=== PATIENT | male | born 1980 | race Caucasian/White ===

== ENCOUNTER 2023-09-08 08:38 | Day surgery (SDC) | payer BC, SELFPAY ==
[2023-09-08] VITALS (27 sets, daily range): BP systolic 120–177; BP diastolic 71–100; PULSE 48–93; TEMP 36.6–37.1; O2SAT 94–100; BMI 19.3
--- NOTE | 2023-09-08 | FL_ITS ---
The [address] [address] Patient Name: JAKOB FUENTES MRN: [id number] date: 1980 Sex: M Assigned Patient Location: [facility] Current Patient Location: Accession/Order Number: [id number] Exam Date: 09/08/2023 14:00 Report Date: 09/14/2023 08:59 At the request of: GUNNER SANDY Procedure: FL fluoroscopy <1hr NON-READ EXAM: FL fluoroscopy <1hr NON-READ HISTORY: TECHNIQUE: FINDINGS: Please see Operative Report. Electronically authenticated by: RADIOLOGIST NO Date: 09/14/2023 08:59
[2023-09-08] MEDS: LACTATED RINGER'S SOLUTION 1,000 ML 50 ML IV ×2 (09:46→14:22)
[2023-09-08 10:02] LABS: Partial Thromboplastin Time 29.2 sec (22.3-36.2)
[2023-09-08] MEDS: KETOROLAC TROMETHAMINE 30 MG/ML VIAL IVP (10:02)
[2023-09-08 10:26] LABS: INR 1.03; Prothrombin Time 10.9 sec (9.0-11.6)
[2023-09-08] MEDS: CEFAZOLIN SODIUM/DEXTROSE,ISO 1 GM/50 ML IV.SOLN IV (13:32)
--- NOTE | 2023-09-08 14:43 | PM.URSON ---
Urology Surgery Operative Note Operative Note Procedure Date: 09/08/23 Time Out Performed: yes Pre-op Diagnosis: Left UPJ 9 mm calculus Post-op Diagnosis: same as pre-op Procedures performed: 1. Cystoscopy. 2. Left ureteroscopy. 3. Thulium laser lithotripsy of a large left ureteral calculus. 4. Stone basket extraction. 5. Placement of 6 Indonesian variable length left ureteral stent 6. Urethral dilation with Sulphur sounds to 24 Indonesian. Anesthesia: General-LMA Primary Surgeon: Otf Bhagat Complications: None Estimated blood loss (mL): 5 Findings: Irregular oblong large UPJ calculus Specimens: Left UPJ calculus Drains: 6 Indonesian variable length left ureteral stent Indications for Procedures: This gentleman has a 9 to 10 mm left UPJ calculus that has been causing pain and blood in the urine for over a week. He is desirous for stone manipulation and stent placement. He has signed an informed consent after all risks were explained. Detailed description of Procedure: The patient was brought to the operating room and placed on the operating room table in the supine position. SCDs were placed on the lower extremities and turned on and functioning during the entire case. Timeout was done by all parties in the room. We all agreed upon the patient's identification and the planned procedures for this patient. Genn. anesthesia was then administered. The patient was then repositioned into the modified dorsal lithotomy position. All pressure points were satisfactorily padded. Genitalia were sterilely prepped and draped in usual fashion.I started by attempting to pass a 22 Indonesian Olympus cystoscope but was unable due to urethral stenosis. I then used [place] sounds and dilated him from 20 Indonesian up to 24 Indonesian.I then was able to pass the cystoscope per urethra and into the bladder. Panendoscopy in the bladder showed no evidence of any tumors or stones. While using fluoroscopy I could clearly see the stone at the UPJ level. I then passed a Glidewire through the scope and cannulated the left ureter. The wire went up to the stone and it buckled numerous times. Eventually I was able to get the wire beyond the stone into the kidney. The scope was then removed. I then passed a 10/12 Indonesian ureteral access sheath over the wire and up the ureter. I was able to get it up to the proximal ureter. The stylette and wire were then removed. I then passed a flexible ureteroscope through the access sheath and then into the ureter. I ascended up the ureter and was able to get to the stone at the UPJ. The stone was very irregular and oblong. It was large. It was stuck. I then passed a 200 Angstrom laser fiber through the scope and made contact with ink to. I then began using the thulium laser and doing lithotripsy at 6 W continuously in the fragmenting mode. ICracked the stone into a few pieces. The largest piece then fell into the renal pelvis. I then did pyeloscopy and used the laser effectively to dust the stone. Once the stone was fully dusted I then brought the scope back into the ureter and used a 0 tip nitinol basket and engaged the other 2 pieces and these were extracted down and out and sent for stone analysis. Fluoroscopically we could not see any stone remaining. Endoscopically I could not see any. I then passed a Glidewire through the sheath into the kidney and removed the access sheath. I then backloaded the cystoscope over the wire and passed it into the bladder and then slid a 6 Indonesian variable length ureteral stent over the wire up into the kidney. The wire was removed and there were good curls in the kidney and in the bladder. The bladder was drained of its contents and the scope was then removed. [facility] and wheeled to PACU in stable condition. He will get discharged to home later today with a prescription for Vesicare 10 mg daily #14 and cephalexin 500 mg twice daily #14
[2023-09-08] MEDS: HYDROMORPHONE HCL 0.5 MG/0.5 ML SYRINGE IV ×2 (15:04→15:15)
[2023-09-08] MEDS: SOLIFENACIN SUCCINATE 10 MG TABLET PO (15:05)
--- NOTE | 2023-09-08 15:10 | PC.NURSE ---
Voided in urinal post red urine
--- NOTE | 2023-09-08 15:19 | PC.NURSE ---
Medicated as ordered for pain
[2023-09-08] MEDS: ONDANSETRON PF 4 MG/2 ML VIAL IV (15:55)
[2023-09-08] MEDS: EPHEDRINE SULFATE 50 MG/ML VIAL IV (16:20)
[2023-09-08] MEDS: KETOROLAC TROMETHAMINE 30 MG/ML VIAL 15 MG IVP (16:47)
--- NOTE | 2023-09-08 16:53 | PC.NURSE ---
Medicated with Toradol as ordered for pain; has not had emesis for last 5 mins.
[2023-09-08] MEDS: PROMETHAZINE HCL 12.5 MG in 0.9 % SODIUM CHLORIDE 50 ML 202 MG IV (18:15)
== END 2023-09-08 18:52 | disposition home or self-care (01) ==
PROVIDERS: Visit Provider Urology
PROC: (CPT 918; principal; 2023-09-08 13:00)
DX: N20.1 Calculus of ureter (principal); N35.919 Unspecified urethral stricture, male, unspecified site; F17.210 Nicotine dependence, cigarettes, uncomplicated; R31.0 Gross hematuria; R10.9 Unspecified abdominal pain; Z87.442 Personal history of urinary calculi
CPT/HCPCS: 52356; 36415; 76000; 82365; 85610; 85730; 99999; J1170; J2704

== ENCOUNTER 2023-11-24 14:25 | Outpatient (OUT) | payer BC, SELFPAY ==
--- OUTSIDE RECORDS SUMMARY | 2023-11-24 14:47 | XMS_ITS | CCD ---
Author Organization [facility] Care Team Providers Care Route Vending Machine Servicer Name Role Phone ARCHANA SANCHEZ Primary Care Unavailable JETHRO RUELAS Attending Unavailable Archana Sanchez Primary Care Provider [facility] Perlita davison Niya Bearden Unavailable Unavailable Tyron Trujillo Attending Unavailable Avelina Gonzalez Attending Unavailable Avelina Gonzalez Attending Unavailable Zechariah Perales Attending Unavailable Zechariah Perales Attending Unavailable Otf BHAGAT Attending Unavailable Tyron Trujillo Attending Unavailable Otf BHAGAT Attending Unavailable BHAGATOtf Attending Unavailable Otf BHAGAT Referring Unavailable Otf BHAGAT Attending Unavailable Otf BHAGAT Admitting Unavailable Shabbir Barlow Attending Unavailable Shabbir Barlow Attending Unavailable HaTyron santillan H Attending Unavailable Nic SIMPSON Attending Unavailable Nic SIMPSON Admitting Unavailable Otf BHAGAT Attending Unavailable Medications Current Medications Medication Drug Class(es) Dates Sig (Normalized) Sig (Original) acetaminophen 325 mg / oxyCODONE hydrochloride 5 mg oral tablet (12 sources) Opioid Agonist Start: 10-27-2023 End: 10-30-2023 Percocet 5 mg-325 mg oral tablet 1 tab(s), Oral, q6hr for 3 day(s), 10 tab(s), Refill(s) 0, [facility] #[id number], 182, cm, 10/27/23 5:06:00 EDT, Height/Length Dosing, 65.3, kg, 10/27/23 5:06:00 EDT, Weight Dosing Start Date: 10/27/23 Stop Date: 10/30/23 Status: Ordered Start: 09-07-2023 End: 09-13-2023 Percocet 5 mg-325 mg oral ta blet 1 tab(s), Oral, q6hr as needed for pain, 10 tab(s), Refill(s) 0 Start Date: 09/07/23 Status: Ordered Start: 02-28-2011 take 1-2 tablets by mouth every six hours Percocet 325 mg-5 mg Tab 1-2 tabs, Oral, q6hr pain Start Date: 02/28/11 Status: Ordered ciprofloxacin 500 mg oral tablet (13 sources) Quinolone Antimicrobial Start: 09-10-2023 take 1 tablet by mouth twice daily Cipro 500 mg Tab 500 mg = 1 tab(s), Oral, BID, # 28 tab(s), Refills(s) 0, Pharmacy: [facility] #[id number], 182, cm, 09/09/23 23:02:00 EDT, Height/Length Dosing, 65.8, kg, 09/09/23 23:02:00 EDT, Weight Dosing Start Date: 09/10/23 Status: Ordered Start: 02-28-2011 End: 03-10-2011 take 1 tablet by mouth every twelve hours Cipro 500 mg Tab 500 mg = 1 tab(s), Oral, q12hr, # 20 tab(s), Refills(s) 0 Start Date: 02/28/11 Stop Date: 03/10/11 Status: Ordered Start: 02-28-2011 take 1 tablet by marielle th every twelve hours ciprofloxacin 250 mg Tab 250 mg = 1 tab(s), Oral, q12hr Start Date: 02/28/11 Status: Ordered ketorolac tromethamine 10 mg oral tablet (3 sources) Nonsteroidal Anti-inflammatory Drug, Cyclooxygenase Inhibitor Start: 09-10-2023 take 1 tablet by mouth every six hours as needed for pain ketorolac 10 mg Tab 10 mg = 1 tab(s), Oral, q6hr, PRN for pain, # 20 tab(s), Refills(s) 0, Pharmacy: [facility] #[id number], 182, cm, 09/09/23 23:02:00 EDT, Height/Length Dosing, 65.8, kg, 09/09/23 23:02:00 EDT, Weight Dosing Start Date: 09/10/23 Status: Ordered ondansetron 4 mg disintegrating oral tablet (1 source) Serotonin-3 Receptor Antagonist Start: 10-27-2023 End: 10-30-2023 take 1 tablet by mouth every six hours ondansetron 4 mg Dis Tab 4 mg = 1 tab(s), Oral, q6hr, X 3 day(s), # 10 tab(s), Refills(s) 0, Pharmacy: [facility] #[id number], 182, cm, 10/27/23 5:06:00 EDT, Height/Length Dosing, 65.3, kg, 10/27/23 5:06:00 EDT, Weight Dosing Start Date: 10/27/23 Stop Date: 10/30/23 Status: Ordered phenazopyridine hydrochloride 200 mg oral tablet (5 sources) Start: 02-28-2011 take 1 tablet by mouth three times daily phenazopyridine 200 mg Tab 200 mg = 1 tab(s), Oral, TID Start Date: 02/28/11 Status: Ordered tamsulosin hydrochloride 0.4 mg oral capsule (7 sources) alpha-Adrenergic Carolyne Start: 10-27-2023 take 1 capsule by mouth once daily Flomax 0.4 mg Cap 0.4 mg = 1 cap(s), Oral, Daily, Take one capsule by mouth daily for four days, # 4 cap(s), Refills(s) 0, Pharmacy: [facility] #[id number], 182, cm, 10/27/23 5:06:00 EDT, Height/Length Dosing, 65.3, kg, 10/27/23 5:06:00 EDT, Weight Dosing Start Date: 10/27/23 Status: Ordered Start: 09-07-2023 End: 09-07-2023 take 1 capsule by mouth once daily Flomax 0.4 mg Cap 0.4 mg = 1 cap(s), Oral, Daily, # 10 cap(s), Refills(s) 0 Start Date: 09/07/23 Status: Ordered Zofran ODT 4 mg Tab-Dis (3 sources) Start: 09-10-2023 take 1 tablet by mouth every eight hours Zofran ODT 4 mg Tab-Dis 4 mg = 1 tab(s), Oral, q8hr, # 12 tab(s), Refills(s) 0, Pharmacy: [facility] #[id number], 182, cm, 09/09/23 23:02:00 EDT, Height/Length Dosing, 65.8, kg, 09/09/23 23:02:00 EDT, Weight Dosing Start Date: 09/10/23 Status: Ordered Completed/Discontinued Medications Medication Drug Class(es) Dates Sig (Normalized) Sig (Original) cephalexin 500 mg oral capsule (5 sources) Cephalosporin Antibacterial Start: 10-27-2023 End: 11-03-2023 take 1 capsule by mouth four times daily Keflex 500 mg Cap 500 mg = 1 cap(s), Oral, QID, Take one capsule by mouth four times a day, X 7 day(s), # 28 cap(s), Refills(s) 0, Pharmacy: [facility] #[id number], 182, cm, 10/27/23 5:06:00 EDT, Height/Length Dosing, 65.3, kg, 10/27/23 5:06:00 EDT, Weight Dosing Start Date: 10/27/23 Stop Date: 11/03/23 Status: Ordered Start: 09-07-2023 End: 09-14-2023 take 1 capsule by mouth every six hours Keflex 500 mg Cap 500 mg = 1 cap(s), Oral, q6hr, X 7 day(s), # 28 cap(s), Refills(s) 0 Start Date: 09/07/23 Stop Date: 09/14/23 Status: Ordered naproxen 500 mg oral tablet (8 sources) Nonsteroidal Anti-inflammatory Drug Start: 10-27-2023 take 1 tablet by mouth twice daily naproxen 500 mg Tab 500 mg = 1 tab(s), Oral, BID, Take one tab by mouth two times a day, # 14 tab(s), Refills(s) 0, Pharmacy: [facility] #[id number], 182, cm, 10/27/23 5:06:00 EDT, Height/Length Dosing, 65.3, kg, 10/27/23 5:06:00 EDT, Weight Dosing Start Date: 10/27/23 Status: Ordered Start: 02-28-2011 End: 01-22-2019 take 1 tablet by mouth twice daily as needed for pain Naprosyn 500 mg Tab 500 mg = 1 tab(s), Oral, BID, PRN for pain, # 20 tab(s), Refills(s) 0 Start Date: 02/28/11 Status: Ordered Problems Active Problems Problem Classification Problem Date Documented Date Episodic/Chronic Abdominal pain (2 sources) Abdominal pain; Translations: [Unspecified abdominal pain] Onset: 09-08-2023 Episodic Calculus of urinary tract (19 sources) Ureteric stone; Translations: [Calculus of ureter] Onset: 09-07-2023 Episodic Genitourinary symptoms and ill-defined conditions (1 source) Blood in urine; Translations: [Gross hematuria] Onset: 09-08-2023 Episodic Other connective tissue disease (1 source) Pain of right thigh; Translations: [Pain of right thigh] Other diseases of kidney and ureters (1 source) Hydronephrosis; Translations: [Unspecified hydronephrosis] Onset: 11-16-2023 Episodic Other screening for suspected conditions (not mental disorders or infectious disease) (7 sources) No current problems or disability 10-03-2013 Episodic Substance-related disorders (7 sources) Smoker 09-07-2023 Chronic Comment on above: Added secondary to d ocumentation in Social History. Urinary tract infections (3 sources) Urinary tract infectious disease; Translations: [Urinary tract infection, site not specified] Onset: 09-07-2023 Episodic Past or Other Problems Problem Classification Problem Date Documented Da te Episodic/Chronic Other injuries and conditions due to external causes (1 source) Muscle strain; Translations: [Muscle strain] Episodic Results Test Name Value Interpretation Reference Range Facility Interdisciplinary Note - Hasmukh e Manageron 11-17-2023 Interdisciplinary Note - Investment Associate Interdisciplinary Note - Investment Associate CRM spoke with patient and in room. Patient is alert and oriented and participates in discharge planning. Patient white board updated, and CRM contact information provided. Discussed Dr Simpson will be here this afternoon and would anticipate to discharge today. Patient verified PCP, insurance and denies any DME. Patient is form home with and she will transport at wi. Patient denies any needs. Normal [facility] Comment on above: Result Comment: Elec tronically Signed By: Estevan ANDREA, Mishel\\.br\\Date and Time Signed: 11/17/23 13:04 EDT Main OR Intraoperative Recor don 11-17-2023 Main OR Intraoperative Record Main OR Intraoperative Record IntraOp Document Type FT Summary Primary Physician: Nic SIMPSON MD Finalized Date/Time: 11/17/23 13:17:28 Pt. Name: JAKOB FUENTES Zoya CampoB./Sex: 1980 Male Med Rec #: [id number] Physician: Nic SIMPSON MD Financial #: [id number] Pt. Type: A Room/Bed: [place] [address] Admit/Disch: 11/16/23 11:07:38 - Institution: Case Times FT Entry 1 Patient Times In Room 11/16/23 15:05:00 Out Room 11/16/23 15:27:00 Procedure Times Start 11/16/23 15:15:00 Stop 11/16/23 15:20:00 Anesthesia Times Start 11/16/23 15:05:00 Stop 11/16/23 15:27:00 Last Modified By: Nora Jacinto 11/16/23 15:29:57 General Comments: 11/17/2023 Chart opened for charge review per Torres Harvey RN. [place] Case Attendance FT Entry 1 Entry 2 Entry 3 Case Attendee Neo PANCHAL, SPA ATTENDANT, Queen TATIANA GREENE, Nora Dominguez Role Performed SPA ATTENDANT Surgeon - Primary Calender Supervisor - Primary Time In 11/16/23 15:05:00 11/16/23 15:05:00 11/16/23 15:05:00 Time Out 11/16/23 15:27:00 11/16/23 15:27:00 11/16/23 15:27:00 Procedure CYSTOSCOPY RETROGRADE CYSTOSCOPY RETROGRADE CYSTOSCOPY RETROGRADE STENT INSERTION(Left) STENT INSERTION(Left) STENT INSERTION(Left) Comments IS SUPERVISING Last Modified By: Nora Jacinto Kelsie E Burgderfer, Kelsie E 11/16/23 15:29:58 11/16/23 15:29:58 11/16/23 15:29:58 Entry 4 Entry 5 Case Attendee August DuboseRMyriam Pimentel Role Performed Scrub - Primary Anglesmith Helper Time In 11/16/23 15:05:00 11/16/23 15:05:00 Time Out 11/16/23 15:27:00 11/16/23 15:27:00 Procedure CYSTOSCOPY RETROGRADE CYSTOSCOPY RETROGRADE STENT INSERTION(Left) STENT INSERTION(Left) Comments Last Modified By: Nora Jacinto Kelsie E 11/16/23 15:29:58 11/16/23 15:29:58 Perioperative Protocols FT Pre-Care Text: Implements protective measures prior to operative or invasive procedure, confirms identity before the operative or invasive procedure, verifies operative procedure, surgical site, and laterality Entry 1 Procedure(s) CYSTOSCOPY RETROGRADE Patient Identity Birthday, ID Band STENT INSERTION(Left) Verified (select at Check, Patient least 2): Participation Consents / H and P Anesthesia Consent, Operative Site N/A Verified H&P, Surgery/Procedure Marking Verified Consent Surgical Site Yes Laterality Verified Yes Verified Procedure Verified Yes Correct Patient Yes Position Verified Availability Equipment, Implant, Prep Dry n/a Verified (If Medication, X-ray Applicable) PreOp Antibiotic Yes Time Out Neo PANCHAL, BURTON, Queen Samir Santos, Nic SIMPSON MD, Burgderfer, Kelsie E, August Dubose, Mikhail Perrin (R), Myriam Quintanilla Time Out Complete 11/16/23 15:14:00 Outcomes Met? Yes Last Modified By: Nora Jacinto 11/16/23 15:30:37 Post-Care Text: The patient is free from signs and symptoms of injury caused by extraneous objects Allergy Information FT Pre-Care Text: Verifies allergies Entry 1 Allergies Reviewed? Yes Allergies Reviewed Self/Patient With Outcomes Met? Yes Last Modified By: Nora Jacinto 11/16/23 14:50:06 Post-Care Text: The patient received appropriate medication(s) safely administered during the perioperative period Surgical Procedures FT Entry 1 Procedure Description Procedure CYSTOSCOPY RETROGRADE Modifiers Left STENT INSERTION Surgeon Description CYSTO, RETROGRADE AND LEFT STENT PLACEMENT Primary Procedure Yes Primary Surgeon Nic SIMPSON MD Start 11/16/23 15:15:00 Stop 11/16/23 15:20:00 Anesthesia Type General Surgical Service Urology Wound Class 2 - Clean-Contaminated Last Modified By: Nora Jacinto 11/16/23 15:20:46 General Case Data FT Pre-Care Text: Classifies surgical wound, implements aseptic technique, initiates traffic control Entry 1 Case Information OR OR 1 FT Case Level Level 3 Wound Class 2 - Clean-Contaminated Specialty Urology ASA Class 2E Preop Diagnosis FLANK PAIN Postop Same As Preop Yes Postop Diagnosis FLANK PAIN Outcomes Met? Yes Last Modified By: Candice ANDREA, BSN, Yashira 11/17/23 13:15:15 Post-Care Text: The patient is free from signs and symptoms of infection Skin Assessment (Pre Procedure) FT Pre-Care Text: Implements protective measures to prevent skin/ tissue injury due to thermal or mechanical sources Evaluates for signs and symptoms of physical injury to skin and tissue Entry 1 Skin Integrity Intact, Ailey, Warm, & Skin Abnormality No Dry Outcomes Met? Yes Last Modified By: Nora Jacinto 11/16/23 14:50:49 Post-Care Text: The patient is free from signs and symptoms of injury caused by extraneous objects Patient Positioning FT Pre-Care Text: Identifies physical alterations that require additional precautions for procedure-specific positioning, verifies presence of prosthetics or corrective devices, positions the (more content not included)... Normal [facility] BMPon 11-16-2023 Anion gap [Moles/Vol] 11 mmol/L Normal 6-16 [facility] Comment on above: Performed By: #### 2 [id number] #### [facility] [address] [place] [address] Calcium [Mass/Vol] 9.5 mg/dL Normal 8.9-11.1 [facility] Comment on above: Performed By: #### 2 [id number] #### [facility] [address] [place] [address] Chloride [Moles/Vol] 106 mmol/L Normal 101-111 [facility] Comment on above: Performed By: #### 2 [id number] #### [facility] [address] [place] [address] CO2 [Moles/Vol] 26 mmol/L Normal 21-31 [facility] Comment on above: Performed By: #### 2 [id number] #### [facility] [address] [place] [address] Creatinine [Mass/Vol] 1.1 mg/dL Normal 0.5-1.3 [facility] Comment on above: Performed By: #### 2 [id number] #### [facility] [address] [place] [address] Glucose [Mass/Vol] 77 mg/dL Normal 55-199 [facility] Comment on above: Performed By: #### 2 [id number] #### [facility] [address] [place] [address] Potassium [Moles/Vol] 3.9 mmol/L Normal 3.5-5.3 [facility] Comment on above: Performed By: #### 2 [id number] #### [facility] [address] [place] [address] Sodium [Moles/Vol] 139 mmol/L Normal 135-145 [facility] Comment on above: Performed By: #### 2 [id number] #### [facility] [address] [place] [address] Urea nitrogen [Mass/Vol] 14 mg/dL Normal 5-21 [facility] Comment on above: Performed By: #### 2 [id number] #### [facility] [address] [place] [address] Urea nitrogen/Creatinine [Mass ratio] 13 No Units Normal 10-20 [facility] Comment on above: Performed By: #### 2 [id number] #### [facility] [address] [place] [address] CBC w/ Auto Diffon 4 Basophils/100 WBC (Bld) 1.1 % Normal 0.0-2.0 [facility] Comment on above: Performed By: #### 2 [id number] #### [facility] [address] [place] [address] Basophils/Leukocytes Auto (Bld) [Pure # fraction] 0.1 E9/L Normal 0.0-0.2 [facility] Comment on above: Performed By: #### 2 [id number] #### [facility] [address] [place] [address] Eosinophils (Bld) [#/Vol] 0.1 E9/L Normal 0.0-0.5 [facility] Comment on above: Performed By: #### 2 [id number] #### [facility] [address] [place] [address] Eosinophils/100 WBC (Bld) 0.9 % Normal 0.0-8.0 [facility] Comment on above: Performed By: #### 2 [id number] #### [facility] [address] [place] [address] Erythrocyte distribution width (RBC) [Ratio] 14.4 % High 10.9-14.2 [facility] Comment on above: Performed By: #### 2 [id number] #### [facility] [address] [place] [address] Hematocrit (Bld) [Volume fraction] 42.5 % Normal 37.7-49.0 [facility] Comment on above: Performed By: #### 2 [id number] #### [facility] [address] [place] [address] Hemoglobin (Bld) [Mass/Vol] 14.1 g/dL Normal 13.5-17.5 [facility] Comment on above: Performed By: #### 2 [id number] #### [facility] [address] [place] [address] Lymphocytes (Bld) [#/Vol] 2.5 E9/L Normal 1.0-4.0 [facility] Comment on above: Performed By: #### 2 [id number] #### [facility] [address] [place] [address] Lymphocytes/100 WBC (Bld) 23.7 % Normal 14.0-50.0 [facility] Comment on above: Performed By: #### 2 [id number] #### [facility] [address] [place] [address] MCH (RBC) [Entitic mass] 28.2 pg Normal 27.0-34.0 [facility] Comment on above: Performed By: #### 2 [id number] #### [facility] [address] [place] [address] MCHC (RBC) [Mass/Vol] 33.2 g/dL Normal 31.4-36.0 [facility] Comment on above: Performed By: #### 2 [id number] #### [facility] [address] [place] [address] MCV (RBC) [Entitic vol] 85.1 fL Normal 80.0-100.0 F [facility] Comment on above: Performed By: #### 2 [id number] #### [facility] [address] [place] [address] Monocytes (Bld) [#/Vol] 0.8 E9/L Normal 0.2-1.0 [facility] Comment on above: Performed By: #### 2 [id number] #### [facility] [address] [place] [address] Neutrophils (Bld) [#/Vol] 7.0 E9/L Normal 2.0-7.5 [facility] Comment on above: Performed By: #### 2 [id number] #### [facility] [address] [place] [address] Neutrophils/100 WBC (Bld) 66.9 % Normal 36.0-75.0 [facility] Comment on above: Performed By: #### 2 [id number] #### [facility] [address] [place] [address] Platelet mean volume (Bld) [Entitic vol] 7.7 fL Normal 6.4-10.8 [facility] Comment on above: Performed By: #### 2 [id number] #### [facility] [address] [place] [address] Platelets (Bld) [#/Vol] 253.0 E9/L Normal 150.0-500.0 [facility] Comment on above: Performed By: #### 2 [id number] #### [facility] [address] [place] [address] RBC (Bld) [#/Vol] 5.0 E12/L Normal 4.3-5.9 [facility] Comment on above: Performed By: #### 2 [id number] #### [facility] [address] [place] [address] WBC corrected for nucl RBC Auto (Bld) [#/Vol] 10.5 E9/L Normal 4.0-11.0 [facility] Comment on above: Performed By: #### 2 [id number] #### [facility] [address] [place] [address] CHEMISTRYOrdered By: SYSTEM SYSTEM on 11-16-2023 Anion gap [Moles/Vol] 11 mmol/L Normal 6 - 16 mEq/L R [facility] Chem Calcium [Mass/Vol] 9.5 mg/dL Normal 8.9 - 11. 1 mg/dL [facility] Chloride [Moles/Vol] 106 mmol/L Normal 101 - 1 11 mmol/L [facility] CO2 [Moles/Vol] 26 mmol/L Normal 21 - 31 mmol/L [facility] Creatinine [Mass/Vol] 1.1 mg/dL Normal 0.5 - 1.3 mg/dL [facility] eGFR 86 mL/min/1.73 m2 Normal >=59mL/min /1 .73 m2 [facility] Glucose [Mass/Vol] 77 mg/dL Normal 55 - 199 mg/dL [facility] Potassium [Moles/Vol] 3.9 mmol/L Normal 3.5 - 5.3 mmol/L [facility] Sodium [Moles/Vol] 139 mmol/L Normal 135 - 145 mmol/L [facility] Urea nitrogen [Mass/Vol] 14 mg/dL Normal 5 - 21 mg/d L [facility] Urea nitrogen/Creatinine [Mass ratio] 13 mg/mg Normal 10 - [address] Abdomen/Pelvis w/o Contra ston 11-16-2023 CT Abdomen/Pelvis w/o Contrast Exam Date/Time: 11/16/2023 13:52 EDT Reason for Exam: Pain Report IMPRESSION: NO SIGNIFICANT CHANGE FROM 10/27/2023 IDENTIFIED. CLINICAL HISTORY: Pain. COMPARISON: Renal ultrasound and KUB from earlier 11/16/[address] abdomen and pelvis 10/27/2023. TECHNIQUE: Spiral unenhanced images were obtained of the abdomen and pelvis without contrast. All CT scans at this facility use dose modulation, iterative reconstruction, and/or weight based dosing when appropriate to reduce radiation dose to as low as reasonably achievable. Unless otherwise stated, incidental findings identified in this report do not require routine follow-up imaging. FINDINGS: Moderate left hydronephrosis with an approximately 2 mm UPJ stone appears unchanged from 10/27/2023. Two adjacent approximately 5 to 6 mm calculi are noted within the left lower pole. There are no other urinary tract calculi or significant changes identified elsewhere in the abdomen and pelvis. Ordering Provider: Tyron Trujillo FINAL REPORT Dictated: 11/16/2023 2:11 pm Robby Jerry MD Signed (Electronic Signature): 11/16/2023 2:11 pm Signed by: Robby Jerry MD Transcribed by: FLAKO Technologist: ELIZABETH Technical Comments Rectal Contrast Given? No Oral contrast amount in ml's: 0 Normal [facility] ED Note-Physicianon 11-16-19 ED Note-Physician ED Note-Physician Basic Information Time Seen: Tyron Trujillo M.D. 11/16/2023 11:20 Chief Complaint knoen kidney stone. hasnt passed. still flank pain History of Present Illness The patient is a 43-year-old male past medical history of kidney stones, who presented to the emergency room with his for left flank pain. The patient stated the pain has been present for 2 weeks. He describes the pain as constant pain . He rates it 7 out of 10. Denies any alleviating or aggravating factors for the pain. The patient points slightly to the left lower flank region. The patient states he came to the emergency room couple weeks ago and he was told that he has 2 mm stone. The patient states the pain has not gotten any better. He states he has been taking Percocet with no help. The patient denies any fever, denies any chills. He denies any nausea, denies any vomiting. The patient denies any burning with urination. He denies any blood in urine. The patient denies any other associated symptoms. Review of Systems Additional ROS info: Except as noted in the above Review of Systems and in the History of Present Illness all other systems have been reviewed and are negative or noncontributory. Physical Exam Vitals & Measurements T: 36.9 ?C(Oral) HR: 85(Monitored) RR: 15 BP: 134/78 SpO2: 98% HT: 182 cm WT: 65.3 kg BMI: 19.71 General: alert, mild distress Skin: warm, dry, Head: no trauma, normocephalic Neck: Trachea midline, Eye: normal conjunctiva, sclera clear ENMT: Oral mucosa moist Cardiovascular: regular rate and rhythm Respiratory: Lungs CTA, respirations non labored, breath sounds equal, Gastrointestinal: soft, non distended, mild tenderness left hypochondria, no guarding, Back: Moderate CVA tenderness on the left Extremities: no deformity, no trauma Neurological: Alert and oriented, speech normal, no focal neuro deficits Psychiatric: cooperative, affect appropriate for age, Medical Decision Making MEDICAL DECISION MAKING Number and Complexity of Problems Differential Diagnosis: [] [facility] Data External documents reviewed: [] My EKG interpretation: [] My CT interpretation: [] My X-ray interpretation: [] My Ultrasound interpretation: [] Decision rules/scores evaluated: [] Discussed with: Dr. Simpson Treatment and Disposition ED Course: The patient presented with left flank pain. His pain has been present for over 2 weeks. Blood work reviewed. Urine shows microscopic hematuria. The patient was given IV fluid and Toradol and his pain improved. The ultrasound shows moderate hydronephrosis. This is CT of the abdomen and pelvis shows 2 mm stone at left UPJ with moderate obstruction. It appears that the stone has not moved. Possible the patient has stricture of the ureter. The case is discussed with Dr. Simpson who will take patient to the operating room for stent placement. Shared decision making: [] Code status: [] Assessment/Plan 1. Left ureteral stone (N20.1: Calculus of ureter) 2. Hydronephrosis of left kidney (N13.30: Unspecified hydronephrosis) Orders: ketorolac, 30 mg = 1 mL, Injection, IV Push, Once, Stop date 11/16/23 11:30:00 EDT, STAT, Start date 11/16/23 11:30:00 EDT, 11/16/23 11:30:00 EDT Sodium Chloride 0.9% intravenous solution, 1,000 mL, Soln-IV, IV, Once, Stop date 11/16/23 11:30:00 EDT, STAT, Start date 11/16/23 11:30:00 EDT, Infuse over 61, minute(s) Basic Metabolic Panel CBC w/ Auto Diff CT Abdomen/Pelvis w/o Contrast eGFR Extra Blue Tube Extra SST Tube UA with Cult Rflx US Renal XR Abdomen 1 View Medications Administered Given ketorolac 30 mg/mL Inj 1 mL, 30 mg, IV Push NS 1000 ml Bolus, 1000 mL, IV Disposition Plan Patient Discharge Condition Stable, improved Discharge Disposition Taken to the operating room Discharge Prescription List Prescriptions No active prescription medications Follow-up No qualifying data available Problem List/Past Medical History Ongoing Denies History of kidney stones Smoker Ureteral stone Historical No qualifying data Procedure/Surgical History appendectomy (1989). Medications Inpatient No active inpatient medications Home Flomax 0.4 mg Cap, 0.4 mg= 1 cap(s), Oral, Daily naproxen 500 mg Tab, 500 mg= 1 tab(s), Oral, BID Allergies No Known Allergies Social History Alcohol - Denies Alcohol Use, 02/28/2011 Substance Abuse - Denies Substance Abuse, 02/28/2011 Tobacco - High Risk, 11/16/2023 10 or more cigarettes (1/2 pack or more)/day in last 30 days Tobacco Use:. Cigarettes, Yes, 09/08/2023 Current, Cigarettes, 02/28/2011 Lab Results WBC: 10.5 E9/L (11/16/23 11:26:00) RBC: 5 E12/L (11/16/23 11:26:00) HGB: 14.1 gm/dL (11/16/23 11:26:00) Hct: 42.5 % (11/16/23 11:26:00) MCV: 85.1 fL (11/16/23 11:26:00) MCH: 28.2 pg (11/16/23 11:26:00) MCHC: 33.2 gm/dL (11/16/23 11:26:00) RDW: 14.4 % High (11/16/23 11:26:00) Platelet: 253 E9/L (11/16/23 1 (more content not included)... Normal [facility] Comment on above: Result Comment: Elec tronically Signed By: Tyron Trujillo M.D..moody\\Date and Time Signed: 11/16/23 17:52 EDT HEMATOLOGYOrdered By: SYSTEM SYSTEM on 11-16-2023 Basophils/100 WBC (Bld) 1.1 % Normal 0.0 - 2.0 % Remisol Heme Basophils/Leukocytes Auto (Bld) [Pure # fraction] 0.1 E9/L Normal 0.0 - 0.2 E9/L Remisol Heme Eosinophils (Bld) [#/Vol] 0.1 E9/L Normal 0. 0 - 0.5 E9/L Remisol Heme Eosinophils/100 WBC (Bld) 0.9 % Normal 0.0 - 8.0 % Remisol Heme Erythrocyte distribution width (RBC) [Ratio] 14.4 % High 10.9 - 14.2 % Remisol Heme Hematocrit (Bld) [Volume fraction] 42.5 % Normal 37.7 - 49.0 % Remisol Heme Hemoglobin (Bld) [Mass/Vol] 14.1 g/dL Normal 13.5 - 17.5 gm/dL Remisol Heme Lymphocytes (Bld) [#/Vol] 2.5 E9/L Normal 1. 0 - 4.0 E9/L Remisol Heme Lymphocytes/100 WBC (Bld) 23.7 % Normal 14 .0 - 50.0 % Remisol Heme MCH (RBC) [Entitic mass] 28.2 pg Normal 27. 0 - 34.0 pg Remisol Heme MCHC (RBC) [Mass/Vol] 33.2 g/dL Normal 31.4 - 36.0 gm/dL Remisol Heme MCV (RBC) [Entitic vol] 85.1 fL Normal 80.0 - 100.0 fL Remisol Heme Monocytes (Bld) [#/Vol] 0.8 E9/L Normal 0.2 - 1.0 E9/L Remisol Heme Monocytes/100 WBC (Bld) 7.4 % Normal 4.0 - 14.0 % Remisol Heme Neutrophils (Bld) [#/Vol] 7.0 E9/L Normal 2. 0 - 7.5 E9/L Remisol Heme Neutrophils/100 WBC (Bld) 66.9 % Normal 36 .0 - 75.0 % Remisol Heme Platelet mean volume (Bld) [Entitic vol] 7.7 fL Normal 6.4 - 10.8 fL Remisol Heme Platelets (Bld) [#/Vol] 253.0 E9/L Normal 150. 0 - 500.0 E9/L Remisol Heme RBC (Bld) [#/Vol] 5.0 E12/L Normal 4.3 - 5.9 E12/L Remisol Heme WBC corrected for nucl RBC Auto (Bld) [#/Vol] 10.5 E9/L Normal 4.0 - 11.0 E9/L Remisol Heme Main OR PACU I Recordon Main OR PACU I Record Main OR PACU I Record PACU Phase I Document Type FT Summary Primary Physician: Nic SIMPSON MD Finalized Date/Time: 11/16/23 16:55:44 Pt. Name: JAKOB FUENTES/Sex: 1980 Male Med Rec #: [id number] Physician: Financial #: [id number] Pt. Type: O Room/Bed: [place] [address] Admit/Disch: 11/16/23 11:07:38 - Institution: Case Times PACU I FT Pre-Care Text: Identifies barriers to communication and implements measures to provide psychological support Develops individualized plan of care, and ensures continuity of care Maintains patient's dignity and privacy, and maintains patient confidentiality Identifies and reports philosophical, cultural, and spiritual beliefs and values Identifies individual values and wishes concerning care Implements aseptic technique, and administers prescribed antibiotic therapy and immunizing agents as ordered Evaluates postoperative tissue perfusion Implements thermoregulation measures, and monitors body temperature Evaluates postoperative respiratory status Evaluates postoperative cardiac status Evaluates postoperative neurological status Assesses pain control, collaborated in initiating patient-controlled analgesia and implements alternative methods of pain control Verifies allergies, administers prescribed medications and solutions, evaluates response to medications Entry 1 In PACU I 11/16/23 15:28:00 Discharge from PACU 11/16/23 15:58:00 I Outcomes Met? Yes Last Modified By: Leola Nielsen RN 11/16/23 15:47:53 Post-Care Text: The patient demonstrates knowledge of the expected response to the operative or invasive procedure The patient's care is consistent with the individualized perioperative plan of care The patient's right to privacy is maintained The patient's value system, lifestyle, ethnicity, and culture are considered, respected, and incorporated into the perioperative plan of care The patient participates in decisions affecting his or her perioperative plan of care The patient is free from signs and symptoms of infection The patient has wound/tissue perfusion consistent with or improved from baseline levels established preoperatively The patient is at or returning to normothermia at the conclusion of the immediate postoperative period The patient's respiratory function is consistent with or improved from baseline levels established preoperatively The patient's cardiovascular status is consistent with or improved from baseline levels established preoperatively The patient's cardiovascular status is consistent with or improved from baseline levels established preoperatively The patient demonstrates and/or reports adequate pain control throughout the perioperative period The patient received appropriate medication(s), safely administered during the perioperative period Acuity Level PACU I FT Entry 1 Start Time 11/16/23 15:28:00 Stop Time 11/16/23 15:58:00 Acuity Level Acuity Level I Last Modified By: Leola Nielsen RN 11/16/23 15:48:04 Finalized By: Leola Nielsen RN Document Signatures Signed By: Leola Nielsen RN 11/16/23 15:48 Leola Nielsen RN 11/16/23 16:55 Normal [facility] Main OR PACU II Recordon Main OR PACU II Record Main OR PACU II Record PACU Phase II Document Type FT Summary Primary Physician: Nic SIMPSON MD Finalized Date/Time: 11/16/23 17:02:53 Pt. Name: JAKOB FUENTES/Sex: 1980 Male Med Rec #: [id number] Physician: Financial #: [id number] Pt. Type: O Room/Bed: [facility] Admit/Disch: 11/16/23 11:07:38 - Institution: Case Times PACU II FT Pre-Care Text: Identifies barriers to communication and implements measures to provide psychological support and determines knowledge level Develops individualized plan of care, and ensures continuity of care Maintains patient's dignity and privacy, and maintains patient confidentiality Identifies and reports philosophical, cultural, and spiritual beliefs and values Identifies individual values and wishes concerning care administers prescribed antibiotic therapy and immunizing agents as ordered, Evaluates postoperative tissue perfusion Implements thermoregulation measures, and monitors body temperature Evaluates postoperative respiratory status Evaluates postoperative cardiac status Evaluates postoperative neurological status Assesses pain control, collaborated in initiating patient-controlled analgesia and implements alternative methods of pain control Verifies allergies, administers prescribed medications and solutions, evaluates response to medications Entry 1 In PACU II 11/16/23 16:00:00 Discharge from PACU 11/16/23 16:45:00 II Outcomes Met? Yes Last Modified By: Cristiana Whitmore RN 11/16/23 17:02:52 Post-Care Text: The patient demonstrates knowledge of the expected response to the operative or invasive procedure The patient's care is consistent with the individualized perioperative plan of care The patient's right to privacy is maintained The patient's value system, lifestyle, ethnicity, and culture are considered, respected, and incorporated into the perioperative plan of care The patient participates in decisions affecting his or her perioperative plan of care. The patient is free from signs and symptoms of infection The patient has wound/tissue perfusion consistent with or improved from baseline levels established preoperatively The patient is at or returning to normothermia at the conclusion of the immediate postoperative period The patient's respiratory function is consistent with or improved from baseline levels established preoperatively The patient's cardiovascular status is consistent with or improved from baseline levels established preoperatively The patient's neurological status is consistent with or improved from baseline levels established preoperatively The patient demonstrates and/or reports adequate pain control throughout the perioperative period The patient received appropriate medication(s), safely administered during the perioperative period Finalized By: Cristiana Whitmore RN Document Signatures Signed By: Cristiana Whitmore RN 11/16/23 17:02 Normal [facility] Main OR Preoperative Recordo n 11-16-2023 Main OR Preoperative Record Main OR Preoperative Record PreOp Document Type FT Summary Primary Physician: Nic SIMPSON MD Finalized Date/Time: 11/16/23 15:16:30 Pt. Name: JAKOB FUENTES/Sex: 1980 Male Med Rec #: [id number] Physician: Financial #: [id number] Pt. Type: E Room/Bed: Admit/Disch: 11/16/23 11:07:38 - Institution: Case Times PreOp FT Pre-Care Text: Verifies consent for planned procedure, identifies individual values and wishes concerning care, includes family members in perioperative teaching Entry 1 Patient Times. In Pre Surgery 11/16/23 14:40:00 Out Pre Surgery 11/16/23 15:03:00 Outcomes Met? Yes Last Modified By: Nora Jacinto 11/16/23 15:16:29 Post-Care Text: The patient participates in decisions affecting his or her perioperative plan of care Finalized By: Nora Jacinto Document Signatures Signed By: Nora Jacinto 11/16/23 15:16 Normal [facility] Operative Reporton Operative Report Operative Report Patient: JAKOB FUENTES Age: 43 years Sex: Male : 1980 Associated Diagnoses: None Author: Nic SIMPSON MD Postoperative Information Date/ Time: 11/16/2023 15:21:00 Postoperative Diagnosis: Left hydronephrosis with left ureteral calculus Left renal calculi Left-sided flank pain, intractable. Performed by: Nic Simpson MD. Findings: Procedure: Cystoscopy Left retrograde pyelogram Left double-J stent placement under fluoroscopic guidance Anesthesia: General, LMA, 2% Xylocaine jelly per urethra Indications: 43-year-old male with left-sided flank pain, 2 visits to the ER and a 2 mm calcification at the left ureteral pelvic junction. 2 small stones in the left lower pole. He is status post laser lithotripsy of a 9 mm stone at the left UPJ by Dr. Bhagat. Stent was removed in September of this year. He now has had 2 visits to the ER as noted the latest being today and the first being October 26. Repeat CT scan today demonstrated continued calcification at the left ureteropelvic junction. Recommendation made for admission and operative intervention with cystoscopy, left double-J stent and the possibility of eventual retrograde ureteroscopic approach. The patient and his are aware this and wished me to proceed. Preoperative antibiotics given in the form of Ancef [address] Procedure: The patient was brought back to the operating room and a timeout was performed. All are in agreement with the operative plan. After the successful induction of anesthesia he is placed in a modified dorsolithotomy position and prepped in usual fashion with Betadine solution. He is draped appropriately. 2% Xylocaine jelly is placed per urethra and a well-lubricated 22 Mauritian is urethroscope with 30 degree lens then passed into the bladder. Panendoscopy reveals no tumors, no stones. Orifices normal x 2. I should note that the prostate demonstrated only moderate lateral lobe hypertrophy. It does bleed a bit easily upon passage of the scope. Left retrograde pyelogram was then performed under fluoroscopic guidance. Ureter was normal without filling defects. It became quite narrow at the ureteral pelvic junction with no distinct calcification or filling defect noted. There are also known stones in the left lower pole which were not well-delineated. At this point I felt that a stent was indicated. Therefore a 0.035 guidewire was passed up into the kidney. Over that a 4.7 Mauritian Bard inlay double-J stent is passed into the kidney and fluoroscopic guidance. Wire removed and there is good curl within the kidney and urinary bladder. Bladder emptied scope removed and the procedure was terminated. He tolerates it well. He will be transferred to the floor for an observation admission. Discussed this postop with his and she is in agreement with the plan.. Estimated Blood Loss: 1 ml. Normal [facility] Comment on above: Result Comment: Elec tronically Signed By: TATIANA GREENE, Nic Wolf\\.moody\\Date and Time Signed: 11/16/23 15:24 EDT UA with Cult Rflxon 11-16-19 24 Bilirubin Ql (U) Negative Normal Negative [facility] Comment on above: Performed By: #### 4 [id number] ####[facility] [address] [place] [address] Clarity (U) Clear Normal Clear [facility] Comment on above: Performed By: #### 4 [id number] ####[facility] [address] [place] [address] Color (U) Light-Yellow Normal Yellow [facility] Comment on above: Result Comment: Micr oscopic readings are only performed on those samples that meet specific criteria set forth by [facility]. Performed By: #### 4 [id number] ####[facility] [address] [place] [address] Epithelial cells.squamous Auto (Urine sed) [#/Area] 0-2 Invalid Interpretation Code [facility] Comment on above: Performed By: #### 4 [id number] ####[facility] [address] [place] [address] Glucose Ql (U) Negative Normal Negative [facility] Comment on above: Performed By: #### 4 [id number] ####[facility] [address] [place] [address] Hemoglobin Auto test strip (U) [Mass/Vol] Trace Abnormal Negative [facility] Comment on above: Performed By: #### 4 [id number] ####[facility] [address] [place] [address] Ketones Auto test strip Ql (U) Negative Normal Negative [facility] Comment on above: Performed By: #### 4 [id number] ####[facility] [address] [place] [address] Leukocyte esterase Auto test strip Ql (U) 25 Roberto/uL Normal Negative [facility] Comment on above: Performed By: #### 4 [id number] ####[facility] [address] [place] [address] Mucus Auto Ql (U) Negative Normal Negative [facility] Comment on above: Performed By: #### 4 [id number] ####[facility] [address] [place] [address] Nitrite Auto test strip Ql (U) Negative Normal Negative [facility] Comment on above: Performed By: #### 4 [id number] ####[facility] [address] [place] [address] pH (U) 6.5 [pH] Invalid Interpretation Code 5.0-9.0 [facility] Comment on above: Performed By: #### 4 [id number] ####[facility] [address] [place] [address] Protein Ql (U) Negative Normal Negative [facility] Comment on above: Performed By: #### 4 [id number] ####[facility] [address] [place] [address] RBC Ql (U) 4-20 Abnormal 0-3 [facility] Comment on above: Performed By: #### 4 [id number] ####[place] [address] [place] [address] Specific gravity (U) [Rel density] 1.014 Invalid Interpretation Code 1.005-1.030 [facility] Comment on above: Performed By: #### 4 [id number] ####[place] [id number] Urobilinogen (U) [Mass/Vol] Negative Normal Negative [facility] Comment on above: Performed By: #### 4 [id number] ####[place] [id number] WBC Auto (Urine sed) [#/Area] 0-5 Normal 0-5 [facility] Comment on above: Performed By: #### 4 [id number] ####[facility] [address] [place], [place] [id number] Type of Urine collection method Clean Catch Normal [facility] Comment on above: Performed By: #### 4 [id number] ####[facility] [address] [place] [address] URINALYSISOrdered By: SYSTEM SYSTEM on 11-16-2023 Bilirubin Ql (U) Negative Normal Negativemg/ d L [facility] [place] Auto SS Clarity (U) Clear (11/16/23 11:43 AM) Normal Clear [facility] [place] Auto SS Color (U) Light-Yellow 1 (11/16/23 11:43 AM) Normal Yellow [facility] Auto SS Comment on above: Interpretive Data: M icroscopic readings are only performed on those samples that meet specific criteria set forth by [facility]. Epithelial cells.squamous Auto (Urine sed) [#/Area] 0-2 graded/HPF Invalid Interpretation Code [facility] [place] Auto SS Glucose Ql (U) Negative Normal Negativemg/d L [facility] UA Auto SS Hemoglobin Auto test strip (U) [Mass/Vol] Trace mg/dL Invalid Interpretation Code Negativemg/d L [facility] UA Auto SS Ketones Auto test strip Ql (U) Negative Normal Negativemg/d L [facility] UA Auto SS Leukocyte esterase Auto test strip Ql (U) 25 Roberto/uL Roberto/uL Normal NegativeLeu/ uL [facility] UA Auto SS Mucus Auto Ql (U) Negative Normal Negativegr ad ed/LPF [facility] UA Auto SS Nitrite Auto test strip Ql (U) Negative Normal Negativemg/d L [facility] UA Auto SS pH (U) 6.5 *NA* (11/16/23 11:43 AM) Invalid Interpretation Code 5.0 - 9.0 [facility] UA Auto SS Protein Ql (U) Negative Normal Negativemg/d L [facility] UA Auto SS RBC Ql (U) 4-20 graded/HPF Invalid Interpretation Code 0-3graded/HP F [facility] UA Auto SS Specific gravity (U) [Rel density] 1.014 *NA* (11/16/23 11:43 AM) Invalid Interpretation Code 1.005 - 1.030 [facility] UA Auto SS Urobilinogen (U) [Mass/Vol] Negative Normal Negativemg/d L [facility] UA Auto SS WBC Auto (Urine sed) [#/Area] 0-5 graded/HPF Normal 0-5graded/HP F [facility] UA Auto SS URINALYSISOrdered By: Tyron Trujillo on 11-16-2023 UA Spec Desc Clean Catch (11/16/23 11:43 AM) Normal [facility] UA Auto SS US Renalon 11-16-2023 US Renal Exam Date/Time: 11/16/2023 12:05 EDT Reason for Exam: Pain Report IMPRESSION: MODERATE LEFT HYDRONEPHROSIS, SIMILAR TO 10/27/2023. APPROXIMATELY 5 TO 6 MM LEFT LOWER POLE RENAL CALCULUS. EXAM: US Renal DATE: 11/16/2023 11:38 AM CLINICAL HISTORY: Pain. COMPARISON: CT abdomen and pelvis 10/27/2023. TECHNIQUE: Transabdominal ultrasound of the kidneys was performed. FINDINGS: The study is mild to moderately limited by the patient's body habitus and upper abdominal bowel gas. Both kidneys are normal in size, position and morphology, with renal cortex echogenicity within normal limits. Moderate left hydronephrosis appears similar to 10/27/2023. An approximately 5 to 6 mm left lower pole renal calculus is again noted. There is no right hydronephrosis, other visualized nephrolithiasis, abnormal perinephric collections, cystic or solid renal masses identified. Right Kidney Length: 11.0 cm Cortex: 1.4 cm Left Kidney Length: 11.7 cm Cortex: 2.0 cm Ordering Provider: Tyron Trujillo FINAL REPORT Dictated: 11/16/2023 12:08 pm Robby Jerry MD Signed (Electronic Signature): 11/16/2023 12:08 pm Signed by: Robby Jerry MD Transcribed by: FLAKO Technologist: TERESA Whitaker [facility] XR Abdomen 1 Viewon 11-16-19 XR Abdomen 1 View Exam Date/Time: 11/16/2023 12:30 EDT Reason for Exam: Abdominal pain Report IMPRESSION: NONOBSTRUCTIVE BOWEL GAS PATTERN. LEFT RENAL CALCULI. EXAMINATION: XR Abdomen 1 View HISTORY: Abdominal pain TECHNIQUE: Frontal view of the abdomen and pelvis COMPARISON: 09/09/2023 FINDINGS: A few tiny calcifications measuring up to 4 mm project over the inferior pole of the left kidney. No calculus identified over the right renal shadow or expected course of either ureter. Nonobstructive bowel gas pattern. No evidence of free air. No acute osseous abnormality. Ordering Provider: Tyron Trujillo FINAL REPORT Dictated: 11/16/2023 12:48 pm Dave Bingham DO Signed (Electronic Signature): 11/16/2023 12:48 pm Signed by: Dave Bingham DO Transcribed by: FLAKO Technologist: JOSÉ Technical Comments Radiation Dose: Ka,r in mGy = na DAP = na Normal [facility] XR Urography Retrograde Left on 11-16-2023 XR Urography Retrograde Left Exam Date/Time: 11/16/2023 15:27 EDT Reason for Exam: Abdominal pain Report IMPRESSION: INTEROPERATIVE FLUOROSCOPY PROVIDED FOR DR. SIMPSON'S RETROGRADE PROCEDURES. EXAM: XR Urography Retrograde Left DATE: 11/16/2023 2:52 PM CLINICAL HISTORY: Abdominal pain. COMPARISON: CT abdomen and pelvis from earlier 11/16/2023. TECHNIQUE: Intraoperative fluoroscopy was provided for Dr. Simpson's retrograde procedures. A total of 2.00 Air Kerma (Ka, r) of fluoroscopy was used with 3 fluoroscopic stills saved. No diagnostic images were obtained. The visualized aspect of a left ureteral stent is noted in expected position on the final image saved. Please see Dr. Simpson's surgical notes for completeness. Ordering Provider: Nic SIMPSON FINAL REPORT Dictated: 11/16/2023 3:45 pm Robby Jerry MD Signed (Electronic Signature): 11/16/2023 3:45 pm Signed by: Robby Jerry MD Transcribed by: FLAKO Technologist: ORLIN Technical Comments Radiation Dose: Ka,r in mGy = 2.00 DAP = 148.54 Fluoro Time: 43 seconds Normal [facility] eGFRon 11-16-2023 eGFR 86 mL/min/1.73 m2 Normal >=59 [facility] Comment on above: Order Comment: Order added by Discern Expert. Performed By: #### 1 [id number] #### [facility] [address] [place] [id number] C Urineon 10-29-2023 Bacteria identified Cx Nom (U) Microbiology PROCEDURE: Urine Culture [R1] SOURCE: U CleanCatch BODY SITE: COLLECTED DATE/TIME: 10/27/2023 05:18 EDT RECEIVED DATE/TIME: 10/27/2023 10:23 EDT START DATE/TIME: 10/27/2023 10:24 EDT FREE TEXT SOURCE: Shabbir Barlow DO, DO, Noah S. FINAL REPORTS Final Report [] Verified Date/Time: 10/29/2023 07:10 EDT 1,000 cfu/ml Mixed skin contaminants Performing Locations R1: This test was performed at: [facility], [address] [place] [address], [phone] , , Normal [facility] Comment on above: Performed By: #### 2 [id number] #### [facility] [address] [place] [address] BMPon 10-27-2023 Anion gap [Moles/Vol] 10 mmol/L Normal 6-16 Fis her [facility] Comment on above: Performed By: #### 2 [id number] #### [facility] [address] [place] [address] Calcium [Mass/Vol] 8.7 mg/dL Low 8.9-11.1 [facility] Comment on above: Performed By: #### 2 [id number] #### [facility] [address] [place] [address] Chloride [Moles/Vol] 107 mmol/L Normal 101-111 [facility] Comment on above: Performed By: #### 2 [id number] #### [facility] [address] [place] [address] CO2 [Moles/Vol] 25 mmol/L Normal 21-31 [facility] Comment on above: Performed By: #### 2 [id number] #### [facility] [address] [place] [address] Creatinine [Mass/Vol] 1.2 mg/dL Normal 0.5-1.3 [facility] Comment on above: Performed By: #### 2 [id number] #### [facility] [address] [place] [address] Glucose [Mass/Vol] 116 mg/dL Normal 55-199 [facility] Comment on above: Performed By: #### 2 [id number] #### [facility] [address] [place] [address] Potassium [Moles/Vol] 4.0 mmol/L Normal 3.5-5.3 [facility] Comment on above: Performed By: #### 2 [id number] #### [facility] [address] [place] [address] Sodium [Moles/Vol] 138 mmol/L Normal 135-145 [facility] Comment on above: Performed By: #### 2 [id number] #### [facility] [address] [place] [address] Urea nitrogen [Mass/Vol] 12 mg/dL Normal 5-21 [facility] Comment on above: Performed By: #### 2 [id number] #### [facility] [address] [place] [address] Urea nitrogen/Creatinine [Mass ratio] 10 No Units Normal 10-20 [facility] Comment on above: Performed By: #### 2 [id number] #### [facility] [address] [place] [address] CBC w/ Auto Diffon 4 Basophils/100 WBC (Bld) 0.6 % Normal 0.0-2.0 [facility] Comment on above: Performed By: #### 2 [id number] #### [facility] [address] [place] [address] Basophils/Leukocytes Auto (Bld) [Pure # fraction] 0.1 E9/L Normal 0.0-0.2 [facility] Comment on above: Performed By: #### 2 [id number] #### [facility] [address] [place] [address] Eosinophils (Bld) [#/Vol] 0.1 E9/L Normal 0.0-0.5 [facility] Comment on above: Performed By: #### 2 [id number] #### [facility] [address] [place] [address] Eosinophils/100 WBC (Bld) 1.3 % Normal 0.0-8.0 [facility] Comment on above: Performed By: #### 2 [id number] #### [facility] [address] [place] [address] Erythrocyte distribution width (RBC) [Ratio] 14.2 % Normal 10.9-14.2 [facility] Comment on above: Performed By: #### 2 [id number] #### [facility] [address] [place] [address] Hematocrit (Bld) [Volume fraction] 44.4 % Normal 37.7-49.0 [facility] Comment on above: Performed By: #### 2 [id number] #### [facility] [address] [place] [address] Hemoglobin (Bld) [Mass/Vol] 14.9 g/dL Normal 13.5-17.5 [facility] Comment on above: Performed By: #### 2 [id number] #### [facility] [address] [place] [address] Lymphocytes (Bld) [#/Vol] 1.7 E9/L Normal 1.0-4.0 [facility] Comment on above: Performed By: #### 2 [id number] #### [facility] [address] [place] [address] Lymphocytes/100 WBC (Bld) 15.1 % Normal 14.0-50.0 [facility] Comment on above: Performed By: #### 2 [id number] #### [facility] [address] [place] [address] MCH (RBC) [Entitic mass] 28.7 pg Normal 27.0-34.0 [facility] Comment on above: Performed By: #### 2 [id number] #### [facility] [address] [place] [address] MCHC (RBC) [Mass/Vol] 33.6 g/dL Normal 31.4-36.0 [facility] Comment on above: Performed By: #### 2 [id number] #### [facility] [address] [place] [address] MCV (RBC) [Entitic vol] 85.4 fL Normal 80.0-100.0 [facility] Comment on above: Performed By: #### 2 [id number] #### [facility] [address] [place] [address] Monocytes (Bld) [#/Vol] 0.9 E9/L Normal 0.2-1.0 [facility] Comment on above: Performed By: #### 2 [id number] #### [facility] [address] [place] [address] Neutrophils (Bld) [#/Vol] 8.4 E9/L High 2.0-7.5 [facility] Comment on above: Performed By: #### 2 [id number] #### [facility] [address] [place] [address] Neutrophils/100 WBC (Bld) 75.1 % High 36.0-75.0 [facility] Comment on above: Performed By: #### 2 [id number] #### [facility] [address] [place] [address] Platelet mean volume (Bld) [Entitic vol] 8.3 fL Normal 6.4-10.8 [facility] Comment on above: Performed By: #### 2 [id number] #### [facility] [address] [place] [address] Platelets (Bld) [#/Vol] 234.0 E9/L Normal 150.0-500.0 [facility] Comment on above: Performed By: #### 2 [id number] #### [facility] [address] [place] [address] RBC (Bld) [#/Vol] 5.2 E12/L Normal 4.3-5.9 [facility] Comment on above: Performed By: #### 2 [id number] #### [facility] [address] [place] [address] WBC corrected for nucl RBC Auto (Bld) [#/Vol] 11.2 E9/L High 4.0-11.0 [facility] Comment on above: Performed By: #### 2 [id number] #### [facility] [address] [place] [address] CHEMISTRYOrdered By: SYSTEM SYSTEM on 10-27-2023 Albumin [Mass/Vol] 4.1 g/dL Normal 3.3 - 5.0 gm/dL [facility] Chem Albumin/Globulin [Mass ratio] 1.6 {ratio} Normal 1.1 - 2.2 [facility] Chem ALP [Catalytic activity/Vol] 59 [iU]/d Normal 21 - 98 Int._Unit/L [facility] Chem ALT No additional P-5'-P [Catalytic activity/Vol] 10 [iU]/d Normal 6 - 46 Int._Unit/L [facility] Chem Anion gap [Moles/Vol] 10 mmol/L Normal 6 - 16 mEq/L R emisol Chem AST [Catalytic activity/Vol] 18 [iU]/d Normal 5 - 43 Int._Unit/L [facility] Chem Bilirubin [Mass/Vol] 0.5 mg/dL Normal 0.0 - 1 .1 mg/dL [facility] Chem Bilirubin.direct [Mass/Vol] 0.1 mg/dL Normal 0.0 - 0.4 mg/dL [facility] Chem Bilirubin.indirect [Mass or moles/Vol] 0.4 mg/dL Normal 0.1 - 0.9 mg/dL [facility] Calcium [Mass/Vol] 8.7 mg/dL Low 8.9 - 11. 1 mg/dL [facility] Chloride [Moles/Vol] 107 mmol/L Normal 101 - 1 11 mmol/L [facility] CO2 [Moles/Vol] 25 mmol/L Normal 21 - 31 mmol/L [facility] Creatinine [Mass/Vol] 1.2 mg/dL Normal 0.5 - 1.3 mg/dL [facility] Chem eGFR 78 mL/min/1.73 m2 Normal >=59mL/min /1 .73 m2 [facility] Globulin (S) [Mass/Vol] 2.6 g/dL Normal 1.4 - 4.0 gm/dL [facility] Glucose [Mass/Vol] 116 mg/dL Normal 55 - 199 mg/dL [facility] Lipase [Catalytic activity/Vol] 37 U/L Normal 13 - 58 unit/L [facility] Potassium [Moles/Vol] 4.0 mmol/L Normal 3.5 - 5.3 mmol/L [facility] Chem Protein [Mass/Vol] 6.7 g/dL Normal 6.0 - 7.8 gm/dL [facility] Sodium [Moles/Vol] 138 mmol/L Normal 135 - 145 mmol/L [facility] Urea nitrogen [Mass/Vol] 12 mg/dL Normal 5 - 21 mg/d L [facility] Chem Urea nitrogen/Creatinine [Mass ratio] 10 mg/mg Normal 10 - [address] Abdomen/Pelvis w/o Contra ston 10-27-2023 CT Abdomen/Pelvis w/o Contrast Exam Date/Time: 10/27/2023 05:52 EDT Reason for Exam: left flank pain, suspect stone;Other (please specify) Report IMPRESSION: MODERATELY OBSTRUCTING APPROXIMATELY 2 MM LEFT UPJ CALCULUS. APPROXIMATELY 7 MM LEFT LOWER POLE LEFT RENAL CALCULI AND FAINT CURVILINEAR CALCIFICATION WITHIN THE POSTERIOR LEFT RENAL PELVIS, NOTED. CLINICAL HISTORY: left flank pain, suspect stone. COMPARISON: 09/12/2023. TECHNIQUE: Spiral unenhanced images were obtained from above the kidneys through the urinary bladder without contrast. All CT scans at this facility use dose modulation, iterative reconstruction, and/or weight based dosing when appropriate to reduce radiation dose to as low as reasonably achievable. Unless otherwise stated, incidental findings identified in this report do not require routine follow-up imaging. FINDINGS: Since the prior study of 09/12/2023, a left ureteral stent has been removed. There is an approximately 2 mm calculus at the left UVJ, with moderate hydronephrosis. An approximately 7 mm left lower pole renal calculus is noted. Faint curvilinear calcification within the posterior aspect of the left renal pelvis may have been secondary to the proximal stent pigtail and/or lithotripsy. There are no other significant urinary tract calculi or other changes from 09/12/2023 identified. The visualized lung bases are clear. Ordering Provider: Shabbir Barlow FINAL REPORT Dictated: 10/27/2023 7:37 am Robby Jerry MD Signed (Electronic Signature): 10/27/2023 7:37 am Signed by: Robby Jerry MD Transcribed by: FLAKO Technologist: THUAN Technical Comments Contrast: None Rectal Contrast Given? No Oral contrast amount in ml's: 0 Normal [facility] ED Clinical Summaryon 2023 ED Clinical Summary ED Clinical Summary [place] [id number] ED Clinical Summary Person Information Name: JAKOB FUENTES [facility] Age: 43 Years : 1980 Sex: Male Language: British PCP: [facility] Marital Status: Visit Id: Visit Reason: Flank pain; Nausea; Back pain; BACK PAIN Speciality: Acuity: 3 Enc Type: Emergency Med Service: Emergency Arrival: 10/27/2023 05:00:51 Discharge: 10/27/2023 07:57:10 LOS: 000 02:57 Checkin: 10/27/2023 05:00:51 Checkout: 10/27/2023 07:57:10 Dispo Type: Home (Routine DC) EVENTS: Event Name Event Status Request Date/Time Start Date/Time Complete Date/Time Arrive Complete 10/27/2023 05:00:51 10/27/2023 05:00:51 10/27/2023 05:00:51 Document Home Meds Request 10/27/2023 05:00:51 Triage Complete 10/27/2023 05:00:51 10/27/2023 05:06:46 10/27/2023 05:06:46 Dr Exam Complete 10/27/2023 05:07:12 10/27/2023 05:07:12 10/27/2023 05:07:12 Registration Complete 10/27/2023 05:07:12 10/27/2023 05:07:20 10/27/2023 05:09:27 Bed Assign Complete 10/27/2023 05:07:20 10/27/2023 05:07:20 10/27/2023 05:07:20 RN Exam Complete 10/27/2023 05:07:20 10/27/2023 05:34:02 10/27/2023 05:34:02 Reg Complete Request 10/27/2023 05:09:27 Reg Bed Request Complete 10/27/2023 05:09:27 10/27/2023 05:09:27 10/27/2023 05:09:27 Pending Labs Complete 10/27/2023 05:15:59 10/27/2023 05:33:18 10/27/2023 06:02:39 Lab Complete 10/27/2023 05:15:59 10/27/2023 06:02:39 Meds Admin Complete 10/27/2023 05:20:09 10/27/2023 05:32:09 CT Complete 10/27/2023 05:20:09 10/27/2023 05:27:43 10/27/2023 05:52:41 Pending Labs Complete 10/27/2023 05:33:19 10/27/2023 05:33:19 10/27/2023 06:00:44 Lab Complete 10/27/2023 05:33:19 10/27/2023 05:33:19 10/27/2023 06:00:44 Pending Labs Collected 10/27/2023 05:52:29 10/27/2023 05:52:29 Lab Collected 10/27/2023 05:52:29 10/27/2023 05:52:29 Meds Admin Complete 10/27/2023 06:07:02 10/27/2023 06:15:51 Dr Exam Complete 10/27/2023 07:02:07 10/27/2023 07:02:07 10/27/2023 07:02:07 Registration Request 10/27/2023 07:02:07 Patient Care Request 10/27/2023 07:50:42 Discharge Complete 10/27/2023 07:50:44 10/27/2023 07:57:20 10/27/2023 07:57:20 Transfer Complete 10/27/2023 07:57:20 10/27/2023 07:57:20 10/27/2023 07:57:20 ADDRESS: [address] [place] [id number] PHYS DOC NOTES: Addendum by Jt Jameson DO on October 27, 2023 07:51:18 EDT MEDICAL INFORMATION: Prescriptions Given: New Medications [id number], [address] [place], [place] [id number], [phone] acetaminophen-oxycod one (Percocet 5 mg-325 mg oral tablet) 1 Tablets By Mouth every 6 hours for 3 Days. Refills: 0. cephalexin (Keflex 500 mg Cap) 1 Capsules By Mouth 4 times a day for 7 Days. Take one capsule by mouth four times a day. Refills: 0. naproxen (naproxen 500 mg Tab) 1 Tablets By Mouth 2 times a day. Take one tab by mouth two times a day. Refills: 0. ondansetron (ondansetron 4 mg Dis Tab) 1 Tablets By Mouth every 6 hours for 3 Days. Refills: 0. tamsulosin (Flomax 0.4 mg Cap) 1 Capsules By Mouth every day. Take one capsule by mouth daily for four days. Refills: 0. PATIENT EDUCATION INFORMATION: Instructions: Follow up: With: Address: When: Nic ESCOBAR, [address], [address] [address] [employer] ([employer] In 3 days 10/30/2023 Comments: Call Dr for diagnosis based follow up DIAGNOSIS: Acute UTI; Flank pain; Ureterolithiasis Normal [facility] ED Note-Physicianon 10-27-19 ED Note-Physician ED Note-Physician Basic Information Time Seen: Opal Barlow DOah Nabor 10/27/2023 05:07 Chief Complaint left lower back pain since yesterday. recent kidney surgery for stone at the end of august. nausea and vomiting History of Present Illness HPI: Patient is a 43-year-old male with past medical history of kidney stones and tobacco use who presents the ED for left flank pain. Patient states this for started yesterday and has been worsening since then. He states he has a history of kidney stones and had to have a 9 mm stone broken up and a stent placed in August. He had been doing well since then until yesterday. He states it is a similar sensation to his left flank however he has not noticed any difficulty in urinating or any hematuria at this time. He has had nausea and vomiting since yesterday. No fevers or chills. ROS: Pertinent review of systems conducted and is negative except as noted above. Physical exam: General: nontoxic appearing and in no distress HEENT: Mucous membranes moist Neuro: awake and alert Neck: supple, trachea midline Card: Heart regular rate and rhythm no murmur Resp: Lungs clear to auscultation no wheeze or rhonchi Abd: Soft and nondistended. No tenderness to palpation with no rebound or guarding. Left CVA tenderness. Ext: No gross deformity or edema Physical Exam Vitals & Measurements T: 36.8 ?C(Oral) HR: 80(Peripheral) RR: 16 BP: 162/84 SpO2: 98% HT: 182 cm WT: 65.3 kg BMI: 19.71 Medical Decision Making MEDICAL DECISION MAKING Number and Complexity of Problems Differential Diagnosis: [] MDM Data External documents reviewed: N/A My EKG interpretation: Noted in chart if applicable My CT interpretation: N/A My X-ray interpretation: Noted in chart if applicable My Ultrasound interpretation: N/A Decision rules/scores evaluated: N/A Discussed with: N/A Treatment and Disposition ED Course: Is nontoxic-appearing no distress. He does have focal CVA tenderness on the left history of kidney stones will obtain a CT of the abdomen pelvis without contrast in addition to blood work and urinalysis. Patient was given IV fluids as well as Toradol and Zofran for comfort. Blood work shows mild nonspecific leukocytosis of 11.2. Urine does show some signs concerning for UTI so we will start him on IV Rocephin. Patient was handed to the oncoming physician pending CT result. Shared decision making: As above Code status: N/A Assessment/Plan Acute UTI (N39.0: Urinary tract infection, site not specified) Flank pain (R10.9: Unspecified abdominal pain) Orders: ceftriaxone + Sodium Chloride 0.9% intravenous solution 50 mL, 1,000 mg = 1 EA, IV Piggyback, Once, Stop date 10/27/23 6:06:00 EDT, STAT, Start date 10/27/23 6:06:00 EDT, 100 mL/hr, Infuse over 30 minute(s), 10/27/23 6:06:00 EDT ketorolac, 15 mg = 1 mL, Injection, IV Push, Once, Stop date 10/27/23 5:19:00 EDT, STAT, Start date 10/27/23 5:19:00 EDT, 10/27/23 5:19:00 EDT ondansetron, 4 mg = 2 mL, Injection, IV Push, Once, Stop date 10/27/23 5:19:00 EDT, STAT, Start date 10/27/23 5:19:00 EDT, 10/27/23 5:19:00 EDT Sodium Chloride 0.9% intravenous solution, 1,000 mL, Soln-IV, IV, Once, Stop date 10/27/23 5:19:00 EDT, STAT, Start date 10/27/23 5:19:00 EDT, Infuse over 61, minute(s) Basic Metabolic Panel CBC w/ Auto Diff CT Abdomen/Pelvis w/o Contrast eGFR Hepatic Function Panel Lipase Level UA with Cult Rflx Urine Culture Medications Administered Given ceftriaxone additive 1000 mg + Sodium Chloride 0.9% intravenous solution 50 mL, IV Piggyback ketorolac 15 mg/mL Inj, 15 mg, IV Push NS 1000 ml Bolus, 1000 mL, IV Zofran 4 mg/2 mL Injection, 4 mg, IV Push Disposition Plan Discharge Prescription List Prescriptions No active prescription medications Follow-up No qualifying data available Problem List/Past Medical History Ongoing Denies History of kidney stones Smoker Ureteral stone Historical No qualifying data Procedure/Surgical History appendectomy (1989). Medications Inpatient ketorolac 15 mg/mL Inj, 15 mg= 1 mL, IV Push, Once NS 1000 ml Bolus, 1000 mL, IV, Once Zofran 4 mg/2 mL Injection, 4 mg= 2 mL, IV Push, Once Home No active home medications Allergies No Known Allergies Social History Alcohol - Denies Alcohol Use, 02/28/2011 Substance Abuse - Denies Substance Abuse, 02/28/2011 Tobacco 10 or more cigarettes (1/2 pack or more)/day in last 30 days Tobacco Use:. Cigarettes, Yes, 09/08/2023 Current, Cigarettes, 02/28/2011 Lab Results WBC: 11.2 E9/L High (10/27/23 05:32:00) RBC: 5.2 E12/L (10/27/23 05:32:00) HGB: 14.9 gm/dL (10/27/23 05:32:00) Hct: 44.4 % (10/27/23 05:32:00) MCV: 85.4 fL (10/27/23 05:32:00) MCH: 28.7 pg (10/27/23 05:32:00) MCHC: 33.6 gm/dL (10/27/23 05:32:00) RDW: 14.2 % (10/27/23 05:32:00) Platelet: 234 E9/L (10/27/23 05:32:00) MPV: 8.3 fL (10/27/23 05:32:00) Neutro Auto: 75.1 % High (10/27/23 05:32:00) Lymph Auto: 15.1 % (10/27/23 05:32:00) (more content not included)... Normal [facility] Comment on above: Result Comment: Elec tronically Signed By: Jt Jameson DO\\.[email or web address]\\Date and Time Signed: 10/27/23 07:52 EDT ED Patient Education Noteon 10-27-2023 ED Patient Education Note ED Patient Edu cation Note Normal [facility] ED Patient Summaryon 024 ED Patient Summary ED Patient Summary [address] [address] Patient Discharge Instructions Person Information Name: JAKOB FUENTES Age: 43 Years Arrival Date: 10/27/2023 05:00:51 Discharge Diagnosis: Acute UTI; Flank pain; Ureterolithiasis Primary Care Physician: [facility] Provider Information Primary Provider: Shabbir Barlow DO [employer] Egg [employer]her:None The exam and treatment you received in the Emergency Department were for an urgent problem and are not intended as complete care. It is important that you follow up with a doctor, nurse practitioner, or physician?s health care assistant for ongoing care. If your symptoms become worse or you do not improve as expected and you are unable to reach your usual health care provider, you should return to the Emergency Department. We are available 24 hours a day. JAKOB FUENTES has been given the following list of patient education materials, prescriptions and follow-up instructions: Follow-up Instructions: With: Address: When: Nic SIMPSON [address] [place] [address], [address], [address] [address] Business (1) In 3 days 10/30/2023 Comments: Call Dr for diagnosis based follow up In the event that this physician does not participate in your insurance network, please consult with your insurance company to find a nearby participating provider. Patient Education Materials: A MESSAGE TO ALL PATIENTS REGARDING OPIOIDS PRESCRIPTION OPIOIDS: WHAT YOU NEED TO KNOW Prescription opioids can be used to help relieve bwigycpr-ph-iszrlk pain and are often prescribed following a surgery or injury, or for certain health conditions. These medications can be an important part of the treatment but also come with serious risks. It is important to work with your healthcare provider to make sure you are getting the safest, most effective care. WHAT ARE THE RISKS AND SIDE EFFECTS OF OPIOID USE? Prescription opioids carry serious risks of addiction and overdose, especially with prolonged use. An opioid overdose, often marked by slowed breathing, can cause sudden . The use of prescription opioids can have a number of side effects as well, even when taken as directed: ? Tolerance?meaning you might need to take more of the medication for the same pain relief ? Physical dependence?meaning you have symptoms of withdrawal when a medication is stopped ? Increased sensitivity to pain ? Constipation ? Nausea, vomiting, and dry mouth ? Sleepiness and dizziness ? Confusion ? Depression ? Low levels of testosterone that can result in lower sex drive, energy, and strength ? Itching and sweating RISKS ARE GREATER WITH: ? History of drug misuse, substance use disorder, or overdose ? Mental health conditions (such as depression or anxiety) ? Sleep apnea ? Older age (65 years and older) ? Avoid alcohol while taking prescription opioids. Also, unless specifically advised by your health care provider, medications to avoid include: ? Benzodiazepines (such as Xanax or Valium) ? Muscle relaxants (such as Soma or Flexeril) ? Hypnotics (such as Ambien or Lunesta) ? Other prescription opioids KNOW YOUR OPTIONS Talk to your health care provider about ways to manage your pain that don?t involve prescription opioids. Some of these options may actually work better and have fewer risks and side effects. Options may include: ? Pain relievers such as acetaminophen, ibuprofen, and naproxen ? Some medication that are also used for depression or seizures ? Physical therapy and exercise ? Cognitive behavioral therapy, a psychological, goal-directed approach, in which patients learn how to modify physical, behavioral, and emotional triggers of pain and stress. IF YOU ARE PRESCRIBED OPIOIDS FOR PAIN: ? Never take opioids in greater amounts or more often than prescribed. ? Follow up with your primary health care provider. o Work together to create a plan on how to manage your pain. o Talk about ways to help manage your pain that don?t involve prescription opioids. o Talk about any and all concerns and side effects. ? Help prevent misuse and abuse o Never sell or share prescription opioids. o Never use another person?s prescription opioids. ? Store prescription opioids in a secure place and out of reach of others (this may include visitors, children, friends, and family). ? Safely dispose of unused prescription opioids: Find your community drug take-back program or your pharmacy mail-back program, or flush them down the toilet, following guidance from the Food and Drug Administration (www.fda.gov/Drugs/R esourcesForYou). ? Visit www.cdc.gov/drugover dose to learn about the risks of opioids abuse and overdose. ? If you believe you may be struggling with addiction, tell your health pharmacy care coordinator and ask for (more content not included)... Normal [facility] HEMATOLOGYOrdered By: SYSTEM SYSTEM on 10-27-2023 Basophils/100 WBC (Bld) 0.6 % Normal 0.0 - 2.0 % Remisol Heme Basophils/Leukocytes Auto (Bld) [Pure # fraction] 0.1 E9/L Normal 0.0 - 0.2 E9/L Remisol Heme Eosinophils (Bld) [#/Vol] 0.1 E9/L Normal 0. 0 - 0.5 E9/L Remisol Heme Eosinophils/100 WBC (Bld) 1.3 % Normal 0.0 - 8.0 % Remisol Heme Erythrocyte distribution width (RBC) [Ratio] 14.2 % Normal 10.9 - 14.2 % Remisol Heme Hematocrit (Bld) [Volume fraction] 44.4 % Normal 37.7 - 49.0 % Remisol Heme Hemoglobin (Bld) [Mass/Vol] 14.9 g/dL Normal 13.5 - 17.5 gm/dL Remisol Heme Lymphocytes (Bld) [#/Vol] 1.7 E9/L Normal 1. 0 - 4.0 E9/L Remisol Heme Lymphocytes/100 WBC (Bld) 15.1 % Normal 14 .0 - 50.0 % Remisol Heme MCH (RBC) [Entitic mass] 28.7 pg Normal 27. 0 - 34.0 pg Remisol Heme MCHC (RBC) [Mass/Vol] 33.6 g/dL Normal 31.4 - 36.0 gm/dL Remisol Heme MCV (RBC) [Entitic vol] 85.4 fL Normal 80.0 - 100.0 fL Remisol Heme Monocytes (Bld) [#/Vol] 0.9 E9/L Normal 0.2 - 1.0 E9/L Remisol Heme Monocytes/100 WBC (Bld) 7.9 % Normal 4.0 - 14.0 % Remisol Heme Neutrophils (Bld) [#/Vol] 8.4 E9/L High 2. 0 - 7.5 E9/L Remisol Heme Neutrophils/100 WBC (Bld) 75.1 % High 36 .0 - 75.0 % Remisol Heme Platelet mean volume (Bld) [Entitic vol] 8.3 fL Normal 6.4 - 10.8 fL Remisol Heme Platelets (Bld) [#/Vol] 234.0 E9/L Normal 150. 0 - 500.0 E9/L Remisol Heme RBC (Bld) [#/Vol] 5.2 E12/L Normal 4.3 - 5.9 E12/L Remisol Heme WBC corrected for nucl RBC Auto (Bld) [#/Vol] 11.2 E9/L High 4.0 - 11.0 E9/L Remisol Heme Hep Func Panelon 10-27-2023 Albumin [Mass/Vol] 4.1 g/dL Normal 3.3-5.0 [facility] Comment on above: Performed By: #### 2 [id number] #### [facility] [address] [place] [address] Albumin/Globulin (S) [Mass conc ratio] 1.6 Normal 1.1-2.2 [facility] Comment on above: Performed By: #### 2 [id number] #### [facility] [address] [place] [address] ALP [Catalytic activity/Vol] 59 Int._Unit/L Normal 21-98 [facility] Comment on above: Performed By: #### 2 [id number] #### [facility] [address] [place] [address] ALT No additional P-5'-P [Catalytic activity/Vol] 10 Int._Unit/L Normal 6-46 [facility] Comment on above: Performed By: #### 2 [id number] #### [facility] [address] [place] [address] AST [Catalytic activity/Vol] 18 Int._Unit/L Normal 5-43 [facility] Comment on above: Performed By: #### 2 [id number] #### [facility] [address] [place] [address] Bilirubin [Mass/Vol] 0.5 mg/dL Normal 0.0-1.1 [facility] Comment on above: Performed By: #### 2 [id number] #### [facility] [address] [place] [address] Bilirubin.direct [Mass/Vol] 0.1 mg/dL Normal 0.0-0.4 [facility] Comment on above: Performed By: #### 2 [id number] #### [facility] [address] [place] [address] Bilirubin.indirect [Mass or moles/Vol] 0.4 mg/dL Normal 0.1-0.9 [facility] Comment on above: Performed By: #### 2 [id number] #### [facility] [address] [place] [address] Globulin (S) [Mass/Vol] 2.6 g/dL Normal 1.4-4.0 F [facility] Comment on above: Performed By: #### 2 [id number] #### [facility] [address] [place] [address] Protein [Mass/Vol] 6.7 g/dL Normal 6.0-7.8 [facility] Comment on above: Performed By: #### 2 [id number] #### [facility] [address] [place] [address] Lipase Levelon 10-27-2023 Lipase [Catalytic activity/Vol] 37 U/L Normal 13-58 [facility] Comment on above: Performed By: #### 2 [id number] #### [facility] [address] [place] [address] UA with Cult Rflxon 10-27-19 24 Bilirubin Ql (U) Negative Normal Negative [facility] Comment on above: Performed By: #### 4 [id number] #### [facility] [address] [place] [address] Clarity (U) Turbid Abnormal Clear [facility] Comment on above: Performed By: #### 4 [id number] #### [facility] [address] [place] [address] Color (U) Yellow Normal Yellow [facility] Comment on above: Result Comment: Micr oscopic readings are only performed on those samples that meet specific criteria set forth by [facility]. Performed By: #### 4 [id number] #### [facility] [address] [place] [address] Glucose Ql (U) Negative Normal Negative [facility] Comment on above: Performed By: #### 4 [id number] #### [facility] [address] [place] [address] Hemoglobin Auto test strip (U) [Mass/Vol] 2+ mg/dL Abnormal Negative [facility] Comment on above: Performed By: #### 4 [id number] #### [facility] [address] [place] [address] Ketones Auto test strip Ql (U) Negative Normal Negative [facility] Comment on above: Performed By: #### 4 [id number] #### [facility] [address] [place] [address] Leukocyte esterase Auto test strip Ql (U) 500 Roberto/uL Abnormal Negative [facility] Comment on above: Performed By: #### 4 [id number] #### [facility] [address] [place] [address] Mucus Auto Ql (U) 2+ [id number] Abnormal Negative F [facility] Comment on above: Performed By: #### 4 [id number] #### [facility] [address] [place] [address] Nitrite Auto test strip Ql (U) Negative Normal Negative [facility] Comment on above: Performed By: #### 4 [id number] #### [facility] [address] [place] [address] pH (U) 5.5 [pH] Invalid Interpretation Code 5.0-9.0 [facility] Comment on above: Performed By: #### 4 [id number] #### [facility] [address] [place] [address] Protein Ql (U) Trace Abnormal Negative [facility] Comment on above: Performed By: #### 4 [id number] #### [facility] [address] [place] [address] RBC Ql (U) 31-75 Abnormal 0-3 [facility] Comment on above: Performed By: #### 4 [id number] #### [facility] [address] [place] [address] Specific gravity (U) [Rel density] 1.018 Invalid Interpretation Code 1.005-1.030 [facility] Comment on above: Performed By: #### 4 [id number] #### [facility] [address] [place] [id number] Urobilinogen (U) [Mass/Vol] Negative Normal Negative [facility] Comment on above: Performed By: #### 4 [id number] #### [facility] [address] [place] [address] WBC Auto (Urine sed) [#/Area] >75 Abnormal 0-5 [facility] Comment on above: Performed By: #### 4 [id number] #### [facility] [address] [place] [address] Type of Urine collection method Clean Catch Normal [facility] Comment on above: Performed By: #### 4 [id number] #### [facility] [address] [place] [address] URINALYSISOrdered By: SYSTEM SYSTEM on 10-27-2023 Bilirubin Ql (U) Negative Normal Negativemg/ d L [facility] [place]A Auto SS Clarity (U) Turbid *ABN* (10/27/23 5:18 AM) Invalid Interpretation Code Clear [facility]A Auto SS Color (U) Yellow 1 (10/27/23 5:18 AM) Normal Yellow [facility] Auto SS Comment on above: Interpretive Data: M icroscopic readings are only performed on those samples that meet specific criteria set forth by [facility]. Glucose Ql (U) Negative Normal Negativemg/d L [facility] [place]A Auto SS Hemoglobin Auto test strip (U) [Mass/Vol] 2+ mg/dL Invalid Interpretation Code Negativemg/d L [facility] UA Auto SS Ketones Auto test strip Ql (U) Negative Normal Negativemg/d L [facility] UA Auto SS Leukocyte esterase Auto test strip Ql (U) 500 Roberto/uL Roberto/uL Invalid Interpretation Code NegativeLeu/ uL [facility] UA Auto SS Mucus Auto Ql (U) 2+ graded/LPF Invalid Interpretation Code Negativegrad ed/LPF [facility] UA Auto SS Nitrite Auto test strip Ql (U) Negative Normal Negativemg/d L [facility] UA Auto SS pH (U) 5.5 *NA* (10/27/23 5:18 AM) Invalid Interpretation Code 5.0 - 9.0 [facility] UA Auto SS Protein Ql (U) Trace mg/dL Invalid Interpretation Code Negativemg/d L [facility] UA Auto SS RBC Ql (U) 31-75 graded/HPF Invalid Interpretation Code 0-3graded/HP F [facility] UA Auto SS Specific gravity (U) [Rel density] 1.018 *NA* (10/27/23 5:18 AM) Invalid Interpretation Code 1.005 - 1.030 [facility] UA Auto SS Urobilinogen (U) [Mass/Vol] Negative Normal Negativemg/d L [facility] UA Auto SS WBC Auto (Urine sed) [#/Area] >75 graded/HPF Invalid Interpretation Code 0-5graded/HP F [facility] UA Auto SS URINALYSISOrdered By: Dave Huitron on 10-27-2023 UA Spec Desc Clean Catch (10/27/23 5:18 AM) Normal [facility] Auto SS eGFRon 10-27-2023 eGFR 78 mL/min/1.73 m2 Normal >=59 [facility] Comment on above: Order Comment: Order added by Discern Expert. Performed By: #### 1 [id number] #### [facility] [address] [place] [address] Consent for Procedure/Surger yon 09-19-2023 Consent for Procedure/Surgery [id number] #1.00TIFF Normal [facility] Consent for Treatmenton Consent for Treatment [id number] #1.00TIFF Normal [facility] IntraOperative Documentson 0 09-19-2023 IntraOperative Documents [id number] #1.00TIFF Julianne [facility] Main OR Intraoperative Recor don 09-19-2023 Main OR Intraoperative Record IntraOp Document Type FTURO Summary Primary Physician: Otf BHAGAT MD Finalized Date/Time: 09/19/23 08:16:51 Pt. Name: JAKOB FUENTES Zoya CampoB./Sex: 1980 Male Med Rec #: [id number] Physician: Otf BHAGAT MD Financial #: [id number] Pt. Type: O Room/Bed: / Admit/Disch: 09/19/23 07:24:52 - Institution: Case Times FTURO Entry 1 Patient Times In Room 09/19/23 08:00:00 Out Room 09/19/23 08:14:00 Procedure Times Start 09/19/23 08:07:00 Stop 09/19/23 08:10:00 Anesthesia Times Last Modified By: Loren ANDREA, Pricilla Wolf 09/19/23 08:10:58 Case Attendance FTURO Entry 1 Entry 2 Entry 3 Case Attendee DU GREENE, Otf Pimentel RN, Pricilla Diallo CST, Isabel Wolf Role Performed Surgeon - Primary Calender Supervisor - Primary Scrub - Primary Time In 09/19/23 08:00:00 09/19/23 08:00:00 09/19/23 08:00:00 Time Out 09/19/23 08:14:00 09/19/23 08:14:00 09/19/23 08:14:00 Procedure CYSTOSCOPY LOCAL WITH CYSTOSCOPY LOCAL WITH CYSTOSCOPY LOCAL WITH STENT REMOVAL(Left) STENT REMOVAL(Left) STENT REMOVAL(Left) Comments Last Modified By: Loren ANDREA, Pricilla Pimentel RN, Pricilla Pimentel RN, Pricilla Wolf 09/19/23 Maya Wolf 09/19/23 Maya Wolf 09/19/23 08:10:58 08:10:58 08:10:58 Surgical Procedures FTURO Entry 1 Procedure Description Procedure CYSTOSCOPY LOCAL WITH Modifiers Left STENT REMOVAL Surgeon Description CYSTOSCOPY, LEFT STENT REMOVAL Primary Procedure Yes Primary Surgeon Otf BHAGAT MD Start 09/19/23 08:07:00 Stop 09/19/23 08:10:00 Anesthesia Type Local Surgical Service Urology Wound Class 2 - Clean-Contaminated Last Modified By: Pricilla Pimentel RN 09/19/23 08:10:52 General Case Data FTURO Pre-Care Text: Classifies surgical wound, implements aseptic technique, initiates traffic control Entry 1 Case Information OR URO 1 FT Case Level None Wound Class 2 - Clean-Contaminated Specialty Urology Preop Diagnosis STATUS POST LEFT STENT Postop Same As Preop Yes PLACEMENT Postop Diagnosis STATUS POST LEFT STENT Outcomes Met? Yes PLACEMENT Last Modified By: Pricilla Pimentel RN 09/19/23 07:35:21 Post-Care Text: The patient is free from signs and symptoms of infection EU IntraOp - FTURO Pre-Care Text: Implements protective measures prior to operative or invasive procedure, confirms identity before the operative or invasive procedure, verifies operative procedure, surgical site, and laterality Entry 1 EU Perioperative Protocols Procedure(s) CYSTOSCOPY LOCAL WITH Patient Identity Birthday, ID Band STENT REMOVAL(Left) Verified (select at Check, Patient least 2): Participation Consents / H and P HandP, Surgery/Procedure Operative Site N/A Verified Consent Marking Verified Surgical Site Yes Laterality Verified Yes Verified Procedure Verified Yes Correct Patient Yes Position Verified Availability Equipment, Medication Time Out DU GREENE, Otf Quintanilla, Verified (If Participants Loren ANDREA, Pricilla Applicable) Yoel Pereira CST, Isabel Espinosa Time Out Complete 09/19/23 08:07:00 Allergies Reviewed? Yes Allergies Reviewed Self/Patient With Body Position Supine Prep Area PENIS Prep Agents Betadine Solution Skin. Condition Unable to Visualize Description CLOTHED Additional None Specimens Collected Vitals - EU Blood Pressure 151/89 Pulse 91 bpm Respirations 16 br/min SPO2 IandO - EU Outcomes Met? Yes Last Modified By: Pricilla Pimentel RN 09/19/23 08:07:35 Post-Care Text: The patient is free from signs and symptoms of injury caused by extraneous objects Sign Out FTURO Entry 1 Before Patient Leaves OR Nurse verbally Yes Nurse verbally Yes confirms with the confirms with the team the name of team that the procedure(s) instrument, sponge, recorded and needle counts are correct (or N/A) Nurse verbally n/a Nurse verbally Yes confirms with the confirms with the team how the team whether there specimen is labeled are any equipment (including patient problems to be name), if applicable addressed Sign Out Complete 09/19/23 08:10:00 Last Modified By: Pricilla Pimentel RN 09/19/23 08:10:51 Case Comments Finalized By: Pricilla Pimentel RN Document Signatures Signed By: Pricilla Pimentel RN 09/19/23 08:16 Normal [facility] Main OR Preoperative Recordo n 09-19-2023 Main OR Preoperative Record Holding Area Document Type FTURO Summary Primary Physician: Otf BHAGAT MD Finalized Date/Time: 09/19/23 07:44:00 Pt. Name: ALFREDOJAKOB/Sex: 1980 Male Med Rec #: [id number] Physician: Otf BHAGAT MD Financial #: [id number] Pt. Type: O Room/Bed: / Admit/Disch: 09/19/23 07:24:52 - Institution: Case Times Holding FTURO Pre-Care Text: Verifies consent for planned procedure, identifies individual values and wishes concerning care, includes family members in perioperative teaching Secures patient's records' belongings, and valuables, maintains patient's dignity and privacy, and maintains patient confidentiality Entry 1 In Holding 09/19/23 07:41:00 Outcomes Met? Yes Last Modified By: JHON Marquis RN, Ruthann 09/19/23 07:41:06 Post-Care Text: The patient participates in decisions affecting his or her perioperative plan of care The patient's right to privacy is maintained Surgery Checklist FTURO Entry 1 Patient Birthday, ID Band Procedure History and Physical, Identification: Check, Patient Verification: Surgical Consent Participation NPO after Midnight: n/a Personal Items clothes Comment: Limitations: none Complaints of Pain: No Skin Integrity Unable to Visualize Vitals - EU Blood Pressure 151/89 Pulse 91 bpm Respirations 16 br/min SPO2 Additional None RN Reviewed Yes Specimens Collected Last Modified By: JHON Marquis RN, Ruthann 09/19/23 07:43:58 Finalized By: JHON Marquis RN, Ruthann Document Signatures Signed By: JHON Marquis RN, Ruthann 09/19/23 07:44 Normal [facility] Operative Reporton Operative Report Patient: JAKOB FUENTES Age: 43 years Sex: Male : 1980 Associated Diagnoses: None Author: Otf BHAGAT MD Procedure Operative Information Details: Date/ Time: 09/19/2023 08:15:00. Pre-Op Dx: Foreign Body in Bladder - T19.1XXA. Post-Op Dx: Same. Anesthesia Type: Local. Procedure: Local Cystoscopy with Stent Removal. Complications: None. Risks/Benefits/Infor med Consent: Surgical risks, benefits, details of the procedure have been explained to the patient, Full informed consent has been obtained. Intraoperative Information Prepped: The patient was placed in supine position, The patient was prepped with the Betadine solution. Anesthesia: 2% Xylocaine Jelly per urethra. Procedure: Cystoscopy and Left Stent Removal, The flexible Cystoscope was passed in retrograde fashion into the bladder without difficulty, The bladder was viewed in entirety and found to be without tumors or stones, Mild inflammation was seen surrounding the orifice with the stent seen protruding from it, The stent was then grasped and removed in its entirety. Specimens Removed: None. Devices Implanted: None. Postoperative Information Discharge: The patient tolerated the procedure well and was subsequently discharged home. The patient will now do a full stone metabolic workup. Follow-up will be in 3 months to review the data and start a stone prevention plan.. [facility] Comment on above: Result Comment: Elec tronically Signed By: Otf BHAGAT MD\\.br\\Date and Time Signed: 09/19/23 08:16 EDT Outpatient Surgery Discharge Instructionon 09-19-2023 Outpatient Surgery Discharge Instruction [id number] #1.00TIFF [facility] Provider Letteron 09-19-2023 Provider Letter September 19, 2023 JAKOB FUENTES [address] [id number] : 1980 To Whom It May Concern, Please excuse above patient from work. Date of Illness: From: 09/19/2023 To: 09/19/2023 May Return to Work On: 09/20/2023 Restrictions: none Comments: Patient had a surgical procedure on 09/19/[address] Bhagat. Sincerely, [facility] [address] [place] [address] phone , option #3 [facility] Provider Letter September 19, 2023 JAKOB FUENTES [address] [place] [address] [address] [place] [id number] : 1980 To Whom It May Concern, Please excuse above patient from work. Date of Illness: From: 09/19/2023 To: 09/19/2023 May Return to Work On: 09/20/2023 Restrictions: none Comments: Patient had a surgical procedure on 09/19/[address] Bhagat. Sincerely, [facility] [address] [place] [address] phone , option #3 [facility] Lab Reportson 09-18-2023 Lab Reports [id number] #1.00TIFF [facility] C Urineon 09-14-2023 Bacteria identified Cx Nom (U) Microbiology PROCEDURE: Urine Culture [R1] SOURCE: U Random BODY SITE: COLLECTED DATE/TIME: 09/12/2023 01:11 EDT RECEIVED DATE/TIME: 09/12/2023 02:17 EDT START DATE/TIME: 09/12/2023 02:18 EDT FREE TEXT SOURCE: Zechariah Perales DO, DO, Kevin M. FINAL REPORTS Final Report [] Verified Date/Time: 09/14/2023 10:48 EDT 200 cfu/ml Mixed skin contaminants Performing Locations R1: This test was performed at: [facility], [address] [place] [address], [id number] , , [facility] Comment on above: Performed By: #### 2 [id number] ####[facility] [address] [place], [place] [id number] RAD - MISCon 09-14-2023 RAD - MISC [id number]# 1.00TIFF Normal [facility] BMPon 09-12-2023 Anion gap [Moles/Vol] 10 mmol/L Normal 6-16 [facility] Comment on above: Performed By: #### 2 [id number] #### [facility] [address] [place] [address] Calcium [Mass/Vol] 8.5 mg/dL Low 8.9-11.1 [facility] Comment on above: Performed By: #### 2 [id number] #### [facility] [address] [place] [address] Chloride [Moles/Vol] 108 mmol/L Normal 101-111 [facility] Comment on above: Performed By: #### 2 [id number] #### [facility] [address] [place] [address] CO2 [Moles/Vol] 23 mmol/L Normal 21-31 [facility] Comment on above: Performed By: #### 2 [id number] #### [facility] [address] [place] [address] Creatinine [Mass/Vol] 0.9 mg/dL Normal 0.5-1.3 [facility] Comment on above: Performed By: #### 2 [id number] #### [facility] [address] [place] [address] Glucose [Mass/Vol] 138 mg/dL Normal 55-199 [facility] Comment on above: Performed By: #### 2 [id number] #### [facility] [address] [place] [address] Potassium [Moles/Vol] 3.4 mmol/L Low 3.5-5.3 [facility] Comment on above: Performed By: #### 2 [id number] #### [facility] [address] [place] [address] Sodium [Moles/Vol] 138 mmol/L Normal 135-145 [facility] Comment on above: Performed By: #### 2 [id number] #### [facility] [address] [place] [address] Urea nitrogen [Mass/Vol] 15 mg/dL Normal 5-21 [facility] Comment on above: Performed By: #### 2 [id number] #### [facility] [address] [place] [address] Urea nitrogen/Creatinine [Mass ratio] 17 No Units Normal 10-20 [facility] Comment on above: Performed By: #### 2 [id number] #### [facility] [address] [place] [address] CBC w/ Auto Diffon 4 Basophils/100 WBC (Bld) 3.4 % High 0.0-2.0 F [facility] Comment on above: Performed By: #### 2 [id number] #### [facility] [address] [place] [address] Basophils/Leukocytes Auto (Bld) [Pure # fraction] 0.4 E9/L High 0.0-0.2 [facility] Comment on above: Performed By: #### 2 [id number] #### [facility] [address] [place] [address] Eosinophils (Bld) [#/Vol] 0.2 E9/L Normal 0.0-0.5 [facility] Comment on above: Performed By: #### 2 [id number] #### [facility] [address] [place] [address] Eosinophils/100 WBC (Bld) 1.2 % Normal 0.0-8.0 [facility] Comment on above: Performed By: #### 2 [id number] #### [facility] [address] [place] [address] Erythrocyte distribution width (RBC) [Ratio] 13.7 % Normal 10.9-14.2 [facility] Comment on above: Performed By: #### 2 [id number] #### [facility] [address] [place] [address] Hematocrit (Bld) [Volume fraction] 39.5 % Normal 37.7-49.0 [facility] Comment on above: Performed By: #### 2 [id number] #### [facility] [address] [place] [address] Hemoglobin (Bld) [Mass/Vol] 13.3 g/dL Low 13.5-17.5 [facility] Comment on above: Performed By: #### 2 [id number] #### [facility] [address] [place] [address] Lymphocytes (Bld) [#/Vol] 1.0 E9/L Normal 1.0-4.0 [facility] Comment on above: Performed By: #### 2 [id number] #### [facility] [address] [place] [address] Lymphocytes/100 WBC (Bld) 7.7 % Low 14.0-50.0 [facility] Comment on above: Performed By: #### 2 [id number] #### [facility] [address] [place] [address] MCH (RBC) [Entitic mass] 28.8 pg Normal 27.0-34.0 [facility] Comment on above: Performed By: #### 2 [id number] #### [facility] [address] [place] [address] MCHC (RBC) [Mass/Vol] 33.8 g/dL Normal 31.4-36.0 [facility] Comment on above: Performed By: #### 2 [id number] #### [facility] [address] [place] [address] MCV (RBC) [Entitic vol] 85.4 fL Normal 80.0-100.0 F [facility] Comment on above: Performed By: #### 2 [id number] #### [facility] [address] [place] [address] Monocytes (Bld) [#/Vol] 1.1 E9/L High 0.2-1.0 [facility] Comment on above: Performed By: #### 2 [id number] #### [facility] [address] [place] [address] Neutrophils (Bld) [#/Vol] 10.5 E9/L High 2.0-7.5 [facility] Comment on above: Performed By: #### 2 [id number] #### [facility] [address] [place] [address] Neutrophils/100 WBC (Bld) 79.2 % High 36.0-75.0 [facility] Comment on above: Performed By: #### 2 [id number] #### [facility] [address] [place] [address] Platelet 225.0 E9/L Normal 150.0-500.0 [facility] Comment on above: Performed By: #### 2 [id number] #### [facility] [address] [place] [address] Platelet mean volume (Bld) [Entitic vol] 7.5 fL Normal 6.4-10.8 [facility] Comment on above: Performed By: #### 2 [id number] #### [facility] [address] [place] [address] RBC (Bld) [#/Vol] 4.6 E12/L Normal 4.3-5.9 [facility] Comment on above: Performed By: #### 2 [id number] #### [facility] [address] [place] [address] WBC corrected for nucl RBC Auto (Bld) [#/Vol] 13.3 E9/L High 4.0-11.0 [facility] Comment on above: Performed By: #### 2 [id number] #### [facility] [address] [place] [address] CHEMISTRYOrdered By: SYSTEM SYSTEM on 09-12-2023 Anion gap [Moles/Vol] 10 mmol/L Normal 6 - 16 mEq/L R emisol Chem Calcium [Mass/Vol] 8.5 mg/dL Low 8.9 - 11. 1 mg/dL [facility] Chloride [Moles/Vol] 108 mmol/L Normal 101 - 1 11 mmol/L [facility] CO2 [Moles/Vol] 23 mmol/L Normal 21 - 31 mmol/L [facility] Creatinine [Mass/Vol] 0.9 mg/dL Normal 0.5 - 1.3 mg/dL [facility] eGFR 110 mL/min/1.73 m2 Normal >=59mL/mi n/1 .73 m2 [facility] Glucose [Mass/Vol] 138 mg/dL Normal 55 - 199 mg/dL [facility] Potassium [Moles/Vol] 3.4 mmol/L Low 3.5 - 5.3 mmol/L [facility] Sodium [Moles/Vol] 138 mmol/L Normal 135 - 145 mmol/L [facility] Urea nitrogen [Mass/Vol] 15 mg/dL Normal 5 - 21 mg/d L [facility] Urea nitrogen/Creatinine [Mass ratio] 17 mg/mg Normal 10 - [address] Abdomen/Pelvis w/ Contras ton 09-12-2023 CT Abdomen/Pelvis w/ Contrast Exam Date/Time: 09/12/2023 01:37 EDT Reason for Exam: Left flank pain;Other (please specify) Report IMPRESSION: INTERVAL LEFT URETERAL STENT IN EXPECTED POSITION. LITHOTRIPSY SINCE 09/07/2023, WITH A FEW SMALL LEFT RENAL CALCULI. MILD LEFT HYDRONEPHROSIS. INFECTION SHOULD BE EXCLUDED CLINICALLY. NO OTHER SIGNIFICANT CHANGES FROM 09/07/2023 IDENTIFIED. EXAM: CT Abdomen/Pelvis w/ Contrast DATE: 09/12/2023 1:24 AM CLINICAL HISTORY: Left flank pain. COMPARISON: [facility] 09/09/[address] abdomen and pelvis 09/07/2023. TECHNIQUE: Spiral imaging was obtained of the abdomen and pelvis after the uneventful infusion of approximately 100 mL of Isovue 300 contrast. All CT scans at this facility use dose modulation, iterative reconstruction, and/or weight based dosing when appropriate to reduce radiation dose to as low as reasonably achievable. Unless otherwise stated, incidental findings identified in this report do not require routine follow-up imaging. FINDINGS: A left ureteral stent remains in similar position to 09/09/2023. Mild left hydronephrosis and perinephric edema is present, with delayed enhancement and excretion from the left kidney (compared to the right). A few small left renal calculi measuring up to approximately 4 mm in the left lower pole, consistent with interval lithotripsy. There is no organized hematoma, urinoma, or other significant changes identified. The right kidney and urinary bladder are unremarkable. The visualized lung bases are clear. Ordering Provider: Zechariah Perales FINAL REPORT Dictated: 09/12/2023 5:25 am Robby Jerry MD Signed (Electronic Signature): 09/12/2023 5:25 am Signed by: Robby Jerry MD Transcribed by: FLAKO Technologist: THUAN Technical Comments GFR (mL/min/1/73m2) 97 Contrast: Isovue 300 Contrast amount in ml's: 100 Rectal Contrast Given? No Normal [facility] Consent for Procedure/Surger yon 09-12-2023 Consent for Procedure/Surgery [id number] #1.00TIFF Normal [facility] Consent for Treatmenton 08-16 Consent for Treatment [id number] #1.00TIFF Normal [facility] Discharge Instructionson Discharge Instructions [id number] 4#1.00TIFF Normal [facility] ED Clinical Summaryon 2023 ED Clinical Summary [place] [id number] ED Clinical Summary Person Information Name: JAKOB FUENTES [facility] Age: 43 Years : 1980 Sex: Male Language: British PCP: [facility] Marital Status: Visit Id: Visit Reason: Nausea; Abdominal pain; Flank pain; back and side pain Speciality: Acuity: 3 Enc Type: Emergency Med Service: Emergency Arrival: 09/12/2023 00:09:49 Discharge: 09/12/2023 03:15:29 LOS: 000 03:06 Checkin: 09/12/2023 00:09:49 Checkout: 09/12/2023 03:15:29 Dispo Type: Home (Routine DC) EVENTS: Event Name Event Status Request Date/Time Start Date/Time Complete Date/Time Arrive Complete 09/12/2023 00:09:49 09/12/2023 00:09:49 09/12/2023 00:09:49 Document Home Meds Request 09/12/2023 00:09:49 Triage Complete 09/12/2023 00:09:49 09/12/2023 00:24:28 09/12/2023 00:24:28 Registration Complete 09/12/2023 00:12:38 09/12/2023 00:12:38 09/12/2023 00:12:38 Reg Complete Request 09/12/2023 00:12:38 Reg Bed Request Complete 09/12/2023 00:12:38 09/12/2023 00:12:38 09/12/2023 00:12:38 Bed Assign Complete 09/12/2023 00:26:31 09/12/2023 00:26:31 09/12/2023 00:26:31 Dr Exam Complete 09/12/2023 00:26:31 09/12/2023 00:27:24 09/12/2023 00:27:24 RN Exam Complete 09/12/2023 00:26:31 09/12/2023 01:16:08 09/12/2023 01:16:08 Registration Request 09/12/2023 00:27:24 Meds Admin Complete 09/12/2023 00:40:31 09/12/2023 01:08:16 Pending Labs Complete 09/12/2023 00:40:31 09/12/2023 01:22:40 Lab Complete 09/12/2023 00:40:31 09/12/2023 01:13:17 Patient Care Complete 09/12/2023 00:40:31 09/12/2023 01:02:25 CT Complete 09/12/2023 00:40:31 09/12/2023 01:24:00 09/12/2023 01:37:42 Pending Labs Complete 09/12/2023 00:55:21 09/12/2023 00:55:21 09/12/2023 01:13:17 Lab Complete 09/12/2023 00:55:21 09/12/2023 00:55:21 09/12/2023 01:13:17 Pending Labs Inlab 09/12/2023 01:22:40 09/12/2023 01:22:40 Lab Inlab 09/12/2023 01:22:40 09/12/2023 01:22:40 Discharge Complete 09/12/2023 02:50:03 09/12/2023 03:15:33 09/12/2023 03:15:33 Transfer Complete 09/12/2023 03:15:33 09/12/2023 03:15:33 09/12/2023 03:15:33 ADDRESS: [address] [place] [id number] PHYS DOC NOTES: MEDICAL INFORMATION: Prescriptions Given: Medications to Continue with No Changes Other Medications acetaminophen-oxycod one (Percocet 325 mg-5 mg Tab) 1-2 tabs By Mouth every 6 hours as needed pain. acetaminophen-oxycod one (Percocet 5 mg-325 mg oral tablet) 1 Tablets By Mouth every 6 hours as needed as needed for pain. Refills: 0. acetaminophen-oxycod one (Percocet 5 mg-325 mg oral tablet) 1 Tablets By Mouth every 6 hours for 3 Days. Refills: 0. cephalexin (Keflex 500 mg Cap) 1 Capsules By Mouth every 6 hours for 7 Days. Refills: 0. ciprofloxacin (Cipro 500 mg Tab) 1 Tablets By Mouth 2 times a day. Refills: 0. ciprofloxacin (Cipro 500 mg Tab) 1 Tablets By Mouth every 12 hours for 10 Days. Refills: 0. ciprofloxacin (ciprofloxacin 250 mg Tab) 1 Tablets By Mouth every 12 hours. ketorolac (ketorolac 10 mg Tab) 1 Tablets By Mouth every 6 hours as needed for pain. Refills: 0. naproxen (Naprosyn 500 mg Tab) 1 Tablets By Mouth 2 times a day as needed for pain. Refills: 0. ondansetron (Zofran ODT 4 mg Tab-Dis) 1 Tablets By Mouth every 8 hours. Refills: 0. phenazopyridine (phenazopyridine 200 mg Tab) 1 Tablets By Mouth 3 times a day. tamsulosin (Flomax 0.4 mg Cap) 1 Capsules By Mouth every day. Refills: 0. PATIENT EDUCATION INFORMATION: Instructions: Kidney Stones Follow up: With: Address: When: Otf BHAGAT [address] [place], [place] [id number] [employer] Data ([employer] In 3 days 09/15/2023 Comments: Call the office of your primary care doctor to arrange for follow-up within the above-stated timeframe. Follow-up with your primary care doctor about this ED visit. You should review your labs, imaging, and diagnoses from this ED visit with your primary care physician. There are occasionally non-emergent findings that require additional follow-up after your ED visit. If you were prescribed medications you should discuss possible side-effects and drug interactions with your pharmacist. Call 911 or go to the nearest Emergency Department if you develop any new or worsening symptoms. Seek immediate medical attention if you develop: worsening abdominal pain, new or worsening nausea, new or worsening vomiting, new or worsening diarrhea, chest pain, shortness of breath, pain with urination, problems urinating, fever, chills, weakness, or any new or worsening symptoms. You can take 2 Percocets if your pain is worsening. DIAGNOSIS: Colic, ureteral Normal [facility] ED Note-Physicianon 09-12-19 ED Note-Physician Basic Information Time Seen: Zechariah Perales DO 09/12/2023 00:27 Chief Complaint kidney stent placed per dr bhagat a couple days ago states having pain this evening to left flank area. nausea History of Present Illness 43-year-old male to the emergency department chief complaint of left flank pain. Patient reports that several days ago he had laser procedure and stent placed for a large kidney stone. He reports that he has had continued intermittent left-sided flank pain. He denies any fever, sweats, chills. He denies any nausea or vomiting. He took a single Percocet today after the pain started. Review of Systems A 10 point review of systems is negative except as noted above. Medical and Surgical History: Reviewed and noted Social history: Lives at home Tobacco: Denies Physical Exam Vitals & Measurements T: 36.8 ?C(Oral) HR: 70(Monitored) RR: 15 BP: 128/97 SpO2: 99% HT: 182 cm WT: 65.8 kg BMI: 19.86 VITALS: I have reviewed the triage vital signs. GENERAL: Well developed, well appearing adult in no acute distress. NEURO: Alert and oriented. Moves all extremities. Face is symmetric and expressive. EYES: PERRL. No scleral icterus or conjunctival injection. No discharge. HENT: Normocephalic, atraumatic. Hearing is grossly intact. Nares grossly patent and without discharge. Mucous membranes moist. NECK: No JVD. Patient moves neck without restriction. GI/: Abdomen is soft and non-tender. Normoactive bowel sounds. No flank tenderness. EXTREMITIES: Symmetric muscle bulk. No joint swelling. No clubbing, cyanosis, or deformity. SKIN: Warm and dry. Normal turgor. No rash or lesions appreciated. PSYCH: Mood, affect, and interaction is appropriate to the setting. Medical Decision Making 43-year-old male to the emergency department with chief complaint of left flank pain. Vital stable, the patient is afebrile. Given repeat presentation we will proceed with imaging at this time. Urinalysis and labs ordered. Patient agrees with this plan. Dilaudid, Zofran, Toradol for symptoms. CBC and chemistry without major abnormality. His urine appears inflammatory, no infectious markers. No bacteria. His previous urine cultures were negative including 1 that was performed [address] scan with inflammatory stranding. Stent in place. Patient reexamined. His symptoms have resolved. He feels much improved. He continues to have ureteral colic. Discussed taking his medications as scheduled at home. Discussed that he may double up on his Percocet if need be. Return precautions were discussed. He will follow-up with his urologist tomorrow. All questions were answered. The patient was discharged home. Assessment/Plan Colic, ureteral (N23: Unspecified renal colic) Orders: HYDROmorphone, 1 mg = 1 mL, Injection, IV Push, Once, Stop date 09/12/23 0:39:00 EDT, STAT, Start date 09/12/23 0:39:00 EDT, 09/12/23 0:39:00 EDT ketorolac, 30 mg = 1 mL, Injection, IV Push, Once, Stop date 09/12/23 0:39:00 EDT, STAT, Start date 09/12/23 0:39:00 EDT, 09/12/23 0:39:00 EDT ondansetron, 4 mg = 2 mL, Injection, IV Push, Once, Stop date 09/12/23 0:39:00 EDT, STAT, Start date 09/12/23 0:39:00 EDT, 09/12/23 0:39:00 EDT Sodium Chloride 0.9% intravenous solution, 1,000 mL, Soln-IV, IV, Once, Stop date 09/12/23 0:39:00 EDT, STAT, Start date 09/12/23 0:39:00 EDT, Infuse over 61, minute(s) Basic Metabolic Panel CBC w/ Auto Diff CT Abdomen/Pelvis w/ Contrast ED Cardiac Monitoring eGFR Saline Lock Insert UA with Cult Rflx Urine Culture Medications Administered Given HYDROmorphone 1 mg/mL injectable solution, 1 mg, IV Push ketorolac 30 mg/mL Inj 1 mL, 30 mg, IV Push NS 1000 ml Bolus, 1000 mL, IV ondansetron 4 mg/2 mL Inj, 4 mg, IV Push Disposition Plan Patient Discharge Condition Stable Discharge Disposition Home Discharge Prescription List Prescriptions No active prescription medications Follow-up With When Contact Information Otf BHAGAT In 3 days 09/15/[address] [place], [place] [id number] Business (1) Additional Instructions: Call the office of your primary care doctor to arrange for follow-up within the above-stated timeframe. Follow-up with your primary care doctor about this ED visit. You should review your labs, imaging, and diagnoses from this ED visit with your primary care physician. There are occasionally non-emergent findings that require additional follow-up after your ED visit. If you were prescribed medications you should discuss possible side-effects and drug interactions with your pharmacist. Call 911 or go to the nearest Emergency Department if you develop any new or worsening symptoms. Seek immediate medical attention if you develop: worsening abdominal pain, new or worsening nausea, new or worsening vomiting, new or worsening diarrhea, chest pain, shortness of breath, pain with urination, problems urinating, fever, chills, weakness, or any new or worsening symptoms. You can take 2 P (more content not included)... Normal [facility] Comment on above: Result Comment: Elec tronically Signed By: Zechariah Perales DO\\.br\\Date and Time Signed: 09/12/23 02:58 EDT ED Patient Education Noteon 09-12-2023 ED Patient Education Note Urology Kidney Stones Kidney stones are solid, rock-like deposits that form inside of the kidneys. The kidneys are a pair of organs that make urine. A kidney stone may form in a kidney and move into other parts of the urinary tract, including the tubes that connect the kidneys to the bladder (ureters), the bladder, and the tube that carries urine out of the body (urethra). As the stone moves through these areas, it can cause intense pain and block the flow of urine. Kidney stones are created when high levels of certain minerals are found in the urine. The stones are usually passed out of the body through urination, but in some cases, medical treatment may be needed to remove them. What are the causes? Kidney stones may be caused by: ? A condition in which certain glands produce too much parathyroid hormone (primary hyperparathyroidism) , which causes too much calcium buildup in the blood. ? A buildup of uric acid crystals in the bladder (hyperuricosuria). Uric acid is a chemical that the body produces when you eat certain foods. It usually leaves the body in the urine. ? Narrowing (stricture) of one or both of the ureters. ? A kidney blockage that is present at (congenital obstruction). ? Past surgery on the kidney or the ureters. What increases the risk? The following factors may make you more likely to develop this condition: ? Having had a kidney stone in the past. ? Having a family history of kidney stones. ? Not drinking enough water. ? Eating a diet that is high in protein, salt (sodium), or sugar. ? Being overweight or obese. What are the signs or symptoms? Symptoms of a kidney stone may include: ? Pain in the side of the abdomen, right below the ribs (flank pain). Pain usually spreads (radiates) to the groin. ? Needing to urinate often or urgently. ? Painful urination. ? Blood in the urine (hematuria). ? Nausea. ? Vomiting. ? Fever and chills. How is this diagnosed? This condition may be diagnosed based on: ? Your symptoms and medical history. ? A physical exam. ? Blood tests. ? Urine tests. These may be done before and after the stone passes out of your body through urination. ? Imaging tests, such as a CT scan, abdominal X-ray, or ultrasound. ? A procedure to examine the inside of the bladder (cystoscopy). How is this treated? Treatment for kidney stones depends on the size, location, and makeup of the stones. Kidney stones will often pass out of the body through urination. You may need to: ? Increase your fluid intake to help pass the stone. In some cases, you may be given fluids through an IV and may need to be monitored in the hospital. ? Take medicine for pain. ? Make changes in your diet to help prevent kidney stones from coming back. Sometimes, procedures are needed to remove a kidney stone. This may involve: ? A procedure to break up kidney stones using: ? A focused beam of light (laser therapy). ? Shock waves (extracorporeal shock wave lithotripsy). ? Surgery to remove kidney stones. This may be needed if you have severe pain or have stones that block your urinary tract. Follow these instructions at home: Medicines ? Take dkuo-xzp-nfoqrso and prescription medicines only as told by your health care provider. ? Ask your health care provider if the medicine prescribed to you requires you to avoid driving or using heavy machinery. Eating and drinking ? Drink enough fluid to keep your urine pale yellow. You may be instructed to drink at least 8?10 glasses of water each day. This will help you pass the kidney stone. ? If directed, change your diet. This may include: ? Limiting how much sodium you eat. ? Eating more fruits and vegetables. ? Limiting how much animal protein you eat. Animal proteins include red meat, poultry, fish, and eggs. ? Eating a normal amount of calcium (1,000?1,300 mg per day). ? Follow instructions from your health care provider about eating or drinking restrictions. General instructions ? Collect urine samples as told by your health care provider. You may need to collect a urine sample: ? 24 hours after you pass the stone. ? 8?12 weeks after you pass the kidney stone, and every 6?12 months after that. ? Strain your urine every time you urinate, for as long as directed. Use the strainer that your health care provider recommends. ? Do not throw out the kidney stone after passing it. Keep the stone so it can be tested by your health care provider. Testing the makeup of your kidney stone may help prevent you from getting kidney stones in the future. ? Keep all follow-up visits. You may need follow-up X-rays or ultrasounds to make sure that your stone has passed. How is this prevented? To prevent another kidney stone: ? Drink enough fluid to keep your urine pale yellow. This is the best way to prevent kidney stones. ? Eat a healthy diet. Follow recommendations from (more content not included)... Normal [facility] ED Patient Summaryon 024 ED Patient Summary [address] [address] Patient Discharge Instructions Person Information Name: JAKOB FUENTES Age: 43 Years Arrival Date: 09/12/2023 00:09:49 Discharge Diagnosis: Colic, ureteral Primary Care Physician: [facility] Provider Information Primary Provider: Zechariah Perales DO Advanced Machine Egg Washer:None The exam and treatment you received in the Emergency Department were for an urgent problem and are not intended as complete care. It is important that you follow up with a doctor, nurse practitioner, or physician?s health care assistant for ongoing care. If your symptoms become worse or you do not improve as expected and you are unable to reach your usual health care provider, you should return to the Emergency Department. We are available 24 hours a day. JAKOB FUENTES has been given the following list of patient education materials, prescriptions and follow-up instructions: Follow-up Instructions: With: Address: When: Otf BHAGAT [address] [place] [id number] [facility] (1) In 3 days 09/15/2023 Comments: Call the office of your primary care doctor to arrange for follow-up within the above-stated timeframe. Follow-up with your primary care doctor about this ED visit. You should review your labs, imaging, and diagnoses from this ED visit with your primary care physician. There are occasionally non-emergent findings that require additional follow-up after your ED visit. If you were prescribed medications you should discuss possible side-effects and drug interactions with your pharmacist. Call 911 or go to the nearest Emergency Department if you develop any new or worsening symptoms. Seek immediate medical attention if you develop: worsening abdominal pain, new or worsening nausea, new or worsening vomiting, new or worsening diarrhea, chest pain, shortness of breath, pain with urination, problems urinating, fever, chills, weakness, or any new or worsening symptoms. You can take 2 Percocets if your pain is worsening. In the event that this physician does not participate in your insurance network, please consult with your insurance company to find a nearby participating provider. Patient Education Materials: Kidney Stones A MESSAGE TO ALL PATIENTS REGARDING OPIOIDS PRESCRIPTION OPIOIDS: WHAT YOU NEED TO KNOW Prescription opioids can be used to help relieve jzcanqlh-fl-zehprn pain and are often prescribed following a surgery or injury, or for certain health conditions. These medications can be an important part of the treatment but also come with serious risks. It is important to work with your healthcare provider to make sure you are getting the safest, most effective care. WHAT ARE THE RISKS AND SIDE EFFECTS OF OPIOID USE? Prescription opioids carry serious risks of addiction and overdose, especially with prolonged use. An opioid overdose, often marked by slowed breathing, can cause sudden . The use of prescription opioids can have a number of side effects as well, even when taken as directed: ? Tolerance?meaning you might need to take more of the medication for the same pain relief ? Physical dependence?meaning you have symptoms of withdrawal when a medication is stopped ? Increased sensitivity to pain ? Constipation ? Nausea, vomiting, and dry mouth ? Sleepiness and dizziness ? Confusion ? Depression ? Low levels of testosterone that can result in lower sex drive, energy, and strength ? Itching and sweating RISKS ARE GREATER WITH: ? History of drug misuse, substance use disorder, or overdose ? Mental health conditions (such as depression or anxiety) ? Sleep apnea ? Older age (65 years and older) ? Avoid alcohol while taking prescription opioids. Also, unless specifically advised by your health care provider, medications to avoid include: ? Benzodiazepines (such as Xanax or Valium) ? Muscle relaxants (such as Soma or Flexeril) ? Hypnotics (such as Ambien or Lunesta) ? Other prescription opioids KNOW YOUR OPTIONS Talk to your health care provider about ways to manage your pain that don?t involve prescription opioids. Some of these options may actually work better and have fewer risks and side effects. Options may include: ? Pain relievers such as acetaminophen, ibuprofen, and naproxen ? Some medication that are also used for depression or seizures ? Physical therapy and exercise ? Cognitive behavioral therapy, a psychological, goal-directed approach, in which patients learn how to modify physical, behavioral, and emotional triggers of pain and stress. IF YOU ARE PRESCRIBED OPIOIDS FOR PAIN: ? Never take opioids in greater amounts or more often than prescribed. ? Follow up with your primary health care provider. o Work together to create a plan on how to manage your pain. (more content not included)... Normal [facility] HEMATOLOGYOrdered By: SYSTEM SYSTEM on 09-12-2023 Basophils/100 WBC (Bld) 3.4 % High 0.0 - 2.0 % Remisol Heme Basophils/Leukocytes Auto (Bld) [Pure # fraction] 0.4 E9/L High 0.0 - 0.2 E9/L Remisol Heme Eosinophils (Bld) [#/Vol] 0.2 E9/L Normal 0. 0 - 0.5 E9/L Remisol Heme Eosinophils/100 WBC (Bld) 1.2 % Normal 0.0 - 8.0 % Remisol Heme Erythrocyte distribution width (RBC) [Ratio] 13.7 % Normal 10.9 - 14.2 % Remisol Heme Hematocrit (Bld) [Volume fraction] 39.5 % Normal 37.7 - 49.0 % Remisol Heme Hemoglobin (Bld) [Mass/Vol] 13.3 g/dL Low 13.5 - 17.5 gm/dL Remisol Heme Lymphocytes (Bld) [#/Vol] 1.0 E9/L Normal 1. 0 - 4.0 E9/L Remisol Heme Lymphocytes/100 WBC (Bld) 7.7 % Low 14 .0 - 50.0 % Remisol Heme MCH (RBC) [Entitic mass] 28.8 pg Normal 27. 0 - 34.0 pg Remisol Heme MCHC (RBC) [Mass/Vol] 33.8 g/dL Normal 31.4 - 36.0 gm/dL Remisol Heme MCV (RBC) [Entitic vol] 85.4 fL Normal 80.0 - 100.0 fL Remisol Heme Monocytes (Bld) [#/Vol] 1.1 E9/L High 0.2 - 1.0 E9/L Remisol Heme Monocytes/100 WBC (Bld) 8.5 % Normal 4.0 - 14.0 % Remisol Heme Neutrophils (Bld) [#/Vol] 10.5 E9/L High 2. 0 - 7.5 E9/L Remisol Heme Neutrophils/100 WBC (Bld) 79.2 % High 36 .0 - 75.0 % Remisol Heme Platelet 225.0 E9/L Normal 150.0 - 500.0 E9/L Remisol Heme Platelet mean volume (Bld) [Entitic vol] 7.5 fL Normal 6.4 - 10.8 fL Remisol Heme RBC (Bld) [#/Vol] 4.6 E12/L Normal 4.3 - 5.9 E12/L Remisol Heme WBC corrected for nucl RBC Auto (Bld) [#/Vol] 13.3 E9/L High 4.0 - 11.0 E9/L Remisol Heme Monitor Recordon 09-12-2023 Monitor Record [id number] 4#1.00TIFF Normal [facility] Operative Reporton 4 Operative Report [id number] #1.00TIFF Normal [facility] RAD - Preliminary Cat Scan R eporton 09-12-2023 RAD - Preliminary Cat Scan Report [id number] 7#1.00TIFF Normal [facility] UA with Cult Rflxon 09-12-19 24 Bilirubin Ql (U) Negative Normal Negative [facility] Comment on above: Performed By: #### [id number] #### [facility] [address] [place] [address] Clarity (U) Turbid Abnormal Clear [facility] Comment on above: Performed By: #### [id number] #### [facility] [address] [place] [address] Color (U) Dark-Brown Abnormal Yellow [facility] Comment on above: Result Comment: Micr oscopic readings are only performed on those samples that meet specific criteria set forth by [facility]. Performed By: #### [id number] #### [facility] [address] [place] [address] Glucose Ql (U) Negative Normal Negative [facility] Comment on above: Performed By: #### 4 [id number] #### [facility] [address] [place] [address] Hemoglobin Auto test strip (U) [Mass/Vol] 3+ mg/dL Abnormal Negative [facility] [facility] Comment on above: Performed By: #### 4 [id number] #### [facility] [address] [place] [address] Ketones Auto test strip Ql (U) 2+ mg/dL Abnormal Negative [facility] Comment on above: Performed By: #### 4 [id number] #### [facility] [address] [place] [address] Leukocyte esterase Auto test strip Ql (U) 500 Roberto/uL Abnormal Negative [facility] Comment on above: Performed By: #### 4 [id number] #### [facility] [address] [place] [address] Mucus Auto Ql (U) 2+ CD:[id number] Abnormal Negative F [facility] Comment on above: Performed By: #### 4 [id number] #### [facility] [address] [place] [address] Nitrite Auto test strip Ql (U) Negative Normal Negative [facility] Comment on above: Performed By: #### 4 [id number] #### [facility] [address] [place] [address] pH (U) 6.0 [pH] Invalid Interpretation Code 5.0-9.0 [facility] Comment on above: Performed By: #### 4 [id number] #### [facility] [address] [place] [address] Protein Ql (U) 1+ mg/dL Abnormal Negative [facility] Comment on above: Performed By: #### 4 [id number] #### [facility] [address] [place] [address] RBC Ql (U) >75 Abnormal 0-3 [facility] Comment on above: Performed By: #### 4 [id number] #### [facility] [address] [place] [address] Specific gravity (U) [Rel density] 1.011 Invalid Interpretation Code 1.005-1.030 [facility] Comment on above: Performed By: #### 4 [id number] #### [facility] [address] [place] [address] Urobilinogen (U) [Mass/Vol] Negative Normal Negative [facility] Comment on above: Performed By: #### 4 [id number] #### [facility] [address] [place] [address] WBC Auto (Urine sed) [#/Area] 6-15 Abnormal 0-5 [facility] Comment on above: Performed By: #### 4 [id number] #### [facility] [address] [place] [id number] Type of Urine collection method Clean Catch Normal [facility] Comment on above: Performed By: #### 4 [id number] #### [facility] [address] [id number] URINALYSISOrdered By: SYSTEM SYSTEM on 09-12-2023 Bilirubin Ql (U) Negative Normal Negativemg/ d L [facility] [place] Auto SS Clarity (U) Turbid *ABN* (09/12/23 1:11 AM) Invalid Interpretation Code Clear [facility] UA Auto SS Color (U) Dark-Brown 1 *ABN* (09/12/23 1:11 AM) Invalid Interpretation Code Yellow [facility] UA Auto SS Comment on above: Interpretive Data: M icroscopic readings are only performed on those samples that meet specific criteria set forth by [facility]. Glucose Ql (U) Negative Normal Negativemg/d L [facility] UA Auto SS Hemoglobin Auto test strip (U) [Mass/Vol] 3+ mg/dL Invalid Interpretation Code Negativemg/d L [facility] UA Auto SS Ketones Auto test strip Ql (U) 2+ mg/dL Invalid Interpretation Code Negativemg/d L [facility] UA Auto SS Leukocyte esterase Auto test strip Ql (U) 500 Roberto/uL Roberto/uL Invalid Interpretation Code NegativeLeu/ uL [facility] UA Auto SS Mucus Auto Ql (U) 2+ graded/LPF Invalid Interpretation Code Negativegrad ed/LPF [facility] UA Auto SS Nitrite Auto test strip Ql (U) Negative Normal Negativemg/d L [facility] UA Auto SS pH (U) 6.0 *NA* (09/12/23 1:11 AM) Invalid Interpretation Code 5.0 - 9.0 [facility] UA Auto SS Protein Ql (U) 1+ mg/dL Invalid Interpretation Code Negativemg/d L [facility] UA Auto SS RBC Ql (U) >75 graded/HPF Invalid Interpretation Code 0-3graded/HP F [facility] UA Auto SS Specific gravity (U) [Rel density] 1.011 *NA* (09/12/23 1:11 AM) Invalid Interpretation Code 1.005 - 1.030 [facility] UA Auto SS Urobilinogen (U) [Mass/Vol] Negative Normal Negativemg/d L [facility] UA Auto SS WBC Auto (Urine sed) [#/Area] 6-15 graded/HPF Invalid Interpretation Code 0-5graded/HP F [facility] UA Auto SS URINALYSISOrdered By: Zechariah Perales on 09-12-2023 UA Spec Desc Clean Catch (09/12/23 1:11 AM) Normal [facility] [place] Auto SS Work Phone: eGFRon 09-12-2023 eGFR 110 mL/min/1.73 m2 Normal >=59 [facility] Comment on above: Order Comment: Order added by Discern Expert. Performed By: #### 1 [id number] #### [facility] [address] [place] [address] C Urineon 09-11-2023 Bacteria identified Cx Nom (U) Microbiology PROCEDURE: Urine Culture [R1] SOURCE: U CleanCatch BODY SITE: COLLECTED DATE/TIME: 09/09/2023 23:47 EDT RECEIVED DATE/TIME: 09/09/2023 23:57 EDT START DATE/TIME: 09/09/2023 23:57 EDT FREE TEXT SOURCE: Avelina Gonzalez DO, DO, Kaylinn A FINAL REPORTS Final Report [] Verified Date/Time: 09/11/2023 07:16 EDT No growth at 2 days. Performing Locations R1: This test was performed at: [facility], [address] [place] [address], [id number] , [place], Normal [facility] Comment on above: Performed By: #### 2 [id number] #### [facility] [address] [place] [address] BMPon 09-10-2023 Anion gap [Moles/Vol] 10 mmol/L Normal 6-16 [facility] Comment on above: Performed By: #### 2 [id number] #### [facility] [address] [place] [address] Calcium [Mass/Vol] 8.6 mg/dL Low 8.9-11.1 [facility] Comment on above: Performed By: #### 2 [id number] #### [facility] [address] [place] [address] Chloride [Moles/Vol] 107 mmol/L Normal 101-111 [facility] Comment on above: Performed By: #### 2 [id number] #### [facility] [address] [place] [address] CO2 [Moles/Vol] 26 mmol/L Normal 21-31 [facility] Comment on above: Performed By: #### 2 [id number] #### [facility] [address] [place] [address] Creatinine [Mass/Vol] 1.0 mg/dL Normal 0.5-1.3 [facility] Comment on above: Performed By: #### 2 [id number] #### [facility] [address] [place] [address] Glucose [Mass/Vol] 102 mg/dL Normal 55-199 [facility] Comment on above: Performed By: #### 2 [id number] #### [facility] [address] [place] [address] Potassium [Moles/Vol] 3.6 mmol/L Normal 3.5-5.3 [facility] Comment on above: Performed By: #### 2 [id number] #### [facility] [address] [place] [address] Sodium [Moles/Vol] 139 mmol/L Normal 135-145 [facility] Comment on above: Performed By: #### 2 [id number] #### [facility] [address] [place] [address] Urea nitrogen [Mass/Vol] 11 mg/dL Normal - [facility] Comment on above: Performed By: #### 2 [id number] #### [facility] [address] [place] [address] Urea nitrogen/Creatinine [Mass ratio] 11 No Units Normal 10- [facility] Comment on above: Performed By: #### 2 [id number] #### [facility] [address] [place] [address] Consent for Treatmenton 08-16 Consent for Treatment [id number] #[id number] Normal [facility] Discharge Instructionson Discharge Instructions [id number]#[id number] Normal [facility] ED Clinical Summaryon 2023 ED Clinical Summary [address] [address] ED Clinical Summary Person Information Name: JAKOB FUENTES [facility] Age: 43 Years : 1980 Sex: Male Language: British PCP: [facility] Marital Status: Visit Id: Visit Reason: Post surgical problem; Hematuria; Flank pain; STABBING PAIN LOWER BACK Speciality: Acuity: 3 Enc Type: Emergency Med Service: Emergency Arrival: 09/09/2023 22:51:40 Discharge: 09/10/2023 01:12:03 LOS: 000 02:21 Checkin: 09/09/2023 22:51:40 Checkout: 09/10/2023 01:12:03 Dispo Type: Home (Routine DC) EVENTS: Event Name Event Status Request Date/Time Start Date/Time Complete Date/Time Arrive Complete 09/09/2023 22:51:40 09/09/2023 22:51:40 09/09/2023 22:51:40 Document Home Meds Request 09/09/2023 22:51:40 Triage Complete 09/09/2023 22:51:40 09/09/2023 23:02:19 09/09/2023 23:02:19 Registration Complete 09/09/2023 22:55:46 09/09/2023 22:55:46 09/09/2023 22:55:46 Reg Complete Request 09/09/2023 22:55:46 Reg Bed Request Complete 09/09/2023 22:55:46 09/09/2023 22:55:46 09/09/2023 22:55:46 Dr Exam Complete 09/09/2023 22:55:49 09/09/2023 22:55:49 09/09/2023 22:55:49 Registration Start 09/09/2023 22:55:49 09/09/2023 22:59:33 Bed Assign Complete 09/09/2023 22:59:33 09/09/2023 22:59:33 09/09/2023 22:59:33 RN Exam Complete 09/09/2023 22:59:33 09/09/2023 23:30:44 09/09/2023 23:30:44 Pending Labs Complete 09/09/2023 23:13:44 09/09/2023 23:57:10 Lab Complete 09/09/2023 23:13:44 09/09/2023 23:53:58 X-Ray Complete 09/09/2023 23:13:44 09/09/2023 23:20:07 09/09/2023 23:43:07 Meds Admin Request 09/09/2023 23:13:44 Pending Labs Complete 09/09/2023 23:37:14 09/09/2023 23:37:14 09/09/2023 23:53:58 Lab Complete 09/09/2023 23:37:14 09/09/2023 23:37:14 09/09/2023 23:53:58 Wet Read Request 09/09/2023 23:43:07 Pending Labs Inlab 09/09/2023 23:57:11 09/09/2023 23:57:11 Lab Inlab 09/09/2023 23:57:11 09/09/2023 23:57:11 Meds Admin Complete 09/10/2023 00:18:24 09/10/2023 01:04:17 Discharge Complete 09/10/2023 00:21:15 09/10/2023 01:12:12 09/10/2023 01:12:12 Transfer Complete 09/10/2023 01:12:12 09/10/2023 01:12:12 09/10/2023 01:12:12 ADDRESS: [address] [place] [id number] PHYS DOC NOTES: MEDICAL INFORMATION: Prescriptions Given: New Medications [id number], [address] [place], [place] [id number], [phone] ketorolac (ketorolac 10 mg Tab) 1 Tablets By Mouth every 6 hours as needed for pain. Refills: 0. ondansetron (Zofran ODT 4 mg Tab-Dis) 1 Tablets By Mouth every 8 hours. Refills: 0. Medications to Continue Taking That Have Changed [id number], [address], [place] [id number], [phone] START: acetaminophen-oxycod one (Percocet 5 mg-325 mg oral tablet) 1 Tablets By Mouth every 6 hours for 3 Days. Refills: 0. START: ciprofloxacin (Cipro 500 mg Tab) 1 Tablets By Mouth 2 times a day. Refills: 0. Other Medications START: acetaminophen-oxycod one (Percocet 325 mg-5 mg Tab) 1-2 tabs By Mouth every 6 hours as needed pain. START: acetaminophen-oxycod one (Percocet 5 mg-325 mg oral tablet) 1 Tablets By Mouth every 6 hours as needed as needed for pain. Refills: 0. START: ciprofloxacin (Cipro 500 mg Tab) 1 Tablets By Mouth every 12 hours for 10 Days. Refills: 0. START: ciprofloxacin (ciprofloxacin 250 mg Tab) 1 Tablets By Mouth every 12 hours. Medications to Continue with No Changes Other Medications cephalexin (Keflex 500 mg Cap) 1 Capsules By Mouth every 6 hours for 7 Days. Refills: 0. naproxen (Naprosyn 500 mg Tab) 1 Tablets By Mouth 2 times a day as needed for pain. Refills: 0. phenazopyridine (phenazopyridine 200 mg Tab) 1 Tablets By Mouth 3 times a day. tamsulosin (Flomax 0.4 mg Cap) 1 Capsules By Mouth every day. Refills: 0. PATIENT EDUCATION INFORMATION: Instructions: Urinary Tract Infection, Adult, Ipmv-su-Fynr; Renal Colic, Hrjx-mm-Vxyu Follow up: With: Address: When: [facility] [address] [place], [place] [id number] Business (1) In 3 days 09/13/2023 Comments: Stop taking the Keflex and you can start taking the Cipro as prescribed to completed the course. You can use the pain medication as prescribed as needed for pain. Please follow-up with Dr. Bhagat for further evaluation and management. Please return to the ED for any new or worsening symptoms. With: Address: When: [place] [phone] Business (1) In 3 days DIAGNOSIS: Acute UTI; Ureteral colic Normal [facility] ED Note-Physicianon 09-10-19 ED Note-Physician Basic Information Time Seen: Avelina Gonzalez DO 09/09/2023 22:55 Chief Complaint pt to ED with c/o L extreme flank pain. states dx with kidney stones 2 days ago, procedure with Dr. Bhagat yesterday with stone removal. blood in urine and slight pain today, states approx 2 hours ago sharp stabbing pain to L flank with no relief. History of Present Illness Patient is a 43-year-old male with past medical history of kidney stones presenting to the ED for evaluation of left flank pain. Patient was seen here 2 days ago was diagnosed with a 9 mm kidney stone on the left. Saw Drs. Bhagat yesterday had a lithotripsy with stent placement done. Patient states he was doing well today he developed sudden onset of left flank pain, this stabbing with radiation. Patient denies any fevers, chills, nausea or vomiting. Review of Systems A 10 point review of systems is negative except as noted above. Medical and Surgical History: Reviewed and noted Social history: Lives at home Tobacco: Denies Physical Exam Vitals & Measurements T: 36.6 ?C(Oral) HR: 84(Peripheral) RR: 20 BP: 135/92 SpO2: 100% HT: 182 cm WT: 65.8 kg BMI: 19.86 General: Well developed, non toxic appearing, uncomfortable appearing on examination HEENT: Head atraumatic, Mucosa moist, hearing grossly normal Neck: No JVD, tracheal deviation Cardiac: Regular rate, rhythm, no murmurs, or gallops, 2+ radial pulses Respiratory: Lungs clear to auscultation B/L, normal respiratory effort Abdomen: Soft non tender, no rebound or guarding, no peritoneal signs Extremities: No edema noted in the LE B/L, no tenderness to palpation, left CVA tenderness Neurologic: Alert and oriented, speech clear Skin: No rashes or lesions Psych: Appropriate mood and behavior Medical Decision Making MEDICAL DECISION MAKING Number and Complexity of Problems Differential Diagnosis: [] [facility] Data External documents reviewed: [] My EKG interpretation: [] My CT interpretation: [] My X-ray interpretation: [] My Ultrasound interpretation: [] Decision rules/scores evaluated: [] Discussed with: [] Treatment and Disposition ED Course: Patient is a 43-year-old male presenting to the ED for evaluation of left flank pain. Patient's uncomfortable appearing on initial arrival but otherwise in no acute distress. Had recent lithotripsy with stent placement by Dr. Bhagat yesterday. Laboratory evaluation is obtained, patient is given Toradol, morphine, Zofran, IV fluids. X-ray of the abdomen is ordered. Patient's abdominal x-ray shows a stent in appropriate position, urinalysis consistent with urinary tract infection, renal function is normal. On reevaluation patient is feeling improved. Due to his urine we will stop the Keflex and start Cipro. Patient is also started on Toradol for pain. Is given additional prescription for Percocet. He is follow-up with Dr. Bhagat for further evaluation management. He is return to the ED for any new or worsening symptoms. Shared decision making: [] Code status: [] Assessment/Plan Acute UTI (N39.0: Urinary tract infection, site not specified) Ureteral colic (N23: Unspecified renal colic) Orders: acetaminophen-oxycod one, 1 tab(s), Oral, q6hr for 3 day(s), 12 tab(s), Refill(s) 0, [facility] #[id number], 182, cm, 09/09/23 23:02:00 EDT, Height/Length Dosing, 65.8, kg, 09/09/23 23:02:00 EDT, Weight Dosing ciprofloxacin, 500 mg = 1 tab(s), Oral, BID, # 28 tab(s), Refills(s) 0, Pharmacy: [facility] #[id number], 182, cm, 09/09/23 23:02:00 EDT, Height/Length Dosing, 65.8, kg, 09/09/23 23:02:00 EDT, Weight Dosing ketorolac, 10 mg = 1 tab(s), Oral, q6hr, PRN for pain, # 20 tab(s), Refills(s) 0, Pharmacy: [facility] #[id number], 182, cm, 09/09/23 23:02:00 EDT, Height/Length Dosing, 65.8, kg, 09/09/23 23:02:00 EDT, Weight Dosing ketorolac, 30 mg = 1 mL, Injection, IV Push, Once, Stop date 09/09/23 23:13:00 EDT, STAT, Start date 09/09/23 23:13:00 EDT, 09/09/23 23:13:00 EDT morphine, 4 mg = 1 mL, Injection, IV Push, Once, Stop date 09/09/23 23:13:00 EDT, STAT, Start date 09/09/23 23:13:00 EDT, 09/09/23 23:13:00 EDT naproxen, 500 mg = 2 tab(s), Tab, Oral, Once, Stop date 09/10/23 0:18:00 EDT, STAT, Start date 09/10/23 0:18:00 EDT, 09/10/23 0:18:00 EDT ondansetron, 4 mg = 2 mL, Injection, IV Push, Once, Stop date 09/09/23 23:13:00 EDT, STAT, Start date 09/09/23 23:13:00 EDT, 09/09/23 23:13:00 EDT ondansetron, 4 mg = 1 tab(s), Oral, q8hr, # 12 tab(s), Refills(s) 0, Pharmacy: [facility] #[id number], 182, cm, 09/09/23 23:02:00 EDT, Height/Length Dosing, 65.8, kg, 09/09/23 23:02:00 EDT, Weight Dosing Sodium Chloride 0.9% intravenous solution 1,000 mL, 1,000 mL, IV, 983.61 mL/hr, for 30 day(s), Stop date 10/09/23 23:12:00 EDT, STAT, Start date 09/09/23 23:13:00 EDT, 61 minute(s), Total volume (mL): 1,000, 65.8 kg, 1.82, m2 Basic Metabolic Panel eGFR UA with Cult Rflx Urine Culture XR Abdomen 1 View Medications Administered Given Sodium Chloride 0.9% IV Fide 1000 mL 1,00 (more content not included)... Normal [facility] Comment on above: Result Comment: Elec tronically Signed By: Avelina Gonzalez DO\\.br\\Date and Time Signed: 09/10/23 00:22 EDT ED Patient Education Noteon 09-10-2023 ED Patient Education Note Obstetrics and Gynecology Urinary Tract Infection, Adult A urinary tract infection (UTI) is an infection of any part of the urinary tract. The urinary tract includes: ? The kidneys. ? The ureters. ? The bladder. ? The urethra. These organs make, store, and get rid of pee (urine) in the body. What are the causes? This infection is caused by germs (bacteria) in your genital area. These germs grow and cause swelling (inflammation) of your urinary tract. What increases the risk? The following factors may make you more likely to develop this condition: ? Using a small, thin tube (catheter) to drain pee. ? Not being able to control when you pee or poop (incontinence). ? Being female. If you are female, these things can increase the risk: ? Using these methods to prevent : ? A medicine that kills sperm (spermicide). ? A device that blocks sperm (diaphragm). ? Having low levels of a female hormone (estrogen). ? Being . You are more likely to develop this condition if: ? You have genes that add to your risk. ? You are sexually active. ? You take antibiotic medicines. ? You have trouble peeing because of: ? A prostate that is bigger than normal, if you are male. ? A blockage in the part of your body that drains pee from the bladder. ? A kidney stone. ? A nerve condition that affects your bladder. ? Not getting enough to drink. ? Not peeing often enough. ? You have other conditions, such as: ? Diabetes. ? A weak disease-fighting system (immune system). ? Sickle cell disease. ? Gout. ? Injury of the spine. What are the signs or symptoms? Symptoms of this condition include: ? Needing to pee right away. ? Peeing small amounts often. ? Pain or burning when peeing. ? Blood in the pee. ? Pee that smells bad or not like normal. ? Trouble peeing. ? Pee that is cloudy. ? Fluid coming from the vagina, if you are female. ? Pain in the belly or lower back. Other symptoms include: ? Vomiting. ? Not feeling hungry. ? Feeling mixed up (confused). This may be the first symptom in older adults. ? Being tired and grouchy (irritable). ? A fever. ? Watery poop (diarrhea). How is this treated? ? Taking antibiotic medicine. ? Taking other medicines. ? Drinking enough water. In some cases, you may need to see a specialist. Follow these instructions at home: Medicines ? Take wioy-znw-wahyilu and prescription medicines only as told by your doctor. ? If you were prescribed an antibiotic medicine, take it as told by your doctor. Do not stop taking it even if you start to feel better. General instructions ? Make sure you: ? Pee until your bladder is empty. ? Do not hold pee for a long time. ? Empty your bladder after sex. ? Wipe from front to back after peeing or pooping if you are a female. Use each tissue one time when you wipe. ? Drink enough fluid to keep your pee pale yellow. ? Keep all follow-up visits. Contact a doctor if: ? You do not get better after 1?2 days. ? Your symptoms go away and then come back. Get help right away if: ? You have very bad back pain. ? You have very bad pain in your lower belly. ? You have a fever. ? You have chills. ? You feeling like you will vomit or you vomit. Summary ? A urinary tract infection (UTI) is an infection of any part of the urinary tract. ? This condition is caused by germs in your genital area. ? There are many risk factors for a UTI. ? Treatment includes antibiotic medicines. ? Drink enough fluid to keep your pee pale yellow. This information is not intended to replace advice given to you by your health care provider. Make sure you discuss any questions you have with your health care provider. Document Revised: 11/13/2020 Document Reviewed: 11/13/2020 [employer] Patient Education ? 2022 [employer]. Urology Renal Colic Renal colic is pain that is caused by a kidney stone. The pain can be sharp and very bad. It may be felt in the back, belly, side (flank), or groin. It can cause nausea. Renal colic can come and go. Follow these instructions at home: Medicines ? Take jkfg-dbq-zjmucmd and prescription medicines only as told by your doctor. ? Do not drive or use heavy machinery while taking prescription pain medicine. Eating and drinking ? Drink enough fluid to keep your pee (urine) pale yellow. You may be told to drink at least 8?10 glasses of water each day. Follow instructions from your doctor. ? If told, change your diet. This may include eating: ? Less salt (sodium). Eat less than 2 grams (2,000 mg) of salt per day. ? Less meat, poultry, fish, and eggs. ? More fruits and vegetables. ? Try not to eat spinach, rhubarb, sweet potatoes, or nuts. ? Follow instructions from your doctor about what foods and drinks to avoid. General (more content not included)... Normal [facility] ED Patient Summaryon 024 ED Patient Summary [address] [address] Patient Discharge Instructions Person Information Name: JAKOB FUENTES Age: 43 Years Arrival Date: 09/09/2023 22:51:40 Discharge Diagnosis: Acute UTI; Ureteral colic Primary Care Physician: [facility] Provider Information Primary Provider: Avelina Gonzalez DO [employer]her:None The exam and treatment you received in the Emergency Department were for an urgent problem and are not intended as complete care. It is important that you follow up with a doctor, nurse practitioner, or physician?s health care assistant for ongoing care. If your symptoms become worse or you do not improve as expected and you are unable to reach your usual health care provider, you should return to the Emergency Department. We are available 24 hours a day. JAKOB FUENTES has been given the following list of patient education materials, prescriptions and follow-up instructions: Follow-up Instructions: With: Address: When: [facility] [address] [place] [id number] [employer] (1) In 3 days 09/13/2023 Comments: Stop taking the Keflex and you can start taking the Cipro as prescribed to completed the course. You can use the pain medication as prescribed as needed for pain. Please follow-up with Dr. Bhagat for further evaluation and management. Please return to the ED for any new or worsening symptoms. With: Address: When: [place] [phone] [employer] (1) In 3 days In the event that this physician does not participate in your insurance network, please consult with your insurance company to find a nearby participating provider. Patient Education Materials: Urinary Tract Infection, Adult, Qgxp-nu-Cjzm; Renal Colic, Srpv-rc-Bhhh A MESSAGE TO ALL PATIENTS REGARDING OPIOIDS PRESCRIPTION OPIOIDS: WHAT YOU NEED TO KNOW Prescription opioids can be used to help relieve ovaxfzna-sp-uvaofj pain and are often prescribed following a surgery or injury, or for certain health conditions. These medications can be an important part of the treatment but also come with serious risks. It is important to work with your healthcare provider to make sure you are getting the safest, most effective care. WHAT ARE THE RISKS AND SIDE EFFECTS OF OPIOID USE? Prescription opioids carry serious risks of addiction and overdose, especially with prolonged use. An opioid overdose, often marked by slowed breathing, can cause sudden . The use of prescription opioids can have a number of side effects as well, even when taken as directed: ? Tolerance?meaning you might need to take more of the medication for the same pain relief ? Physical dependence?meaning you have symptoms of withdrawal when a medication is stopped ? Increased sensitivity to pain ? Constipation ? Nausea, vomiting, and dry mouth ? Sleepiness and dizziness ? Confusion ? Depression ? Low levels of testosterone that can result in lower sex drive, energy, and strength ? Itching and sweating RISKS ARE GREATER WITH: ? History of drug misuse, substance use disorder, or overdose ? Mental health conditions (such as depression or anxiety) ? Sleep apnea ? Older age (65 years and older) ? Avoid alcohol while taking prescription opioids. Also, unless specifically advised by your health care provider, medications to avoid include: ? Benzodiazepines (such as Xanax or Valium) ? Muscle relaxants (such as Soma or Flexeril) ? Hypnotics (such as Ambien or Lunesta) ? Other prescription opioids KNOW YOUR OPTIONS Talk to your health care provider about ways to manage your pain that don?t involve prescription opioids. Some of these options may actually work better and have fewer risks and side effects. Options may include: ? Pain relievers such as acetaminophen, ibuprofen, and naproxen ? Some medication that are also used for depression or seizures ? Physical therapy and exercise ? Cognitive behavioral therapy, a psychological, goal-directed approach, in which patients learn how to modify physical, behavioral, and emotional triggers of pain and stress. IF YOU ARE PRESCRIBED OPIOIDS FOR PAIN: ? Never take opioids in greater amounts or more often than prescribed. ? Follow up with your primary health care provider. o Work together to create a plan on how to manage your pain. o Talk about ways to help manage your pain that don?t involve prescription opioids. o Talk about any and all concerns and side effects. ? Help prevent misuse and abuse o Never sell or share prescription opioids. o Never use another person?s prescription opioids. ? Store prescription opioids in a secure place and out of reach of others (this may include visitors, children, friends, and family). ? Safely dispose of unused presc (more content not included)... Normal [facility] UA with Cult Rflxon 09-10-19 24 Bilirubin Ql (U) Negative Normal Negative [facility] Comment on above: Performed By: #### 4 [id number] #### [facility] [address] [place] [address] Clarity (U) Ex.Turbid Abnormal Clear [facility] Comment on above: Performed By: #### 4 [id number] #### [facility] [address] [place] [address] Color (U) Dark-Brown Abnormal Yellow [facility] Comment on above: Result Comment: Micr oscopic readings are only performed on those samples that meet specific criteria set forth by [facility]. Performed By: #### 4 [id number] #### [facility] [address] [place] [address] Glucose Ql (U) Negative Normal Negative [facility] Comment on above: Performed By: #### 4 [id number] #### [facility] [address] [place] [address] Hemoglobin Auto test strip (U) [Mass/Vol] 3+ mg/dL Abnormal Negative [facility] Comment on above: Performed By: #### 4 [id number] #### [facility] [address] [place] [address] Ketones Auto test strip Ql (U) Trace Abnormal Negative [facility] Comment on above: Performed By: #### 4 [id number] #### [facility] [address] [place] [address] Leukocyte clumps Auto (Urine sed) [#/Area] >30 Abnormal [facility] Comment on above: Performed By: #### 4 [id number] #### [facility] [address] [place] [address] Leukocyte esterase Auto test strip Ql (U) 250 Roberto/uL Abnormal Negative [facility] Comment on above: Performed By: #### 4 [id number] #### [facility] [address] [place] [address] Mucus Auto Ql (U) 2+ [id number] Abnormal Negative F [facility] Comment on above: Performed By: #### 4 [id number] #### [facility] [address] [place] [address] Nitrite Auto test strip Ql (U) Negative Normal Negative [facility] Comment on above: Performed By: #### 4 [id number] #### [facility] [address] [place] [address] pH (U) 7.5 [pH] Invalid Interpretation Code 5.0-9.0 [facility] Comment on above: Performed By: #### 4 [id number] #### [facility] [address] [place] [address] Protein Ql (U) 2+ mg/dL Abnormal Negative [facility] Comment on above: Performed By: #### 4 [id number] #### [facility] [address] [place] [address] RBC Ql (U) >75 Abnormal 0-3 [facility] Comment on above: Performed By: #### 4 [id number] #### [facility] [address] [place] [address] Specific gravity (U) [Rel density] 1.011 Invalid Interpretation Code 1.005-1.030 [facility] Comment on above: Performed By: #### 4 [id number] #### [facility] [address] [place] [address] Urobilinogen (U) [Mass/Vol] Negative Normal Negative [facility] Comment on above: Performed By: #### 4 [id number] #### [facility] [address] [place] [address] WBC Auto (Urine sed) [#/Area] >75 Abnormal 0-5 [facility] Comment on above: Performed By: #### 4 [id number] #### [facility] [address] [place] [address] Type of Urine collection method Clean Catch Normal [facility] Comment on above: Performed By: #### 4 [id number] #### [facility] [address] [place] [address] XR Abdomen 1 Viewon 09-10-19 XR Abdomen 1 View Exam Date/Time: 09/09/2023 23:43 EDT Reason for Exam: Kidney stone Report IMPRESSION: Left ureteral stent and left-sided calculus as discussed. EXAMINATION/TECHNIQU E: XR Abdomen 1 View HISTORY: Left flank pain. COMPARISON: CT 09/07/2023. RESULT: Interval placement of left ureteral stent with one end looped in the region of the renal pelvis and the other end looped in the urinary bladder. Apparent 4 mm calculus projecting over the region of the left lower pole, grossly decreased in size compared to the CT 09/07/2023, and could represent residual fragment of the prior calculus on the recent CT, correlate with the recent procedure. Otherwise no distinct urinary tract calculi radiographically. Nonspecific nondilated bowel gas pattern. Lung bases unremarkable. No acute osseous findings. No other significant abnormality. Ordering Provider: Avelina Gonzalez FINAL REPORT Dictated: 09/10/2023 10:46 am Kartik Mckeon MD Signed (Electronic Signature): 09/10/2023 10:46 am Signed by: Kartik Mckeon MD Transcribed by: FLAKO Technologist: ORLIN Technical Comments Radiation Dose: Ka,r in mGy = na DAP = na Normal [facility] eGFRon 09-10-2023 eGFR 97 mL/min/1.73 m2 Normal >=59 [facility] Comment on above: Order Comment: Order added by Discern Expert. Performed By: #### 1 [id number] #### [facility] [address] [place] [address] C Urineon 09-09-2023 Bacteria identified Cx Nom (U) Microbiology PROCEDURE: Urine Culture [R1] SOURCE: U CleanCatch BODY SITE: COLLECTED DATE/TIME: 09/07/2023 04:50 EDT RECEIVED DATE/TIME: 09/07/2023 05:04 EDT START DATE/TIME: 09/07/2023 05:04 EDT FREE TEXT SOURCE: Ronnie Singleton, Tyron Trujillo M.D., Tyron Babin FINAL REPORTS Final Report [] Verified Date/Time: 09/09/2023 09:45 EDT 2,000 cfu/ml Mixed skin contaminants Performing Locations R1: This test was performed at: [facility], [address] [place] [address], [id number]- , [place], [facility] Comment on above: Performed By: #### 2 [id number] #### [facility] [address] [place] [address] CHEMISTRYOrdered By: SYSTEM SYSTEM on 09-09-2023 Anion gap [Moles/Vol] 10 mmol/L Normal 6 - 16 mEq/L R emisol Chem Calcium [Mass/Vol] 8.6 mg/dL Low 8.9 - 11. 1 mg/dL [facility] Chloride [Moles/Vol] 107 mmol/L Normal 101 - 1 11 mmol/L [facility] CO2 [Moles/Vol] 26 mmol/L Normal 21 - 31 mmol/L [facility] Creatinine [Mass/Vol] 1.0 mg/dL Normal 0.5 - 1.3 mg/dL [facility] eGFR 97 mL/min/1.73 m2 Normal >=59mL/min /1 .73 m2 [facility] Glucose [Mass/Vol] 102 mg/dL Normal 55 - 199 mg/dL [facility] Potassium [Moles/Vol] 3.6 mmol/L Normal 3.5 - 5.3 mmol/L [facility] Sodium [Moles/Vol] 139 mmol/L Normal 135 - 145 mmol/L [facility] Urea nitrogen [Mass/Vol] 11 mg/dL Normal 5 - 21 mg/d L [facility] Urea nitrogen/Creatinine [Mass ratio] 11 mg/mg Normal 10 - 20 [facility] Laboratory - Microbiology an d Antimicrobial susceptibilityOrdered By: Jessica Hollis on 09-09-2023 Bacteria identified Cx Nom (U) No growth to date [facility] URINALYSISOrdered By: SYSTEM SYSTEM on 09-09-2023 Bilirubin Ql (U) Negative Normal Negativemg/ d L [facility] [place] Auto SS Clarity (U) Ex.Turbid *ABN* (09/09/23 11:47 PM) Invalid Interpretation Code Clear [facility] UA Auto SS Color (U) Dark-Brown 1 *ABN* (09/09/23 11:47 PM) Invalid Interpretation Code Yellow [facility] UA Auto SS Comment on above: Interpretive Data: M icroscopic readings are only performed on those samples that meet specific criteria set forth by [facility]. Glucose Ql (U) Negative Normal Negativemg/d L [facility] UA Auto SS Hemoglobin Auto test strip (U) [Mass/Vol] 3+ mg/dL Invalid Interpretation Code Negativemg/d L [facility] UA Auto SS Ketones Auto test strip Ql (U) Trace mg/dL Invalid Interpretation Code Negativemg/d L [facility] UA Auto SS Leukocyte clumps Auto (Urine sed) [#/Area] >30 graded/HPF Invalid Interpretation Code [facility] UA Auto SS Leukocyte esterase Auto test strip Ql (U) 250 Roberto/uL Roberto/uL Invalid Interpretation Code NegativeLeu/ uL [facility] UA Auto SS Mucus Auto Ql (U) 2+ graded/LPF Invalid Interpretation Code Negativegrad ed/LPF [facility] UA Auto SS Nitrite Auto test strip Ql (U) Negative Normal Negativemg/d L [facility] UA Auto SS pH (U) 7.5 *NA* (09/09/23 11:47 PM) Invalid Interpretation Code 5.0 - 9.0 [facility] UA Auto SS Protein Ql (U) 2+ mg/dL Invalid Interpretation Code Negativemg/d L [facility] UA Auto SS RBC Ql (U) >75 graded/HPF Invalid Interpretation Code 0-3graded/HP F [facility] UA Auto SS Specific gravity (U) [Rel density] 1.011 *NA* (09/09/23 11:47 PM) Invalid Interpretation Code 1.005 - 1.030 [facility] UA Auto SS Urobilinogen (U) [Mass/Vol] Negative Normal Negativemg/d L [facility] UA Auto SS WBC Auto (Urine sed) [#/Area] >75 graded/HPF Invalid Interpretation Code 0-5graded/HP F [facility] UA Auto SS URINALYSISOrdered By: Rhoda Gonzalez on 09-09-2023 UA Spec Desc Clean Catch (09/09/23 11:47 PM) Normal [facility] UA Auto SS Work Phone: Patient Educationon 09-08-19 24 Patient Education Nephrology Laser Therapy for Kidney Stones, Care After This sheet gives you information about how to care for yourself after your procedure. Your health care provider may also give you more specific instructions. If you have problems or questions, contact your health care provider. What can I expect after the procedure? After the procedure, it is common to have: ? Pain. ? A burning sensation while urinating. ? Small amounts of blood in your urine. ? A need to urinate frequently. ? Pieces of kidney stone in your urine. ? Mild discomfort when urinating that may be felt in the back. You may experience this if you have a flexible tube (stent) in your ureter. Follow these instructions at home: Medicines ? Take hefv-oro-rdikvhl and prescription medicines only as told by your health care provider. ? If you were prescribed an antibiotic medicine, take it as told by your health care provider. Do not stop taking the antibiotic even if you start to feel better. ? Ask your health care provider if the medicine prescribed to you: ? Requires you to avoid driving or using heavy machinery. ? Can cause constipation. You may need to take actions to prevent or treat constipation, such as: ? Take lbid-dng-rjgpaju or prescription medicines. ? Eat foods that are high in fiber, such as beans, whole grains, and fresh fruits and vegetables. ? Limit foods that are high in fat and processed sugars, such as fried or sweet foods. Activity ? Return to your normal activities as told by your health care provider. Ask your health care provider what activities are safe for you. ? Do not drive for 24 hours if you were given a sedative during your procedure. General instructions ? If your health care provider approves, you may take a warm bath to ease discomfort and burning. ? Drink enough fluid to keep your urine pale yellow. Your health care provider may recommend drinking two 8 oz (237 mL) glasses of water per hour for a few hours after your procedure. ? You may be asked to strain your urine to collect any stone fragments that you pass. These fragments may be tested. ? Keep all follow-up visits as told by your health care provider. This is important. If you have a stent, you will need to return to your health care provider to have the stent removed. Contact a health care provider if you: ? Have pain or a burning feeling that lasts more than 2 days. ? Feel nauseous. ? Vomit more and more often. ? Have difficulty urinating. ? Have pain that gets worse or does not get better with medicine. Get help right away if: ? You are unable to urinate, even if your bladder feels full. ? You have: ? Bright red blood or blood clots in your urine. ? More blood in your urine. ? Severe pain or discomfort. ? A fever or shaking chills. ? Abdominal pain. ? Difficulty breathing. ? Swelling in your legs. This information is not intended to replace advice given to you by your health care provider. Make sure you discuss any questions you have with your health care provider. Document Revised: 08/10/2022 Document Reviewed: 12/06/2021 [employer] Patient Education ? 2022 [employer]. Laser Therapy for Kidney Stones Laser therapy for kidney stones is a procedure to break up small, hard mineral deposits that form in the kidney (kidney stones). The procedure is done using a device that produces a focused beam of light (laser). The laser breaks up kidney stones into pieces that are small enough to be passed out of the body through urination or removed from the body during the procedure. You may need laser therapy if you have kidney stones that are painful or block your urinary tract. This procedure is done by inserting a tube (ureteroscope) into your kidney through the urethral opening. The urethra is the part of the body that drains urine from the bladder. In women, the urethra opens above the vaginal opening. In men, the urethra opens at the tip of the penis. The ureteroscope is inserted through the urethra, and surgical instruments are moved through the bladder and the muscular tube that connects the kidney to the bladder (ureter) until they reach the kidney. Tell a health care provider about: ? Any allergies you have. ? All medicines you are taking, including vitamins, herbs, eye drops, creams, and xajk-wau-cagkulf medicines. ? Any problems you or family members have had with anesthetic medicines. ? Any blood disorders you have. ? Any surgeries you have had. ? Any medical conditions you have. ? Whether you are or may be . What are the risks? Generally, this is a safe procedure. However, problems may occur, including: ? Infection. ? Bleeding. ? Allergic reactions to medicines. ? Damage to the urethra, bladder, or ureter. ? Urinary tract infection (UTI). ? Narrowing of the urethra (urethral stricture). ? Difficulty passing urine. ? Blockage of the kidney caused by a fragment of kidney st (more content not included)... Normal [facility] Urology Office/Clinic Noteon 09-08-2023 Urology Office/Clinic Note Chief Complaint 9mm calculus proximal left UPJ HPI Staff New pt f[place] [facility] [place] 09/07/23 for left sided flank pain, nausea and vomiting. CT done at that time showed a mildly obstructing 9mm calculus at the left UPJ. He was given 1 gram of Rocephin at the ED. He was sent home with scripts of acetaminophen-oxycod one, Cephalexin 500mg 4x daily for 7 days and Flomax 0.4mg. Dysuria: no Incomplete bladder emptying: no Hematuria: yes for the past few days Frequency: no Urgency: no Nocturia: pt usually does not get up Stream: good steady Leaking: no Post void dripping: no Wearing pads/ Depends: no Urge incontinence: no Stress incontinence: no Incontinence without Sensory Awareness: no Abdominal pain: no Flank pain: left sided Sexual complaints: no History of Present Illness Tests reviewed: reviewed UA, ER notes, CT scan, labs I have reviewed the previous health record information and history for this patient from external providers. I have reviewed and verified the staff HPI to be accurate for this encounter. Review of Systems PHQ Score Initial Depression Screen Score: 0 SCORE ROS - Provider Constitutional: denies weight loss, denies hot flashes. Eyes: denies eye problems. Gastrointestinal: denies nausea, denies vomiting. Cardiovascular: denies chest pain or angina. Integumentary: no dryness Musculoskeletal: denies musculoskeletal symptoms. ENMT: denies otolaryngeal symptoms. Respiratory: no shortness of breath. Heme/Lymph: denies easy bleeding tendency, denies easy bruising tendency. Psychiatric: no confusion, no anxiety. Genitourinary: See HPI. Physical Exam Vitals & Measurements T: 37 ?C(Temporal Artery) HR: 86(Peripheral) RR: 16 BP: 127/84 HT: 71 in HT: 180 cm WT: 65 kg WT: 143 lb BMI: 20.06 General Appearance: alert, no distress, well nourished, well developed male. Genitourinary: normal scrotum, normal testes, normal urethra, normal epididymis, normal vas deferens/spermatic cord. Flank Pain: severe on left. Bladder: nonpalpable. Assessment/Plan Jakob is a 43 yo male new pt here for f/[place] [facility] [place] due to an ureteral stone. No hx of UTIs. 1. Ureteral stone (N20.1: Calculus of ureter) [facility] 09/07/23 due to L flank pain. Given IV fluid, pain meds, Keflex, and Flomax. CT AP wo con 09/07/23 - 9 mm calculus proximally at L UPJ with mild L hydro. No distinct urinary tract calculi. No R hydro. Renal fxn - BUN 14. Cr 0.9. GFR 110. L flank pain began last week but became severe over the past few days. Reviewed imaging results. Advised pt he is highly unlikely to pass stone based on size and position and will definitely require surgical intervention with possible stent placement. Pt has been npo since last night. Discussed intervention including extracorporeal shockwave lithotripsy vs ureteroscopy with laser lithotripsy/stone basket extraction possible stent. Risks/benefits of each were discussed. If a stent is placed, pt understands this is not permanent and needs to be removed or exchanged within 3 months to prevent encrustation, infection, permanent renal damage and need for more invasive procedures. -Will schedule a Cystoscopy with Left Retrogrades, Left Ureteroscopy, Left Laser Litho, Left Stone Basket, Left possible stent placement today. The procedure risks, benefits, alternatives and complications have been discussed with the patient. These include but are not limited to bleeding, pain, infection, ureteral perforation, extravasation, stricture formation, sepsis, obstruction, inability to reach the stone, inability to fragment the stone, and inability to retrieve all stone fragments. The need for ancillary procedures such as stent placement and removal, retrograde urography, and percutaneous nephrostomy were also discussed. The patient also understood that a ureteral stent may be placed and removal of the stent is critical. Failure to follow up for stent removal can result in recurrent UTIs, encrustation of the stent, loss of kidney function and need for nephrectomy. All of their questions and concerns have been addressed. Full informed consent has been obtained. Will order General anesthesia. Pt works for [employer] ??? and would like to have some time to recover from procedure. Advised pt he can return to work Kathy. -Increase fluid intake -Stones to be sent for analysis 2. Gross hematuria (R31.0: Gross hematuria) Saw blood in his urine last week, ongoing the last few days. UA today shows large blood. Likely due to ureteral stone. See #1. 3. Flank pain (R10.9: Unspecified abdominal pain) See #1. 4. History of kidney stones (Z87.442: Personal history of urinary calculi) Hx of passing multiple stones on his own. Has passed a 5mm stone. Admits he only drinks Mountain Dew. Has only had an increased water intake recently due to ureteral stone. Recommended pt to increase fluid intake to ten to twelve 16oz bottles a day; preferably water, clear pop, and sugar free lemonade. Discussed metabo (more content not included)... Normal [facility] Comment on above: Result Comment: Elec tronically Signed By: Otf BHAGAT MD\\.br\\Date and Time Signed: 09/08/23 08:25 EDT\\.br\\Electronically Co-Signed By: Juliane Sims\\.br\\Date and Time Co-Signed: 09/08/23 08:23 EDT BMPon 09-07-2023 Anion gap [Moles/Vol] 13 mmol/L Normal 6-16 [facility] Comment on above: Performed By: #### 2 [id number] #### [facility] [address] [place] [address] Calcium [Mass/Vol] 9.5 mg/dL Normal 8.9-11.1 [facility] Comment on above: Performed By: #### 2 [id number] #### [facility] [address] [place] [address] Chloride [Moles/Vol] 108 mmol/L Normal 101-111 [facility] Comment on above: Performed By: #### 2 [id number] #### [facility] [address] [place] [address] CO2 [Moles/Vol] 22 mmol/L Normal 21-31 [facility] Comment on above: Performed By: #### 2 [id number] #### [facility] [address] [place] [address] Creatinine [Mass/Vol] 0.9 mg/dL Normal 0.5-1.3 [facility] Comment on above: Performed By: #### 2 [id number] #### [facility] [address] [place] [address] Glucose [Mass/Vol] 123 mg/dL Normal 55-199 [facility] Comment on above: Performed By: #### 2 [id number] #### [facility] [address] [place] [address] Potassium [Moles/Vol] 4.0 mmol/L Normal 3.5-5.3 [facility] Comment on above: Performed By: #### 2 [id number] #### [facility] [address] [place] [address] Sodium [Moles/Vol] 139 mmol/L Normal 135-145 [facility] Comment on above: Performed By: #### 2 [id number] #### [facility] [address] [place] [address] Urea nitrogen [Mass/Vol] 14 mg/dL Normal 5-21 [facility] Comment on above: Performed By: #### 2 [id number] #### [facility] [address] [place] [address] Urea nitrogen/Creatinine [Mass ratio] 16 No Units Normal 10-20 [facility] Comment on above: Performed By: #### 2 [id number] #### [facility] [address] [place] [address] CBC w/ Auto Diffon 4 Basophils/100 WBC (Bld) 0.9 % Normal 0.0-2.0 F [facility] Comment on above: Performed By: #### 2 [id number] #### [facility] [address] [place] [address] Basophils/Leukocytes Auto (Bld) [Pure # fraction] 0.1 E9/L Normal 0.0-0.2 [facility] Comment on above: Performed By: #### 2 [id number] #### [facility] [address] [place] [address] Eosinophils (Bld) [#/Vol] 0.2 E9/L Normal 0.0-0.5 [facility] Comment on above: Performed By: #### 2 [id number] #### [facility] [address] [place] [address] Eosinophils/100 WBC (Bld) 2.1 % Normal 0.0-8.0 [facility] [facility] Comment on above: Performed By: #### 2 [id number] #### [facility] [address] [place] [address] Erythrocyte distribution width (RBC) [Ratio] 14.3 % High 10.9-14.2 [facility] Comment on above: Performed By: #### 2 [id number] #### [facility] [address] [place] [address] Hematocrit (Bld) [Volume fraction] 48.9 % Normal 37.7-49.0 [facility] Comment on above: Performed By: #### 2 [id number] #### [facility] [address] [place] [address] Hemoglobin (Bld) [Mass/Vol] 16.6 g/dL Normal 13.5-17.5 [facility] Comment on above: Performed By: #### 2 [id number] #### [facility] [address] [place] [address] Lymphocytes (Bld) [#/Vol] 2.0 E9/L Normal 1.0-4.0 [facility] Comment on above: Performed By: #### 2 [id number] #### [facility] [address] [place] [address] Lymphocytes/100 WBC (Bld) 16.9 % Normal 14.0-50.0 [facility] Comment on above: Performed By: #### 2 [id number] #### [facility] [address] [place] [address] MCH (RBC) [Entitic mass] 28.9 pg Normal 27.0-34.0 [facility] Comment on above: Performed By: #### 2 [id number] #### [facility] [address] [place] [address] MCHC (RBC) [Mass/Vol] 33.8 g/dL Normal 31.4-36.0 [facility] Comment on above: Performed By: #### 2 [id number] #### [facility] [address] [place] [address] MCV (RBC) [Entitic vol] 85.3 fL Normal 80.0-100.0 [facility] Comment on above: Performed By: #### 2 [id number] #### [facility] [address] [place] [address] Monocytes (Bld) [#/Vol] 0.7 E9/L Normal 0.2-1.0 [facility] Comment on above: Performed By: #### 2 [id number] #### [facility] [address] [place] [address] Neutrophils (Bld) [#/Vol] 8.5 E9/L High 2.0-7.5 [facility] Comment on above: Performed By: #### 2 [id number] #### [facility] [address] [place] [address] Neutrophils/100 WBC (Bld) 73.8 % Normal 36.0-75.0 [facility] Comment on above: Performed By: #### 2 [id number] #### [facility] [address] [place] [address] Platelet mean volume (Bld) [Entitic vol] 7.7 fL Normal 6.4-10.8 [facility] Comment on above: Performed By: #### 2 [id number] #### [facility] [address] [place] [address] Platelets (Bld) [#/Vol] 226.0 E9/L Normal 150.0-500.0 [facility] Comment on above: Performed By: #### 2 [id number] #### [facility] [address] [place] [address] RBC (Bld) [#/Vol] 5.7 E12/L Normal 4.3-5.9 [facility] Comment on above: Performed By: #### 2 [id number] #### [facility] [address] [place] [address] WBC corrected for nucl RBC Auto (Bld) [#/Vol] 11.5 E9/L High 4.0-11.0 [facility] Comment on above: Performed By: #### 2 [id number] #### [facility] [address] [place] [address] CHEMISTRYOrdered By: SYSTEM SYSTEM on 09-07-2023 Anion gap [Moles/Vol] 13 mmol/L Normal 6 - 16 mEq/L R emisol Chem Calcium [Mass/Vol] 9.5 mg/dL Normal 8.9 - 11. 1 mg/dL Remisol Chem Chloride [Moles/Vol] 108 mmol/L Normal 101 - 1 11 mmol/L Remisol Chem CO2 [Moles/Vol] 22 mmol/L Normal 21 - 31 mmol/L Remisol Chem Creatinine [Mass/Vol] 0.9 mg/dL Normal 0.5 - 1.3 mg/dL Remisol Chem eGFR 110 mL/min/1.73 m2 Normal >=59mL/mi n/1 .73 m2 Remisol Chem Glucose [Mass/Vol] 123 mg/dL Normal 55 - 199 mg/dL Remisol Chem Potassium [Moles/Vol] 4.0 mmol/L Normal 3.5 - 5.3 mmol/L Remisol Chem Sodium [Moles/Vol] 139 mmol/L Normal 135 - 145 mmol/L Remisol Chem Urea nitrogen [Mass/Vol] 14 mg/dL Normal 5 - 21 mg/d L Remisol Chem Urea nitrogen/Creatinine [Mass ratio] 16 mg/mg Normal 10 - [address] Abdomen/Pelvis w/o Contra stoariella 09-07-2023 CT Abdomen/Pelvis w/o Contrast Exam Date/Time: 09/07/2023 05:00 EDT Reason for Exam: Abdominal pain, acute, nonlocalized;Other (please specify) Report IMPRESSION: Mildly obstructing 9 mm calculus proximally at the left ureteropelvic junction. EXAMINATION: CT Abdomen/Pelvis w/o Contrast HISTORY: Abdominal pain, acute, nonlocalized. Left-sided flank pain. Vomiting. Nausea. History of kidney stones and appendectomy. TECHNIQUE: Non-IV contrast imaging of the abdomen and pelvis was performed using standard technique, scanning from just above the dome of the diaphragm to the symphysis pubis. Unenhanced imaging is limited for the evaluation of some intra-abdominal and pelvic pathology. Unless otherwise stated, incidental findings in this report do not require further routine follow-up imaging. All CT scans at this facility use dose modulation, iterative reconstruction, and/or weight based dosing when appropriate to reduce radiation dose to as low as reasonably achievable. COMPARISON: No images available. Prior report from 2010 RESULT: Abdomen / Pelvis: Liver: Unremarkable. Biliary: Gallbladder unremarkable. Pancreas: Unremarkable. Spleen: No splenomegaly. Adrenals: No mass. Kidneys and urinary tract: 9 mm calculus proximally at the left ureteropelvic junction. Mild left hydronephrosis. No distinct urinary tract calculi. No right hydronephrosis. Bladder decompressed. GI Tract: No bowel dilation. Appendectomy. No evidence for diverticulitis. Lymph Nodes: No lymphadenopathy. Report Mesentery/peritoneum /retroperitoneum: No ascites or mass. Vasculature: No abdominal aortic or iliac artery aneurysm. Pelvis: No free fluid. No mass. Bladder unremarkable. Bones/Soft Tissues: No acute osseous findings. Lower thorax: Unremarkable. Ordering Provider: Tyron Trujillo FINAL REPORT Dictated: 09/07/2023 9:18 am Kartik Mckeon MD Signed (Electronic Signature): 09/07/2023 9:18 am Signed by: Kartik Mckeon MD Transcribed by: FLAKO Technologist: THUAN Technical Comments Contrast: None Rectal Contrast Given? No Oral contrast amount in ml's: 0 Normal [facility] Consent for Treatmenton 08-16 Consent for Treatment [id number] #1.00TIFF [facility] Discharge Instructionson Discharge Instructions [id number]#1.00TIFF [facility] ED Clinical Summaryon 2023 ED Clinical Summary [address] [address] ED Clinical Summary Person Information Name: JAKOB FUENTES/NewMelissa Age: 43 Years : 1980 Sex: Male Language: British PCP: [facility], [facility] Marital Status: Visit Id: Visit Reason: Hematuria; Flank pain; lower back pain Speciality: Acuity: 3 Enc Type: Emergency Med Service: Emergency Arrival: 09/07/2023 04:18:33 Discharge: 09/07/2023 07:03:35 LOS: 000 02:45 Checkin: 09/07/2023 04:18:33 Checkout: 09/07/2023 07:03:35 Dispo Type: Home (Routine DC) EVENTS: Event Name Event Status Request Date/Time Start Date/Time Complete Date/Time Arrive Complete 09/07/2023 04:18:33 09/07/2023 04:18:33 09/07/2023 04:18:33 Document Home Meds Request 09/07/2023 04:18:33 Triage Complete 09/07/2023 04:18:33 09/07/2023 04:28:09 09/07/2023 04:28:09 Bed Assign Complete 09/07/2023 04:24:49 09/07/2023 04:24:49 09/07/2023 04:24:49 Dr Exam Complete 09/07/2023 04:24:49 09/07/2023 04:25:41 09/07/2023 04:25:41 RN Exam Complete 09/07/2023 04:24:49 09/07/2023 04:44:39 09/07/2023 04:44:39 Registration Complete 09/07/2023 04:25:41 09/07/2023 04:29:56 09/07/2023 04:29:56 Reg Complete Request 09/07/2023 04:29:56 Reg Bed Request Complete 09/07/2023 04:29:56 09/07/2023 04:29:56 09/07/2023 04:29:56 Meds Admin Complete 09/07/2023 04:31:38 09/07/2023 04:41:42 Pending Labs Complete 09/07/2023 04:31:38 09/07/2023 05:03:49 Lab Complete 09/07/2023 04:31:38 09/07/2023 05:03:10 CT Complete 09/07/2023 04:31:38 09/07/2023 04:32:17 09/07/2023 05:00:22 Pending Labs Complete 09/07/2023 04:42:15 09/07/2023 04:42:15 09/07/2023 05:03:10 Lab Complete 09/07/2023 04:42:15 09/07/2023 04:42:15 09/07/2023 05:03:10 Pending Labs Inlab 09/07/2023 05:03:50 09/07/2023 05:03:50 Lab Inlab 09/07/2023 05:03:50 09/07/2023 05:03:50 Pending Labs Complete 09/07/2023 05:47:10 09/07/2023 05:47:10 09/07/2023 05:47:10 Pending Labs Complete 09/07/2023 05:47:24 09/07/2023 05:47:24 09/07/2023 05:47:24 Meds Admin Complete 09/07/2023 06:03:12 09/07/2023 06:11:56 Meds Admin Complete 09/07/2023 06:52:56 09/07/2023 06:58:45 Discharge Complete 09/07/2023 06:56:15 09/07/2023 07:03:42 09/07/2023 07:03:42 Transfer Complete 09/07/2023 07:03:42 09/07/2023 07:03:42 09/07/2023 07:03:42 ADDRESS: [address] [place] [id number] PHYS DOC NOTES: MEDICAL INFORMATION: Prescriptions Given: New Medications Printed Prescriptions cephalexin (Keflex 500 mg Cap) 1 Capsules By Mouth every 6 hours for 7 Days. Refills: 0. tamsulosin (Flomax 0.4 mg Cap) 1 Capsules By Mouth every day. Refills: 0. Medications to Continue Taking That Have Changed Printed Prescriptions START: acetaminophen-oxycod one (Percocet 5 mg-325 mg oral tablet) 1 Tablets By Mouth every 6 hours as needed as needed for pain. Refills: 0. Other Medications START: acetaminophen-oxycod one (Percocet 325 mg-5 mg Tab) 1-2 tabs By Mouth every 6 hours as needed pain. Medications to Continue with No Changes Other Medications ciprofloxacin (Cipro 500 mg Tab) 1 Tablets By Mouth every 12 hours for 10 Days. Refills: 0. ciprofloxacin (ciprofloxacin 250 mg Tab) 1 Tablets By Mouth every 12 hours. naproxen (Naprosyn 500 mg Tab) 1 Tablets By Mouth 2 times a day as needed for pain. Refills: 0. phenazopyridine (phenazopyridine 200 mg Tab) 1 Tablets By Mouth 3 times a day. PATIENT EDUCATION INFORMATION: Instructions: Urinary Tract Infection, Adult; Kidney Stones Follow up: With: Address: When: Otf BHAGAT [address] [place], [place] [id number] [facility] ([employer] In 3 days 09/10/2023 Comments: Make sure to strain the urine as instructed. Call the office of Dr. Bhagat today for an appointment tomorrow at [facility]. Nothing to eat or drink after midnight tonight. Return to the emergency room if your pain gets worse, vomiting or any new symptoms. Call Dr for diagnosis based follow up DIAGNOSIS: 1:Left ureteral stone; 2:Urinary tract infection Normal [facility] ED Note-Physicianon 09-07-19 ED Note-Physician Basic Information Time Seen: Tyron Trujillo M.D. 09/07/2023 04:25 Chief Complaint Pt arrives to ed with c/o left sided flank pain, vomiting and nausea. History of Present Illness The patient is a 43-year-old male past medical history of kidney stones who presented to the emergency room with left flank pain. The patient states the pain started 3 hours prior to the arrival. He points to the left flank. The patient denies any alleviating or aggravating factors for the pain. He denies any radiation for the pain. The patient stated he is urinating blood. The patient stated he has history of kidney stones and this feels the same as the kidney stone pain. He states a week ago he had pain that went away and this morning pain came back. The patient reports nausea and vomiting. Denies any vomiting blood. He denies any fever, denies any chills. The patient denies any burning with urination. The patient denies any other associated symptoms. Review of Systems Additional ROS info: Except as noted in the above Review of Systems and in the History of Present Illness all other systems have been reviewed and are negative or noncontributory. Physical Exam Vitals & Measurements T: 36.8 ?C(Oral) HR: 50(Monitored) RR: 20 BP: 115/79 SpO2: 98% HT: 180.34 cm WT: 65.5 kg BMI: 20.14 General: alert, moderate distress Skin: warm, dry, Head: no trauma, normocephalic Neck: Trachea midline Eye: normal conjunctiva, sclera clear ENMT: Oral mucosa moist, no pharyngeal erythema or exudate Cardiovascular: regular rate and rhythm, Respiratory: Lungs CTA, respirations non labored, breath sounds equal, Gastrointestinal: soft, non distended, moderate tenderness left hypochondria, no guarding Extremities: no deformity, no trauma Neurological: Alert and oriented, motor strength equal & normal bilaterally, sensation equal & normal bilaterally, speech normal, no focal neuro deficits Psychiatric: cooperative, affect appropriate for age, Medical Decision Making MEDICAL DECISION MAKING Number and Complexity of Problems Differential Diagnosis: [] [facility] Data External documents reviewed: [] My EKG interpretation: [] My CT interpretation: [] My X-ray interpretation: [] My Ultrasound interpretation: [] Decision rules/scores evaluated: [] Discussed with: Dr. Bhagat Treatment and Disposition ED Course: The patient presented with left flank pain. His pain is due to ureteral stone. The patient has 9.2 mm stone at the left pelviureteric junction. He does have left hydronephrosis. Blood work reviewed. Patient has some elements of urinary tract infection. The patient was given IV fluid, Toradol and antiemetic and his pain improved. He was given 1 g of Rocephin. The case was discussed with Dr. Bhagat who recommends patient can be discharged home with pain medication, antibiotic Flomax and he will see the patient at [place] office tomorrow morning. The patient is instructed to be n.p.o. after midnight tonight and call the office today for an appointment time for tomorrow. The patient was instructed to strain the urine and he is instructed to return to the emergency room if his pain gets worse, vomiting, fever or any new symptoms. Shared decision making: [] Code status: [] Assessment/Plan 1. Left ureteral stone (N20.1: Calculus of ureter) Ordered: acetaminophen-oxycod one, 1 tab(s), Oral, q6hr as needed for pain, 10 tab(s), Refill(s) 0 2. Urinary tract infection (N39.0: Urinary tract infection, site not specified) Orders: ceftriaxone + Sodium Chloride 0.9% intravenous solution 50 mL, 1,000 mg = 1 EA, IV Piggyback, Once, Stop date 09/07/23 6:03:00 EDT, STAT, Start date 09/07/23 6:03:00 EDT, 100 mL/hr, Infuse over 30 minute(s), 09/07/23 6:03:00 EDT cephalexin, 500 mg = 1 cap(s), Oral, q6hr, X 7 day(s), # 28 cap(s), Refills(s) 0 ketorolac, 30 mg = 1 mL, Injection, IV Push, Once, Stop date 09/07/23 4:31:00 EDT, STAT, Start date 09/07/23 4:31:00 EDT, 09/07/23 4:31:00 EDT ondansetron, 4 mg = 2 mL, Injection, IV Push, Once, Stop date 09/07/23 4:31:00 EDT, STAT, Start date 09/07/23 4:31:00 EDT, 09/07/23 4:31:00 EDT Sodium Chloride 0.9% intravenous solution, 1,000 mL, Soln-IV, IV, Once, Stop date 09/07/23 4:31:00 EDT, STAT, Start date 09/07/23 4:31:00 EDT, Infuse over 61, minute(s) tamsulosin, 0.4 mg = 1 cap(s), Cap, Oral, Once, Stop date 09/07/23 6:52:00 EDT, STAT, Start date 09/07/23 6:52:00 EDT, 09/07/23 6:52:00 EDT tamsulosin, 0.4 mg = 1 cap(s), Oral, Daily, # 10 cap(s), Refills(s) 0 Basic Metabolic Panel CBC w/ Auto Diff CT Abdomen/Pelvis w/o Contrast eGFR Extra Blue Tube Extra SST Tube UA with Cult Rflx Urine Culture Medications Administered Given ketorolac 30 mg/mL Inj 1 mL, 30 mg, IV Push NS 1000 ml Bolus, 1000 mL, IV ondansetron 4 mg/2 mL Inj, 4 mg, IV Push Sodium Chloride 0.9% intravenous solution 50 mL + ceftriaxone additive 1000 mg, IV Piggyback Disposition Plan Patient Discharge (more content not included)... Normal [facility] Comment on above: Result Comment: Elec tronically Signed By: Tyron Trujillo M.D.\\.br\\Date and Time Signed: 09/07/23 06:59 EDT ED Patient Education Noteon 09-07-2023 ED Patient Education Note Obstetrics and Gynecology Urinary Tract Infection, Adult A urinary tract infection (UTI) is an infection of any part of the urinary tract. The urinary tract includes the kidneys, ureters, bladder, and urethra. These organs make, store, and get rid of urine in the body. An upper UTI affects the ureters and kidneys. A lower UTI affects the bladder and urethra. What are the causes? Most urinary tract infections are caused by bacteria in your genital area around your urethra, where urine leaves your body. These bacteria grow and cause inflammation of your urinary tract. What increases the risk? You are more likely to develop this condition if: ? You have a urinary catheter that stays in place. ? You are not able to control when you urinate or have a bowel movement (incontinence). ? You are female and you: ? Use a spermicide or diaphragm for control. ? Have low estrogen levels. ? Are . ? You have certain genes that increase your risk. ? You are sexually active. ? You take antibiotic medicines. ? You have a condition that causes your flow of urine to slow down, such as: ? An enlarged prostate, if you are male. ? Blockage in your urethra. ? A kidney stone. ? A nerve condition that affects your bladder control (neurogenic bladder). ? Not getting enough to drink, or not urinating often. ? You have certain medical conditions, such as: ? Diabetes. ? A weak disease-fighting system (immunesystem). ? Sickle cell disease. ? Gout. ? Spinal cord injury. What are the signs or symptoms? Symptoms of this condition include: ? Needing to urinate right away (urgency). ? Frequent urination. This may include small amounts of urine each time you urinate. ? Pain or burning with urination. ? Blood in the urine. ? Urine that smells bad or unusual. ? Trouble urinating. ? Cloudy urine. ? Vaginal discharge, if you are female. ? Pain in the abdomen or the lower back. You may also have: ? Vomiting or a decreased appetite. ? Confusion. ? Irritability or tiredness. ? A fever or chills. ? Diarrhea. The first symptom in older adults may be confusion. In some cases, they may not have any symptoms until the infection has worsened. How is this diagnosed? This condition is diagnosed based on your medical history and a physical exam. You may also have other tests, including: ? Urine tests. ? Blood tests. ? Tests for STIs (sexually transmitted infections). If you have had more than one UTI, a cystoscopy or imaging studies may be done to determine the cause of the infections. How is this treated? Treatment for this condition includes: ? Antibiotic medicine. ? Snsv-onm-hoegbys medicines to treat discomfort. ? Drinking enough water to stay hydrated. If you have frequent infections or have other conditions such as a kidney stone, you may need to see a health care provider who specializes in the urinary tract (urologist). In rare cases, urinary tract infections can cause sepsis. Sepsis is a life-threatening condition that occurs when the body responds to an infection. Sepsis is treated in the hospital with IV antibiotics, fluids, and other medicines. Follow these instructions at home: Medicines ? Take ulfj-khl-howaywu and prescription medicines only as told by your health care provider. ? If you were prescribed an antibiotic medicine, take it as told by your health care provider. Do not stop using the antibiotic even if you start to feel better. General instructions ? Make sure you: ? Empty your bladder often and completely. Do not hold urine for long periods of time. ? Empty your bladder after sex. ? Wipe from front to back after urinating or having a bowel movement if you are female. Use each tissue only one time when you wipe. ? Drink enough fluid to keep your urine pale yellow. ? Keep all follow-up visits. This is important. Contact a health care provider if: ? Your symptoms do not get better after 1?2 days. ? Your symptoms go away and then return. Get help right away if: ? You have severe pain in your back or your lower abdomen. ? You have a fever or chills. ? You have nausea or vomiting. Summary ? A urinary tract infection (UTI) is an infection of any part of the urinary tract, which includes the kidneys, ureters, bladder, and urethra. ? Most urinary tract infections are caused by bacteria in your genital area. ? Treatment for this condition often includes antibiotic medicines. ? If you were prescribed an antibiotic medicine, take it as told by your health care provider. Do not stop using the antibiotic even if you start to feel better. ? Keep all follow-up visits. This is important. This information is not intended to replace advice given to you by your health care provider. Make sure you discuss any questions you have with your health care provider. Document Revised: 11/13/2020 Document Revie (more content not included)... Normal [facility] ED Patient Summaryon 024 ED Patient Summary [place] [id number] Patient Discharge Instructions Person Information Name: JAKOB FUENTES Age: 43 Years Arrival Date: 09/07/2023 04:18:33 Discharge Diagnosis: 1:Left ureteral stone; 2:Urinary tract infection Primary Care Physician: [facility], [facility] Provider Information Primary Provider: Tyron Trujillo M.D. [employer]:None The exam and treatment you received in the Emergency Department were for an urgent problem and are not intended as complete care. It is important that you follow up with a doctor, nurse practitioner, or physician?s health care assistant for ongoing care. If your symptoms become worse or you do not improve as expected and you are unable to reach your usual health care provider, you should return to the Emergency Department. We are available 24 hours a day. JAKOB FUENTES has been given the following list of patient education materials, prescriptions and follow-up instructions: Follow-up Instructions: With: Address: When: Otf BHAGAT [address] [place], [place] [id number] [employer] (1) In 3 days 09/10/2023 Comments: Make sure to strain the urine as instructed. Call the office of Dr. Bhagat today for an appointment tomorrow at [facility]. Nothing to eat or drink after midnight tonight. Return to the emergency room if your pain gets worse, vomiting or any new symptoms. Call Dr for diagnosis based follow up In the event that this physician does not participate in your insurance network, please consult with your insurance company to find a nearby participating provider. Patient Education Materials: Urinary Tract Infection, Adult; Kidney Stones A MESSAGE TO ALL PATIENTS REGARDING OPIOIDS PRESCRIPTION OPIOIDS: WHAT YOU NEED TO KNOW Prescription opioids can be used to help relieve zssspjtb-dp-fdqnqh pain and are often prescribed following a surgery or injury, or for certain health conditions. These medications can be an important part of the treatment but also come with serious risks. It is important to work with your healthcare provider to make sure you are getting the safest, most effective care. WHAT ARE THE RISKS AND SIDE EFFECTS OF OPIOID USE? Prescription opioids carry serious risks of addiction and overdose, especially with prolonged use. An opioid overdose, often marked by slowed breathing, can cause sudden . The use of prescription opioids can have a number of side effects as well, even when taken as directed: ? Tolerance?meaning you might need to take more of the medication for the same pain relief ? Physical dependence?meaning you have symptoms of withdrawal when a medication is stopped ? Increased sensitivity to pain ? Constipation ? Nausea, vomiting, and dry mouth ? Sleepiness and dizziness ? Confusion ? Depression ? Low levels of testosterone that can result in lower sex drive, energy, and strength ? Itching and sweating RISKS ARE GREATER WITH: ? History of drug misuse, substance use disorder, or overdose ? Mental health conditions (such as depression or anxiety) ? Sleep apnea ? Older age (65 years and older) ? Avoid alcohol while taking prescription opioids. Also, unless specifically advised by your health care provider, medications to avoid include: ? Benzodiazepines (such as Xanax or Valium) ? Muscle relaxants (such as Soma or Flexeril) ? Hypnotics (such as Ambien or Lunesta) ? Other prescription opioids KNOW YOUR OPTIONS Talk to your health care provider about ways to manage your pain that don?t involve prescription opioids. Some of these options may actually work better and have fewer risks and side effects. Options may include: ? Pain relievers such as acetaminophen, ibuprofen, and naproxen ? Some medication that are also used for depression or seizures ? Physical therapy and exercise ? Cognitive behavioral therapy, a psychological, goal-directed approach, in which patients learn how to modify physical, behavioral, and emotional triggers of pain and stress. IF YOU ARE PRESCRIBED OPIOIDS FOR PAIN: ? Never take opioids in greater amounts or more often than prescribed. ? Follow up with your primary health care provider. o Work together to create a plan on how to manage your pain. o Talk about ways to help manage your pain that don?t involve prescription opioids. o Talk about any and all concerns and side effects. ? Help prevent misuse and abuse o Never sell or share prescription opioids. o Never use another person?s prescription opioids. ? Store prescription opioids in a secure place and out of reach of others (this may include visitors, children, friends, and family). ? Safely dispose of unused prescription opioids: Find your community drug take-back program or your pharmacy mail-back program, or flush them down the to (more content not included)... Normal [facility] HEMATOLOGYOrdered By: SYSTEM SYSTEM on 09-07-2023 Basophils/100 WBC (Bld) 0.9 % Normal 0.0 - 2.0 % Remisol Heme Basophils/Leukocytes Auto (Bld) [Pure # fraction] 0.1 E9/L Normal 0.0 - 0.2 E9/L [facility] Eosinophils (Bld) [#/Vol] 0.2 E9/L Normal 0. 0 - 0.5 E9/L [facility] Eosinophils/100 WBC (Bld) 2.1 % Normal 0.0 - 8.0 % [facility]e Erythrocyte distribution width (RBC) [Ratio] 14.3 % High 10.9 - 14.2 % [facility] Hematocrit (Bld) [Volume fraction] 48.9 % Normal 37.7 - 49.0 % [facility] Hemoglobin (Bld) [Mass/Vol] 16.6 g/dL Normal 13.5 - 17.5 gm/dL [facility] Lymphocytes (Bld) [#/Vol] 2.0 E9/L Normal 1. 0 - 4.0 E9/L [facility] Lymphocytes/100 WBC (Bld) 16.9 % Normal 14 .0 - 50.0 % [facility]e MCH (RBC) [Entitic mass] 28.9 pg Normal 27. 0 - 34.0 pg [facility]e MCHC (RBC) [Mass/Vol] 33.8 g/dL Normal 31.4 - 36.0 gm/dL [facility] MCV (RBC) [Entitic vol] 85.3 fL Normal 80.0 - 100.0 fL [facility] Monocytes (Bld) [#/Vol] 0.7 E9/L Normal 0.2 - 1.0 E9/L [facility] Monocytes/100 WBC (Bld) 6.3 % Normal 4.0 - 14.0 % [facility] Neutrophils (Bld) [#/Vol] 8.5 E9/L High 2. 0 - 7.5 E9/L [facility] Neutrophils/100 WBC (Bld) 73.8 % Normal 36 .0 - 75.0 % [facility] Platelet mean volume (Bld) [Entitic vol] 7.7 fL Normal 6.4 - 10.8 fL [facility] Platelets (Bld) [#/Vol] 226.0 E9/L Normal 150. 0 - 500.0 E9/L [facility] RBC (Bld) [#/Vol] 5.7 E12/L Normal 4.3 - 5.9 E12/L [facility] WBC corrected for nucl RBC Auto (Bld) [#/Vol] 11.5 E9/L High 4.0 - 11.0 E9/L [facility] RAD - Preliminary Cat Scan R eporton 09-07-2023 RAD - Preliminary Cat Scan Report [id number] Normal [facility] UA with Cult Rflxon 09-07-19 24 Bilirubin Ql (U) Negative Normal Negative [facility] Comment on above: Performed By: #### 4 [id number] ####[facility] [address] [place] [address] Clarity (U) Ex.Turbid Abnormal Clear [facility] Comment on above: Performed By: #### 4 [id number] ####[id number] [place] [address] Color (U) Light-Gregory Abnormal Yellow [facility] Comment on above: Result Comment: Micr oscopic readings are only performed on those samples that meet specific criteria set forth by [facility]. Performed By: #### 4 [id number] ####[facility] [address] [place] [address] Glucose Ql (U) Negative Normal Negative [facility] Comment on above: Performed By: #### 4 [id number] ####[address] [address] Hemoglobin Auto test strip (U) [Mass/Vol] 3+ mg/dL Abnormal Negative [facility] Comment on above: Performed By: #### 4 [id number] ####[facility] [address] [place] [address] Ketones Auto test strip Ql (U) Trace Abnormal Negative [facility] Comment on above: Performed By: #### 4 [id number] ####[facility] [address] [place] [address] Leukocyte esterase Auto test strip Ql (U) 75 Roberto/uL Abnormal Negative [facility] Comment on above: Performed By: #### 4 [id number] ####[address] [address] Mucus Auto Ql (U) 4+ [id number] Abnormal Negative F [facility] Comment on above: Performed By: #### 4 [id number] ####[address] [address] Nitrite Auto test strip Ql (U) Negative Normal Negative [facility] Comment on above: Performed By: #### 4 [id number] ####[address] [address] pH (U) 6.5 [pH] Invalid Interpretation Code 5.0-9.0 [facility] Comment on above: Performed By: #### 4 [id number] ####[facility] [address] [place] [address] Protein Ql (U) 2+ mg/dL Abnormal Negative [facility] Comment on above: Performed By: #### 4 [id number] ####[address] [address] RBC Ql (U) >75 Abnormal 0-3 [facility] Comment on above: Performed By: #### 4 [id number] ####[address] [address] Specific gravity (U) [Rel density] 1.027 Invalid Interpretation Code 1.005-1.030 [facility] Comment on above: Performed By: #### 4 [id number] ####[place] [address] Urobilinogen (U) [Mass/Vol] Negative Normal Negative [facility] Comment on above: Performed By: #### 4 [id number] ####[place] [address] WBC Auto (Urine sed) [#/Area] 6-15 Abnormal 0-5 [facility] Comment on above: Performed By: #### 4 [id number] ####[place] [address] Type of Urine collection method Clean Catch Normal [facility] Comment on above: Performed By: #### 4 [id number] ####[address] [address] URINALYSISOrdered By: SYSTEM SYSTEM on 09-07-2023 Bilirubin Ql (U) Negative Normal Negativemg/ d L [facility] UA Auto SS Clarity (U) Ex.Turbid *ABN* (09/07/23 4:50 AM) Invalid Interpretation Code Clear [facility] UA Auto SS Color (U) Light-Gregory 1 *ABN* (09/07/23 4:50 AM) Invalid Interpretation Code Yellow [facility] UA Auto SS Comment on above: Interpretive Data: M icroscopic readings are only performed on those samples that meet specific criteria set forth by [facility]. Glucose Ql (U) Negative Normal Negativemg/d L [facility] UA Auto SS Hemoglobin Auto test strip (U) [Mass/Vol] 3+ mg/dL Invalid Interpretation Code Negativemg/d L [facility] UA Auto SS Ketones Auto test strip Ql (U) Trace mg/dL Invalid Interpretation Code Negativemg/d L [facility] UA Auto SS Leukocyte esterase Auto test strip Ql (U) 75 Roberto/uL Roberto/uL Invalid Interpretation Code NegativeLeu/ uL [facility] UA Auto SS Mucus Auto Ql (U) 4+ graded/LPF Invalid Interpretation Code Negativegrad ed/LPF [facility] UA Auto SS Nitrite Auto test strip Ql (U) Negative Normal Negativemg/d L [facility] UA Auto SS pH (U) 6.5 *NA* (09/07/23 4:50 AM) Invalid Interpretation Code 5.0 - 9.0 [facility] UA Auto SS Protein Ql (U) 2+ mg/dL Invalid Interpretation Code Negativemg/d L [facility] UA Auto SS RBC Ql (U) >75 graded/HPF Invalid Interpretation Code 0-3graded/HP F [facility] UA Auto SS Specific gravity (U) [Rel density] 1.027 *NA* (09/07/23 4:50 AM) Invalid Interpretation Code 1.005 - 1.030 [facility] UA Auto SS Urobilinogen (U) [Mass/Vol] Negative Normal Negativemg/d L [facility] UA Auto SS WBC Auto (Urine sed) [#/Area] 6-15 graded/HPF Invalid Interpretation Code 0-5graded/HP F [facility] UA Auto SS URINALYSISOrdered By: Tyron Trujillo on 09-07-2023 UA Spec Desc Clean Catch (09/07/23 4:50 AM) Normal [facility] UA Auto SS eGFRon 09-07-2023 eGFR 110 mL/min/1.73 m2 Normal >=59 [facility] Comment on above: Order Comment: Order added by Discern Expert. Performed By: #### 1 [id number] #### [facility] [address] [place] [address] Basic Metabolic Panelon 10-0 8-2019 Anion gap [Moles/Vol] 8 mmol/L Low 9 - 17 mmol/L [facility] [place] Bun/Cre Ratio 14 [place] Calcium [Mass/Vol] 9.9 mg/dL 8.6 - 10. 4 mg/dL [place] Chloride [Moles/Vol] 104 mmol/L 98 - 10 7 mmol/L [place] CO2 [Moles/Vol] 25 mmol/L 20 - 31 mmol/L [place] Creatinine [Mass/Vol] 0.74 mg/dL 0.7 - 1.2 mg/dL [place] GFR >60 >60 mL/min [place] GFR Non- >60 >60 mL/min [place] GFR/1.73 sq M predicted among non-blacks MDRD (S/P/Bld) [Vol rate/Area] NOT REPORTED [place] GFR/1.73 sq M predicted among non-blacks MDRD (S/P/Bld) [Vol rate/Area] [place] Comment on above: Average GFR for 30-3 9 years old: 107 mL/min/1.73sq m Chronic Kidney Disease: <60 mL/min/1.73sq m Kidney failure: <15 mL/min/1.73sq m eGFR calculated using average adult body mass. Additional eGFR calculator available at: http://www.[employer]/multiple_crcl_2012.htm Glucose [Mass/Vol] 91 mg/dL 70 - 99 mg/dL [place] Interpretation and review of laboratory results Abnormal [place] Potassium [Moles/Vol] 4.0 mmol/L 3.7 - 5.3 mmol/L [place] Sodium [Moles/Vol] 137 mmol/L 135 - 144 mmol/L [place] Urea nitrogen [Mass/Vol] 10 mg/dL 6 - 20 mg/d L [place] Basic Metabolic Profon 01-22 (cont.) Normal [facility] Comment on above: Result Comment: Aver age GFR for 30-39 years old: 107 mL/min/1.73sq m Chronic Kidney Disease: <60 mL/min/1.73sq m Kidney failure: <15 mL/min/1.73sq m eGFR calculated using average adult body mass. Additional eGFR calculator available at: http://www.[employer] | [employer]/multiple_crcl_2012.htm Performed By: #### C DP, BMP, DIME #### [facility] [address] [place], [place] [id number] Fixed Route Operator: Jose Luis Gallegos MD Anion gap [Moles/Vol] 8 mmol/L Low 9-17 [facility] Comment on above: Performed By: #### C DP, BMP, DIME #### [facility] [address] [place] [address] Fixed Route Operator: oJse Luis Gallegos MD BUN/CRE Ratio 14 Normal 9-20 [facility] Comment on above: Performed By: #### C DP, BMP, DIME #### [facility] [address] [place], [place] [id number] Fixed Route Operator: Jose Luis Gallegos MD Calcium [Mass/Vol] 9.9 mg/dL Normal 8.6-10.4 [facility] Comment on above: Performed By: #### C DP, BMP, DIME #### [facility] [address] [place], [place] [id number] Fixed Route Operator: Jose Luis Gallegos MD Chloride [Moles/Vol] 104 mmol/L Normal 98-107 [facility] Comment on above: Performed By: #### C DP, BMP, DIME #### [facility] [address] [place], [place] [id number] Fixed Route Operator: Jose Luis Gallegos MD CO2 [Moles/Vol] 25 mmol/L Normal 20-31 [facility] Comment on above: Performed By: #### C DP, BMP, DIME #### [facility] [address] [place], [place] [id number] Fixed Route Operator: Jose Luis Gallegos MD Creatinine [Mass/Vol] 0.74 mg/dL Normal 0.70-1.20 [facility] Comment on above: Performed By: #### C DP, BMP, DIME #### [facility] [address] [place] [address] Fixed Route Operator: Jose Luis Gallegos MD GFR, Amer >60 Normal >60 [facility] Comment on above: Performed By: #### C DP, BMP, DIME #### [facility] [address] [place], [place] [phone] Fixed Route Operator: Jose Luis Gallegos MD GFR,non Amer >60 Normal >60 [facility] Comment on above: Performed By: #### C DP, BMP, DIME #### [facility] [address] [place] [address] Fixed Route Operator: Jose Luis Gallegos MD Glucose [Mass/Vol] 91 mg/dL Normal 70-99 [facility] Comment on above: Performed By: #### C DP, BMP, DIME #### [facility] [address] [place] [address] Fixed Route Operator: Jose Luis Gallegos MD Potassium [Moles/Vol] 4.0 mmol/L Normal 3.7-5.3 [facility] Comment on above: Performed By: #### C DP, BMP, DIME #### [facility] [address] [place] [address] Fixed Route Operator: Jose Luis Gallegos MD Sodium [Moles/Vol] 137 mmol/L Normal 135-144 [facility] Comment on above: Performed By: #### C DP, BMP, DIME #### [facility] [address] [place] [address] Fixed Route Operator: Jose Luis Gallegos MD Urea nitrogen [Mass/Vol] 10 mg/dL Normal 6-20 [facility] Comment on above: Performed By: #### C DP, BMP, DIME #### [facility] [address] [place] [address] Fixed Route Operator: Jose Luis Gallegos MD Staging: NOT REPORTED Normal [facility] Comment on above: Performed By: #### C MIRYAM ARRIOLA, DIME #### [facility] [address] [place] [address] Fixed Route Operator: Jose Luis Gallegos MD CBC Auto Differentialon Basophils (Bld) [#/Vol] 0.00 10*3/uL [place] Differential Type YES [place] Platelet mean volume (Bld) [Entitic vol] NOT REPORTED 6 - 12 fL [place] Platelets (Bld) [#/Vol] NOT REPORTED [place] RBC morphology finding Nom (Bld) NOT REPORTED [place] Segmented neutrophils/100 WBC (Bld) 55 % 39 - 75 % [place] Segs Absolute 4.30 [place] WBC (Bld) [#/Vol] NOT REPORTED per 100 WBC [place] WBC Morphology NOT REPORTED [place] CBC with Diffon 01-22-2019 Abs. Basophil 0.00 k/uL Normal 0.0-0.2 [facility] Comment on above: Performed By: #### C MIRYAM ARRIOLA, DIME #### [facility] [address] [place] [address] Fixed Route Operator: Jose Luis Gallegos MD Abs.Neutrophil (Seg) 4.30 k/uL Normal 2.1-6.5 [facility] Comment on above: Performed By: #### C MIRYAM ARRIOLA, DIME #### [facility] [address] [place] [address] Fixed Route Operator: Jose Luis Gallegos MD Auto Diff Performed YES Normal [facility] Comment on above: Performed By: #### C DP BMP, DIME #### [facility] [address] [place] [address] Fixed Route Operator: Jose Luis Gallegos MD Neutrophil (Seg) 55 % Normal 39-75 [facility] Comment on above: Performed By: #### C DP, BMP, DIME #### [facility] [address] [place] [address] Fixed Route Operator: Jose Luis Gallegos MD Abs.Imm.Granulocyte NOT REPORTED Normal 0.00-0.30 [facility] Comment on above: Performed By: #### C DP, BMP, DIME #### [facility] [address] [place] [address] Fixed Route Operator: Jose Luis Gallegos MD Immature granulocytes (Bld) [#/Vol] NOT REPORTED Normal 0 [facility] Comment on above: Performed By: #### C DP, BMP, DIME #### [facility] [address] [place] [address] Fixed Route Operator: Jose Luis Gallegos MD NRBC Automated NOT REPORTED Normal [facility] Comment on above: Performed By: #### C DP, BMP, DIME #### [facility] [address] [place] [address] Fixed Route Operator: Jose Luis Gallegos MD Platelet mean volume (Bld) [Entitic vol] NOT REPORTED Normal 6.0-12.0 [facility] Comment on above: Performed By: #### C DP, BMP, DIME #### [facility] [address] [place] [address] Fixed Route Operator: Jose Luis Gallegos MD Platelets (Bld) [#/Vol] NOT REPORTED Normal [facility] Comment on above: Performed By: #### C DP, BMP, DIME #### [facility] [address] [place] [address] Fixed Route Operator: Jose Luis Gallegos MD RBC morphology finding Nom (Bld) NOT REPORTED Normal [facility] Comment on above: Performed By: #### C DP, BMP, DIME #### [facility] [address] [place] [address] Fixed Route Operator: Jose Luis Gallegos MD WBC Morphology NOT REPORTED Normal [facility] Comment on above: Performed By: #### C DP, BMP, DIME #### [facility] [address] [place] [address] Fixed Route Operator: Jose Luis Gallegos MD Basophils/100 WBC (Bld) 1 % Normal 0-2 M [place] Comment on above: Performed By: #### C DP, BMP, DIME #### [facility] [address] [place] [address] Fixed Route Operator: Jose Luis Gallegos MD Eosinophils (Bld) [#/Vol] 0.20 10*3/uL Normal 0.0-0.4 [place] Comment on above: Performed By: #### C DP, BMP, DIME #### [facility] [address] [place] [address] Fixed Route Operator: Jose Luis Gallegos MD Eosinophils/100 WBC (Bld) 3 % Normal 0-5 [place] Comment on above: Performed By: #### C DP, BMP, DIME #### [facility] [address] [place] [address] Fixed Route Operator: Jose Luis Gallegos MD Erythrocyte distribution width (RBC) [Ratio] 14.6 % Normal 12.1-15.2 [place] Comment on above: Performed By: #### C DP, BMP, DIME #### [facility] [address] [place] [address] Fixed Route Operator: Jose Luis Gallegos MD Hematocrit (Bld) [Volume fraction] 46.2 % Normal 41-53 [place] Comment on above: Performed By: #### C DP, BMP, DIME #### [facility] [address] [place] [address] Fixed Route Operator: Jose Luis Gallegos MD Hemoglobin (Bld) [Mass/Vol] 15.5 g/dL Normal 13.5-17.5 [place] Comment on above: Performed By: #### C DP, BMP, DIME #### [facility] [address] [place] [address] Fixed Route Operator: Jose Luis Gallegos MD Lymphocytes (Bld) [#/Vol] 2.40 10*3/uL Normal 1.0-4.8 [place] Comment on above: Performed By: #### C DP, BMP, DIME #### [facility] [address] [place] [address] Fixed Route Operator: Jose Luis Gallegos MD Lymphocytes/100 WBC (Bld) 32 % Normal 13-44 [place] Comment on above: Performed By: #### C DP, BMP, DIME #### [facility] [address] [place] [address] Fixed Route Operator: Jose Luis Gallegos MD MCH (RBC) [Entitic mass] 28.5 pg Normal 26-34 [place] Comment on above: Performed By: #### C DP, BMP, DIME #### [facility] [address] [place] [address] (931) Fixed Route Operator: Jose Luis Gallegos MD MCHC (RBC) [Mass/Vol] 33.5 g/dL Normal 31-37 [place] Comment on above: Performed By: #### C DP, BMP, DIME #### [facility] [address] [place] [address] (003) Fixed Route Operator: Jose Luis Gallegos MD MCV (RBC) [Entitic vol] 85.1 fL Normal 80-100 M [place] Comment on above: Performed By: #### C DP, BMP, DIME #### [facility] [address] [place] [address] Fixed Route Operator: Jose Luis Gallegos MD Monocytes (Bld) [#/Vol] 0.70 10*3/uL Normal 0.0-1.0 [place] Comment on above: Performed By: #### C DP BMP, DIME #### [facility] [address] [place] [address] Fixed Route Operator: Jose Luis Gallegos MD Monocytes/100 WBC (Bld) 9 % Normal 5-9 [place] Comment on above: Performed By: #### C DP, BMP, DIME #### [facility] [address] [place] [address] Fixed Route Operator: Jose Luis Gallegos MD Platelets (Bld) [#/Vol] 230 10*3/uL Normal 140-450 [place] Comment on above: Performed By: #### C DP BMP, DIME #### [facility] [address] [place] [address] Fixed Route Operator: Jose Luis Gallegos MD RBC (Bld) [#/Vol] 5.43 10*6/uL Normal 4.5-5.9 [place] Comment on above: Performed By: #### C FLAKO BMP, DIME #### [facility] [address] [place] [address] Fixed Route Operator: Jose Luis Gallegos MD WBC (Bld) [#/Vol] 7.6 10*3/uL Normal 3.5-11.0 [place] Comment on above: Performed By: #### C DP, BMP, DIME #### [facility] [address] [place] [address] Fixed Route Operator: Jose Luis Gallegos MD D-Dimer Teston 01-22-2019 D-Dimer Test 0.79 mg/L FEU High 0.00-0.50 [facility] Comment on above: Result Comment: Elevated levels of D dimer can be seen in any state of coagulation activation including DVT, PE, arterial thrombosis, DIC, inflamatory disease, trauma, malignancy, sepsis, infection, hematoma, liver disease, post surgical state, , atherosclerosis, old age. When combined with a low clinical probability, a D dimer value of <0.50 mg/L is considered negative for DVT and PE (negative predictive value of 98%). Performed By: #### C MIRYAM ARRIOLA DIME #### [facility] [address] [place] [address] Fixed Route Operator: Jose Luis Gallegos MD D-Dimer, Quantitativeon 10- D-Dimer, Quant 0.79 [place] Comment on above: Elevated levels of D dimer can be seen in any state of coagulation activation including DVT, PE, arterial thrombosis, DIC, inflamatory disease, trauma, malignancy, sepsis, infection, hematoma, liver disease, post surgical state, , atherosclerosis, old age. When combined with a low clinical probability, a D dimer value of <0.50 mg/L is considered negative for DVT and PE (negative predictive value of 98%). Interpretation and review of laboratory results Abnormal [place] Otheron 01-22-2019 Immature granulocytes (Bld) [#/Vol] NOT REPORTED 0 % [place] VL DUP LOWER EXTREMITY VENOU S RIGHTon 01-22-2019 VL DUP LOWER EXTREMITY VENOUS RIGHT EXAM: VL DUP LOWER EXTREMITY VENOUS RIGHT CLINICAL STATEMENT: Right thigh pain x3 days COMPARISON: None TECHNIQUE: Venous duplex examination performed using B-mode, color flow and spectral analysis. FINDINGS: The deep venous system is explored from the right common femoral vein to the distal portion of the popliteal veins. Additionally below the knee at the level of the posterior tibial vein and peroneal veins were evaluated. In all the segments, there is normal compression, spontaneous color flow and phasic spectral waveforms. The superficial venous system is explored at the level of the confluence of the greater saphenous veins and demonstrates normal compression, presence of color and spectral waveform. Soft tissues are unremarkable. IMPRESSION: Negative for right lower extremity deep venous thrombosis. Interpreted by: MD Keagan Martinez Jr., DO Signed by: Herson Kebede Jr., MD 01/22/19 Keagan Magana DO 01/22/19 Edited Result - FINAL Normal [facility] Radiology exam is complete. No Radiologist dictation. Please follow up with ordering provider. [facility] TITUS IBANEZ XR FEMUR RIGHT (MIN 2 VIEWS) on 01-22-2019 XR FEMUR RIGHT (MIN 2 VIEWS) RIGHT FEMUR AP, LATERAL (4 IMAGES), 01/22/2019 CLINICAL INDICATION: Femur area pain. COMPARISON EXAMINATION: None. FINDINGS: No fracture or stress injury is identified. No bone destructive focus is evident. Hip joint spacing and knee joint spacing looks appropriate IMPRESSION: No acute process in the femur is demonstrated. Interpreted by: Luis Mckeon MD Signed by: Luis Mckeon MD 01/22/19 Edited Result - FINAL Normal [facility] RIGHT FEMUR AP, LATERAL (4 IMAGES), 01/22/2019 CLINICAL INDICATION: Femur area pain. COMPARISON EXAMINATION: None. FINDINGS: No fracture or stress injury is identified. No bone destructive focus is evident. Hip joint spacing and knee joint spacing looks appropriate [facility] TITUS IBANEZ Kang, [facility] Incoming Radiant Results From [facility] - 01/22/2019 2:37 PM EDT RIGHT FEMUR AP, LATERAL (4 IMAGES), 01/22/2019 CLINICAL INDICATION: Femur area pain. COMPARISON EXAMINATION: None. FINDINGS: No fracture or stress injury is identified. No bone destructive focus is evident. Hip joint spacing and knee joint spacing looks appropriate IMPRESSION: No acute process in the [facility] demonstrated[facility] process [facility] 11-15-2017 HIM IP Note OR Exploration Manager Normal [facility] Progress Noteon 10-26-2017 HIM IP Note OR Exploration Manager Normal [facility] Vital Signs Date Time Vital Sign Value Performing Clinician Facility 11-17-2023 17:35-0400 Hourly Rounding Nic SIMPSON [facility] 11-17-2023 16:00-0400 Heart rate 65 /min Nic SIMPSNO [facility] 11-17-2023 16:00-0400 SaO2% (BldA) [Mass fraction] 98 % Nic SIMPSON [facility] 11-17-2023 16:00-0400 Hourly Rounding Nic COOK [facility] 11-17-2023 16:00-0400 Promise to Return Nic COOK [facility] 11-17-2023 15:58-0400 Body temperature 97.7 [degF] Nic COOK [facility] 11-17-2023 15:58-0400 Diastolic blood pressure 70 mm[Hg] Nic COOK [facility] 11-17-2023 15:58-0400 Mean blood pressure 86 mm[Hg] Nic COOK [facility] 11-17-2023 15:58-0400 Systolic blood pressure 118 mm[Hg] Nic COOK [facility] 11-17-2023 15:00-0400 Blood Pressure Location Nic COOK [facility] 11-17-2023 15:00-0400 Hourly Rounding Nic COOK [facility] 11-17-2023 15:00-0400 Promise to Return Nic COOK [facility] 11-17-2023 15:00-0400 Respiratory rate 16 /min Nic COOK [facility] 11-17-2023 14:00-0400 Promise to Return Nic COOK [facility] 11-17-2023 11:14-0400 Heart rate 64 /min Nic COOK [facility] 11-17-2023 11:14-0400 SaO2% (BldA) [Mass fraction] 99 % Nic COOK [facility] 11-17-2023 11:14-0400 Body temperature 97.7 [degF] Nic COOK [facility] 11-17-2023 11:13-0400 Diastolic blood pressure 72 mm[Hg] Nic COOK [facility] 11-17-2023 11:13-0400 Mean blood pressure 90 mm[Hg] Nic COOK [facility] 11-17-2023 11:13-0400 Systolic blood pressure 127 mm[Hg] Nic COOK [facility] 11-17-2023 07:00-0400 Body temperature 97.34 [degF] Nic COOK [facility] 11-17-2023 07:00-0400 Diastolic blood pressure 73 mm[Hg] Nic COOK [facility] 11-17-2023 07:00-0400 Respiratory rate 18 /min Nic COOK [facility] 11-17-2023 07:00-0400 Systolic blood pressure 124 mm[Hg] Nic COOK [facility] 11-17-2023 04:50-0400 Body temperature 97.52 [degF] Nic COOK [facility] 11-17-2023 00:00-0400 Body temperature 97.88 [degF] Nic COOK [facility] 11-16-2023 16:45-0400 Heart rate 57 /min Nic COOK [facility] 11-16-2023 16:04-0400 Mean blood pressure 110 mm[Hg] Nic COOK [facility] 11-16-2023 15:55-0400 Mean blood pressure 108 mm[Hg] Nic COOK [facility] 11-16-2023 15:55-0400 Respiratory rate 18 /min Nic COOK [facility] 11-16-2023 15:45-0400 Mean blood pressure 101 mm[Hg] Nic SIMPSON [facility] 11-16-2023 15:45-0400 Respiratory rate 18 /min Nic SIMPSON [facility] 11-16-2023 15:41-0400 Mean blood pressure 88 mm[Hg] Nic SIMPSON [facility] 11-16-2023 15:41-0400 Respiratory rate 17 /min Nic SIMPSON [facility] 11-16-2023 15:28-0400 Body temperature 97.52 [degF] Nic SIMPSON [facility] 11-16-2023 11:10-0400 Heart rate 79 /min Nic SIMPSON [facility] 10-27-2023 06:15-0400 Diastolic blood pressure 85 mm[Hg] Shabbir Yen [facility] 10-27-2023 06:15-0400 Heart rate 64 /min Shabbir Yen [facility] 10-27-2023 06:15-0400 Mean blood pressure 101 mm[Hg] Shabbir Yen [facility] 10-27-2023 06:15-0400 Respiratory rate 15 /min Shabbir Yen [facility] 10-27-2023 06:15-0400 SaO2% (BldA) [Mass fraction] 99 % Shabbir Yen [facility] 10-27-2023 06:15-0400 Systolic blood pressure 133 mm[Hg] Shabbir Yen [facility] 10-27-2023 05:03-0400 Body temperature 98.24 [degF] Shabbir Yen [facility] 10-27-2023 05:03-0400 Diastolic blood pressure 84 mm[Hg] Shabbir Yen [facility] 10-27-2023 05:03-0400 Heart rate 80 /min Shabbir Yen [facility] 10-27-2023 05:03-0400 Respiratory rate 16 /min Shabbir Yen [facility] 10-27-2023 05:03-0400 SaO2% (BldA) [Mass fraction] 98 % Shabbir Yen [facility] 10-27-2023 05:03-0400 Systolic blood pressure 162 mm[Hg] Shabbir Yen [facility] 09-12-2023 14:00-0400 Heart rate 61 /min Zechariah Diaz [facility] 09-12-2023 14:00-0400 Respiratory rate 19 /min Zechariah Diaz [facility] 09-12-2023 14:00-0400 SaO2% (BldA) [Mass fraction] 96 % Zechariah Diaz [facility] 09-12-2023 03:00-0400 Diastolic blood pressure 70 mm[Hg] Zechariah Diaz [facility] 09-12-2023 03:00-0400 Heart rate 70 /min Zechariah Diaz [facility] 09-12-2023 03:00-0400 Respiratory rate 18 /min Zechariah Diaz [facility] 09-12-2023 03:00-0400 SaO2% (BldA) [Mass fraction] 97 % Zechariah Diaz [facility] 09-12-2023 03:00-0400 Systolic blood pressure 125 mm[Hg] Zechariah Diaz [facility] 09-12-2023 01:15-0400 Diastolic blood pressure 97 mm[Hg] Zechariah Diaz [facility] 09-12-2023 01:15-0400 Heart rate 70 /min Zechariah Diaz [facility] 09-12-2023 01:15-0400 Mean blood pressure 107 mm[Hg] Zechariah Diaz [facility] 09-12-2023 01:15-0400 Respiratory rate 15 /min Zechariah Diaz [facility] 09-12-2023 01:15-0400 SaO2% (BldA) [Mass fraction] 99 % Zechariah Diaz [facility] 09-12-2023 01:15-0400 Systolic blood pressure 128 mm[Hg] Zechariah Diaz [facility] 09-12-2023 00:20-0400 Body temperature 98.24 [degF] Zechariah Perales [facility] 09-12-2023 00:20-0400 Diastolic blood pressure 88 mm[Hg] Zechariah Diaz [facility] 09-12-2023 00:20-0400 Heart rate 89 /min Zechariah Diaz [facility] 09-12-2023 00:20-0400 Respiratory rate 16 /min Zechariah Diaz [facility] 09-12-2023 00:20-0400 Systolic blood pressure 127 mm[Hg] Zechariah Diaz [facility] 09-10-2023 01:00-0400 Diastolic blood pressure 84 mm[Hg] Kaylinn Dokken [facility] 09-10-2023 01:00-0400 Heart rate 72 /min Kaylinn Dokken [facility] 09-10-2023 01:00-0400 Mean blood pressure 100 mm[Hg] Kaylinn Dokken [facility] 09-10-2023 01:00-0400 Respiratory rate 16 /min Kaylinn Dokken [facility] 09-10-2023 01:00-0400 SaO2% (BldA) [Mass fraction] 97 % Kaylinn Dokken [facility] 09-10-2023 01:00-0400 Systolic blood pressure 132 mm[Hg] Kaylinn Dokken [facility] 09-10-2023 00:30-0400 Diastolic blood pressure 80 mm[Hg] Kaylinn Dokken [facility] 09-10-2023 00:30-0400 Heart rate 68 /min Kaylinn Dokken [facility] 09-10-2023 00:30-0400 Mean blood pressure 96 mm[Hg] Kaylinn Dokken [facility] 09-10-2023 00:30-0400 SaO2% (BldA) [Mass fraction] 96 % Kaylinn Dokken [facility] 09-10-2023 00:30-0400 Systolic blood pressure 128 mm[Hg] Kaylinn Dokken [facility] 09-10-2023 00:00-0400 Diastolic blood pressure 81 mm[Hg] Kaylinn Dokken [facility] 09-10-2023 00:00-0400 Heart rate 75 /min Kaylinn Dokken [facility] 09-10-2023 00:00-0400 Mean blood pressure 95 mm[Hg] Kaylinn Dokken [facility] 09-10-2023 00:00-0400 Systolic blood pressure 123 mm[Hg] Kaylinn Dokken [facility] 09-09-2023 22:59-0400 Body temperature 97.88 [degF] Kaylinn Dokken [facility] 09-09-2023 22:59-0400 Heart rate 84 /min Kaylinn Dokken [facility] 09-09-2023 22:59-0400 Respiratory rate 20 /min Kaylinn Dokken [facility] 09-08-2023 07:58-0400 Blood Pressure Location Otf BHAGAT [facility] 09-08-2023 07:58-0400 Body temperature 98.6 [degF] Otf BHAGAT [facility] 09-08-2023 07:58-0400 Diastolic blood pressure 84 mm[Hg] Otf BHAGAT [facility] 09-08-2023 07:58-0400 Heart rate 86 /min Otf BHAGAT [facility] 09-08-2023 07:58-0400 Respiratory rate 16 /min Otf BHAGAT [facility] 09-08-2023 07:58-0400 Systolic blood pressure 127 mm[Hg] Otf BHAGAT [facility] 09-07-2023 06:59-0400 Heart rate 68 /min [facility] 09-07-2023 06:59-0400 SaO2% (BldA) [Mass fraction] 98 % [facility] 09-07-2023 06:58-0400 Diastolic blood pressure 70 mm[Hg] [facility] 09-07-2023 06:58-0400 Systolic blood pressure 114 mm[Hg] [facility] 09-07-2023 05:44-0400 Diastolic blood pressure 79 mm[Hg] [facility] 09-07-2023 05:44-0400 Heart rate 50 /min [facility] 09-07-2023 05:44-0400 Mean blood pressure 91 mm[Hg] [facility] 09-07-2023 05:44-0400 SaO2% (BldA) [Mass fraction] 98 % [facility] 09-07-2023 05:44-0400 Systolic blood pressure 115 mm[Hg] [facility] 09-07-2023 04:24-0400 Body temperature 98.24 [degF] [facility] 09-07-2023 04:24-0400 Diastolic blood pressure 82 mm[Hg] [facility] 09-07-2023 04:24-0400 Heart rate 53 /min [facility] 09-07-2023 04:24-0400 Respiratory rate 20 /min [facility] 09-07-2023 04:24-0400 SaO2% (BldA) [Mass fraction] 100 % [facility] 09-07-2023 04:24-0400 Systolic blood pressure 141 mm[Hg] Tyron Trujillo [facility] 01-22-2019 13:29-0400 BP Diastolic 79 mm[Hg] [facility] [place] [facility] 13:29-0400 BP Systolic 131 mm[Hg] [facility] 01-22-2019 13:29-0400 Pulse Oximetry 98 % [facility] 01-22-2019 13:28-0400 BMI (Body Mass Index) 19.53 kg/m2 [facility], [place] 01-22-2019 13:28-0400 Body Temperature 98.29 [degF] [facility], [place] 01-22-2019 13:28-0400 Body weight 65.32 kg [place], [place] 01-22-2019 13:28-0400 Height 182.9 cm [facility] 01-22-2019 13:28-0400 Pulse (Heart Rate) 84 /min [place], [place] 01-22-2019 13:28-0400 Respiratory Rate 16 /min [place] Encounters Encounter Date Encounter Type Care Provider Facility Start: 01-10-2024 ambulatory Otf Alexander ty:[facility] Start: 11-30-2023 ambulatory Otf Alexander ty:[id number] Start: 11-16-2023 End: 11-17-2023 Admission to same day surgery center Nic SIMPSON [facility] Start: 11-16-2023 End: 11-17-2023 ambulatory Nic SIMPSON [place] Start: 11-16-2023 Emergency department patient visit Tyron Trujillo [place] Start: 10-27-2023 End: 10-27-2023 Emergency department patient visit Shabbir Barlow [facility] Start: 09-19-2023 End: 09-19-2023 ambulatory Otf BHAGAT [place] Start: 09-19-2023 End: 09-19-2023 Patient encounter procedure Otf BHAGAT [facility] Start: 09-18-2023 ambulatory Otf BHAGAT Facility :[facility] Start: 09-12-2023 End: 09-12-2023 Emergency department patient visit Zechariah Perales [place] Start: 09-12-2023 End: 09-12-2023 Emergency department patient visit Zechariah Perales [facility] Start: 09-10-2023 End: 09-10-2023 Emergency department patient visit Kuldipelvirarakesh Jesús Carlos [place] Start: 09-09-2023 End: 09-10-2023 Emergency department patient visit Avelina Gonzalez [facility] Start: 09-08-2023 End: 09-09-2023 ambulatory Otf BHAGAT Facility:[id number] Start: 09-08-2023 End: 09-09-2023 ambulatory Otf BHAGAT Facility:[facility] Start: 09-08-2023 End: 09-08-2023 Patient encounter [facility] Start: 09-07-2023 End: 09-07-2023 Emergency department patient visit Moeson Lantiguatyrell [place] Start: 09-07-2023 End: 09-07-2023 Emergency department patient visit Tyron Talya Ronnie [facility] Start: 01-22-2019 End: 01-22-2019 Emergency department patient visit ARCHANA SANCHEZ [facility] Start: 01-22-2019 End: 01-22-2019 Emergency department patient visit Veselin Remi Work Phone: [facility] ED Comment on above: Pain of right thigh (Primary Dx); Muscle strain Procedures Date Procedure Procedure Detail Performing Clinician Start: 11-16-2023 Lithotripsy xtrcorp shock wave Nic SIMPSON Start: 01-22-2019 Dup-scan xtr veins unilateral/limited study ARCHANA SANCHEZ Start: 01-22-2019 Basic metabolic pane l calcium total ARCHANA SANCHEZ Start: 01-22-2019 Blood count complete auto&auto difrntl wbc ARCHANA SANCHEZ Start: 01-22-2019 Fibrin dgradj produc ts d-dimer quantitative ARCHANA SANCHEZ Start: 01-22-2019 Radiologic examinati on femur minimum 2 views ARCHANA SANCHEZ Start: 01-22-2019 Dup-scan xtr veins unilateral/limited study Veselin Remi Work Phone: Start: 01-22-2019 Basic metabolic pane l calcium total Veselin Remi Work Phone: Start: 01-22-2019 Blood count complete auto&auto difrntl wbc Veselin Remi Work Phone: Start: 01-22-2019 Fibrin dgradj produc ts d-dimer quantitative Veselin Remi Work Phone: Start: 01-22-2019 Radiologic examinati on femur minimum 2 views Veselin Remi Work Phone: Start: 04-17-1989 Appendectomy Tyron barragan Plan of Treatment Date Care Activity Detail Author Start: 12-16-2018 Influenza vaccination Flu vaccine (# 1) [place], [place] Start: 2001 DTaP/Tdap/Td vaccine (1 - Tdap) DTaP/Tdap/Td vaccine (1 - Tdap) [place], [place] Start: 1997 HIV screen HIV screen [place], [place] Start: 1995 Varicella Vaccine (1 of 2 - 13+ 2-dose series) Varicella Vaccine (1 of 2 - 13+ 2-dose series) [place], [place] Start: 02-01-1988 Pneumococcal 0-64 ye ars Vaccine (1 of 1 - PPSV23) Pneumococcal 0-64 years Vaccine (1 of 1 - PPSV23) [place], [place] Payers Date Payer Category Payer Unknown [id number] 2023 Unknown [id number] 2023 Unknown [id number] 2019 Unknown [id number] 2019 [facility] xxxxxxxxxxxx 2019-Present [phone] CLAIMS DEPARTMENT [address] [place] [address] xxxxxxxxxxxx [id number] 1982 Unknown [id number] 1982 Unknown [id number] [id number] 1982 Unknown [id number] [id number] 1982 Unknown [id number] [id number] 1982 Unknown [id number] 2.16.840.1.399226.3.579.2.727 1982 Unknown [id number] [id number] 1982 Unknown [id number] 2.16.840.1.724734.3.579.2.727 1982 Unknown [id number] 2.16.840.1.304092.3.579.2.727 1982 Unknown [id number] 2.16.840.1.692988.3.579.2.727 1982 Unknown [id number] 2.16.840.1.037194.3.579.2.727 1982 Unknown [id number] 2.16.840.1.102686.3.579.2.727 1982 Unknown [id number] 2.16.840.1.691802.3.579.2.727 1982 Unknown [id number] 2.16.840.1.507704.3.579.2.727 1982 Unknown [id number] 2.16.840.1.776216.3.579.2.727 1982 Unknown [id number] 2.16.840.1.754355.3.579.2.727 1982 Unknown [id number] 2.16.840.1.967180.3.579.2.727 1980 Unknown [id number] [id number] Social History Date Type Detail Facility Start: [facility]-22-[facility] [place] History of tobacco use Cigarette Smoker [place] Start: 01-22-2019 Cigarettes smoked current (pack per day) - Reported [place], [place] Start: 01-22-2019 Alcohol intake No [facility] Sex Assigned At Not on file [place], [place] Start: 09-07-2023 End: 09-08-2023 Tobacco smoking status Heavy tobacco smoker (finding) [facility] Medical Equipment Procedure Code Equipment Code Equipment Origin al Text Equipment Identifier Dates CYSTOSCOPY RETROGRADE STENT INSERTION Nic SIMPSON MD 11/16/23 Unknown Ureter L [id number] FDA Start: 11-16-2023 Functional Status Date Assessment Result Facility 11-16-2023 Functional Status N/A [facility] 11-16-2023 Functional [address] [facility] 10-27-2023 Functional Status N/A [facility] 09-12-2023 Functional Status N/A [facility] 09-09-2023 Functional Status N/A [facility] 09-08-2023 Functional Status N/A [facility] 09-07-2023 Functional Status N/A [facility] Clinical Notes 09-07-2023 to 11-17-2023 Note Date & Type Note Facility 11-17-2023 Note Progress Note-Nurse Pt left AMA at 1848. Pt educated on the risks of leaving AMA. This RN attempted to offer education on his diagnosis, home care, follow up etc, he was also informed that Dr. Simpson would be in within the hour. Pt refused education and stated Remove this IV, I am signing the form and I am leaving. Dr. Simpson informed at 1850 of pt leaving AMA. [facility] 11-16-2023 Note Progress Note-Physic tien Patient: JAKOB FUENTES Age: 43 years Sex: Male : 1980 Associated Diagnoses: None Author: Luis Jones Jr, DO Postoperative Information Postoperative disposition: Postoperative disposition: To PACU. Optimetrix number: Optimetrix number [id number]. Anesthetic utilized: General. Health Status Allergies: Allergic Reactions (Selected) No Known Allergies Physical Examination Vital Signs 11/16/2023 16:06 EDT Heart Rate Monitored 63 bpm SpO2 99 % 11/16/2023 16:06 EDT Respiratory Rate 18 br/min 11/16/2023 16:04 EDT Systolic Blood Pressure 149 mmHg HI Diastolic Blood Pressure 91 mmHg HI Mean Arterial Pressure, Monitered 110 mmHg 11/16/2023 15:55 EDT Heart Rate Monitored 50 bpm LOW Respiratory Rate Monitored 18 br/min Systolic Blood Pressure 143 mmHg HI Diastolic Blood Pressure 91 mmHg HI Mean Arterial Pressure, Cuff 108 mmHg SpO2 100 % 11/16/2023 15:45 EDT Heart Rate Monitored 53 bpm LOW Respiratory Rate Monitored 18 br/min Systolic Blood Pressure 127 mmHg Diastolic Blood Pressure 88 mmHg Mean Arterial Pressure, Cuff 101 mmHg SpO2 100 % 11/16/2023 15:41 EDT Heart Rate Monitored 53 bpm LOW Respiratory Rate Monitored 17 br/min Systolic Blood Pressure 119 mmHg Diastolic Blood Pressure 73 mmHg Mean Arterial Pressure, Cuff 88 mmHg SpO2 100 % 11/16/2023 15:35 EDT Heart Rate Monitored 55 bpm LOW Respiratory Rate Monitored 17 br/min Systolic Blood Pressure 115 mmHg Diastolic Blood Pressure 72 mmHg Mean Arterial Pressure, Cuff 86 mmHg SpO2 100 % 11/16/2023 15:30 EDT Heart Rate Monitored 53 bpm LOW Respiratory Rate Monitored 17 br/min Systolic Blood Pressure 116 mmHg Diastolic Blood Pressure 76 mmHg Mean Arterial Pressure, Cuff 89 mmHg SpO2 100 % 11/16/2023 15:28 EDT Temperature Temporal Artery 36.4 DegC Heart Rate Monitored 52 bpm LOW Respiratory Rate Monitored 25 br/min Systolic Blood Pressure 124 mmHg Diastolic Blood Pressure 74 mmHg Blood Pressure Location Left arm Mean Arterial Pressure, Cuff 91 mmHg SpO2 100 % Pain Assessment: Controlled. General: Awake, Alert, Appropriate. Respiratory: Adequate air exchange. Cardiovascular: Stable, Normal peripheral perfusion. Neurological: Normal sensory function, Normal motor function. Assessment Anesthetic outcome No anesthetic complications noted. Adequate pain relief. able to void without difficulty, able to ambulate with assist, tolerating PO intake, no N/V. Review / Management Condition: Stable. Plan Transfer/Discharge: Transfer/Discharge Discharge when meets criteria ( From PACU to floor ). [facility] Comment on above: Result Comment: Elec tronically Signed By: Luis Jones Jr, DO\\.br\\Date and Time Signed: 11/16/23 18:25 EDT 11-16-2023 Note Progress Note-Physic tien Patient: JAKOB FUENTES Age: 43 years Sex: Male : 1980 Associated Diagnoses: None Author: Luis Jones Jr, DO Preoperative Information Anesthesia Preop Info: Time patient last ate or drank 11/16/2023 00:00:00. Anesthesia history: Patient history: None. Family history+: None. Informed consent: Signed by patient. Re-evaluation prior to induction: Initial evaluation reviewed: No significant change. Review of Systems Eye: Negative except as documented in history of present illness. Ear/Nose/Mouth/Throat: Negative except as documented in history of present illness. Respiratory: Negative except as documented in history of present illness. Cardiovascular: Negative except as documented in history of present illness. Musculoskeletal: Negative except as documented in history of present illness. Neurologic: Negative except as documented in history of present illness. Health Status Allergies: Allergic Reactions (Selected) No Known Allergies Problem list: All Problems Ureteral stone / SNOMED CT 72355307 / Confirmed Smoker / SNOMED CT 382169741 / Confirmed Added secondary to documentation in Social History. Denies / SNOMED CT 211018504 / Confirmed History of kidney stones / SNOMED CT 4485839121 / Confirmed Canceled: Gross hematuria / SNOMED CT 460266769 Canceled: Flank pain / SNOMED CT 179885333 Histories Procedure history: appendectomy in 1989 at 10 Years. Social History Social & Psychosocial Habits Alcohol 11/16/2023 Risk Assessment: Denies Alcohol Use Comment: Denies. - 09/07/2023 04:44 - Reynaldo ANDREA, Jessica Espinosa Substance Abuse 11/16/2023 Risk Assessment: Denies Substance Abuse Comment: Denies. - 09/07/2023 04:44 - Reynaldo ANDREA, Jessica Espinosa Tobacco 11/16/2023 Tobacco Use: Current Type: Cigarettes Comment: 1 pack per day - 02/28/2011 11:42 - Keagan Orozco RN 11/16/2023 Tobacco Use: 10 or more cigarettes (1/ Type: Cigarettes Smoking Cessation Yes 11/16/2023 Risk Assessment: High Risk . Physical Examination Airway: Mallampati classification: II (soft palate, fauces, uvula visible). Respiratory: adequate air exchange. Cardiovascular: Regular rhythm. Plan [place] [employer] (ASA) physical status classification: Class II, E. Anesthetic Preoperative Plan: Anesthesia General. [facility] Comment on above: Result Comment: Elec tronically Signed By: Luis Jones Jr, DO\\.br\\Date and Time Signed: 11/16/23 18:24 EDT 11-16-2023 Note History and Physical Patient: JAKOB FUENTES Age: 43 years Sex: Male : 1980 Associated Diagnoses: None Author: TATIANA GREENE, Nic Wolf Basic Information Accompanied by: Family member. Source of history: Self. Chief Complaint Significant ongoing left-sided flank pain. Second ER visit since October 27, 2023 History of Present Illness This is the patient's second ER visit today for left-sided flank pain. Has been dealing with significant pain and still trying to work for over a week. He is status post laser lithotripsy of a large 9 mm left ureteropelvic junction stone by Dr. Du arroyo in August 2023 and had the stent removed in September 2023. He has had nausea and vomiting and significant pain prompting his repeat visit to the ER today. Renal ultrasound was obtained demonstrating hydronephrosis. CT scan confirms 2 mm lightly calcified area at the left ureteropelvic junction and also a 5 and a 4 mm stone in the left lower pole. The patient has not eaten since yesterday and did have some water at about 10 AM earlier today. He presents for further evaluation and subsequent admission after operative intervention. Review of Systems Constitutional: Negative. Eye: Negative. Ear/Nose/Mouth/Throat: Negative. Respiratory: Negative. Cardiovascular: Negative. Gastrointestinal: Negative. Genitourinary: See HPI. Hematology/Lymphatics: Negative. Endocrine: Negative. Immunologic: Negative. Musculoskeletal: Negative. Integumentary: Negative. Neurologic: Negative. Psychiatric: Negative. Health Status Allergies: Allergic Reactions (Selected) No Known Allergies Current medications: (Selected) Prescriptions Prescribed Flomax 0.4 mg Cap: 0.4 mg = 1 cap(s), Oral, Daily, Take one capsule by mouth daily for four days, # 4 cap(s), Refills(s) 0, Pharmacy: [facility] #[id number], 182, cm, 10/27/23 5:06:00 EDT, Height/Length Dosing, 65.3, kg, 10/27/23 5:06:00 EDT, Weight Dosing naproxen 500 mg Tab: 500 mg = 1 tab(s), Oral, BID, Take one tab by mouth two times a day, # 14 tab(s), Refills(s) 0, Pharmacy: [facility] #[id number], 182, cm, 10/27/23 5:06:00 EDT, Height/Length Dosing, 65.3, kg, 10/27/23 5:06:00 EDT, Weight Dosing Histories Past Medical History: Active Denies ([id number]) Family History: No family history items have been selected or recorded. Procedure history: appendectomy in 1989 at 10 Years. Social History Social & Psychosocial Habits Alcohol 11/16/2023 Risk Assessment: Denies Alcohol Use Comment: Denies. - 09/07/2023 04:44 - Reynaldo ANDREA, Jessica Espinosa Substance Abuse 11/16/2023 Risk Assessment: Denies Substance Abuse Comment: Denies. - 09/07/2023 04:44 - Reynaldo ANDREA, Jessica Espinosa Tobacco 11/16/2023 Tobacco Use: Current Type: Cigarettes Comment: 1 pack per day - 02/28/2011 11:42 - Keagan Orozco RN 11/16/2023 Tobacco Use: 10 or more cigarettes (1/ Type: Cigarettes Smoking Cessation Yes 11/16/2023 Risk Assessment: High Risk . Physical Examination Vital Signs 11/16/2023 14:36 EDT Heart Rate Monitored 85 bpm Respiratory Rate 15 br/min Systolic Blood Pressure 134 mmHg Diastolic Blood Pressure 78 mmHg Measurements from flowsheet : Measurements 11/16/2023 11:10 EDT Weight Measured 65.3 kg General: Alert and oriented, No acute distress, Short statured, and obese. Eye: Pupils are equal, round and reactive to light. HENT: Normal hearing. Neck: Supple, Non-tender. Respiratory: Lungs are clear to auscultation, Respirations are non-labored. Cardiovascular: Normal rate, Regular rhythm. Gastrointestinal: Soft, Non-tender, Non-distended, Abdomen. Genitourinary: No inguinal tenderness, Moderate left-sided CVA tenderness. Negative peritoneal signs, Support. Bladder: Within normal limits. Lymphatics: No lymphadenopathy. Musculoskeletal Normal range of motion. No tenderness. Integumentary: Warm, Dry. Neurologic: Alert, Oriented. Psychiatric: Cooperative, Appropriate mood & affect. Cognition and Speech: Oriented, Speech clear and coherent. Review / Management Results review Impression and Plan Diagnosis . Left hydronephrosis with ureteral calculus Left renal calculus Left flank pain. Course: , This is the patient's second visit since October 26 with ongoing left-sided flank pain. Previous ER visit was on [address] scan demonstrated about a 2 mm stone at the left ureteropelvic junction. He was sent home on analgesics. He presents again today for ongoing severe pain and he is trying to work but is unable to. Continued nausea and vomiting. Repeat CT scan and straits continued presence of a 2 mm stone at the left ureteropelvic junction and 2 small stones measuring about 5 and 4 mm and in the left lower pole which may be remnants of the previous 9 mm stone previously treated by Dr. Bhagat. I have given him the options and he wishes to be admitted and also for operative intervention. Discussed options. It is (more content not included)... [facility] Comment on above: Result Comment: Elec tronically Signed By: Nic SIMPSON MD\\.br\\Date and Time Signed: 11/16/23 15:08 EDT 11-16-2023 Evaluation + Plan note Extrac jessica from: Title:ANES Post-operative Note---General Author: Luis Jones Jr, DO Date:11/16/23 Plan Transfer/Discharge: Transfer/Discharge Discharge when meets criteria ( From PACU to floor ). Extracted from: Title:Admission H&P Author:Nic SIMPSON MD Da te:11/16/23 Impression and Plan Diagnosis . Left hydronephrosis with ureteral calculus Left renal calculus Left flank pain. Course: , This is the patient's second visit since October 26 with ongoing left-sided flank pain. Previous ER visit was on [address] scan demonstrated about a 2 mm stone at the left ureteropelvic junction. He was sent home on analgesics. He presents again today for ongoing severe pain and he is trying to work but is unable to. Continued nausea and vomiting. Repeat CT scan and straits continued presence of a 2 mm stone at the left ureteropelvic junction and 2 small stones measuring about 5 and 4 mm and in the left lower pole which may be remnants of the previous 9 mm stone previously treated by Dr. Bhagat. I have given him the options and he wishes to be admitted and also for operative intervention. Discussed options. It is my recommendation that due to the significantly high location of the obstruction and his previous treatments and the presence of continued calculi in the left lower pole that we take him to the OR for cystoscopy, left double-J stent placement after left retrograde pyelogram. Most likely I will not try to go after any fragments in the left upper pole at this point. The stent would be placed which will make it easier to go up the ureter at a later date. Options regarding the remaining fragments will also be discussed which may include ESWL versus a repeat retrograde ureteroscopic/nephroscopic approach with holmium laser lithotripsy. He understands the risk benefits and details including flank pain, stent pain, need for additional procedural intervention, heart and lung problems under anesthesia. Intravenous antibiotics in the form of Ancef 2 g will be given for prophylaxis. He agrees with the plan. Full informed consent as part of the record.. Course: Worsening. Extracted from: Title:ANES Pre-operative Note 2022 Author:Luis Jones Jr, DO Date:11/16/23 Plan [employer] [employer] (ASA) physical status classification: Class II, E. Anesthetic Preoperative Plan: Anesthesia General. Extracted from: Title:ED Note Author:Ronnie Singleton, Tyron Atkinson te:11/16/23 1. Left ureteral stone (N20. 1: Calculus of ureter) 2. Hydronephrosis of left kidney (N13.30: Unspecified hydronephrosis) Orders: ketorolac, 30 mg = 1 mL, Injection, IV Push, Once, Stop date 11/16/23 11:30:00 EDT, STAT, Start date 11/16/23 11:30:00 EDT, 11/16/23 11:30:00 EDT Sodium Chloride 0.9% intravenous solution, 1,000 mL, Soln-IV, IV, Once, Stop date 11/16/23 11:30:00 EDT, STAT, Start date 11/16/23 11:30:00 EDT, Infuse over 61, minute(s) Basic Metabolic Panel CBC w/ Auto Diff CT Abdomen/Pelvis w/o Contrast eGFR Extra Blue Tube Extra SST Tube UA with Cult Rflx US Renal XR Abdomen 1 View Future Appointments Appointment Date:01/10/2024 10:30:00 AM Scheduled Provider:Otf BHAGAT MD Location:[facility] Appointment Type:URO Office Visit Future Scheduled Tests Radiology* XR Abdomen 1 View 12/17/23 [facility] 07-12-2024 Evaluation + Plan noteExtracted from: Title:ED Note Author:Shabbir Barlow DO Date :10/27/23 Acute UTI (N39.0: Urinary tr act infection, site not specified) Flank pain (R10.9: Unspecified abdominal pain) Orders: ceftriaxone + Sodium Chloride 0.9% intravenous solution 50 mL, 1,000 mg = 1 EA, IV Piggyback, Once, Stop date 10/27/23 6:06:00 EDT, STAT, Start date 10/27/23 6:06:00 EDT, 100 mL/hr, Infuse over 30 minute(s), 10/27/23 6:06:00 EDT ketorolac, 15 mg = 1 mL, Injection, IV Push, Once, Stop date 10/27/23 5:19:00 EDT, STAT, Start date 10/27/23 5:19:00 EDT, 10/27/23 5:19:00 EDT ondansetron, 4 mg = 2 mL, Injection, IV Push, Once, Stop date 10/27/23 5:19:00 EDT, STAT, Start date 10/27/23 5:19:00 EDT, 10/27/23 5:19:00 EDT Sodium Chloride 0.9% intravenous solution, 1,000 mL, Soln-IV, IV, Once, Stop date 10/27/23 5:19:00 EDT, STAT, Start date 10/27/23 5:19:00 EDT, Infuse over 61, minute(s) Basic Metabolic Panel CBC w/ Auto Diff CT Abdomen/Pelvis w/o Contrast eGFR Hepatic Function Panel Lipase Level UA with Cult Rflx Urine Culture Addendum by Jt Jameson DO on October 27, 2023 07:51:18 EDT Patient signed out to me by prior physician I did review full workup here in the emergency department. Patient is diagnosed with 2 mm stone at the UPJ. He is feeling much better after fluids Rocephin and Toradol and Zofran. He is able to tolerate p.o. challenge. Patient does have evidence of UTI therefore was discharged home on Keflex in addition to naproxen for pain Percocet for severe pain Flomax to help pass the stone and is provided with a strainer for his urine and given follow-up with urology. Return to ER symptoms change or worsen he is educated on this. No evidence of sepsis at this time. Additional diagnoses: Ureterolithiasis Future Appointments Appointment Date:01/10/2024 10:30:00 AM Scheduled Provider:Otf BHAGAT MD Location:[facility] Appointment Type:URO Office Visit Diagnostic Tests Pending * Urine Culture 10/27/23 Future Scheduled Tests Radiology* XR Abdomen 1 View 12/17/23 [facility]07-12-2024 Hospital Discharge instructions Follow Up Care 10/27/2023 05:02:01 With:Nic SIMPSON Address: [address] [place] [address] [address] [place] [phone] Business (1) When:10/30/2023 07:50:52 Comments:Call Dr for diagnosis based follow up [facility]06-04-2024 Hospital Discharge instructions Patient Education 09/19/2023 08:17:15 EU - Cystoscopy with Stent Removal Discharge Instructions (CUSTOM) Cystoscopy with Stent Removal Voiding after the procedure: there may be some pain, burning, urgency, frequency and blood tinged urine following the procedure. These symptoms usually resolve within 2-5 days. Drink the amount of fluid it takes to keep the urine pink to yellow or clear in color. Drinking enough water and fluids will help to ease any discomfort after your procedure. If you are having problems that seem out of the ordinary, please call. If unable to contact your physician and you feel it is an emergency, go to the nearest emergency room or call 911 Diet you may resume your normal diet. Activity you may resume your normal activities Call if you have a fever over 100 degrees. Follow Up Care 09/18/2023 10:10:51 With:Otf BHAGAT Address: [address] [place] [phone]- Business (1) When: Unknown Comments:Office will call to schedule follow up [facility]06-04-2024 Note [id number] 09-19-2023 NoteCustom Cystoscopy with Stent Removal ? Voiding after the procedure: there may be some pain, burning, urgency, frequency and blood tingedurine following the procedure. These symptoms usually resolve within 2-5 days. Drink the amount of fluid it takes to keep the urine pink to yellow or clear in color. Drinking enough water and fluids will help to ease any discomfort after your procedure. ? If you are having problems that seem out of the ordinary, please call. ? If unable to contact your physician and you feel it is an emergency, go to the nearest emergency room or call 911 ? Diet ? you may resume your normal diet. ? Activity ? you may resume your normal activities ? Call if you have a fever over 100 degrees.[facility] 09-12-2023 Evaluation + Plan noteExtracted from: Title:ED Note Author:Zechariah Perales DO Date: Colic, ureteral (N23: Unspec ified renal colic) Orders: HYDROmorphone, 1 mg = 1 mL, Injection, IV Push, Once, Stop date 09/12/23 0:39:00 EDT, STAT, Start date 09/12/23 0:39:00 EDT, 09/12/23 0:39:00 EDT ketorolac, 30 mg = 1 mL, Injection, IV Push, Once, Stop date 09/12/23 0:39:00 EDT, STAT, Start date 09/12/23 0:39:00 EDT, 09/12/23 0:39:00 EDT ondansetron, 4 mg = 2 mL, Injection, IV Push, Once, Stop date 09/12/23 0:39:00 EDT, STAT, Start date 09/12/23 0:39:00 EDT, 09/12/23 0:39:00 EDT Sodium Chloride 0.9% intravenous solution, 1,000 mL, Soln-IV, IV, Once, Stop date 09/12/23 0:39:00 EDT, STAT, Start date 09/12/23 0:39:00 EDT, Infuse over 61, minute(s) Basic Metabolic Panel CBC w/ Auto Diff CT Abdomen/Pelvis w/ Contrast ED Cardiac Monitoring eGFR Saline Lock Insert UA with Cult Rflx Urine Culture Diagnostic Tests Pending * Urine Culture 09/12/23 [facility]05-28-2024 Hospital Discharge instructions Patient Education 09/12/2023 02:50:44 Kidney Stones Kidney Stones Kidney stones are solid, rock-like deposits that form inside of the kidneys. The kidneys are a pairof organs that make urine. A kidney stone may form in a kidney and move into other parts of the urinary tract, including the tubes that connect the kidneys to the bladder (ureters), the bladder, and the tube that carries urine out of the body (urethra). As the stone moves through these areas, it can cause intense pain and block the flow of urine. Kidney stones are created when high levels of certain minerals are found in the urine. The stones are usually passed out of the body through urination, but in some cases, medical treatment may be needed to remove them. What are the causes? Kidney stones may be caused by: A condition in which certain glands produce too much parathyroid hormone (primary hyperparathyroidism), which causes too much calcium buildup in the blood. A buildup of uric acid crystals in the bladder (hyperuricosuria). Uric acid is a chemical that the body produces when you eat certain foods. It usually leaves the body in the urine. Narrowing (stricture) of one or both of the ureters. A kidney blockage that is present at (congenital obstruction). Past surgery on the kidney or the ureters. What increases the risk? The following factors may make you more likely to develop this condition: Having had a kidney stone in the past. Having a family history of kidney stones. Not drinking enough water. Eating a diet that is high in protein, salt (sodium), or sugar. Being overweight or obese. What are the signs or symptoms? Symptoms of a kidney stone may include: Pain in the side of the abdomen, right below the ribs (flank pain). Pain usually spreads (radiates)to the groin. Needing to urinate often or urgently. Painful urination. Blood in the urine (hematuria). Nausea. Vomiting. Fever and chills. How is this diagnosed? This condition may be diagnosed based on: Your symptoms and medical history. A physical exam. Blood tests. Urine tests. These may be done before and after the stone passes out of your body through urination. Imaging tests, such as a CT scan, abdominal X-ray, or ultrasound. A procedure to examine the inside of the bladder (cystoscopy). How is this treated? Treatment for kidney stones depends on the size, location, and makeup of the stones. Kidney stones will often pass out of the body through urination. You may need to: Increase your fluid intake to help pass the stone. In some cases, you may be given fluids through an IV and may need to be monitored in the hospital. Take medicine for pain. Make changes in your diet to help prevent kidney stones from coming back. Sometimes, procedures are needed to remove a kidney stone. This may involve: A procedure to break up kidney stones using: ?A focused beam of light (laser therapy). ?Shock waves (extracorporeal shock wave lithotripsy). Surgery to remove kidney stones. This may be needed if you have severe pain or have stones that block your urinary tract. Follow these instructions at home: Medicines Take iojq-nrj-pphtawa and prescription medicines only as told by your health care provider. Ask your health care provider if the medicine prescribed to you requires you to avoid driving or using heavy machinery. Eating and drinking Drink enough fluid to keep your urine pale yellow. You may be instructed to drink at least 8 10 glasses of water each day. This will help you pass the kidney stone. If directed, change your diet. This may include: ?Limiting how much sodium you eat. ?Eating more fruits and vegetables. ?Limiting how much animal protein you eat. Animal proteins include red meat, poultry, fish, and eggs. ?Eating a normal amount of calcium (1,000 1,300 mg per day). Follow instructions from your health care provider about eating or drinking restrictions. General instructions Collect urine samples as told by your health care provider. You may need to collect a urine sample: ?24 hours after you pass the stone. ?8 12 weeks after you pass the kidney stone, and every 6 12 months after that. Strain your urine every time you urinate, for as long as directed. Use the strainer that your health care provider recommends. Do not throw out the kidney stone after passing it. Keep the stone so it can be tested by your health care provider. Testing the makeup of your kidney stone may help prevent you from getting kidney stones in the future. Keep all follow-up visits. You may need follow-up X-rays or ultrasounds to make sure that your stone has passed. How is this prevented? To prevent another kidney stone: Drink enough fluid to keep your urine pale yellow. This is the best way to prevent kidney stones. Eat a healthy diet. Follow recommendations from your health care provider about foods to avoid. Recommendations vary depending on the type of kidney stone that you have. You may be instructed to eat a low-protein diet. Maintain a healthy weight. Where to find more information National Kidney Foundation (NKF): www.kidney.org [facility] (UCF): www.urologyhealth.org Contact a health care provider if: You have pain that gets worse or does not get better with medicine. Get help right away if: You have a fever or chills. You develop severe pain. You develop new abdominal pain. You faint. You are unable to urinate. Summary Kidney stones are solid, rock-like deposits that form inside of the kidneys. Kidney stones can cause nausea, vomiting, blood in the urine, abdominal pain, and the urge to urinate often. Treatment for kidney stones depends on the size, location, and makeup of the stones. Kidney stones will often pass out of the body through urination. Kidney stones can be prevented by drinking enough fluids, eating a healthy diet, and maintaining a healthy weight. This information is not intended to replace advice given to you by your health care provider. Make sure you discuss any questions you have with your health care provider. Document Revised: 07/13/2022 Document Reviewed: 07/13/2022 [employer] Patient Education 2022 [employer]. Follow Up Care 09/12/2023 00:11:24 With:Otf BHAGAT Address: [address] [place], [place] [id number] [facility] (1) When:09/15/2023 Comments:Call the office of your primary care doctor to arrange for follow-up within the above-stated timeframe. Follow-up with your primary care doctor about this ED visit. You should review your labs, imaging, and diagnoses from this ED visit with your primary care physician. There are occasionally non-emergent findings that require additional follow-up after your ED visit. If you were prescribed medications you should discuss possible side-effects and drug interactions with your pharmacist. Call 911 or go to the nearest Emergency Department if you develop any new or worsening symptoms.Seek immediate medical attention if you develop:worsening abdominal pain, new or worsening nausea, new or worsening vomiting, new or worsening diarrhea, chest pain, shortness of breath, pain with urination, problems urinating, fever, chills, weakness, or any new or worsening symptoms.You can take 2 Percocets if your pain is worsening. [facility]05-26-2024 Hospital Discharge instructions Patient Education 09/10/2023 01:12:12 Urinary Tract Infection, Adult, Uihj-gw-Qefg Urinary Tract Infection, Adult A urinary tract infection (UTI) is an infection of any part of the urinary tract. The urinary tractincludes: The kidneys. The ureters. The bladder. The urethra. These organs make, store, and get rid of pee (urine) in the body. What are the causes? This infection is caused by germs (bacteria) in your genital area. These germs grow and cause swelling (inflammation) of your urinary tract. What increases the risk? The following factors may make you more likely to develop this condition: Using a small, thin tube (catheter) to drain pee. Not being able to control when you pee or poop (incontinence). Being female. If you are female, these things can increase the risk: ?Using these methods to prevent : ?A medicine that kills sperm (spermicide). ?A device that blocks sperm (diaphragm). ?Having low levels of a female hormone (estrogen). ?Being . You are more likely to develop this condition if: You have genes that add to your risk. You are sexually active. You take antibiotic medicines. You have trouble peeing because of: ?A prostate that is bigger than normal, if you are male. ?A blockage in the part of your body that drains pee from the bladder. ?A kidney stone. ?A nerve condition that affects your bladder. ?Not getting enough to drink. ?Not peeing often enough. You have other conditions, such as: ?Diabetes. ?A weak disease-fighting system (immune system). ?Sickle cell disease. ?Gout. ?Injury of the spine. What are the signs or symptoms? Symptoms of this condition include: Needing to pee right away. Peeing small amounts often. Pain or burning when peeing. Blood in the pee. Pee that smells bad or not like normal. Trouble peeing. Pee that is cloudy. Fluid coming from the vagina, if you are female. Pain in the belly or lower back. Other symptoms include: Vomiting. Not feeling hungry. Feeling mixed up (confused). This may be the first symptom in older adults. Being tired and grouchy (irritable). A fever. Watery poop (diarrhea). How is this treated? Taking antibiotic medicine. Taking other medicines. Drinking enough water. In some cases, you may need to see a specialist. Follow these instructions at home: Medicines Take cltj-rpi-mtbrefu and prescription medicines only as told by your doctor. If you were prescribed an antibiotic medicine, take it as told by your doctor. Do not stop taking it even if you start to feel better. General instructions Make sure you: ?Pee until your bladder is empty. ?Do not hold pee for a long time. ?Empty your bladder after sex. ?Wipe from front to back after peeing or pooping if you are a female. Use each tissue one time whenyou wipe. Drink enough fluid to keep your pee pale yellow. Keep all follow-up visits. Contact a doctor if: You do not get better after 1 2 days. Your symptoms go away and then come back. Get help right away if: You have very bad back pain. You have very bad pain in your lower belly. You have a fever. You have chills. You feeling like you will vomit or you vomit. Summary A urinary tract infection (UTI) is an infection of any part of the urinary tract. This condition is caused by germs in your genital area. There are many risk factors for a UTI. Treatment includes antibiotic medicines. Drink enough fluid to keep your pee pale yellow. This information is not intended to replace advice given to you by your health care provider. Make sure you discuss any questions you have with your health care provider. Document Revised: 11/13/2020 Document Reviewed: 11/13/2020 [employer] Patient Education 2022 [employer]. 09/10/2023 01:12:12 Renal Colic, Btaf-bs-Fdut Renal Colic Renal colic is pain that is caused by a kidney stone. The pain can be sharp and very bad. It may befelt in the back, belly, side (flank), or groin. It can cause nausea. Renal colic can come and go. Follow these instructions at home: Medicines Take dcyq-olk-gyxigsx and prescription medicines only as told by your doctor. Do not drive or use heavy machinery while taking prescription pain medicine. Eating and drinking Drink enough fluid to keep your pee (urine) pale yellow. You may be told to drink at least 8 10 glasses of water each day. Follow instructions from your doctor. If told, change your diet. This may include eating: ?Less salt (sodium). Eat less than 2 grams (2,000 mg) of salt per day. ?Less meat, poultry, fish, and eggs. ?More fruits and vegetables. ?Try not to eat spinach, rhubarb, sweet potatoes, or nuts. Follow instructions from your doctor about what foods and drinks to avoid. General instructions Keep all follow-up visits as told by your doctor. This is important. Collect pee samples as told by your doctor. Strain your pee every time you pee, as told by your doctor. Use the strainer that your doctor recommends. Do not throw out the kidney stone after passing it. Keep the stone so it can be tested by your doctor. Contact a doctor if: You have a fever or chills. Your pee smells bad or looks cloudy. You have pain or burning when you pee. Get help right away if: The pain in your side (flank) or your groin suddenly gets worse. You get confused. You pass out. Summary Renal colic is pain that is caused by a kidney stone. Take fohh-jsg-kvpvcvo and prescription medicines only as told by your doctor. Drink enough fluid to keep your pee pale yellow. You may be told to drink at least 8 10 glasses of water each day. Follow instructions from your doctor. Strain your pee every time you pee, as told by your doctor. Use the strainer that your doctor recommends. Do not throw out the kidney stone after passing it. Keep the stone so it can be tested by your doctor. This information is not intended to replace advice given to you by your health care provider. Make sure you discuss any questions you have with your health care provider. Document Revised: 12/06/2021 Document Reviewed: 12/06/2021 [employer] Patient Education 2022 [employer]. Follow Up Care 09/09/2023 22:53:11 With:Otf BHAGAT Address: [address] [place] [phone] Business (1) When:09/13/2023 Comments:Stop taking the Keflex and you can start taking the Cipro as prescribed to completed the course. You can use the pain medication as prescribed as needed for pain. Please follow-up with Dr. Bhagat forfurt evaluation and management. Please return to the ED for any new or worsening symptoms. With:[facility] Address: [address] [place] [address] [place] [address]- Business (1) When:Within 3 Day(s) [facility]05-25-2024 Evaluation + Plan noteExtracted from: Title:ED Note Author:Avelina Gonzalez DO Date :09/09/23 Acute UTI (N39.0: Urinary tr act infection, site not specified) Ureteral colic (N23: Unspecified renal colic) Orders: acetaminophen-oxycodone, 1 tab(s), Oral, q6hr for 3 day(s), 12 tab(s), Refill(s) 0, [facility] #[id number], 182, cm, 09/09/23 23:02:00 EDT, Height/Length Dosing, 65.8, kg, 09/09/23 23:02:00 EDT, Weight Dosing ciprofloxacin, 500 mg = 1 tab(s), Oral, BID, # 28 tab(s), Refills(s) 0, Pharmacy: [facility] #[id number], 182, cm, 09/09/23 23:02:00 EDT, Height/Length Dosing, 65.8, kg, 09/09/23 23:02:00 EDT, Weight Dosing ketorolac, 10 mg = 1 tab(s), Oral, q6hr, PRN for pain, # 20 tab(s), Refills(s) 0, Pharmacy: [facility] #[id number], 182, cm, 09/09/23 23:02:00 EDT, Height/Length Dosing, 65.8, kg, 09/09/23 23:02:00 EDT, Weight Dosing ketorolac, 30 mg = 1 mL, Injection, IV Push, Once, Stop date 09/09/23 23:13:00 EDT, STAT, Start date 09/09/23 23:13:00 EDT, 09/09/23 23:13:00 EDT morphine, 4 mg = 1 mL, Injection, IV Push, Once, Stop date 09/09/23 23:13:00 EDT, STAT, Start date 09/09/23 23:13:00 EDT, 09/09/23 23:13:00 EDT naproxen, 500 mg = 2 tab(s), Tab, Oral, Once, Stop date 09/10/23 0:18:00 EDT, STAT, Start date 09/10/23 0:18:00 EDT, 09/10/23 0:18:00 EDT ondansetron, 4 mg = 2 mL, Injection, IV Push, Once, Stop date 09/09/23 23:13:00 EDT, STAT, Start date 09/09/23 23:13:00 EDT, 09/09/23 23:13:00 EDT ondansetron, 4 mg = 1 tab(s), Oral, q8hr, # 12 tab(s), Refills(s) 0, Pharmacy: [facility] #[id number], 182, cm, 09/09/23 23:02:00 EDT, Height/Length Dosing, 65.8, kg, 09/09/23 23:02:00 EDT, Weight Dosing Sodium Chloride 0.9% intravenous solution 1,000 mL, 1,000 mL, IV, 983.61 mL/hr, for 30 day(s), Stop date 10/09/23 23:12:00 EDT, STAT, Start date 09/09/23 23:13:00 EDT, 61 minute(s), Total volume (mL): 1,000, 65.8 kg, 1.82, m2 Basic Metabolic Panel eGFR UA with Cult Rflx Urine Culture XR Abdomen 1 View [facility]05-24-2024 Hospital Discharge instructions Patient Education 09/08/2023 08:21:02 Laser Therapy for Kidney Stones, Care After Laser Therapy for Kidney Stones, Care After This sheet gives you information about how to care for yourself after your procedure. Your health care provider may also give you more specific instructions. If you have problems or questions, contact your health care provider. What can I expect after the procedure? After the procedure, it is common to have: Pain. A burning sensation while urinating. Small amounts of blood in your urine. A need to urinate frequently. Pieces of kidney stone in your urine. Mild discomfort when urinating that may be felt in the back. You may experience this if you have a flexible tube (stent) in your ureter. Follow these instructions at home: Medicines Take yigs-sli-ulphoay and prescription medicines only as told by your health care provider. If you were prescribed an antibiotic medicine, take it as told by your health care provider. Do notstop taking the antibiotic even if you start to feel better. Ask your health care provider if the medicine prescribed to you: ?Requires you to avoid driving or using heavy machinery. ?Can cause constipation. You may need to take actions to prevent or treat constipation, such as: ?Take fmnf-wpj-vuhikow or prescription medicines. ?Eat foods that are high in fiber, such as beans, whole grains, and fresh fruits and vegetables. ?Limit foods that are high in fat and processed sugars, such as fried or sweet foods. Activity Return to your normal activities as told by your health care provider. Ask your health care provider what activities are safe for you. Do not drive for 24 hours if you were given a sedative during your procedure. General instructions If your health care provider approves, you may take a warm bath to ease discomfort and burning. Drink enough fluid to keep your urine pale yellow. Your health care provider may recommend drinkingtwo 8 oz (237 mL) glasses of water per hour for a few hours after your procedure. You may be asked to strain your urine to collect any stone fragments that you pass. These fragmentsmay be tested. Keep all follow-up visits as told by your health care provider. This is important. If you have a stent, you will need to return to your health care provider to have the stent removed. Contact a health care provider if you: Have pain or a burning feeling that lasts more than 2 days. Feel nauseous. Vomit more and more often. Have difficulty urinating. Have pain that gets worse or does not get better with medicine. Get help right away if: You are unable to urinate, even if your bladder feels full. You have: ?Bright red blood or blood clots in your urine. ?More blood in your urine. ?Severe pain or discomfort. ?A fever or shaking chills. ?Abdominal pain. ?Difficulty breathing. ?Swelling in your legs. This information is not intended to replace advice given to you by your health care provider. Make sure you discuss any questions you have with your health care provider. Document Revised: 08/10/2022 Document Reviewed: 12/06/2021 [employer] Patient Education 2022 [employer] 09/08/2023 08:21:01 Laser Therapy for Kidney Stones Laser Therapy for Kidney Stones Laser therapy for kidney stones is a procedure to break up small, hard mineral deposits that form in the kidney (kidney stones). The procedure is done using a device that produces a focused beam of light (laser). The laser breaks up kidney stones into pieces that are small enough to be passed out of the body through urination or removed from the body during the procedure. You may need laser therapy if you have kidney stones that are painful or block your urinary tract. This procedure is done by inserting a tube (ureteroscope) into your kidney through the urethral opening. The urethra is the part of the body that drains urine from the bladder. In women, the urethra opens above the vaginal opening. In men, the urethra opens at the tip of the penis. The ureteroscopeis inserted through the urethra, and surgical instruments are moved through the bladder and the muscular tube that connects the kidney to the bladder (ureter) until they reach the kidney. Tell a health care provider about: Any allergies you have. All medicines you are taking, including vitamins, herbs, eye drops, creams, and znbc-jsb-qsqjdvi medicines. Any problems you or family members have had with anesthetic medicines. Any blood disorders you have. Any surgeries you have had. Any medical conditions you have. Whether you are or may be . What are the risks? Generally, this is a safe procedure. However, problems may occur, including: Infection. Bleeding. Allergic reactions to medicines. Damage to the urethra, bladder, or ureter. Urinary tract infection (UTI). Narrowing of the urethra (urethral stricture). Difficulty passing urine. Blockage of the kidney caused by a fragment of kidney stone. What happens before the procedure? Medicines Ask your health care provider about: ?Changing or stopping your regular medicines. This is especially important if you are taking diabetes medicines or blood thinners. ?Taking medicines such as aspirin and ibuprofen. These medicines can thin your blood. Do not take these medicines unless your health care provider tells you to take them. ?Taking rgjq-ajz-dmcubtf medicines, vitamins, herbs, and supplements. Eating and drinking Follow instructions from your health care provider about eating and drinking, which may include: 8 hours before the procedure stop eating heavy meals or foods, such as meat, fried foods, or fatty foods. 6 hours before the procedure stop eating light meals or foods, such as toast or cereal. 6 hours before the procedure stop drinking milk or drinks that contain milk. 2 hours before the procedure stop drinking clear liquids. Staying hydrated Follow instructions from your health care provider about hydration, which may include: Up to 2 hours before the procedure you may continue to drink clear liquids, such as water, clear fruit juice, black coffee, and plain tea. General instructions You may have a physical exam before the procedure. You may also have tests, such as imaging tests and blood or urine tests. If your ureter is too narrow, your health care provider may place a soft, flexible tube (stent) inside of it. The stent may be placed days or weeks before your laser therapy procedure. Plan to have someone take you home from the hospital or clinic. If you will be going home right after the procedure, plan to have someone stay with you for 24 hours. Do not use any products that contain nicotine or tobacco for at least 4 weeks before the procedure.These products include cigarettes, e-cigarettes, and chewing tobacco. If you need help quitting, ask your health care provider. Ask your health care provider: ?How your surgical site will be marked or identified. ?What steps will be taken to help prevent infection. These may include: ?Removing hair at the surgery site. ?Washing skin with a germ-killing soap. ?Taking antibiotic medicine. What happens during the procedure? An IV will be inserted into one of your veins. You will be given one or more of the following: ?A medicine to help you relax (sedative). ?A medicine to numb the area (local anesthetic). ?A medicine to make you fall asleep (general anesthetic). A ureteroscope will be inserted into your urethra. The ureteroscope will send images to a video screen in the operating room to guide your surgeon to the area of your kidney that will be treated. A small, flexible tube will be threaded through the ureteroscope and into your bladder and ureter, up to your kidney. The laser device will be inserted into your kidney through the tube. Your surgeon will pulse the laser on and off to break up kidney stones. A surgical instrument that has a tiny wire basket may be inserted through the tube into your kidneyto remove the pieces of broken kidney stone. The procedure may vary among health care providers and hospitals. What happens after the procedure? Your blood pressure, heart rate, breathing rate, and blood oxygen level will be monitored until youleave the hospital or clinic. You will be given pain medicine as needed. You may continue to receive antibiotics. You may have a stent temporarily placed in your ureter. Do not drive for 24 hours if you were given a sedative during your procedure. You may be given a strainer to collect any stone fragments that you pass in your urine. Your healthcare provider may have these tested. This information is not intended to replace advice given to you by your health care provider. Make sure you discuss any questions you have with your health care provider. Document Revised: 08/10/2022 Document Reviewed: 12/06/2021 [employer] Patient Education 2022 [employer]. Follow Up Care 09/07/2023 08:02:16 With:DU GREENE, PAULO Coombs Address: [facility] [address], [place] [phone] When: Unknown Comments:sched Cysto/L URS/Laser litho/L stent placement [facility] 05-23-2024 Evaluation + Plan noteExtracted from: Title:ED Note Author:Tyron Trujillo M.D. te:09/07/23 1. Left ureteral stone (N20. 1: Calculus of ureter) Ordered: acetaminophen-oxycodone, 1 tab(s), Oral, q6hr as needed for pain, 10 tab(s), Refill(s) 0 2. Urinary tract infection (N39.0: Urinary tract infection, site not specified) Orders: ceftriaxone + Sodium Chloride 0.9% intravenous solution 50 mL, 1,000 mg = 1 EA, IV Piggyback, Once, Stop date 09/07/23 6:03:00 EDT, STAT, Start date 09/07/23 6:03:00 EDT, 100 mL/hr, Infuse over 30 minute(s), 09/07/23 6:03:00 EDT cephalexin, 500 mg = 1 cap(s), Oral, q6hr, X 7 day(s), # 28 cap(s), Refills(s) 0 ketorolac, 30 mg = 1 mL, Injection, IV Push, Once, Stop date 09/07/23 4:31:00 EDT, STAT, Start date 09/07/23 4:31:00 EDT, 09/07/23 4:31:00 EDT ondansetron, 4 mg = 2 mL, Injection, IV Push, Once, Stop date 09/07/23 4:31:00 EDT, STAT, Start date 09/07/23 4:31:00 EDT, 09/07/23 4:31:00 EDT Sodium Chloride 0.9% intravenous solution, 1,000 mL, Soln-IV, IV, Once, Stop date 09/07/23 4:31:00 EDT, STAT, Start date 09/07/23 4:31:00 EDT, Infuse over 61, minute(s) tamsulosin, 0.4 mg = 1 cap(s), Cap, Oral, Once, Stop date 09/07/23 6:52:00 EDT, STAT, Start date 09/07/23 6:52:00 EDT, 09/07/23 6:52:00 EDT tamsulosin, 0.4 mg = 1 cap(s), Oral, Daily, # 10 cap(s), Refills(s) 0 Basic Metabolic Panel CBC w/ Auto Diff CT Abdomen/Pelvis w/o Contrast eGFR Extra Blue Tube Extra SST Tube UA with Cult Rflx Urine Culture Future Appointments Appointment Date:09/08/2023 08:00:00 AM Scheduled Provider:Otf BHAGAT MD Location:[facility] Appointment Type:URO Office Visit Diagnostic Tests Pending * Urine Culture 09/07/23 [facility]05-23-2024 Hospital Discharge instructions Patient Education 09/07/2023 07:03:43 Urinary Tract Infection, Adult Urinary Tract Infection, Adult A urinary tract infection (UTI) is an infection of any part of the urinary tract. The urinary tractincludes the kidneys, ureters, bladder, and urethra. These organs make, store, and get rid of urinein the body. An upper UTI affects the ureters and kidneys. A lower UTI affects the bladder and urethra. What are the causes? Most urinary tract infections are caused by bacteria in your genital area around your urethra, where urine leaves your body. These bacteria grow and cause inflammation of your urinary tract. What increases the risk? You are more likely to develop this condition if: You have a urinary catheter that stays in place. You are not able to control when you urinate or have a bowel movement (incontinence). You are female and you: ?Use a spermicide or diaphragm for control. ?Have low estrogen levels. ?Are . You have certain genes that increase your risk. You are sexually active. You take antibiotic medicines. You have a condition that causes your flow of urine to slow down, such as: ?An enlarged prostate, if you are male. ?Blockage in your urethra. ?A kidney stone. ?A nerve condition that affects your bladder control (neurogenic bladder). ?Not getting enough to drink, or not urinating often. You have certain medical conditions, such as: ?Diabetes. ?A weak disease-fighting system (immunesystem). ?Sickle cell disease. ?Gout. ?Spinal cord injury. What are the signs or symptoms? Symptoms of this condition include: Needing to urinate right away (urgency). Frequent urination. This may include small amounts of urine each time you urinate. Pain or burning with urination. Blood in the urine. Urine that smells bad or unusual. Trouble urinating. Cloudy urine. Vaginal discharge, if you are female. Pain in the abdomen or the lower back. You may also have: Vomiting or a decreased appetite. Confusion. Irritability or tiredness. A fever or chills. Diarrhea. The first symptom in older adults may be confusion. In some cases, they may not have any symptoms until the infection has worsened. How is this diagnosed? This condition is diagnosed based on your medical history and a physical exam. You may also have other tests, including: Urine tests. Blood tests. Tests for STIs (sexually transmitted infections). If you have had more than one UTI, a cystoscopy or imaging studies may be done to determine the cause of the infections. How is this treated? Treatment for this condition includes: Antibiotic medicine. Efrw-diw-ftdctji medicines to treat discomfort. Drinking enough water to stay hydrated. If you have frequent infections or have other conditions such as a kidney stone, you may need to see a health care provider who specializes in the urinary tract (urologist). In rare cases, urinary tract infections can cause sepsis. Sepsis is a life- threatening condition that occurs when the body responds to an infection. Sepsis is treated in the hospital with IV antibiotics, fluids, and other medicines. Follow these instructions at home: Medicines Take mhna-pge-frextxr and prescription medicines only as told by your health care provider. If you were prescribed an antibiotic medicine, take it as told by your health care provider. Do notstop using the antibiotic even if you start to feel better. General instructions Make sure you: ?Empty your bladder often and completely. Do not hold urine for long periods of time. ?Empty your bladder after sex. ?Wipe from front to back after urinating or having a bowel movement if you are female. Use each tissue only one time when you wipe. Drink enough fluid to keep your urine pale yellow. Keep all follow-up visits. This is important. Contact a health care provider if: Your symptoms do not get better after 1 2 days. Your symptoms go away and then return. Get help right away if: You have severe pain in your back or your lower abdomen. You have a fever or chills. You have nausea or vomiting. Summary A urinary tract infection (UTI) is an infection of any part of the urinary tract, which includes the kidneys, ureters, bladder, and urethra. Most urinary tract infections are caused by bacteria in your genital area. Treatment for this condition often includes antibiotic medicines. If you were prescribed an antibiotic medicine, take it as told by your health care provider. Do notstop using the antibiotic even if you start to feel better. Keep all follow-up visits. This is important. This information is not intended to replace advice given to you by your health care provider. Make sure you discuss any questions you have with your health care provider. Document Revised: 11/13/2020 Document Reviewed: 11/13/2020 [employer] Patient Education 2022 [employer]. 09/07/2023 07:03:43 Kidney Stones Kidney Stones Kidney stones are solid, rock-like deposits that form inside of the kidneys. The kidneys are a pairof organs that make urine. A kidney stone may form in a kidney and move into other parts of the urinary tract, including the tubes that connect the kidneys to the bladder (ureters), the bladder, and the tube that carries urine out of the body (urethra). As the stone moves through these areas, it can cause intense pain and block the flow of urine. Kidney stones are created when high levels of certain minerals are found in the urine. The stones are usually passed out of the body through urination, but in some cases, medical treatment may be needed to remove them. What are the causes? Kidney stones may be caused by: A condition in which certain glands produce too much parathyroid hormone (primary hyperparathyroidism), which causes too much calcium buildup in the blood. A buildup of uric acid crystals in the bladder (hyperuricosuria). Uric acid is a chemical that the body produces when you eat certain foods. It usually leaves the body in the urine. Narrowing (stricture) of one or both of the ureters. A kidney blockage that is present at (congenital obstruction). Past surgery on the kidney or the ureters. What increases the risk? The following factors may make you more likely to develop this condition: Having had a kidney stone in the past. Having a family history of kidney stones. Not drinking enough water. Eating a diet that is high in protein, salt (sodium), or sugar. Being overweight or obese. What are the signs or symptoms? Symptoms of a kidney stone may include: Pain in the side of the abdomen, right below the ribs (flank pain). Pain usually spreads (radiates)to the groin. Needing to urinate often or urgently. Painful urination. Blood in the urine (hematuria). Nausea. Vomiting. Fever and chills. How is this diagnosed? This condition may be diagnosed based on: Your symptoms and medical history. A physical exam. Blood tests. Urine tests. These may be done before and after the stone passes out of your body through urination. Imaging tests, such as a CT scan, abdominal X-ray, or ultrasound. A procedure to examine the inside of the bladder (cystoscopy). How is this treated? Treatment for kidney stones depends on the size, location, and makeup of the stones. Kidney stones will often pass out of the body through urination. You may need to: Increase your fluid intake to help pass the stone. In some cases, you may be given fluids through an IV and may need to be monitored in the hospital. Take medicine for pain. Make changes in your diet to help prevent kidney stones from coming back. Sometimes, procedures are needed to remove a kidney stone. This may involve: A procedure to break up kidney stones using: ?A focused beam of light (laser therapy). ?Shock waves (extracorporeal shock wave lithotripsy). Surgery to remove kidney stones. This may be needed if you have severe pain or have stones that block your urinary tract. Follow these instructions at home: Medicines Take dqhq-lxp-nbfsype and prescription medicines only as told by your health care provider. Ask your health care provider if the medicine prescribed to you requires you to avoid driving or using heavy machinery. Eating and drinking Drink enough fluid to keep your urine pale yellow. You may be instructed to drink at least 8 10 glasses of water each day. This will help you pass the kidney stone. If directed, change your diet. This may include: ?Limiting how much sodium you eat. ?Eating more fruits and vegetables. ?Limiting how much animal protein you eat. Animal proteins include red meat, poultry, fish, and eggs. ?Eating a normal amount of calcium (1,000 1,300 mg per day). Follow instructions from your health care provider about eating or drinking restrictions. General instructions Collect urine samples as told by your health care provider. You may need to collect a urine sample: ?24 hours after you pass the stone. ?8 12 weeks after you pass the kidney stone, and every 6 12 months after that. Strain your urine every time you urinate, for as long as directed. Use the strainer that your health care provider recommends. Do not throw out the kidney stone after passing it. Keep the stone so it can be tested by your health care provider. Testing the makeup of your kidney stone may help prevent you from getting kidney stones in the future. Keep all follow-up visits. You may need follow-up X-rays or ultrasounds to make sure that your stone has passed. How is this prevented? To prevent another kidney stone: Drink enough fluid to keep your urine pale yellow. This is the best way to prevent kidney stones. Eat a healthy diet. Follow recommendations from your health care provider about foods to avoid. Recommendations vary depending on the type of kidney stone that you have. You may be instructed to eat a low-protein diet. Maintain a healthy weight. Where to find more information National Kidney Foundation (NKF): www.kidney.org [facility] [facility] (UCF): www.urologyhealth.org Contact a health care provider if: You have pain that gets worse or does not get better with medicine. Get help right away if: You have a fever or chills. You develop severe pain. You develop new abdominal pain. You faint. You are unable to urinate. Summary Kidney stones are solid, rock-like deposits that form inside of the kidneys. Kidney stones can cause nausea, vomiting, blood in the urine, abdominal pain, and the urge to urinate often. Treatment for kidney stones depends on the size, location, and makeup of the stones. Kidney stones will often pass out of the body through urination. Kidney stones can be prevented by drinking enough fluids, eating a healthy diet, and maintaining a healthy weight. This information is not intended to replace advice given to you by your health care provider. Make sure you discuss any questions you have with your health care provider. Document Revised: 07/13/2022 Document Reviewed: 07/13/2022 [employer] Patient Education 2022 [employer]. Follow Up Care 09/07/2023 04:20:42 With:Otf BHAGAT Address: [address] [place] [address] [place] [address] Business (1) When:09/10/2023 06:54:40 Comments:Make sure to strain the urine as instructed. Call the office of Dr. Bhagat [facility] Nothing to eat or drink after midnight tonight. Return to the emergency room if your pain gets worse, vomiting or any new symptoms.[facility] Future App[facility]ments Appointment Date:01/10/2024 10:30:00 AM Scheduled Provider:Otf BHAGAT MD Location:[facility] Appointment Type:URO Office Visit Future Scheduled Tests Radiology* XR Abdomen 1 [facility] Narrative No data available for this [facility] Discharge instructions No data available for this section [facility] Progress note No data available for this section [facility] Summary Purpose Family History No Family History Records FoundNo Family History Records Found No data available for this section No data available for this section No Family History Records FoundNo Family History Records FoundNo Family History Records FoundNo Family History Records Found No data available for this section No Family History Records FoundNo Family History Records FoundNo Family History Records FoundNo Family History Records FoundNo Family History Records FoundNo Family History Records FoundNo Family History Records FoundNo Family History Records FoundNo Family History Records Found No data available for this section No Family History Records Found No data available for this section No data available for this section No Family History Records FoundNo Family History Records FoundNo Family History Records FoundNo Family History Records FoundNo Family History Records FoundNo Family History Records FoundNo Family History Records Found No data available for this section No Family History Records FoundNo Family History Records FoundNo Family History Records FoundNo Family History Records FoundNo Family History Records Found Advance Directives No Advanced Directives Records FoundDocuments on File Type Date Recorded Patient Travel Accommodation Inspector Expl anation Advance Directives and Living Will Power of Business Rules Developer Discharge Instructions * Instructions* Jethro Ruelas MD - 01/22/2019 Moist warm compress 3 x daily documented in this encounter Assessments Diagnosis Pain of right thigh- Primary Pain in limb Muscle strain Unspecified site of sprain and strain Additional Source Comments (unrecognized sect ion and content) No Status Records FoundNo Status Records FoundNo Status Records FoundNo Status Records FoundNo Status Records FoundNo Status Records FoundNo Status Records FoundNo Status Records FoundNo Status Records FoundNo Status Records FoundNo Status Records FoundNo Status Records FoundNo Status Records FoundNo Status Records FoundNo Status Records FoundNo Status Records FoundNo Status Records FoundNo Status Records FoundNo Status Records FoundNo Status Records FoundNo Status Records FoundNo Status Records FoundNo Status Records FoundNo Status Records FoundNo Status Records FoundNo Status Records FoundNo Status Records FoundNo Status Records Found INFORMATION SOURCE (unrecogn ized section and content) DATE CREATED AUTHOR 11/15/2017 [facility] DATE CREATED AUTHOR AUTHOR'S ORGANIZ ATION [facility] DATE CREATED AUTHOR AUTHOR'S ORGANIZ ATION 09/09/2023 [facility] DATE CREATED AUTHOR AUTHOR'S ORGANIZ ATION 09/10/2023 [facility] DATE CREATED AUTHOR AUTHOR'S ORGANIZ ATION 09/11/2023 [facility] DATE CREATED AUTHOR AUTHOR'S ORGANIZ ATION 09/12/2023 [facility] DATE CREATED AUTHOR AUTHOR'S ORGANIZ ATION 09/15/2023 [facility] DATE CREATED AUTHOR AUTHOR'S ORGANIZ ATION 11/02/2023 [facility] DATE CREATED AUTHOR AUTHOR'S ORGANIZ ATION 11/18/2023 [facility] DATE CREATED AUTHOR AUTHOR'S ORGANIZ ATION 11/19/2023 [facility] DATE CREATED AUTHOR AUTHOR'S ORGANIZ ATION 11/23/2023 [facility] Reason for Visit (unrecogniz ed section and content) Reason Comments Leg Pain right leg- x3 days - pain worse today - denies injury Patient Care team informatio n (unrecognized section and content) Personnel Name: [facility] Address: Address: [address] [place] [address] Name: Niya Bearden Personnel Name: [facility] Address: Address: [address] [place] [address] Name: Niya Bearden Personnel Name: [facility] Address: Address: [address] [place] [address] Name: Niya Bearden Personnel Name: [facility] Address: Address: [address] [place] [address] Name: Niya Bearden Personnel Name: [facility] Address: Address: [address] [place] [address] Name: Niya Bearden Personnel Name: [facility] Address: Address: [address] [place] [address] Name: Niya Bearden Personnel Name: [facility] Address: Address: [address] [place] [address] Name: Niya Bearden FOR RECORDS PERTAINING TO PATIENTS WHO ARE OR HAVE BEEN ENROLLED IN A CHEMICAL DEPENDENCY/SUBSTANCEABUSE PROGRAM, SOME INFORMATION MAY BE OMITTED. This clinical summary was aggregated from multiple sources. Caution should be exercised in using it in the provision of clinical care. This summary normalizes information from multiple sources, and as a consequence, information in this document may materially change the coding, format and clinical context of patient data. In addition, data may be omitted in some cases. CLINICAL DECISIONS SHOULD BE BASED ON THE PRIMARY CLINICAL RECORDS. [facility] [employer] [facility]. provides no warranty or guarantee of the accuracy or completeness of information in this document."
[2023-11-24 15:21] LABS: INR 1.04; Partial Thromboplastin Time 28.5 sec (22.3-36.2)
== END 2023-11-24 14:26 | disposition home or self-care (01) ==
PROVIDERS: Visit Provider Urology
DX: Z01.812 Encounter for preprocedural laboratory examination (principal); N20.1 Calculus of ureter
CPT/HCPCS: 85610; 85730

== ENCOUNTER 2023-11-28 06:49 | Day surgery (SDC) | payer BC, SELFPAY ==
[2023-11-24 14:51] VITALS: BP 138/94; PULSE 70; TEMP 36.4; O2SAT 97; BMI 19.4
[2023-11-28] VITALS (14 sets, daily range): BP systolic 128–161; BP diastolic 93–103; PULSE 58–81; TEMP 35.9–36.4; O2SAT 95–99; BMI 19.3
--- OUTSIDE RECORDS SUMMARY | 2023-11-28 06:52 | XMS_ITS | CCD ---
Author Organization [facility] Care Team Providers Care Gold Reclaimer Name Role Phone ARCHANA SANCHEZ Primary Care Unavailable JETHRO RUELAS Attending Unavailable Archana Sanchez Primary Care Provider [facility] Primary Care Perlita davison Niya Bearden Unavailable [...] for 3 day(s), 10 tab(s), Refill(s) 0, [facility] #[id number], 182, cm, 10/27/23 5:06:00 EDT, Height/Length Dosing, [...] BID, # 28 tab(s), Refills(s) 0, Pharmacy: [facility] #[id number], 182, cm, 09/09/23 23:02:00 EDT, Height/Length Dosing, [...] pain, # 20 tab(s), Refills(s) 0, Pharmacy: [facility] #[id number], 182, cm, 09/09/23 23:02:00 EDT, Height/Length Dosing, 65.8, kg, 09/09/23 23:02:00 EDT, Weight Dosing Start Date: 09/10/23 Status: Ordered ondansetron 4 mg disintegrating oral tablet (1 source) Serotonin-3 Receptor Antagonist Start: 10-27-2023 End: 10-30-2023 take 1 tablet by mouth every six hours ondansetron 4 mg Dis Tab 4 mg = 1 tab(s), Oral, q6hr, X 3 day(s), # 10 tab(s), Refills(s) 0, Pharmacy: [facility] #[id number], 182, cm, 10/27/23 5:06:00 EDT, Height/Length Dosing, [...] days, # 4 cap(s), Refills(s) 0, Pharmacy: [facility] #[id number], 182, cm, 10/27/23 5:06:00 EDT, Height/Length Dosing, [...] q8hr, # 12 tab(s), Refills(s) 0, [facility] #[id number], 182, cm, 09/09/23 23:02:00 EDT, Height/Length Dosing, [...] day(s), # 28 cap(s), Refills(s) 0, Pharmacy: [facility] #[id number], 182, cm, 10/27/23 5:06:00 EDT, Height/Length Dosing, [...] day, # 14 tab(s), Refills(s) 0, Pharmacy: [facility] #[id number], 182, cm, 10/27/23 5:06:00 EDT, Height/Length Dosing, [...] Hasmukh e Manageron 11-17-2023 Interdisciplinary Note - Editor In Chief Newspaper Interdisciplinary Note - Editor In Chief Newspaper CRM spoke with patient and in room. Patient is alert and oriented and participates in discharge planning. Patient white board updated, and CRM contact information provided. Discussed Dr Simpson will be here this afternoon and would anticipate to discharge today. Patient verified PCP, insurance and denies any DME. Patient is form home with and she will transport at [place]. Patient denies any needs. Normal [facility] Comment on above: Result Comment: Elec tronically Signed By: Estevan ANDREA, Mishel\.br\Date and Time Signed: 11/17/23 13:04 EDT Main OR Intraoperative Recor don 11-17-2023 Main OR Intraoperative Record Main OR Intraoperative Record IntraOp Document Type FT Summary Primary Physician: Nic SIMPSON MD Finalized Date/Time: 11/17/23 13:17:28 Pt. Name: JAKOB FUENTES Zoya CampoB./Sex: 1980 Male Med Rec #: [id number] Physician: Nic SIMPSON MD Financial #: [id number] Pt. Type: A Room/Bed: [place] [address] Admit/Disch: 11/16/23 11:07:38 - Institution: Case Times [...] 2 Entry 3 Case Attendee Neo PANCHAL, PAVING PLANT OPERATOR, Queen TATIANA GREENE, Nora Dominguez Role Performed PAVING PLANT OPERATOR Surgeon - Primary Line Cook - Primary Time In 11/16/23 15:05:00 11/16/23 [...] DuboseRMyriam Pimentel Role Performed Scrub - Primary Political Science Research Assistant Time In 11/16/23 15:05:00 11/16/23 15:05:00 Time [...] Applicable) PreOp Antibiotic Yes Time Out Neo PANHCAL, BURTON, Queen Samir Santos, Nic SIMPSON MD, [...] and tissue Entry 1 Skin Integrity Intact, [place], Warm, & Skin Abnormality No Dry Outcomes Met? Yes Last Modified By: Nora Jacinto 11/16/23 14:50:49 Post-Care Text: The patient is free from signs and symptoms of injury caused by extraneous objects Patient Positioning FT Pre-Care Text: Identifies physical alterations that require additional precautions for procedure-specific positioning, verifies presence of prosthetics or corrective devices, positions the (more content not included)... Normal [facility] BMPon 11-16-2023 Anion gap [Moles/Vol] 11 mmol/L Normal 6-16 [facility] Comment on above: Performed By: #### 2 [id number] #### [facility] [address] [place] [address] Calcium [Mass/Vol] 9.5 mg/dL Normal 8.9-11.1 [facility] Comment on above: Performed By: #### 2 [id number] #### [facility] [address] [place] [address] Chloride [Moles/Vol] 106 mmol/L Normal 101-111 [facility] Comment on above: Performed By: #### 2 [id number] #### [facility] [address] [place] [address] CO2 [Moles/Vol] 26 mmol/L Normal 21-31 [facility] Comment on above: Performed By: #### 2 [id number] #### [facility] [address] [place] [address] Creatinine [Mass/Vol] 1.1 mg/dL Normal 0.5-1.3 [facility] Comment on above: Performed By: #### 2 633658 #### [facility] [address] [place] [address] Glucose [Mass/Vol] 77 mg/dL Normal 55-199 [facility] Comment on above: Performed By: #### 2 772514 #### [facility] [address] [place] [address] Potassium [Moles/Vol] 3.9 mmol/L Normal 3.5-5.3 [facility] Comment on above: Performed By: #### 2 509178 #### [facility] [address] [place] [address] Sodium [Moles/Vol] 139 mmol/L Normal 135-145 [facility] Comment on above: Performed By: #### 2 339149 #### [facility] [address] [place] [address] Urea nitrogen [Mass/Vol] 14 mg/dL Normal 5-21 [facility] Comment on above: Performed By: #### 2 076902 #### [facility] [address] [place] [address] Urea nitrogen/Creatinine [Mass ratio] 13 No Units Normal 10-20 [facility] Comment on above: Performed By: #### 2 159438 #### [facility] [address] [place] [address] CBC w/ Auto Diffon 4 Basophils/100 WBC (Bld) 1.1 % Normal 0.0-2.[address] [facility] Comment on above: Performed By: #### 2 355238 #### [facility] [address] [place] [address] Basophils/Leukocytes Auto (Bld) [Pure # fraction] 0.1 E9/L Normal 0.0-0.2 [facility] Comment on above: Performed By: #### 2 499708 #### [facility] [address] [place] [address] Eosinophils (Bld) [#/Vol] 0.1 E9/L Normal 0.0-0.5 [facility] Comment on above: Performed By: #### 2 806301 #### [facility] [address] [place] [address] Eosinophils/100 WBC (Bld) 0.9 % Normal 0.0-8.0 [facility] Comment on above: Performed By: #### 2 687410 #### [facility] [address] [place] [address] Erythrocyte distribution width (RBC) [Ratio] 14.4 % High 10.9-14.2 [facility] Comment on above: Performed By: #### 2 406880 #### [facility] [address] [place] [address] Hematocrit (Bld) [Volume fraction] 42.5 % Normal 37.7-49.0 [facility] Comment on above: Performed By: #### 2 925284 #### [facility] [address] [place] [address] Hemoglobin (Bld) [Mass/Vol] 14.1 g/dL Normal 13.5-17.5 [facility] Comment on above: Performed By: #### 2 230861 #### [facility] [address] [place] [address] Lymphocytes (Bld) [#/Vol] 2.5 E9/L Normal 1.0-4.0 [facility] Comment on above: Performed By: #### 2 959465 #### [facility] [address] [place] [address] Lymphocytes/100 WBC (Bld) 23.7 % Normal 14.0-50.0 [facility] Comment on above: Performed By: #### 2 847279 #### [facility] [address] [place] [address] MCH (RBC) [Entitic mass] 28.2 pg Normal 27.0-34.0 [facility] Comment on above: Performed By: #### 2 454403 #### [facility] [address] [place] [address] MCHC (RBC) [Mass/Vol] 33.2 g/dL Normal 31.4-36.0 [facility] Comment on above: Performed By: #### 2 160441 #### [facility] [address] [place] [address] MCV (RBC) [Entitic vol] 85.1 fL Normal 80.0-100.[address] [facility] Comment on above: Performed By: #### 2 926527 #### [facility] [address] [place] [address] Monocytes (Bld) [#/Vol] 0.8 E9/L Normal 0.2-1.[address] [facility] Comment on above: Performed By: #### 2 340165 #### [facility] [address] [place] [address] Neutrophils (Bld) [#/Vol] 7.0 E9/L Normal 2.0-7.5 [facility] Comment on above: Performed By: #### 2 922925 #### [facility] [address] [place] [address] Neutrophils/100 WBC (Bld) 66.9 % Normal 36.0-75.0 [facility] Comment on above: Performed By: #### 2 621239 #### [facility] [address] [place] [address] Platelet mean volume (Bld) [Entitic vol] 7.7 fL Normal 6.4-10.8 [facility] Comment on above: Performed By: #### 2 196958 #### [facility] [address] [place] [address] Platelets (Bld) [#/Vol] 253.0 E9/L Normal 150.0-500.0 [facility] Comment on above: Performed By: #### 2 802621 #### [facility] [address] [place] [address] RBC (Bld) [#/Vol] 5.0 E12/L Normal 4.3-5.9 [facility] Comment on above: Performed By: #### 2 944637 #### [facility] [address] [place] [address] WBC corrected for nucl RBC Auto (Bld) [#/Vol] 10.5 E9/L Normal 4.0-11.0 [facility] Comment on above: Performed By: #### 2 861881 #### [facility] [address] [place] [address] CHEMISTRYOrdered By: SYSTEM SYSTEM on 11-16-2023 Anion [...] Oral contrast amount in ml's: 0 Normal [facility] ED Note-Physicianon 11-16-19 ED Note-Physician ED [...] and Complexity of Problems Differential Diagnosis: [] [facility] Data External documents reviewed: [] My EKG [...] (11/16/23 1 (more content not included)... Normal [facility] Comment on above: Result Comment: Elec tronically Signed By: Tyron Trujillo M.D..moody\Date and Time Signed: 11/16/23 17:52 EDT HEMATOLOGYOrdered [...] JAKOB FUENTES/Sex: 1980 Male Med Rec #: [id number] Physician: Financial #: [id number] Pt. Type: O Room/Bed: [place] [address] Admit/Disch: 11/16/23 11:07:38 - Institution: Case Times [...] Leola Nielsen RN 11/16/23 15:48:04 Finalized By: Leloa Nielsen RN Document Signatures Signed By: Leola Nielsen RN 11/16/23 15:48 Leola Nielsen RN 11/16/23 16:55 Normal [facility] Main OR PACU II Recordon Main OR PACU II Record Main OR PACU II Record PACU Phase II Document Type FT Summary Primary Physician: Nic SIMPSON MD Finalized Date/Time: 11/16/23 17:02:53 Pt. Name: JAKOB FUENTES/Sex: 1980 Male Med Rec #: [id number] Physician: Financial #: [id number] Pt. Type: O Room/Bed: [facility] Admit/Disch: 11/16/23 11:07:38 - Institution: Case Times [...] By: Cristiana Whitmore RN 11/16/23 17:02 Normal [facility] Main OR Preoperative Recordo n 11-16-2023 Main OR Preoperative Record Main OR Preoperative Record PreOp Document Type FT Summary Primary Physician: Nic SIMPSON MD Finalized Date/Time: 11/16/23 15:16:30 Pt. Name: JAKOB FUENTES/Sex: 1980 Male Med Rec #: [id number] Physician: Financial #: [id number] Pt. Type: E Room/Bed: Admit/Disch: 11/16/23 11:07:38 [...] Signed By: Nora Jacinto 11/16/23 15:16 Normal [facility] Operative Reporton Operative Report Operative Report [...] placed per urethra and a well-lubricated 22 Monegasque is urethroscope with 30 degree lens then [...] into the kidney. Over that a 4.7 Monegasque Bard inlay double-J stent is passed into [...] plan.. Estimated Blood Loss: 1 ml. Normal [facility] Comment on above: Result Comment: Elec tronically Signed By: TATIANA GREENE, Nic Wolf\.moody\Date and Time Signed: 11/16/23 15:24 EDT UA with Cult Rflxon 11-16-19 24 Bilirubin Ql (U) Negative Normal Negative [facility] Comment on above: Performed By: #### 4 [id number] ####[facility] [address] [place] [address] Clarity (U) Clear Normal Clear [facility] Comment on above: Performed By: #### 4 [id number] ####[facility] [address] [place] [address] Color (U) Light-Yellow Normal Yellow [facility] Comment on above: Result Comment: Micr oscopic readings are only performed on those samples that meet specific criteria set forth by [facility]. Performed By: #### 4 [id number] ####[facility] [address] [place] [address] Epithelial cells.squamous Auto (Urine sed) [#/Area] 0-2 Invalid Interpretation Code [facility] Comment on above: Performed By: #### 4 [id number] ####[facility] [address] [place] [address] Glucose Ql (U) Negative Normal Negative [facility] Comment on above: Performed By: #### 4 [id number] ####[facility] [address] [place] [address] Hemoglobin Auto test strip (U) [Mass/Vol] Trace Abnormal Negative [facility] Comment on above: Performed By: #### 4 [id number] ####[facility] [address] [place] [address] Ketones Auto test strip Ql (U) Negative Normal Negative [facility] Comment on above: Performed By: #### 4 [id number] ####[facility] [address] [place] [address] Leukocyte esterase Auto test strip Ql (U) 25 Roberto/uL Normal Negative [facility] Comment on above: Performed By: #### 4 [id number] ####[facility] [address] [place] [address] Mucus Auto Ql (U) Negative Normal Negative [facility] Comment on above: Performed By: #### 4 [id number] ####[facility] [address] [place] [address] Nitrite Auto test strip Ql (U) Negative Normal Negative [facility] Comment on above: Performed By: #### 4 [id number] ####[facility] [address] [place] [address] pH (U) 6.5 [pH] Invalid Interpretation Code 5.0-9.0 [facility] Comment on above: Performed By: #### 4 [id number] ####[facility] [address] [place] [address] Protein Ql (U) Negative Normal Negative [facility] Comment on above: Performed By: #### 4 [id number] ####[facility] [address] [place] [address] RBC Ql (U) 4-20 Abnormal 0-3 [facility] Comment on above: Performed By: #### 4 [id number] ####[place] [address] [place] [address] Specific gravity (U) [Rel density] 1.014 Invalid Interpretation Code 1.005-1.030 [facility] Comment on above: Performed By: #### 4 [id number] ####[place] [address] Urobilinogen (U) [Mass/Vol] Negative Normal Negative [facility] Comment on above: Performed By: #### 4 [id number] ####[place] [address] WBC Auto (Urine sed) [#/Area] 0-5 Normal 0-5 [facility] Comment on above: Performed By: #### 4 [id number] ####[facility] [address] [place], [place] [address] Type of Urine collection method Clean Catch Normal [facility] Comment on above: Performed By: #### 4 [id number] ####[facility] [address] [place] [address] URINALYSISOrdered By: SYSTEM SYSTEM on 11-16-2023 Bilirubin Ql (U) Negative Normal Negativemg/ d L [facility] UA Auto SS Clarity (U) Clear (11/16/23 11:43 AM) Normal Clear [facility] UA Auto SS Color (U) Light-Yellow 1 (11/16/23 11:43 AM) Normal Yellow [facility] UA Auto SS Comment on above: Interpretive Data: M icroscopic readings are only performed on those samples that meet specific criteria set forth by [facility]. Epithelial cells.squamous Auto (Urine sed) [#/Area] 0-2 graded/HPF Invalid Interpretation Code [facility] UA Auto SS Glucose Ql (U) Negative [...] MD Transcribed by: FLAKO Technologist: TERESA Whitaker [facility] XR Abdomen 1 Viewon 11-16-19 XR [...] mGy = na DAP = na Normal [facility] XR Urography Retrograde Left on 11-16-2023 [...] = 148.54 Fluoro Time: 43 seconds Normal [facility] eGFRon 11-16-2023 eGFR 86 mL/min/1.73 m2 Normal >=59 [facility] Comment on above: Order Comment: Order added by Discern Expert. Performed By: #### 1 [id number] #### [facility] [address] [place] [address] C Urineon 10-29-2023 Bacteria identified Cx Nom [...] Locations R1: This test was performed at: [facility], [address] [place] [address], [phone]- , , Normal [facility] Comment on above: Performed By: #### 2 [id number] #### [facility] [address] [place] [address] BMPon 10-27-2023 Anion gap [Moles/Vol] 10 mmol/L Normal 6-16 [facility] Comment on above: Performed By: #### 2 694908 #### [facility] [address] [place] [address] Calcium [Mass/Vol] 8.7 mg/dL Low 8.9-11.1 [facility] Comment on above: Performed By: #### 2 913127 #### [facility] [address] [place] [address] Chloride [Moles/Vol] 107 mmol/L Normal 101-111 [facility] Comment on above: Performed By: #### 2 168852 #### [facility] [address] [place] [address] CO2 [Moles/Vol] 25 mmol/L Normal 21-31 [facility] Comment on above: Performed By: #### 2 621652 #### [facility] [address] [place] [address] Creatinine [Mass/Vol] 1.2 mg/dL Normal 0.5-1.3 [facility] Comment on above: Performed By: #### 2 123991 #### [facility] [address] [place] [address] Glucose [Mass/Vol] 116 mg/dL Normal 55-199 [facility] Comment on above: Performed By: #### 2 125813 #### [facility] [address] [place] [address] Potassium [Moles/Vol] 4.0 mmol/L Normal 3.5-5.3 [facility] Comment on above: Performed By: #### 2 920595 #### [facility] [address] [place] [address] Sodium [Moles/Vol] 138 mmol/L Normal 135-145 [facility] Comment on above: Performed By: #### 2 500227 #### [facility] [address] [place] [address] Urea nitrogen [Mass/Vol] 12 mg/dL Normal 5-21 [facility] Comment on above: Performed By: #### 2 592521 #### [facility] [address] [place] [address] Urea nitrogen/Creatinine [Mass ratio] 10 No Units Normal 10-20 [facility] Comment on above: Performed By: #### 2 587415 #### [facility] [address] [place] [address] CBC w/ Auto Diffon 4 Basophils/100 WBC (Bld) 0.6 % Normal 0.0-2.0 [facility] Comment on above: Performed By: #### 2 526844 #### [facility] [address] [place] [address] Basophils/Leukocytes Auto (Bld) [Pure # fraction] 0.1 E9/L Normal 0.0-0.2 [facility] Comment on above: Performed By: #### 2 636067 #### [facility] [address] [place] [address] Eosinophils (Bld) [#/Vol] 0.1 E9/L Normal 0.0-0.5 [facility] Comment on above: Performed By: #### 2 394246 #### [facility] [address] [place] [address] Eosinophils/100 WBC (Bld) 1.3 % Normal 0.0-8.0 [facility] Comment on above: Performed By: #### 2 257367 #### [facility] [address] [place] [address] Erythrocyte distribution width (RBC) [Ratio] 14.2 % Normal 10.9-14.2 [facility] Comment on above: Performed By: #### 2 134573 #### [facility] [address] [place] [address] Hematocrit (Bld) [Volume fraction] 44.4 % Normal 37.7-49.0 [facility] Comment on above: Performed By: #### 2 069843 #### [facility] [address] [place] [address] Hemoglobin (Bld) [Mass/Vol] 14.9 g/dL Normal 13.5-17.5 [facility] Comment on above: Performed By: #### 2 517478 #### [facility] [address] [place] [address] Lymphocytes (Bld) [#/Vol] 1.7 E9/L Normal 1.0-4.0 [facility] Comment on above: Performed By: #### 2 525415 #### [facility] [address] [place] [address] Lymphocytes/100 WBC (Bld) 15.1 % Normal 14.0-50.0 [facility] Comment on above: Performed By: #### 2 407278 #### [facility] [address] [place] [address] MCH (RBC) [Entitic mass] 28.7 pg Normal 27.0-34.0 [facility] Comment on above: Performed By: #### 2 806806 #### [facility] [address] [place] [address] MCHC (RBC) [Mass/Vol] 33.6 g/dL Normal 31.4-36.0 [facility] Comment on above: Performed By: #### 2 477152 #### [facility] [address] [place] [address] MCV (RBC) [Entitic vol] 85.4 fL Normal 80.0-100.[address] [facility] Comment on above: Performed By: #### 2 857241 #### [facility] [address] [place] [address] Monocytes (Bld) [#/Vol] 0.9 E9/L Normal 0.2-1.[address] [facility] Comment on above: Performed By: #### 2 589321 #### [facility] [address] [place] [address] Neutrophils (Bld) [#/Vol] 8.4 E9/L High 2.0-7.5 [facility] Comment on above: Performed By: #### 2 880181 #### [facility] [address] [place] [address] Neutrophils/100 WBC (Bld) 75.1 % High 36.0-75.0 [facility] Comment on above: Performed By: #### 2 621541 #### [facility] [address] [place] [address] Platelet mean volume (Bld) [Entitic vol] 8.3 fL Normal 6.4-10.8 [facility] Comment on above: Performed By: #### 2 924053 #### [facility] [address] [place] [address] Platelets (Bld) [#/Vol] 234.0 E9/L Normal 150.0-500.0 [facility] Comment on above: Performed By: #### 2 363339 #### [facility] [address] [place] [address] RBC (Bld) [#/Vol] 5.2 E12/L Normal 4.3-5.9 [facility] Comment on above: Performed By: #### 2 088476 #### [facility] [address] [place] [address] WBC corrected for nucl RBC Auto (Bld) [#/Vol] 11.2 E9/L High 4.0-11.0 [facility] Comment on above: Performed By: #### 2 519697 #### [facility] [address] [place] [address] CHEMISTRYOrdered By: SYSTEM SYSTEM on 10-27-2023 Albumin [...] Oral contrast amount in ml's: 0 Normal [facility] ED Clinical Summaryon 2023 ED Clinical Summary ED Clinical Summary [place] [id number] ED Clinical Summary Person Information Name: JAKOB FUENTES [facility] Age: 43 Years : 1980 Sex: Male Language: Uzbek PCP: [facility] Marital Status: Visit Id: Visit Reason: Flank [...] 10/27/2023 07:57:20 10/27/2023 07:57:20 10/27/2023 07:57:20 ADDRESS: [address] [place] [id number] PHYS DOC NOTES: Addendum by Jt Jameson DO on October 27, 2023 07:51:18 EDT MEDICAL INFORMATION: Prescriptions Given: New Medications [id number], [address] [place], [place] [id number], [phone] acetaminophen-oxycod one (Percocet 5 mg-325 mg oral [...] With: Address: When: Nic ESCOBAR, [address], [address] [address] [employer] ([employer] In 3 days 10/30/2023 Comments: Call Dr for diagnosis based follow up DIAGNOSIS: Acute UTI; Flank pain; Ureterolithiasis Normal [facility] ED Note-Physicianon 10-27-19 ED Note-Physician ED [...] (10/27/23 05:32:00) (more content not included)... Normal [facility] Comment on above: Result Comment: Elec tronically Signed By: Jt Jameson DO\.moody\Date and Time Signed: 10/27/23 07:52 EDT ED Patient Education Noteon 10-27-2023 ED Patient Education Note ED Patient Edu cation Note Normal [facility] ED Patient Summaryon 024 ED Patient Summary ED Patient Summary [address] [address] Patient Discharge Instructions Person Information Name: JAKOB FUENTES Age: 43 Years Arrival Date: 10/27/2023 05:00:51 Discharge Diagnosis: Acute UTI; Flank pain; Ureterolithiasis Primary Care Physician: [facility] Provider Information Primary Provider: Shabbir Barlow DO [employer] Front Load Driver:None The exam and treatment you received in the Emergency Department were for an urgent problem and are not intended as complete care. It is important that you follow up with a doctor, nurse practitioner, or physician?s assistant golf coach for ongoing care. If your symptoms become worse or you do not improve as expected and you are unable to reach your usual health care provider, you should return to the Emergency Department. We are available 24 hours a day. JAKOB FUENTES has been given the following list of patient education materials, prescriptions and follow-up instructions: Follow-up Instructions: With: Address: When: Nci SIMPSON [address] [place] [address], [address], [address] [address] Business (1) In 3 days 10/30/2023 Comments: [...] opioids can be used to help relieve jzrocuzn-qg-jwhubr pain and are often prescribed following a [...] be struggling with addiction, tell your health career resource technician and ask for (more content not included)... Normal [facility] HEMATOLOGYOrdered By: SYSTEM SYSTEM on 10-27-2023 [...] 10-27-2023 Albumin [Mass/Vol] 4.1 g/dL Normal 3.3-5.0 [facility] Comment on above: Performed By: #### 2 [id number] #### [facility] [address] [place] [address] Albumin/Globulin (S) [Mass conc ratio] 1.6 Normal 1.1-2.2 [facility] Comment on above: Performed By: #### 2 [id number] #### [facility] [address] [place] [address] ALP [Catalytic activity/Vol] 59 Int._Unit/L Normal 21-98 [facility] Comment on above: Performed By: #### 2 [id number] #### [facility] [address] [place] [address] ALT No additional P-5'-P [Catalytic activity/Vol] 10 Int._Unit/L Normal 6-46 [facility] Comment on above: Performed By: #### 2 [id number] #### [facility] [address] [place] [address] AST [Catalytic activity/Vol] 18 Int._Unit/L Normal 5-43 [facility] Comment on above: Performed By: #### 2 [id number] #### [facility] [address] [place] [address] Bilirubin [Mass/Vol] 0.5 mg/dL Normal 0.0-1.1 [facility] Comment on above: Performed By: #### 2 [id number] #### [facility] [address] [place] [address] Bilirubin.direct [Mass/Vol] 0.1 mg/dL Normal 0.0-0.4 [facility] Comment on above: Performed By: #### 2 [id number] #### [facility] [address] [place] [address] Bilirubin.indirect [Mass or moles/Vol] 0.4 mg/dL Normal 0.1-0.9 [facility] Comment on above: Performed By: #### 2 [id number] #### [facility] [address] [place] [address] Globulin (S) [Mass/Vol] 2.6 g/dL Normal 1.4-4.[address] [facility] Comment on above: Performed By: #### 2 253032 #### [facility] [address] [place] [address] Protein [Mass/Vol] 6.7 g/dL Normal 6.0-7.8 [facility] Comment on above: Performed By: #### 2 [id number] #### [facility] [address] [place] [address] Lipase Levelon 10-27-2023 Lipase [Catalytic activity/Vol] 37 U/L Normal 13-58 [facility] Comment on above: Performed By: #### 2 [id number] #### [facility] [address] [place] [address] UA with Cult Rflxon 10-27-19 24 Bilirubin Ql (U) Negative Normal Negative [facility] Comment on above: Performed By: #### 4 [id number] #### [facility] [address] [place] [address] Clarity (U) Turbid Abnormal Clear [facility] Comment on above: Performed By: #### 4 [id number] #### [facility] [address] [place] [address] Color (U) Yellow Normal Yellow [facility] Comment on above: Result Comment: Micr oscopic readings are only performed on those samples that meet specific criteria set forth by [facility]. Performed By: #### 4 [id number] #### [facility] [address] [place] [address] Glucose Ql (U) Negative Normal Negative [facility] Comment on above: Performed By: #### 4 [id number] #### [facility] [address] [place] [address] Hemoglobin Auto test strip (U) [Mass/Vol] 2+ mg/dL Abnormal Negative [facility] Comment on above: Performed By: #### 4 [id number] #### [facility] [address] [place] [address] Ketones Auto test strip Ql (U) Negative Normal Negative [facility] Comment on above: Performed By: #### 4 [id number] #### [facility] [address] [place] [address] Leukocyte esterase Auto test strip Ql (U) 500 Roberto/uL Abnormal Negative [facility] Comment on above: Performed By: #### 4 [id number] #### [facility] [address] [place] [address] Mucus Auto Ql (U) 2+ CD:[id number] Abnormal Negative F [facility] Comment on above: Performed By: #### 4 [id number] #### [facility] [address] [place] [address] Nitrite Auto test strip Ql (U) Negative Normal Negative [facility] Comment on above: Performed By: #### 4 [id number] #### [facility] [address] [place] [address] pH (U) 5.5 [pH] Invalid Interpretation Code 5.0-9.0 [facility] Comment on above: Performed By: #### 4 [id number] #### [facility] [address] [place] [address] Protein Ql (U) Trace Abnormal Negative [facility] Comment on above: Performed By: #### 4 [id number] #### [facility] [address] [place] [address] RBC Ql (U) 31-75 Abnormal 0-3 [facility] Comment on above: Performed By: #### 4 [id number] #### [facility] [address] [place] [address] Specific gravity (U) [Rel density] 1.018 Invalid Interpretation Code 1.005-1.030 [facility] Comment on above: Performed By: #### 4 [id number] #### [facility] [address] [place] [id number] Urobilinogen (U) [Mass/Vol] Negative Normal Negative [facility] Comment on above: Performed By: #### 4 [id number] #### [facility] [address] [place] [address] WBC Auto (Urine sed) [#/Area] >75 Abnormal 0-5 [facility] Comment on above: Performed By: #### 4 [id number] #### [facility] [address] [place] [address] Type of Urine collection method Clean Catch Normal [facility] Comment on above: Performed By: #### 4 [id number] #### [facility] [address] [place] [address] URINALYSISOrdered By: SYSTEM SYSTEM on 10-27-2023 Bilirubin Ql (U) Negative Normal Negativemg/ d L [facility] UA Auto SS Clarity (U) Turbid *ABN* (10/27/23 5:18 AM) Invalid Interpretation Code Clear [facility] UA Auto SS Color (U) Yellow 1 (10/27/23 5:18 AM) Normal Yellow [facility] UA Auto SS Comment on above: Interpretive Data: M icroscopic readings are only performed on those samples that meet specific criteria set forth by [facility]. Glucose Ql (U) Negative Normal Negativemg/d L [facility] UA Auto SS Hemoglobin Auto test strip [...] Desc Clean Catch (10/27/23 5:18 AM) Normal [facility] UA Auto SS eGFRon 10-27-2023 eGFR 78 mL/min/1.73 m2 Normal >=59 [facility] Comment on above: Order Comment: Order added by Discern Expert. Performed By: #### 1 [id number] #### [facility] [address] [place] [address] Consent for Procedure/Surger yon 09-19-2023 Consent for Procedure/Surgery [id number] #1.00TIFF Normal [facility] Consent for Treatmenton Consent for Treatment [id number] #1.00TIFF Normal [facility] IntraOperative Documentson 0 09-19-2023 IntraOperative Documents [id number] #1.00TIFF Julianne [facility] Main OR Intraoperative Recor don 09-19-2023 Main OR Intraoperative Record IntraOp Document Type FTURO Summary Primary Physician: Otf BHAGAT MD Finalized Date/Time: 09/19/23 08:16:51 Pt. Name: JAKOB FUENTES Zoya CampoB./Sex: 1980 Male Med Rec #: [id number] Physician: Otf BHAGAT MD Financial #: [id number] Pt. Type: O Room/Bed: / Admit/Disch: 09/19/23 [...] Isabel Wolf Role Performed Surgeon - Primary Line Cook - Primary Scrub - Primary Time In [...] By: Pricilla Pimentel RN 09/19/23 08:16 Normal [facility] Main OR Preoperative Recordo n 09-19-2023 Main OR Preoperative Record Holding Area Document Type FTURO Summary Primary Physician: Otf BHAGAT MD Finalized Date/Time: 09/19/23 07:44:00 Pt. Name: ALFREDOJAKOB/Sex: 1980 Male Med Rec #: [id number] Physician: Otf BHAGAT MD Financial #: [id number] Pt. Type: O Room/Bed: / Admit/Disch: 09/19/23 [...] JHON Marquis RN, Ruthann 09/19/23 07:44 Normal [facility] Operative Reporton Operative Report Patient: JAKOB [...] data and start a stone prevention plan.. [facility] Comment on above: Result Comment: Elec tronically Signed By: Otf BHAGAT MD\.br\Date and Time Signed: 09/19/23 08:16 EDT Outpatient Surgery Discharge Instructionon 09-19-2023 Outpatient Surgery Discharge Instruction [id number] #1.00TIFF [facility] Provider Letteron 09-19-2023 Provider Letter September 19, 2023 JAKOB FUENTES [address] [phone] : 1980 To Whom It May Concern, Please excuse above patient from work. Date of Illness: From: 09/19/2023 To: 09/19/2023 May Return to Work On: 09/20/2023 Restrictions: none Comments: Patient had a surgical procedure on 09/19/[address] Bhagat. Sincerely, [facility] [address] [place] [address] phone , option #3 [facility] Provider Letter September 19, 2023 JAKOB FUENTES [address] [place] [address] [place] [id number] : 1980 To Whom It May Concern, Please excuse above patient from work. Date of Illness: From: 09/19/2023 To: 09/19/2023 May Return to Work On: 09/20/2023 Restrictions: none Comments: Patient had a surgical procedure on 09/19/[address] Bhagat. Sincerely, [facility] [address] [place] [address] phone , option #3 [facility] Lab Reportson 09-18-2023 Lab Reports [id number] #1.00TIFF [facility] C Urineon 09-14-2023 Bacteria identified [...] Locations R1: This test was performed at: [facility], [address] [place] [address], [address] , , [facility] Comment on above: Performed By: #### 2 [id number] ####[facility] [address] [place], [place] [address] RAD - MISCon 09-14-2023 RAD - MISC [id number]# 1.00TIFF Normal [facility] BMPon 09-12-2023 Anion gap [Moles/Vol] 10 mmol/L Normal 6-16 [facility] Comment on above: Performed By: #### 2 [id number] #### [facility] [address] [place] [address] Calcium [Mass/Vol] 8.5 mg/dL Low 8.9-11.1 [facility] Comment on above: Performed By: #### 2 [id number] #### [facility] [address] [place] [address] Chloride [Moles/Vol] 108 mmol/L Normal 101-111 [facility] Comment on above: Performed By: #### 2 099346 #### [facility] [address] [place] [address] CO2 [Moles/Vol] 23 mmol/L Normal 21-31 [facility] Comment on above: Performed By: #### 2 847367 #### [facility] [address] [place] [address] Creatinine [Mass/Vol] 0.9 mg/dL Normal 0.5-1.3 [facility] Comment on above: Performed By: #### 2 312848 #### [facility] [address] [place] [address] Glucose [Mass/Vol] 138 mg/dL Normal 55-199 [facility] Comment on above: Performed By: #### 2 437055 #### [facility] [address] [place] [address] Potassium [Moles/Vol] 3.4 mmol/L Low 3.5-5.3 [facility] Comment on above: Performed By: #### 2 603004 #### [facility] [address] [place] [address] Sodium [Moles/Vol] 138 mmol/L Normal 135-145 [facility] Comment on above: Performed By: #### 2 253873 #### [facility] [address] [place] [address] Urea nitrogen [Mass/Vol] 15 mg/dL Normal 5-21 [facility] Comment on above: Performed By: #### 2 466071 #### [facility] [address] [place] [address] Urea nitrogen/Creatinine [Mass ratio] 17 No Units Normal 10-20 [facility] Comment on above: Performed By: #### 2 075635 #### [facility] [address] [place] [address] CBC w/ Auto Diffon 4 Basophils/100 WBC (Bld) 3.4 % High 0.0-2.[address] [facility] Comment on above: Performed By: #### 2 797015 #### [facility] [address] [place] [address] Basophils/Leukocytes Auto (Bld) [Pure # fraction] 0.4 E9/L High 0.0-0.2 [facility] Comment on above: Performed By: #### 2 225300 #### [facility] [address] [place] [address] Eosinophils (Bld) [#/Vol] 0.2 E9/L Normal 0.0-0.5 [facility] Comment on above: Performed By: #### 2 288321 #### [facility] [address] [place] [address] Eosinophils/100 WBC (Bld) 1.2 % Normal 0.0-8.0 [facility] Comment on above: Performed By: #### 2 982412 #### [facility] [address] [place] [address] Erythrocyte distribution width (RBC) [Ratio] 13.7 % Normal 10.9-14.2 [facility] Comment on above: Performed By: #### 2 672380 #### [facility] [address] [place] [address] Hematocrit (Bld) [Volume fraction] 39.5 % Normal 37.7-49.0 [facility] Comment on above: Performed By: #### 2 331028 #### [facility] [address] [place] [address] Hemoglobin (Bld) [Mass/Vol] 13.3 g/dL Low 13.5-17.5 [facility] Comment on above: Performed By: #### 2 989248 #### [facility] [address] [place] [address] Lymphocytes (Bld) [#/Vol] 1.0 E9/L Normal 1.0-4.0 [facility] Comment on above: Performed By: #### 2 334955 #### [facility] [address] [place] [address] Lymphocytes/100 WBC (Bld) 7.7 % Low 14.0-50.0 [facility] Comment on above: Performed By: #### 2 045774 #### [facility] [address] [place] [address] MCH (RBC) [Entitic mass] 28.8 pg Normal 27.0-34.0 [facility] Comment on above: Performed By: #### 2 675765 #### [facility] [address] [place] [address] MCHC (RBC) [Mass/Vol] 33.8 g/dL Normal 31.4-36.0 [facility] Comment on above: Performed By: #### 2 693376 #### [facility] [address] [place] [address] MCV (RBC) [Entitic vol] 85.4 fL Normal 80.0-100.[address] [facility] Comment on above: Performed By: #### 2 674458 #### [facility] [address] [place] [address] Monocytes (Bld) [#/Vol] 1.1 E9/L High 0.2-1.0 [facility] Comment on above: Performed By: #### 2 240764 #### [facility] [address] [place] [address] Neutrophils (Bld) [#/Vol] 10.5 E9/L High 2.0-7.5 [facility] Comment on above: Performed By: #### 2 993527 #### [facility] [address] [place] [address] Neutrophils/100 WBC (Bld) 79.2 % High 36.0-75.0 [facility] Comment on above: Performed By: #### 2 408793 #### [facility] [address] [place] [address] Platelet 225.0 E9/L Normal 150.0-500.0 [facility] Comment on above: Performed By: #### 2 801393 #### [facility] [address] [place] [address] Platelet mean volume (Bld) [Entitic vol] 7.5 fL Normal 6.4-10.8 [facility] Comment on above: Performed By: #### 2 450771 #### [facility] [address] [place] [address] RBC (Bld) [#/Vol] 4.6 E12/L Normal 4.3-5.9 [facility] Comment on above: Performed By: #### 2 992318 #### [facility] [address] [place] [address] WBC corrected for nucl RBC Auto (Bld) [#/Vol] 13.3 E9/L High 4.0-11.0 [facility] Comment on above: Performed By: #### 2 285764 #### [facility] [address] [place] [address] CHEMISTRYOrdered By: SYSTEM SYSTEM on 09-12-2023 Anion [...] ml's: 100 Rectal Contrast Given? No Normal [facility] Consent for Procedure/Surger yon 09-12-2023 Consent for Procedure/Surgery [id number] #1.00TIFF Normal [facility] Consent for Treatmenton 08-16 Consent for Treatment [id number] #1.00TIFF Normal [facility] Discharge Instructionson Discharge Instructions [id number] 4#1.00TIFF Normal [facility] ED Clinical Summaryon 2023 ED Clinical Summary [place] [id number] ED Clinical Summary Person Information Name: JAKOB FUENTES [facility] Age: 43 Years : 1980 Sex: Male Language: Uzbek PCP: [facility] Marital Status: Visit Id: Visit Reason: Nausea; [...] 09/12/2023 03:15:33 09/12/2023 03:15:33 09/12/2023 03:15:33 ADDRESS: [address] [place] [id number] PHYS DOC NOTES: MEDICAL INFORMATION: Prescriptions Given: [...] Follow up: With: Address: When: Otf BHAGAT [address] [place], [place] [id number] [employer] In 3 days 09/15/2023 Comments: Call the [...] pain is worsening. DIAGNOSIS: Colic, ureteral Normal [facility] ED Note-Physicianon 09-12-19 ED Note-Physician Basic [...] Otf BHAGAT In 3 days 09/15/[address] [place], [place] [address] Business (1) Additional Instructions: Call the office [...] 2 P (more content not included)... Normal [facility] Comment on above: Result Comment: Elec tronically Signed By: Zechariah Perales DO\.br\Date and Time Signed: 09/12/23 02:58 EDT ED [...] these instructions at home: Medicines ? Take sxyf-xnp-hjxuyhg and prescription medicines only as told by [...] recommendations from (more content not included)... Normal [facility] ED Patient Summaryon 024 ED Patient Summary [address] [address] Patient Discharge Instructions Person Information Name: JAKOB FUENTES Age: 43 Years Arrival Date: 09/12/2023 00:09:49 Discharge Diagnosis: Colic, ureteral Primary Care Physician: [facility] Provider Information Primary Provider: Zechariah Perales DO [employer] Front Load Driver:None The exam and treatment you received in the Emergency Department were for an urgent problem and are not intended as complete care. It is important that you follow up with a doctor, nurse practitioner, or physician?s assistant golf coach for ongoing care. If your symptoms become worse or you do not improve as expected and you are unable to reach your usual health care provider, you should return to the Emergency Department. We are available 24 hours a day. JAKOB FUENTES has been given the following list of patient education materials, prescriptions and follow-up instructions: Follow-up Instructions: With: Address: When: Otf BHAGAT [address] [place] [address] [facility] (1) In 3 days 09/15/2023 Comments: Call [...] opioids can be used to help relieve ukjcfkze-id-agnipa pain and are often prescribed following a [...] your pain. (more content not included)... Normal [facility] HEMATOLOGYOrdered By: SYSTEM SYSTEM on 09-12-2023 [...] Remisol Heme Monitor Recordon 09-12-2023 Monitor Record [id number] 4#1.00TIFF Normal [facility] Operative Reporton 4 Operative Report [id number] #1.00TIFF Normal [facility] RAD - Preliminary Cat Scan R eporton 09-12-2023 RAD - Preliminary Cat Scan Report [id number] 7#1.00TIFF Normal [facility] UA with Cult Rflxon 09-12-19 24 Bilirubin Ql (U) Negative Normal Negative [facility] Comment on above: Performed By: #### 4 [id number] #### [facility] [address] [place] [address] Clarity (U) Turbid Abnormal Clear [facility] Comment on above: Performed By: #### 4 [id number] #### [facility] [address] [place] [address] Color (U) Dark-Brown Abnormal Yellow [facility] Comment on above: Result Comment: Micr oscopic readings are only performed on those samples that meet specific criteria set forth by [facility]. Performed By: #### 4 [id number] #### [facility] [address] [place] [address] Glucose Ql (U) Negative Normal Negative [facility] Comment on above: Performed By: #### 4 [id number] #### [facility] [address] [place] [address] Hemoglobin Auto test strip (U) [Mass/Vol] 3+ mg/dL Abnormal Negative [facility] Comment on above: Performed By: #### 4 [id number] #### [facility] [address] [place] [address] Ketones Auto test strip Ql (U) 2+ mg/dL Abnormal Negative [facility] Comment on above: Performed By: #### 4 [id number] #### [facility] [address] [place] [address] Leukocyte esterase Auto test strip Ql (U) 500 Roberto/uL Abnormal Negative [facility] Comment on above: Performed By: #### 4 [id number] #### [facility] [address] [place] [address] Mucus Auto Ql (U) 2+ CD:[id number] Abnormal Negative F [facility] Comment on above: Performed By: #### 4 [id number] #### [facility] [address] [place] [address] Nitrite Auto test strip Ql (U) Negative Normal Negative [facility] Comment on above: Performed By: #### 4 [id number] #### [facility] [address] [place] [address] pH (U) 6.0 [pH] Invalid Interpretation Code 5.0-9.0 [facility] Comment on above: Performed By: #### 4 [id number] #### [facility] [address] [place] [address] Protein Ql (U) 1+ mg/dL Abnormal Negative [facility] Comment on above: Performed By: #### 4 [id number] #### [facility] [address] [place] [address] RBC Ql (U) >75 Abnormal 0-3 [facility] Comment on above: Performed By: #### 4 [id number] #### [facility] [address] [place] [address] Specific gravity (U) [Rel density] 1.011 Invalid Interpretation Code 1.005-1.030 [facility] Comment on above: Performed By: #### 4 [id number] #### [facility] [address] [place] [address] Urobilinogen (U) [Mass/Vol] Negative Normal Negative [facility] Comment on above: Performed By: #### 4 [id number] #### [facility] [address] [place] [address] WBC Auto (Urine sed) [#/Area] 6-15 Abnormal 0-5 [facility] Comment on above: Performed By: #### 4 [id number] #### [facility] [address] [place] [id number] Type of Urine collection method Clean Catch Normal [facility] Comment on above: Performed By: #### 4 [id number] #### [facility] [address] [place] [id number] URINALYSISOrdered By: SYSTEM SYSTEM on 09-12-2023 Bilirubin Ql (U) Negative Normal Negativemg/ d L [facility] UA Auto SS Clarity (U) Turbid *ABN* (09/12/23 1:11 AM) Invalid Interpretation Code Clear [facility] UA Auto SS Color (U) Dark-Brown 1 *ABN* (09/12/23 1:11 AM) Invalid Interpretation Code Yellow [facility] UA Auto SS Comment on above: Interpretive Data: M icroscopic readings are only performed on those samples that meet specific criteria set forth by [facility]. Glucose Ql (U) Negative Normal [...] Desc Clean Catch (09/12/23 1:11 AM) Normal [facility] UA Auto SS Work Phone: eGFRon 09-12-2023 eGFR 110 mL/min/1.73 m2 Normal >=59 [facility] Comment on above: Order Comment: Order added by Discern Expert. Performed By: #### 1 [id number] #### [facility] [address] [place] [address] C Urineon 09-11-2023 Bacteria identified Cx Nom [...] Locations R1: This test was performed at: [facility], [address] [place] [address], [address] , [place], Normal [facility] Comment on above: Performed By: #### 2 [id number] #### [facility] [address] [place] [address] BMPon 09-10-2023 Anion gap [Moles/Vol] 10 mmol/L Normal 6-16 [facility] Comment on above: Performed By: #### 2 [id number] #### [facility] [address] [place] [address] Calcium [Mass/Vol] 8.6 mg/dL Low 8.9-11.1 [facility] Comment on above: Performed By: #### 2 914049 #### [facility] [address] [place] [address] Chloride [Moles/Vol] 107 mmol/L Normal 101-111 [facility] Comment on above: Performed By: #### 2 294723 #### [facility] [address] [place] [address] CO2 [Moles/Vol] 26 mmol/L Normal 21-31 [facility] Comment on above: Performed By: #### 2 519982 #### [facility] [address] [place] [address] Creatinine [Mass/Vol] 1.0 mg/dL Normal 0.5-1.3 [facility] Comment on above: Performed By: #### 2 [id number] #### [facility] [address] [place] [address] Glucose [Mass/Vol] 102 mg/dL Normal 55-199 [facility] Comment on above: Performed By: #### 2 [id number] #### [facility] [address] [place] [address] Potassium [Moles/Vol] 3.6 mmol/L Normal 3.5-5.3 [facility] Comment on above: Performed By: #### 2 [id number] #### [facility] [address] [place] [address] Sodium [Moles/Vol] 139 mmol/L Normal 135-145 [facility] Comment on above: Performed By: #### 2 [id number] #### [facility] [address] [place] [address] Urea nitrogen [Mass/Vol] 11 mg/dL Normal - [facility] Comment on above: Performed By: #### 2 [id number] #### [facility] [address] [place] [address] Urea nitrogen/Creatinine [Mass ratio] 11 No Units Normal 10- [facility] Comment on above: Performed By: #### 2 [id number] #### [facility] [address] [place] [address] Consent for Treatmenton 08-16 Consent for Treatment [id number] #1.00TIFF Normal [facility] Discharge Instructionson Discharge Instructions [id number] 7#1.00TIFF Normal [facility] ED Clinical Summaryon 2023 ED Clinical Summary [address] [address] ED Clinical Summary Person Information Name: JAKOB FUENTES [facility] Age: 43 Years : 1980 Sex: Male Language: Uzbek PCP: [facility] Marital Status: Visit Id: Visit Reason: Post [...] 09/10/2023 01:12:12 09/10/2023 01:12:12 09/10/2023 01:12:12 ADDRESS: [address] [place] [id number] PHYS DOC NOTES: MEDICAL INFORMATION: Prescriptions Given: New Medications [id number], [address] [place], [place] [id number], [phone] ketorolac (ketorolac 10 mg Tab) 1 Tablets By Mouth every 6 hours as needed for pain. Refills: 0. ondansetron (Zofran ODT 4 mg Tab-Dis) 1 Tablets By Mouth every 8 hours. Refills: 0. Medications to Continue Taking That Have Changed [id number], [address] [place], [place] [id number], [phone] START: acetaminophen-oxycod one (Percocet 5 mg-325 mg [...] EDUCATION INFORMATION: Instructions: Urinary Tract Infection, Adult, Tzni-ri-Achy; Renal Colic, Ghan-ew-Mkiw Follow up: With: Address: When: Otf BHAGAT [address] [place], [place] [id number] Business (1) In 3 days 09/13/2023 Comments: Stop taking the Keflex and you can start taking the Cipro as prescribed to completed the course. You can use the pain medication as prescribed as needed for pain. Please follow-up with Dr. Bhagat for further evaluation and management. Please return to the ED for any new or worsening symptoms. With: Address: When: [place] [phone] Business (1) In 3 days DIAGNOSIS: Acute UTI; Ureteral colic Normal [facility] ED Note-Physicianon 09-10-19 ED Note-Physician Basic [...] and Complexity of Problems Differential Diagnosis: [] [facility] Data External documents reviewed: [] My EKG [...] for 3 day(s), 12 tab(s), Refill(s) 0, [facility] #[id number], 182, cm, 09/09/23 23:02:00 EDT, Height/Length Dosing, 65.8, kg, 09/09/23 23:02:00 EDT, Weight Dosing ciprofloxacin, 500 mg = 1 tab(s), Oral, BID, # 28 tab(s), Refills(s) 0, Pharmacy: [facility] #[id number], 182, cm, 09/09/23 23:02:00 EDT, Height/Length Dosing, 65.8, kg, 09/09/23 23:02:00 EDT, Weight Dosing ketorolac, 10 mg = 1 tab(s), Oral, q6hr, PRN for pain, # 20 tab(s), Refills(s) 0, Pharmacy: [facility] #[id number], 182, cm, 09/09/23 23:02:00 EDT, Height/Length Dosing, [...] q8hr, # 12 tab(s), Refills(s) 0, Pharmacy: [facility] #[id number], 182, cm, 09/09/23 23:02:00 EDT, Height/Length Dosing, [...] mL 1,00 (more content not included)... Normal [facility] Comment on above: Result Comment: Elec tronically Signed By: Avelina Gonzalez DO\.br\Date and Time Signed: 09/10/23 00:22 EDT ED [...] these instructions at home: Medicines ? Take vsxq-elu-tcutkru and prescription medicines only as told by [...] provider. Document Revised: 11/13/2020 Document Reviewed: 11/13/2020 [employer] Patient Education ? 2022 Recommind. Urology Renal Colic Renal colic is pain that is caused by a kidney stone. The pain can be sharp and very bad. It may be felt in the back, belly, side (flank), or groin. It can cause nausea. Renal colic can come and go. Follow these instructions at home: Medicines ? Take scnh-whm-dsqwqkl and prescription medicines only as told by [...] avoid. General (more content not included)... Normal [facility] ED Patient Summaryon 024 ED Patient Summary [address] [address] Patient Discharge Instructions Person Information Name: JAKOB FUENTES Age: 43 Years Arrival Date: 09/09/2023 22:51:40 Discharge Diagnosis: Acute UTI; Ureteral colic Primary Care Physician: [facility] Provider Information Primary Provider: Avelina Gonzalez DO [employer] Front Load Driver:None The exam and treatment you received in the Emergency Department were for an urgent problem and are not intended as complete care. It is important that you follow up with a doctor, nurse practitioner, or physician?s assistant golf coach for ongoing care. If your symptoms become worse or you do not improve as expected and you are unable to reach your usual health care provider, you should return to the Emergency Department. We are available 24 hours a day. JAKOB FUENTES has been given the following list of patient education materials, prescriptions and follow-up instructions: Follow-up Instructions: With: Address: When: Otf BHAGAT [address] [place] [id number] [employer] (1) In 3 days 09/13/2023 Comments: Stop taking the Keflex and you can start taking the Cipro as prescribed to completed the course. You can use the pain medication as prescribed as needed for pain. Please follow-up with Dr. Bhagat for further evaluation and management. Please return to the ED for any new or worsening symptoms. With: Address: When: [place] [phone] [employer] (1) In 3 days In the event that this physician does not participate in your insurance network, please consult with your insurance company to find a nearby participating provider. Patient Education Materials: Urinary Tract Infection, Adult, Bhts-tk-Qidr; Renal Colic, Mifi-ye-Tqxm A MESSAGE TO ALL PATIENTS REGARDING OPIOIDS PRESCRIPTION OPIOIDS: WHAT YOU NEED TO KNOW Prescription opioids can be used to help relieve rjkzlmbc-te-akkxca pain and are often prescribed following a [...] unused presc (more content not included)... Normal [facility] UA with Cult Rflxon 09-10-19 24 Bilirubin Ql (U) Negative Normal Negative [facility] Comment on above: Performed By: #### 4 [id number] #### [facility] [address] [place] [address] Clarity (U) Ex.Turbid Abnormal Clear [facility] Comment on above: Performed By: #### 4 [id number] #### [facility] [address] [place] [address] Color (U) Dark-Brown Abnormal Yellow [facility] Comment on above: Result Comment: Micr oscopic readings are only performed on those samples that meet specific criteria set forth by [facility]. Performed By: #### 4 [id number] #### [facility] [address] [place] [address] Glucose Ql (U) Negative Normal Negative [facility] Comment on above: Performed By: #### 4 [id number] #### [facility] [address] [place] [address] Hemoglobin Auto test strip (U) [Mass/Vol] 3+ mg/dL Abnormal Negative [facility] Comment on above: Performed By: #### 4 [id number] #### [facility] [address] [place] [address] Ketones Auto test strip Ql (U) Trace Abnormal Negative [facility] Comment on above: Performed By: #### 4 [id number] #### [facility] [address] [place] [address] Leukocyte clumps Auto (Urine sed) [#/Area] >30 Abnormal [facility] Comment on above: Performed By: #### 4 [id number] #### [facility] [address] [place] [address] Leukocyte esterase Auto test strip Ql (U) 250 Roberto/uL Abnormal Negative [facility] Comment on above: Performed By: #### 4 [id number] #### [facility] [address] [place] [address] Mucus Auto Ql (U) 2+ CD:[id number] Abnormal Negative F [facility] Comment on above: Performed By: #### 4 [id number] #### [facility] [address] [place] [address] Nitrite Auto test strip Ql (U) Negative Normal Negative [facility] Comment on above: Performed By: #### 4 [id number] #### [facility] [address] [place] [address] pH (U) 7.5 [pH] Invalid Interpretation Code 5.0-9.0 [facility] Comment on above: Performed By: #### 4 [id number] #### [facility] [address] [place] [address] Protein Ql (U) 2+ mg/dL Abnormal Negative [facility] Comment on above: Performed By: #### 4 [id number] #### [facility] [address] [place] [address] RBC Ql (U) >75 Abnormal 0-3 [facility] Comment on above: Performed By: #### 4 [id number] #### [facility] [address] [place] [address] Specific gravity (U) [Rel density] 1.011 Invalid Interpretation Code 1.005-1.030 [facility] Comment on above: Performed By: #### 4 [id number] #### [facility] [address] [place] [address] Urobilinogen (U) [Mass/Vol] Negative Normal Negative [facility] Comment on above: Performed By: #### 4 [id number] #### [facility] [address] [place] [address] WBC Auto (Urine sed) [#/Area] >75 Abnormal 0-5 [facility] Comment on above: Performed By: #### 4 [id number] #### [facility] [address] [place] [address] Type of Urine collection method Clean Catch Normal [facility] Comment on above: Performed By: #### 4 [id number] #### [facility] [address] [place] [address] XR Abdomen 1 Viewon 09-10-19 XR Abdomen [...] mGy = na DAP = na Normal [facility] eGFRon 09-10-2023 eGFR 97 mL/min/1.73 m2 Normal >=59 [facility] Comment on above: Order Comment: Order added by Discern Expert. Performed By: #### 1 [id number] #### [facility] [address] [place] [address] C Urineon 09-09-2023 Bacteria identified Cx Nom [...] Locations R1: This test was performed at: [facility], [address] [place] [address], [phone] , [place], [facility] Comment on above: Performed By: #### 2 [id number] #### [facility] [address] [place] [address] CHEMISTRYOrdered By: SYSTEM SYSTEM on 09-09-2023 Anion [...] Cx Nom (U) No growth to date [facility] URINALYSISOrdered By: SYSTEM SYSTEM on 09-09-2023 Bilirubin Ql (U) Negative Normal Negativemg/ d L [facility] UA Auto SS Clarity (U) Ex.Turbid *ABN* (09/09/23 11:47 PM) Invalid Interpretation Code Clear [facility] UA Auto SS Color (U) Dark-Brown 1 *ABN* (09/09/23 11:47 PM) Invalid Interpretation Code Yellow [facility] UA Auto SS Comment on above: Interpretive Data: M icroscopic readings are only performed on those samples that meet specific criteria set forth by [facility]. Glucose Ql (U) Negative Normal [...] these instructions at home: Medicines ? Take qwvf-fsg-kdztpwr and prescription medicines only as told by [...] or treat constipation, such as: ? Take hduv-ujx-vttktju or prescription medicines. ? Eat foods that [...] provider. Document Revised: 08/10/2022 Document Reviewed: 12/06/2021 [employer] Patient Education ? 2022 Recommind. Laser Therapy for Kidney Stones Laser therapy [...] including vitamins, herbs, eye drops, creams, and kiob-vco-vylqfny medicines. ? Any problems you or family [...] kidney st (more content not included)... Normal [facility] Urology Office/Clinic Noteon 09-08-2023 Urology Office/Clinic Note Chief Complaint 9mm calculus proximal left [facility] HPI Staff New pt f/u from [facility] ED visit 09/07/23 for left sided flank [...] male new pt here for f/u to [facility] ER due to an ureteral stone. No hx of UTIs. 1. Ureteral stone (N20.1: Calculus of ureter) [facility] ER 09/07/23 due to L flank pain. [...] Will order General anesthesia. Pt works for [employer] and would like to have some time [...] Discussed metabo (more content not included)... Normal [facility] Comment on above: Result Comment: Elec tronically Signed By: Otf BHAGAT MD\.br\Date and Time Signed: 09/08/23 08:25 EDT\.br\Electronically Co-Signed By: Juliane Sims\.br\Date and Time Co-Signed: 09/08/23 08:23 EDT BMPon 09-07-2023 Anion gap [Moles/Vol] 13 mmol/L Normal 6-16 [facility] Comment on above: Performed By: #### 2 [id number] #### [facility] [address] [place] [address] Calcium [Mass/Vol] 9.5 mg/dL Normal 8.9-11.1 [facility] Comment on above: Performed By: #### 2 [id number] #### [facility] [address] [place] [address] Chloride [Moles/Vol] 108 mmol/L Normal 101-111 [facility] Comment on above: Performed By: #### 2 [id number] #### [facility] [address] [place] [address] CO2 [Moles/Vol] 22 mmol/L Normal 21-31 [facility] Comment on above: Performed By: #### 2 [id number] #### [facility] [address] [place] [address] Creatinine [Mass/Vol] 0.9 mg/dL Normal 0.5-1.3 [facility] Comment on above: Performed By: #### 2 [id number] #### [facility] [address] [place] [address] Glucose [Mass/Vol] 123 mg/dL Normal 55-199 [facility] Comment on above: Performed By: #### 2 [id number] #### [facility] [address] [place] [address] Potassium [Moles/Vol] 4.0 mmol/L Normal 3.5-5.3 [facility] Comment on above: Performed By: #### 2 937206 #### [facility] [address] [place] [address] Sodium [Moles/Vol] 139 mmol/L Normal 135-145 [facility] Comment on above: Performed By: #### 2 785259 #### [facility] [address] [place] [address] Urea nitrogen [Mass/Vol] 14 mg/dL Normal 5-21 [facility] Comment on above: Performed By: #### 2 [id number] #### [facility] [address] [place] [address] Urea nitrogen/Creatinine [Mass ratio] 16 No Units Normal 10-20 [facility] Comment on above: Performed By: #### 2 324059 #### [facility] [address] [place] [address] CBC w/ Auto Diffon 4 Basophils/100 WBC (Bld) 0.9 % Normal 0.0-2.[address] [facility] Comment on above: Performed By: #### 2 607850 #### [facility] [address] [place] [address] Basophils/Leukocytes Auto (Bld) [Pure # fraction] 0.1 E9/L Normal 0.0-0.2 [facility] Comment on above: Performed By: #### 2 030957 #### [facility] [address] [place] [address] Eosinophils (Bld) [#/Vol] 0.2 E9/L Normal 0.0-0.5 [facility] Comment on above: Performed By: #### 2 899250 #### [facility] [address] [place] [address] Eosinophils/100 WBC (Bld) 2.1 % Normal 0.0-8.0 [facility] Comment on above: Performed By: #### 2 025408 #### [facility] [address] [place] [address] Erythrocyte distribution width (RBC) [Ratio] 14.3 % High 10.9-14.2 [facility] Comment on above: Performed By: #### 2 942179 #### [facility] [address] [place] [address] Hematocrit (Bld) [Volume fraction] 48.9 % Normal 37.7-49.0 [facility] Comment on above: Performed By: #### 2 [id number] #### [facility] [address] [place] [address] Hemoglobin (Bld) [Mass/Vol] 16.6 g/dL Normal 13.5-17.5 [facility] Comment on above: Performed By: #### 2 [id number] #### [facility] [address] [place] [address] Lymphocytes (Bld) [#/Vol] 2.0 E9/L Normal 1.0-4.0 [facility] Comment on above: Performed By: #### 2 526094 #### [facility] [address] [place] [address] Lymphocytes/100 WBC (Bld) 16.9 % Normal 14.0-50.0 [facility] Comment on above: Performed By: #### 2 573427 #### [facility] [address] [place] [address] MCH (RBC) [Entitic mass] 28.9 pg Normal 27.0-34.0 [facility] Comment on above: Performed By: #### 2 896161 #### [facility] [address] [place] [address] MCHC (RBC) [Mass/Vol] 33.8 g/dL Normal 31.4-36.0 [facility] Comment on above: Performed By: #### 2 980336 #### [facility] [address] [place] [address] MCV (RBC) [Entitic vol] 85.3 fL Normal 80.0-100.[address] [facility] Comment on above: Performed By: #### 2 456845 #### [facility] [address] [place] [address] Monocytes (Bld) [#/Vol] 0.7 E9/L Normal 0.2-1.[address] [facility] Comment on above: Performed By: #### 2 593924 #### [facility] [address] [place] [address] Neutrophils (Bld) [#/Vol] 8.5 E9/L High 2.0-7.5 [facility] Comment on above: Performed By: #### 2 135051 #### [facility] [address] [place] [address] Neutrophils/100 WBC (Bld) 73.8 % Normal 36.0-75.0 [facility] Comment on above: Performed By: #### 2 087382 #### [facility] [address] [place] [address] Platelet mean volume (Bld) [Entitic vol] 7.7 fL Normal 6.4-10.8 [facility] Comment on above: Performed By: #### 2 508335 #### [facility] [address] [place] [address] Platelets (Bld) [#/Vol] 226.0 E9/L Normal 150.0-500.0 [facility] Comment on above: Performed By: #### 2 549978 #### [facility] [address] [place] [address] RBC (Bld) [#/Vol] 5.7 E12/L Normal 4.3-5.9 [facility] Comment on above: Performed By: #### 2 312055 #### [facility] [address] [place] [address] WBC corrected for nucl RBC Auto (Bld) [#/Vol] 11.5 E9/L High 4.0-11.0 [facility] Comment on above: Performed By: #### 2 114944 #### [facility] [address] [place] [address] CHEMISTRYOrdered By: SYSTEM SYSTEM on 09-07-2023 Anion [...] Oral contrast amount in ml's: 0 Normal [facility] Consent for Treatmenton 08-16 Consent for Treatment [id number] #1.00TIFF [facility] Discharge Instructionson Discharge Instructions [id number] 7#1.00TIFF [facility] ED Clinical Summaryon 2023 ED Clinical Summary [address] [address] ED Clinical Summary Person Information Name: JAKOB FUENTES/NewMelissa Age: 43 Years : 1980 Sex: Male Language: Uzbek PCP: [facility] Marital Status: Visit Id: Visit Reason: [...] 09/07/2023 07:03:42 09/07/2023 07:03:42 09/07/2023 07:03:42 ADDRESS: [address] [place] [id number] PHYS DOC NOTES: MEDICAL INFORMATION: Prescriptions Given: [...] up: With: Address: When: Otf BHAGAT [address] [facility] [place], [place] [id number] [facility] ([employer] In 3 days 09/10/2023 Comments: Make sure to strain the urine as instructed. Call the office of Dr. Bhagat today for an appointment tomorrow at [facility]. Nothing to eat or drink after midnight tonight. Return to the emergency room if your pain gets worse, vomiting or any new symptoms. Call Dr for diagnosis based follow up DIAGNOSIS: 1:Left ureteral stone; 2:Urinary tract infection Normal [facility] ED Note-Physicianon 09-07-19 ED Note-Physician Basic [...] and Complexity of Problems Differential Diagnosis: [] [facility] Data External documents reviewed: [] My EKG [...] and he will see the patient at [place] office tomorrow morning. The patient is instructed [...] Patient Discharge (more content not included)... Normal [facility] Comment on above: Result Comment: Elec tronically Signed By: Tyron Trujillo M.D.\.br\Date and Time Signed: 09/07/23 06:59 EDT ED [...] this condition includes: ? Antibiotic medicine. ? Rnym-rwj-bwwzyvo medicines to treat discomfort. ? Drinking enough [...] these instructions at home: Medicines ? Take zhfu-ysa-zdaracu and prescription medicines only as told by [...] Document Revie (more content not included)... Normal [facility] ED Patient Summaryon 024 ED Patient Summary [place] [id number] Patient Discharge Instructions Person Information Name: JAKOB FUENTES Age: 43 Years Arrival Date: 09/07/2023 04:18:33 Discharge Diagnosis: 1:Left ureteral stone; 2:Urinary tract infection Primary Care Physician: [facility] Provider Information Primary Provider: Tyron Trujillo M.D. Advanced [employer] Front Load Driver:None The exam and treatment you received in the Emergency Department were for an urgent problem and are not intended as complete care. It is important that you follow up with a doctor, nurse practitioner, or physician?s assistant golf coach for ongoing care. If your symptoms become [...] Otf BHAGAT [address] [place], [place] [id number] [email or web address] (1) In 3 days 09/10/2023 Comments: Make sure to strain the urine as instructed. Call the office of Dr. Bhagat today for an appointment tomorrow at [facility]. Nothing to eat or drink after [...] opioids can be used to help relieve eosecwsn-fv-mndmet pain and are often prescribed following a [...] the to (more content not included)... Normal [facility] HEMATOLOGYOrdered By: SYSTEM SYSTEM on 09-07-2023 [...] 09-07-2023 RAD - Preliminary Cat Scan Report [id number] 7#1.00TIFF Normal [facility] UA with Cult Rflxon 09-07-19 24 Bilirubin Ql (U) Negative Normal Negative [facility] Comment on above: Performed By: #### 4 [id number] ####[facility] [address] [place] [address] Clarity (U) Ex.Turbid Abnormal Clear [facility] Comment on above: Performed By: #### 4 [id number] ####[place] [address] [place] [address] Color (U) [place] Abnormal Yellow [facility] Comment on above: Result Comment: Micr oscopic readings are only performed on those samples that meet specific criteria set forth by [facility]. Performed By: #### 4 [id number] ####[facility] [address] [place] [address] Glucose Ql (U) Negative Normal Negative [facility] Comment on above: Performed By: #### 4 [id number] ####[address] [address] Hemoglobin Auto test strip (U) [Mass/Vol] 3+ mg/dL Abnormal Negative [facility] Comment on above: Performed By: #### 4 [id number] ####[facility] [address] [place] [address] Ketones Auto test strip Ql (U) Trace Abnormal Negative [facility] Comment on above: Performed By: #### 4 [id number] ####[facility] [address] [place] [address] Leukocyte esterase Auto test strip Ql (U) 75 Roberto/uL Abnormal Negative [facility] Comment on above: Performed By: #### 4 [id number] ####[address] [address] Mucus Auto Ql (U) 4+ CD:[id number] Abnormal Negative F [facility] Comment on above: Performed By: #### 4 [id number] ####[address] [address] Nitrite Auto test strip Ql (U) Negative Normal Negative [facility] Comment on above: Performed By: #### 4 [id number] ####[address] [address] pH (U) 6.5 [pH] Invalid Interpretation Code 5.0-9.0 [facility] Comment on above: Performed By: #### 4 [id number] ####[facility] [address] [place] [address] Protein Ql (U) 2+ mg/dL Abnormal Negative [facility] Comment on above: Performed By: #### 4 [id number] ####[address] [address] RBC Ql (U) >75 Abnormal 0-3 [facility] Comment on above: Performed By: #### 4 [id number] ####[address] [address] Specific gravity (U) [Rel density] 1.027 Invalid Interpretation Code 1.005-1.030 [facility] Comment on above: Performed By: #### [id number] ####[place] [address] Urobilinogen (U) [Mass/Vol] Negative Normal Negative [facility] Comment on above: Performed By: #### [id number] ####[place] [address] WBC Auto (Urine sed) [#/Area] 6-15 Abnormal 0-5 [facility] Comment on above: Performed By: #### 4 [id number] ####[place] [address] Type of Urine collection method Clean Catch Normal [facility] Comment on above: Performed By: #### [id number] ####[address] [address] URINALYSISOrdered By: SYSTEM SYSTEM on 09-07-2023 Bilirubin Ql (U) Negative Normal Negativemg/ d L [facility] UA Auto SS Clarity (U) Ex.Turbid *ABN* (09/07/23 4:50 AM) Invalid Interpretation Code Clear [facility] UA Auto SS Color (U) [place] 1 *ABN* (09/07/23 4:50 AM) Invalid Interpretation Code Yellow [facility] UA Auto SS Comment on above: Interpretive Data: M icroscopic readings are only performed on those samples that meet specific criteria set forth by [facility]. Glucose Ql (U) Negative Normal [...] 09-07-2023 eGFR 110 mL/min/1.73 m2 Normal >=59 [facility] Comment on above: Order Comment: Order added by Discern Expert. Performed By: #### 1 [id number] #### [facility] [address] [place] [address] Basic Metabolic Panelon 10-0 8-2019 Anion gap [Moles/Vol] 8 mmol/L Low 9 - 17 mmol/L [facility] [place] Bun/Cre Ratio 14 [place] Calcium [Mass/Vol] 9.9 mg/dL 8.6 - 10. 4 mg/dL [place] Chloride [Moles/Vol] 104 mmol/L 98 - 10 7 mmol/L [place] CO2 [Moles/Vol] 25 mmol/L 20 - 31 mmol/L [place] Creatinine [Mass/Vol] 0.74 mg/dL 0.7 - 1.2 mg/dL [place] GFR >60 >60 mL/min [place] GFR Non- >60 >60 mL/min [place] GFR/1.73 sq M predicted among non-blacks MDRD (S/P/Bld) [Vol rate/Area] NOT REPORTED [place] GFR/1.73 sq M predicted among non-blacks MDRD (S/P/Bld) [Vol rate/Area] [place] Comment on above: Average GFR for 30-3 9 years old: 107 mL/min/1.73sq m Chronic Kidney Disease: <60 mL/min/1.73sq m Kidney failure: <15 mL/min/1.73sq m eGFR calculated using average adult body mass. Additional eGFR calculator available at: http://www.Capsearch/multiple_crcl_2012.htm Glucose [Mass/Vol] 91 mg/dL 70 - 99 mg/dL [place] Interpretation and review of laboratory results Abnormal [place] Potassium [Moles/Vol] 4.0 mmol/L 3.7 - 5.3 mmol/L [place] Sodium [Moles/Vol] 137 mmol/L 135 - 144 mmol/L [place] Urea nitrogen [Mass/Vol] 10 mg/dL 6 - 20 mg/d L [place] Basic Metabolic Profon 01-22 (cont.) Normal [facility] Comment on above: Result Comment: Aver age GFR for 30-39 years old: 107 mL/min/1.73sq m Chronic Kidney Disease: <60 mL/min/1.73sq m Kidney failure: <15 mL/min/1.73sq m eGFR calculated using average adult body mass. Additional eGFR calculator available at: http://www.Songza.ItrybeforeIbuy/multiple_crcl_2012.htm Performed By: #### C DP, BMP, DIME #### [facility] [address] [place], [place] [id number] [employer] Manager: Jose Luis Gallegos MD Anion gap [Moles/Vol] 8 mmol/L Low 9-17 [facility] Comment on above: Performed By: #### C DP, BMP, DIME #### [facility] [address] [place] [address] [employer]stream Marketing Manager: Jose Luis Gallegos MD BUN/CRE Ratio 14 Normal 9-20 [facility] Comment on above: Performed By: #### C DP, BMP, DIME #### [facility] [address] [place], [place] [id number] [employer] Manager: Jose Luis Gallegos MD Calcium [Mass/Vol] 9.9 mg/dL Normal 8.6-10.4 [facility] Comment on above: Performed By: #### C DP, BMP, DIME #### [facility] [address] [place], [place] [id number] [employer] Manager: Jose Luis Gallegos MD Chloride [Moles/Vol] 104 mmol/L Normal 98-107 [facility] Comment on above: Performed By: #### C DP, BMP, DIME #### [facility] [address] [place], [place] [id number] [employer] Manager: Jose Luis Gallegos MD CO2 [Moles/Vol] 25 mmol/L Normal 20-31 [facility] Comment on above: Performed By: #### C DP, BMP, DIME #### [facility] [address] [place], [place] [id number] [employer] Manager: Jose Luis Gallegos MD Creatinine [Mass/Vol] 0.74 mg/dL Normal 0.70-1.20 [facility] Comment on above: Performed By: #### C DP, BMP, DIME #### [facility] [address] [place] [address] [employer] Marketing Manager: Jose Luis Gallegos MD GFR, Amer >60 Normal >60 [facility] Comment on above: Performed By: #### C DP, BMP, DIME #### [facility] [address] [place], [place] [id number] [employer] Manager: Jose Luis Gallegos MD GFR,non Amer >60 Normal >60 [facility] Comment on above: Performed By: #### C DP, BMP, DIME #### [facility] [address] [place] [address] [employer] Upstream Marketing Manager: Jose Luis Gallegos MD Glucose [Mass/Vol] 91 mg/dL Normal 70-99 [facility] Comment on above: Performed By: #### C DP, BMP, DIME #### [facility] [address] [place] [address] [employer] Upstream Marketing Manager: Jose Luis Gallegos MD Potassium [Moles/Vol] 4.0 mmol/L Normal 3.7-5.3 [facility] Comment on above: Performed By: #### C DP, BMP, DIME #### [facility] [address] [place] [address] [employer]stream Marketing Manager: Jose Luis Gallegos MD Sodium [Moles/Vol] 137 mmol/L Normal 135-144 [facility] Comment on above: Performed By: #### C DP, BMP, DIME #### [facility] [address] [place] [address] [employer] Upstream Marketing Manager: Jose Luis Gallegos MD Urea nitrogen [Mass/Vol] 10 mg/dL Normal 6-20 [facility] Comment on above: Performed By: #### C DP, BMP, DIME #### [facility] [address] [place] [address] [employer] Marketing Manager: Jose Luis Gallegos MD Staging: NOT REPORTED Normal [facility] Comment on above: Performed By: #### C MIRYAM ARRIOLA, DIME #### [facility] [address] [place] [address] [employer] Upstream Marketing Manager: Jose Luis Gallegos MD CBC Auto Differentialon Basophils (Bld) [#/Vol] 0.00 10*3/uL [place] Differential Type YES [place] Platelet mean volume (Bld) [Entitic vol] NOT REPORTED 6 - 12 fL [place] Platelets (Bld) [#/Vol] NOT REPORTED [place] RBC morphology finding Nom (Bld) NOT REPORTED [place] Segmented neutrophils/100 WBC (Bld) 55 % 39 - 75 % [place] Segs Absolute 4.30 [place] WBC (Bld) [#/Vol] NOT REPORTED per 100 WBC [place] WBC Morphology NOT REPORTED [place] CBC with Diffon 01-22-2019 Abs. Basophil 0.00 k/uL Normal 0.0-0.2 [facility] Comment on above: Performed By: #### C MIRYAM ARRIOLA, DIME #### [facility] [address] [place] [address] Global Upstream Marketing Manager: Jose Luis Gallegos MD Abs.Neutrophil (Seg) 4.30 k/uL Normal 2.1-6.5 [facility] Comment on above: Performed By: #### C MIRYAM ARRIOLA, DIME #### [facility] [address] [place] [address] [employer] Upstream Marketing Manager: Jose Luis Gallegos MD Auto Diff Performed YES Normal [facility] Comment on above: Performed By: #### C DP BMP, DIME #### [facility] [address] [place] [address] [employer] Upstream Marketing Manager: Jose Luis Gallegos MD Neutrophil (Seg) 55 % Normal 39-75 [facility] Comment on above: Performed By: #### C DP, BMP, DIME #### [facility] [address] [place] [address] [employer] Upstream Marketing Manager: Jose Luis Gallegos MD Abs.Imm.Granulocyte NOT REPORTED Normal 0.00-0.30 [facility] Comment on above: Performed By: #### C DP, BMP, DIME #### [facility] [address] [place] [address] Global Upstream Marketing Manager: Jose Luis Gallegos MD Immature granulocytes (Bld) [#/Vol] NOT REPORTED Normal 0 [facility] Comment on above: Performed By: #### C DP, BMP, DIME #### [facility] [address] [place] [address] [employer] Upstream Marketing Manager: Jose Luis Gallegos MD NRBC Automated NOT REPORTED Normal [facility] Comment on above: Performed By: #### C DP, BMP, DIME #### [facility] [address] [place] [address] [employer] Marketing Manager: Jose Luis Gallegos MD Platelet mean volume (Bld) [Entitic vol] NOT REPORTED Normal 6.0-12.0 [facility] Comment on above: Performed By: #### C DP, BMP, DIME #### [facility] [address] [place] [address] [employer] Upstream Marketing Manager: Jose Luis Gallegos MD Platelets (Bld) [#/Vol] NOT REPORTED Normal [facility] Comment on above: Performed By: #### C DP, BMP, DIME #### [facility] [address] [place] [address] [employer] Upstream Marketing Manager: Jose Luis Gallegos MD RBC morphology finding Nom (Bld) NOT REPORTED Normal [facility] Comment on above: Performed By: #### C DP, BMP, DIME #### [facility] [address] [place] [address] [employer] Upstream Marketing Manager: Jose Luis Gallegos MD WBC Morphology NOT REPORTED Normal [facility] Comment on above: Performed By: #### C DP, BMP, DIME #### [facility] [address] [place] [address] [employer] Upstream Marketing Manager: Jose Luis Gallegos MD Basophils/100 WBC (Bld) 1 % Normal 0-2 [place] Comment on above: Performed By: #### C DP, BMP, DIME #### [facility] [address] [place] [address] [employer] Upstream Marketing Manager: Jose Luis Gallegos MD Eosinophils (Bld) [#/Vol] 0.20 10*3/uL Normal 0.0-0.4 [place] Comment on above: Performed By: #### C DP, BMP, DIME #### [facility] [address] [place] [address] [employer] Upstream Marketing Manager: Jose Luis Gallegos MD Eosinophils/100 WBC (Bld) 3 % Normal 0-5 [place] Comment on above: Performed By: #### C DP, BMP, DIME #### [facility] [address] [place] [address] Global Upstream Marketing Manager: Jose Luis Gallegos MD Erythrocyte distribution width (RBC) [Ratio] 14.6 % Normal 12.1-15.2 [place] Comment on above: Performed By: #### C DP, BMP, DIME #### [facility] [address] [place] [address] [employer] Upstream Marketing Manager: Jose Luis Gallegos MD Hematocrit (Bld) [Volume fraction] 46.2 % Normal 41-53 [place] Comment on above: Performed By: #### C DP, BMP, DIME #### [facility] [address] [place] [address] Global Upstream Marketing Manager: Jose Luis Gallegos MD Hemoglobin (Bld) [Mass/Vol] 15.5 g/dL Normal 13.5-17.5 [place] Comment on above: Performed By: #### C DP, BMP, DIME #### [facility] [address] [place] [address] Global Upstream Marketing Manager: Jose Luis Gallegos MD Lymphocytes (Bld) [#/Vol] 2.40 10*3/uL Normal 1.0-4.8 [place] Comment on above: Performed By: #### C DP, BMP, DIME #### [facility] [address] [place] [address] Global Upstream Marketing Manager: Jose Luis Gallegos MD Lymphocytes/100 WBC (Bld) 32 % Normal 13-44 [place] Comment on above: Performed By: #### C DP, BMP, DIME #### [facility] [address] [place] [address] Global Upstream Marketing Manager: Jose Luis Gallegos MD MCH (RBC) [Entitic mass] 28.5 pg Normal 26-34 [place] Comment on above: Performed By: #### C DP, BMP, DIME #### [facility] [address] [place] [address] [phone] Global Upstream Marketing Manager: Jose Luis Gallegos MD MCHC (RBC) [Mass/Vol] 33.5 g/dL Normal 31-37 [place], [place] Comment on above: Performed By: #### C DP, BMP, DIME #### [facility] [address] [place] [address] [phone] Global Upstream Marketing Manager: Jose Luis Gallegos MD MCV (RBC) [Entitic vol] 85.1 fL Normal 80-100 [place] Comment on above: Performed By: #### C DP, BMP, DIME #### [facility] [address] [place] [address] [employer] Upstream Marketing Manager: Jose Luis Gallegos MD Monocytes (Bld) [#/Vol] 0.70 10*3/uL Normal 0.0-1.0 [place] Comment on above: Performed By: #### C DP BMP, DIME #### [facility] [address] [place] [address] Global Upstream Marketing Manager: Jose Luis Gallegos MD Monocytes/100 WBC (Bld) 9 % Normal 5-9 [place] Comment on above: Performed By: #### C DP, BMP, DIME #### [facility] [address] [place] [address] Global Upstream Marketing Manager: Jose Luis Gallegos MD Platelets (Bld) [#/Vol] 230 10*3/uL Normal 140-450 [place] Comment on above: Performed By: #### C DP BMP, DIME #### [facility] [address] [place] [address] Global Upstream Marketing Manager: Jose Luis Gallegos MD RBC (Bld) [#/Vol] 5.43 10*6/uL Normal 4.5-5.9 [place] Comment on above: Performed By: #### C FLAKO BMP, DIME #### [facility] [address] [place] [address] Global Upstream Marketing Manager: Jose Luis Gallegos MD WBC (Bld) [#/Vol] 7.6 10*3/uL Normal 3.5-11.0 [place] Comment on above: Performed By: #### C DP, BMP, DIME #### [facility] [address] [place] [address] Global Upstream Marketing Manager: Jose Luis Gallegos MD D-Dimer Teston 01-22-2019 D-Dimer Test 0.79 mg/L FEU High 0.00-0.50 [facility] Comment on above: Result Comment: Elevated [...] By: #### C MIRYAM ARRIOLA DIME #### [facility] [address] [place] [address] Global Upstream Marketing Manager: Jose Luis Gallegos MD D-Dimer, Quantitativeon 10- D-Dimer, Quant 0.79 [place] Comment on above: Elevated levels of [...] Interpretation and review of laboratory results Abnormal [place] Otheron 01-22-2019 Immature granulocytes (Bld) [#/Vol] NOT REPORTED 0 % [place] VL DUP LOWER EXTREMITY VENOU S [...] DO 01/22/19 Edited Result - FINAL Normal [facility] Radiology exam is complete. No Radiologist dictation. Please follow up with ordering provider. [facility] TITUS IBANEZ XR FEMUR RIGHT (MIN [...] MD 01/22/19 Edited Result - FINAL Normal [facility] RIGHT FEMUR AP, LATERAL (4 IMAGES), 01/22/2019 CLINICAL INDICATION: Femur area pain. COMPARISON EXAMINATION: None. FINDINGS: No fracture or stress injury is identified. No bone destructive focus is evident. Hip joint spacing and knee joint spacing looks appropriate [facility] TITUS IBANEZ Kang, Mhpn Incoming Radiant Results From [facility] - 01/22/2019 2:37 PM EDT RIGHT FEMUR AP, LATERAL (4 IMAGES), 01/22/2019 CLINICAL INDICATION: Femur area pain. COMPARISON EXAMINATION: None. FINDINGS: No fracture or stress injury is identified. No bone destructive focus is evident. Hip joint spacing and knee joint spacing looks appropriate IMPRESSION: No acute process in the femur is demonstrated. [facility] acute process in the femur is demonstrated. [facility] Progress Noteon 11-15-2017 HIM IP Note OR Machine [employer]er [employer] Folder Normal [facility] Progress Noteon 10-26-2017 HIM IP Note OR Machine [employer] Folder Normal [facility] Vital Signs Date Time Vital Sign Value Performing Clinician Facility 11-17-2023 17:35-0400 Hourly Rounding [facility] 11-17-2023 16:00-0400 Heart rate 65 /min [facility] 11-17-2023 16:00-0400 SaO2% (BldA) [Mass fraction] 98 % [facility] 11-17-2023 16:00-0400 Hourly Rounding [facility] 11-17-2023 16:00-0400 Promise to Return [facility] 11-17-2023 15:58-0400 Body temperature 97.7 [degF] [facility] 11-17-2023 15:58-0400 Diastolic blood pressure 70 mm[Hg] [facility] 11-17-2023 15:58-0400 Mean blood pressure 86 mm[Hg] [facility] 11-17-2023 15:58-0400 Systolic blood pressure 118 mm[Hg] [facility] 11-17-2023 15:00-0400 Blood Pressure Location [facility] 11-17-2023 15:00-0400 Hourly Rounding [facility] 11-17-2023 15:00-0400 Promise to Return [facility] 11-17-2023 15:00-0400 Respiratory rate 16 /min [facility] 11-17-2023 14:00-0400 Promise to Return [facility] 11-17-2023 11:14-0400 Heart rate 64 /min [facility] 11-17-2023 11:14-0400 SaO2% (BldA) [Mass fraction] 99 % [facility] 11-17-2023 11:14-0400 Body temperature 97.7 [degF] [facility] 11-17-2023 11:13-0400 Diastolic blood pressure 72 mm[Hg] [facility] 11-17-2023 11:13-0400 Mean blood pressure 90 mm[Hg] [facility] 11-17-2023 11:13-0400 Systolic blood pressure 127 mm[Hg] [facility] 11-17-2023 07:00-0400 Body temperature 97.34 [degF] [facility] 11-17-2023 07:00-0400 Diastolic blood pressure 73 mm[Hg] [facility] 11-17-2023 07:00-0400 Respiratory rate 18 /min [facility] 11-17-2023 07:00-0400 Systolic blood pressure 124 mm[Hg] [facility] 11-17-2023 04:50-0400 Body temperature 97.52 [degF] [facility] 11-17-2023 00:00-0400 Body temperature 97.88 [degF] [facility] 11-16-2023 16:45-0400 Heart rate 57 /min [facility] 11-16-2023 16:04-0400 Mean blood pressure 110 mm[Hg] [facility] 11-16-2023 15:55-0400 Mean blood pressure 108 mm[Hg] [facility] 11-16-2023 15:55-0400 Respiratory rate 18 /min [facility] 11-16-2023 15:45-0400 Mean blood pressure 101 mm[Hg] [facility] 11-16-2023 15:45-0400 Respiratory rate 18 /min [facility] 11-16-2023 15:41-0400 Mean blood pressure 88 mm[Hg] [facility] 11-16-2023 15:41-0400 Respiratory rate 17 /min [facility] 11-16-2023 15:28-0400 Body temperature 97.52 [degF] [facility] 11-16-2023 11:10-0400 Heart rate 79 /min [facility] 10-27-2023 06:15-0400 Diastolic blood pressure 85 mm[Hg] [facility] 10-27-2023 06:15-0400 Heart rate 64 /min [facility] 10-27-2023 06:15-0400 Mean blood pressure 101 mm[Hg] [facility] 10-27-2023 06:15-0400 Respiratory rate 15 /min [facility] 10-27-2023 06:15-0400 SaO2% (BldA) [Mass fraction] 99 % [facility] 10-27-2023 06:15-0400 Systolic blood pressure 133 mm[Hg] [facility] 10-27-2023 05:03-0400 Body temperature 98.24 [degF] [facility] 10-27-2023 05:03-0400 Diastolic blood pressure 84 mm[Hg] [facility] 10-27-2023 05:03-0400 Heart rate 80 /min [facility] 10-27-2023 05:03-0400 Respiratory rate 16 /min [facility] 10-27-2023 05:03-0400 SaO2% (BldA) [Mass fraction] 98 % [facility] 10-27-2023 05:03-0400 Systolic blood pressure 162 mm[Hg] [facility] 09-12-2023 14:00-0400 Heart rate 61 /min [facility] 09-12-2023 14:00-0400 Respiratory rate 19 /min [facility] 09-12-2023 14:00-0400 SaO2% (BldA) [Mass fraction] 96 % [facility] 09-12-2023 03:00-0400 Diastolic blood pressure 70 mm[Hg] [facility] 09-12-2023 03:00-0400 Heart rate 70 /min [facility] 09-12-2023 03:00-0400 Respiratory rate 18 /min [facility] 09-12-2023 03:00-0400 SaO2% (BldA) [Mass fraction] 97 % [facility] 09-12-2023 03:00-0400 Systolic blood pressure 125 mm[Hg] [facility] 09-12-2023 01:15-0400 Diastolic blood pressure 97 mm[Hg] [facility] 09-12-2023 01:15-0400 Heart rate 70 /min [facility] 09-12-2023 01:15-0400 Mean blood pressure 107 mm[Hg] [facility] 09-12-2023 01:15-0400 Respiratory rate 15 /min [facility] 09-12-2023 01:15-0400 SaO2% (BldA) [Mass fraction] 99 % [facility] 09-12-2023 01:15-0400 Systolic blood pressure 128 mm[Hg] [facility] 09-12-2023 00:20-0400 Body temperature 98.24 [degF] [facility] 09-12-2023 00:20-0400 Diastolic blood pressure 88 mm[Hg] [facility] 09-12-2023 00:20-0400 Heart rate 89 /min [facility] 09-12-2023 00:20-0400 Respiratory rate 16 /min [facility] 09-12-2023 00:20-0400 Systolic blood pressure 127 mm[Hg] [facility] 09-10-2023 01:00-0400 Diastolic blood pressure 84 mm[Hg] [facility] 09-10-2023 01:00-0400 Heart rate 72 /min [facility] 09-10-2023 01:00-0400 Mean blood pressure 100 mm[Hg] [facility] 09-10-2023 01:00-0400 Respiratory rate 16 /min [facility] 09-10-2023 01:00-0400 SaO2% (BldA) [Mass fraction] 97 % [facility] 09-10-2023 01:00-0400 Systolic blood pressure 132 mm[Hg] [facility] 09-10-2023 00:30-0400 Diastolic blood pressure 80 mm[Hg] [facility] 09-10-2023 00:30-0400 Heart rate 68 /min [facility] 09-10-2023 00:30-0400 Mean blood pressure 96 mm[Hg] [facility] 09-10-2023 00:30-0400 SaO2% (BldA) [Mass fraction] 96 % [facility] 09-10-2023 00:30-0400 Systolic blood pressure 128 mm[Hg] [facility] 09-10-2023 00:00-0400 Diastolic blood pressure 81 mm[Hg] [facility] 09-10-2023 00:00-0400 Heart rate 75 /min [facility] 09-10-2023 00:00-0400 Mean blood pressure 95 mm[Hg] [facility] 09-10-2023 00:00-0400 Systolic blood pressure 123 mm[Hg] [facility] 09-09-2023 22:59-0400 Body temperature 97.88 [degF] [facility] 09-09-2023 22:59-0400 Heart rate 84 /min [facility] 09-09-2023 22:59-0400 Respiratory rate 20 /min [facility] 09-08-2023 07:58-0400 Blood Pressure Location [facility] 09-08-2023 07:58-0400 Body temperature 98.6 [degF] [facility] 09-08-2023 07:58-0400 Diastolic blood pressure 84 mm[Hg] [facility] 09-08-2023 07:58-0400 Heart rate 86 /min [facility] 09-08-2023 07:58-0400 Respiratory rate 16 /min [facility] 09-08-2023 07:58-0400 Systolic blood pressure 127 mm[Hg] [facility] 09-07-2023 06:59-0400 Heart rate 68 /min [facility] 09-07-2023 06:59-0400 SaO2% (BldA) [Mass fraction] 98 % [facility] 09-07-2023 06:58-0400 Diastolic blood pressure 70 mm[Hg] [facility] 09-07-2023 06:58-0400 Systolic blood pressure 114 mm[Hg] [facility] 09-07-2023 05:44-0400 Diastolic blood pressure 79 mm[Hg] [facility] 09-07-2023 05:44-0400 Heart rate 50 /min [facility] 09-07-2023 05:44-0400 Mean blood pressure 91 mm[Hg] [facility] 09-07-2023 05:44-0400 SaO2% (BldA) [Mass fraction] 98 % [facility] 09-07-2023 05:44-0400 Systolic blood pressure 115 mm[Hg] [facility] 09-07-2023 04:24-0400 Body temperature 98.24 [degF] [facility] 09-07-2023 04:24-0400 Diastolic blood pressure 82 mm[Hg] [facility] 09-07-2023 04:24-0400 Heart rate 53 /min [facility] 09-07-2023 04:24-0400 Respiratory rate 20 /min [facility] 09-07-2023 04:24-0400 SaO2% (BldA) [Mass fraction] 100 % [facility] [facility] 09-07-2023 04:24-0400 Systolic blood pressure 141 mm[Hg] [facility] 01-22-2019 13:29-0400 BP Diastolic 79 mm[Hg] [facility] [place] 01-22-2019 13:29-0400 BP Systolic 131 mm[Hg] [facility] 01-22-2019 13:29-0400 Pulse Oximetry 98 % [facility] 01-22-2019 13:28-0400 BMI (Body Mass Index) 19.53 kg/m2 [facility], [place] 01-22-2019 13:28-0400 Body Temperature 98.29 [degF] [facility], [place] 01-22-2019 13:28-0400 Body weight 65.32 kg [place], [place] 01-22-2019 13:28-0400 Height 182.9 cm [facility], [place] 01-22-2019 13:28-0400 Pulse (Heart Rate) 84 /min [place], [place] 01-22-2019 13:28-0400 Respiratory Rate 16 /min [place], [place] Encounters Encounter Date Encounter Type Care Provider Facility Start: 01-10-2024 ambulatory Otf Alexander ty:[facility] Start: 11-30-2023 ambulatory Otf Alexander ty:[id number] Start: 11-16-2023 End: 11-17-2023 Admission [facility] center [facility] Start: 11-16-2023 End: 11-17-2023 ambulatory Nic SIMPSON Facility:[facility] Start: 11-16-2023 Emergency department patient visit Tyron Trujillo Facility:[facility] Start: 10-27-2023 End: 10-27-2023 Emergency department patient [facility] Start: 09-19-2023 End: 09-19-2023 ambulatory Otf BHAGAT Facility:[facility] Start: 09-19-2023 End: 09-19-2023 Patient encounter procedure [facility] Start: 09-18-2023 ambulatory Otf BHAGAT Facility :[facility] [place] Start: 09-12-2023 End: 09-12-2023 Emergency department patient visit Zechariah Perales Facility:[facility] Start: 09-12-2023 End: 09-12-2023 Emergency department patient visit [facility] Start: 09-10-2023 End: 09-10-2023 Emergency department patient visit Kuldipelvirarakesh Jesús Carlos Facility:[facility] Start: 09-09-2023 End: 09-10-2023 Emergency department [facility] Start: 09-08-2023 End: 09-09-2023 ambulatory Otf BHAGAT Facility:CD:[id number] Start: 09-08-2023 End: 09-09-2023 ambulatory Otf BHAGAT Facility:[facility] [place] Start: 09-08-2023 End: 09-08-2023 Patient encounter procedure [facility] Start: 09-07-2023 End: 09-07-2023 Emergency department patient visit Moeson Lantiguatyrell Facility:[facility] Start: 09-07-2023 End: 09-07-2023 Emergency department patient visit [facility] Start: 01-22-2019 End: 01-22-2019 Emergency department patient visit ARCHANA SANCHEZ [facility] Start: 01-22-2019 End: 01-22-2019 Emergency department patient visit Veselin Remi Work Phone: [facility] ED Comment on above: Pain of [...] 12-16-2018 Influenza vaccination Flu vaccine (# 1) [place], [place] Start: 2001 DTaP/Tdap/Td vaccine (1 - Tdap) DTaP/Tdap/Td vaccine (1 - Tdap) [place], [place] Start: 1997 HIV screen HIV screen [place], [place] Start: 1995 Varicella Vaccine (1 of 2 - 13+ 2-dose series) Varicella Vaccine (1 of 2 - 13+ 2-dose series) [place], [place] Start: 02-01-1988 Pneumococcal 0-64 ye ars Vaccine (1 of 1 - PPSV23) Pneumococcal 0-64 years Vaccine (1 of 1 - PPSV23) [place], [place] Payers Date Payer Category Payer Unknown [id number] 2023 Unknown [id number] 2023 Unknown [id number] 2019 Unknown [id number] 2019 [facility] xxxxxxxxxxxx 2019-Present [phone] CLAIMS DEPARTMENT [address] [place] [address] xxxxxxxxxxxx [id number] 1982 Unknown [id number] 2.16.840.1.844712.3.579.2.174 1982 Unknown [id number] 2.840.1.681246.3.579.2.727 1982 Unknown [id number] 2.840.1.804238.3.579.2.727 1982 Unknown [id number] 2.16.840.1.472880.3.579.2.727 1982 Unknown [id number] 2.16.840.1.654327.3.579.2.727 1982 Unknown [id number] 2.16.840.1.372774.3.579.2.727 1982 Unknown [id number] 2.16.840.1.900030.3.579.2.727 1982 Unknown [id number] 2.16.840.1.057229.3.579.2.727 1982 Unknown [id number] 2.16.840.1.941378.3.579.2.727 1982 Unknown [id number] 2.16.840.1.709672.3.579.2.727 1982 Unknown [id number] 2.16.840.1.755460.3.579.2.727 1982 Unknown [id number] 2.16.840.1.980422.3.579.2.727 1982 Unknown [id number] 2.16.840.1.238998.3.579.2.727 1982 Unknown [id number] 2.16.840.1.241274.3.579.2.727 1982 Unknown [id number] 2.16.840.1.765079.3.579.2.727 1982 Unknown [id number] 2.16.840.1.843385.3.579.2.727 1982 Unknown [id number] 2.16.840.1.291770.3.579.2.727 Social History Date Type Detail Facility Start: 01-22-2019 [facility] [place] History of tobacco use Cigarette Smoker [place], [place] Start: 01-22-2019 Cigarettes smoked current (pack per day) - Reported [place], [place] Start: 01-22-2019 Alcohol intake No [facility] Sex Assigned At Not on file [place] Start: 09-07-2023 End: 09-08-2023 Tobacco smoking status Heavy tobacco smoker (finding) [facility] Medical Equipment Procedure Code Equipment Code Equipment Origin al Text Equipment Identifier Dates CYSTOSCOPY RETROGRADE STENT INSERTION Nic SIMPSON MD 11/16/23 Unknown Ureter L {[id number] FDA Start: 11-16-2023 Functional Status Date Assessment Result Facility 11-16-2023 Functional Status N/A [facility] 11-16-2023 Functional Status [facility] 10-27-2023 Functional Status N/A [facility] 09-12-2023 Functional Status N/A [facility] 09-09-2023 Functional Status N/A [facility] 09-08-2023 Functional Status N/A [facility] 09-07-2023 Functional Status N/A [facility] Clinical Notes 09-07-2023 to 11-17-2023 Note Date [...] informed at 1850 of pt leaving AMA. [facility] 11-16-2023 Note Progress Note-Physic tien Patient: [...] criteria ( From PACU to floor ). [facility] Comment on above: Result Comment: Elec tronically Signed By: Luis Jones Jr, DO\.br\Date and Time Signed: 11/16/23 18:25 EDT 11-16-2023 [...] All Problems Ureteral stone / SNOMED CT 64293912 / Confirmed Smoker / SNOMED CT 550164934 / Confirmed Added secondary to documentation in Social History. Denies / SNOMED CT 999731863 / Confirmed History of kidney stones / SNOMED CT 7237232740 / Confirmed Canceled: Gross hematuria / SNOMED CT 698715996 Canceled: Flank pain / SNOMED CT 905164233 Histories Procedure history: appendectomy in 1989 at [...] adequate air exchange. Cardiovascular: Regular rhythm. Plan [place] [employer] Anesthesi[employer] (ASA) physical status classification: Class II, E. Anesthetic Preoperative Plan: Anesthesia General. [facility] Comment on above: Result Comment: Elec tronically Signed By: Luis Jones Jr, DO\.br\Date and Time Signed: 11/16/23 18:24 EDT 11-16-2023 [...] days, # 4 cap(s), Refills(s) 0, Pharmacy: [facility] #[id number], 182, cm, 10/27/23 5:06:00 EDT, Height/Length Dosing, 65.3, kg, 10/27/23 5:06:00 EDT, Weight Dosing naproxen 500 mg Tab: 500 mg = 1 tab(s), Oral, BID, Take one tab by mouth two times a day, # 14 tab(s), Refills(s) 0, Pharmacy: [facility] #[id number], 182, cm, 10/27/23 5:06:00 EDT, Height/Length Dosing, 65.3, kg, 10/27/23 5:06:00 EDT, Weight Dosing Histories Past Medical History: Active Denies (271784829) Family History: No family history items have [...] options. It is (more content not included)... [facility] Comment on above: Result Comment: Elec tronically Signed By: Nic SIMPSON MD\.br\Date and Time Signed: 11/16/23 15:08 EDT 11-16-2023 [...] 2022 Author:Luis Jones Jr, DO Date:11/16/23 Plan [place] [employer]esthesiologists (ASA) physical status classification: [...] Date:01/10/2024 10:30:00 AM Scheduled Provider:Otf BHAGAT MD Location:[facility] Appointment Type:URO Office Visit Future Scheduled Tests Radiology* XR Abdomen 1 View 12/17/23 [facility] 07-12-2024 Evaluation + Plan noteExtracted from: Title:ED [...] Date:01/10/2024 10:30:00 AM Scheduled Provider:Otf BHAGAT MD Location:[facility] Appointment Type:URO Office Visit Diagnostic Tests Pending * Urine Culture 10/27/23 Future Scheduled Tests Radiology* XR Abdomen 1 View 12/17/23 [facility] Hospital Discharge instructions Follow Up Care 10/27/2023 05:02:01 With:Nic SIMPSON Address: [address] [place] [address] [address] [place] [phone]- Business (1) When:10/30/2023 07:50:52 Comments:Call Dr for diagnosis based follow up [facility]06-[facility]2024 Hospital Discharge instructions Patient Education 09/19/2023 08:17:15 [...] Up Care 09/18/2023 10:10:51 With:Otf BHAGAT Address: [address] [place] [address]- Business (1) When: Unknown Comments:Office will call to schedule follow up [facility]06-04-2024 Note [id number] [facility] 09-19-2023 NoteCustom Cystoscopy with Stent [...] if you have a fever over 100 degrees.[facility] 09-12-2023 Evaluation + Plan noteExtracted from: [...] Diagnostic Tests Pending * Urine Culture 09/12/23 [facility]05[facility]28[facility]24 Hospital Discharge instructions Patient Education 09/12/2023 02:50:44 [...] Follow these instructions at home: Medicines Take qinn-wuo-wekyfan and prescription medicines only as told by [...] provider. Document Revised: 07/13/2022 Document Reviewed: 07/13/2022 [employer] Patient Education 2022 Recommind. Follow Up Care 09/12/2023 00:11:24 With:Otf BHAGAT Address: [address] [place], [place] [id number] [facility] (1) When:09/15/2023 Comments:Call the office of your [...] 2 Percocets if your pain is worsening. [facility]05-26[facility]2024 Hospital Discharge instructions Patient Education 09/10/2023 01:12:12 Urinary Tract Infection, Adult, Fwst-so-Deaj Urinary Tract Infection, Adult A urinary tract [...] Follow these instructions at home: Medicines Take mlqz-rdl-adwlond and prescription medicines only as told by [...] provider. Document Revised: 11/13/2020 Document Reviewed: 11/13/2020 [employer] Patient Education 2022 Recommind. 09/10/2023 01:12:12 Renal Colic, Darr-mh-Esec Renal Colic Renal colic is pain that is caused by a kidney stone. The pain can be sharp and very bad. It may befelt in the back, belly, side (flank), or groin. It can cause nausea. Renal colic can come and go. Follow these instructions at home: Medicines Take uxpq-cqt-ctzhzvv and prescription medicines only as told by [...] is caused by a kidney stone. Take fdhv-otc-dsscdgo and prescription medicines only as told by [...] provider. Document Revised: 12/06/2021 Document Reviewed: 12/06/2021 [employer] Patient Education 2022 Recommind. Follow Up Care 09/09/2023 22:53:11 With:Otf BHAGAT Address: [address] [place] [phone]- Business (1) When:09/13/2023 Comments:Stop taking the Keflex and you can start taking the Cipro as prescribed to completed the course. You can use the pain medication as prescribed as needed for pain. Please follow-up with Dr. Bhagat forfurt evaluation and management. Please return to the ED for any new or worsening symptoms. With:[facility] Address: [address] [place] [address] [place] [address]- Business (1) When:Within 3 Day(s) [facility]05-25-2024 Evaluation + Plan noteExtracted from: Title:ED Note Author:Avelina Gonzalez DO Date :09/09/23 Acute UTI (N39.0: Urinary tr act infection, site not specified) Ureteral colic (N23: Unspecified renal colic) Orders: acetaminophen-oxycodone, 1 tab(s), Oral, q6hr for 3 day(s), 12 tab(s), Refill(s) 0, [facility] #[id number], 182, cm, 09/09/23 23:02:00 EDT, Height/Length Dosing, 65.8, kg, 09/09/23 23:02:00 EDT, Weight Dosing ciprofloxacin, 500 mg = 1 tab(s), Oral, BID, # 28 tab(s), Refills(s) 0, Pharmacy: [facility] #[id number], 182, cm, 09/09/23 23:02:00 EDT, Height/Length Dosing, 65.8, kg, 09/09/23 23:02:00 EDT, Weight Dosing ketorolac, 10 mg = 1 tab(s), Oral, q6hr, PRN for pain, # 20 tab(s), Refills(s) 0, Pharmacy: [facility] #[id number], 182, cm, 09/09/23 23:02:00 EDT, Height/Length Dosing, [...] q8hr, # 12 tab(s), Refills(s) 0, Pharmacy: [facility] #[id number], 182, cm, 09/09/23 23:02:00 EDT, Height/Length Dosing, [...] Rflx Urine Culture XR Abdomen 1 View [facility] Hospital Discharge instructions Patient Education 09/08/2023 08:21:02 [...] Follow these instructions at home: Medicines Take kxey-wgp-nruyjxc and prescription medicines only as told by [...] prevent or treat constipation, such as: ?Take kpyi-nvs-apnggit or prescription medicines. ?Eat foods that are [...] provider. Document Revised: 08/10/2022 Document Reviewed: 12/06/2021 [employer] Patient Education 2022 [employer] 09/08/2023 08:21:01 Laser Therapy for Kidney [...] including vitamins, herbs, eye drops, creams, and zfzc-blg-huaiaze medicines. Any problems you or family members [...] provider tells you to take them. ?Taking hpyy-ekj-zffnupq medicines, vitamins, herbs, and supplements. Eating and [...] provider. Document Revised: 08/10/2022 Document Reviewed: 12/06/2021 [employer] Patient Education 2022 Recommind. Follow Up Care 09/07/2023 08:02:16 With:DU GREENE, PAULO Coombs Address: [facility] [address], [place] [address]- [phone] When: Unknown Comments:sched Cysto/L URS/Laser litho/L stent placement [facility] 05-23-2024 Evaluation + Plan noteExtracted from: Title:ED [...] Date:09/08/2023 08:00:00 AM Scheduled Provider:Otf BHAGAT MD Location:[facility] Appointment Type:URO Office Visit Diagnostic Tests Pending * Urine Culture 09/07/23 [facility] Hospital Discharge instructions Patient Education 09/07/2023 07:03:43 [...] Treatment for this condition includes: Antibiotic medicine. Urdf-fbi-aaburbx medicines to treat discomfort. Drinking enough water [...] Follow these instructions at home: Medicines Take nhuj-zck-cggeili and prescription medicines only as told by [...] provider. Document Revised: 11/13/2020 Document Reviewed: 11/13/2020 [employer] Patient Education 2022 Recommind. 09/07/2023 07:03:43 Kidney Stones Kidney Stones Kidney [...] Follow these instructions at home: Medicines Take ciag-gmz-jynfnio and prescription medicines only as told by [...] provider. Document Revised: 07/13/2022 Document Reviewed: 07/13/2022 [employer] Patient Education 2022 Recommind. Follow Up Care 09/07/2023 04:20:42 With:Otf BHAGAT Address: [address] [place] [address] [place] [address] Business (1) When:09/10/2023 06:54:40 Comments:Make sure to strain the urine as instructed. Call the office of Dr[facility] Nothing to eat or drink after midnight tonight. Return to the emergency room if your pain gets worse, vomiting or any new symptoms.Call for diagnosis based follow [facility] Future Appointments Appointment Date:01/10/2024 10:30:00 AM Scheduled Provider:Otf BHAGAT MD Location:[facility] Appointment Type:URO Office Visit Future Scheduled Tests Radiology* XR Abdomen 1 View 12/17/23 [facility] N[facility]ative No data available for this section 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 Discharge Instructions * Instructions* Jethro Ruelas MD [...] section and content) DATE CREATED AUTHOR 11/15/2017 [facility] DATE CREATED AUTHOR AUTHOR'S ORGANIZ ATION [facility] DATE CREATED AUTHOR AUTHOR'S ORGANIZ ATION 09/09/2023 [facility] DATE CREATED AUTHOR AUTHOR'S ORGANIZ ATION 09/10/2023 [facility] DATE CREATED AUTHOR AUTHOR'S ORGANIZ ATION 09/11/2023 [facility] DATE CREATED AUTHOR AUTHOR'S ORGANIZ ATION 09/12/2023 [facility] DATE CREATED AUTHOR AUTHOR'S ORGANIZ ATION 09/15/2023 [facility] DATE CREATED AUTHOR AUTHOR'S ORGANIZ ATION 11/02/2023 [facility] DATE CREATED AUTHOR AUTHOR'S ORGANIZ ATION 11/18/2023 [facility] DATE CREATED AUTHOR AUTHOR'S ORGANIZ ATION 11/19/2023 [facility] DATE CREATED AUTHOR AUTHOR'S ORGANIZ ATION 11/23/2023 [facility] Reason for Visit (unrecogniz ed section and content) Reason Comments Leg Pain right leg- x3 days - pain worse today - denies injury Patient Care team informatio n (unrecognized section and content) Personnel Name: [facility] Address: Address: [address] [place] [address] Name: Niya Bearden Personnel Name: [facility] Address: Address: [address] [place] [address] Name: Niya Bearden Personnel Name: [facility] Address: Address: [address] [place] [address] Name: Niya Bearden Personnel Name: [facility] Address: Address: [address] [place] [address] Name: Niya Bearden Personnel Name: [facility] Address: Address: [address] [place] [address] Name: Niya Bearden Personnel Name: [facility] Address: Address: [address] [place] [address] Name: Niya Bearden Personnel Name: [facility] Address: Address: [address] [place] [address] Name: Niya Beardne FOR RECORDS PERTAINING TO PATIENTS WHO ARE [...] BE BASED ON THE PRIMARY CLINICAL RECORDS. [facility]. provides no warranty or guarantee of the accuracy or completeness of information in this document.
[2023-11-28] MEDS: SCOPOLAMINE 1 MG/3 DAYS TRANSDERM PATCH 1 PATCH TD (07:29)
[2023-11-28] MEDS: LACTATED RINGER'S SOLUTION 1,000 ML 50 ML IV ×2 (07:30→09:36)
[2023-11-28] MEDS: FAMOTIDINE/PF 20 MG/2 ML VIAL IVP (07:30)
[2023-11-28] MEDS: CEFAZOLIN SODIUM/DEXTROSE,ISO 2 GM/50 ML PIGGYBACK IV (07:54)
--- NOTE | 2023-11-28 08:00 | XR_ITS ---
[address] [address] Patient Name: JKAOB FUENTES MRN: [id number] date: 1980 Sex: M Assigned Patient Location: [facility] Current Patient Location: Accession/Order Number: [id number] Exam Date: 11/28/2023 08:05 Report Date: 11/28/2023 15:42 At the request of: GUNNER SANDY Procedure: XR urethrogram retrograde EXAM: XR urethrogram retrograde HISTORY: Left retrograde, left stent placement COMPARISON: None. TECHNIQUE: 53.02 mg FINDINGS: Single image demonstrates a left ureteral stent. Contrast within the left renal pelvis. XR/XR urethrogram retrograde IMPRESSION: Left ureteral stent Electronically authenticated by: ARABELLA BUI Date: 11/28/2023 15:42
[2023-11-28] MEDS: IOHEXOL 300 MG/ML - 50 ML BTL INJ (08:54)
--- NOTE | 2023-11-28 09:05 | P.URON_ITS ---
Urology Surgery Operative Note Operative Note Procedure Date: 11/28/23 Time Out Performed: yes Pre-op Diagnosis: Left renal and ureteral calculi status post left stent placement. 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 Cystoscopy. 2. Left stent changed to 7 Russian variable length. 3. Left retrograde pyelogram. 4. Left ureteroscopy. 5. Left rigid ureteral dilation to 8 Russian. Anesthesia: General-LMA Primary Surgeon: Otf Bhagat Complications: None Estimated blood loss (mL): 10 Findings: 1. Mild urethral meatal stenosis. 2. Left UPJ stenosis with induration. 3. No evidence of extravasation on retrograde. 4. Left renal calculus by fluoroscopy Specimens: None Drains: 7 Russian variable length left ureteral stent Indications for Procedures: This gentleman had a large impacted 9 to 10 mm left UPJ stone back in August. He underwent laser lithotripsy and stent placement on September 07. Once his stent was removed he did fine until October when he developed left flank pain. He was in the ER a couple times and CAT scan suggested tiny left UPJ stone and left renal stones. Dr. Kenyon stented him on November 15. He now presents for definitive ureteroscopic stone manipulation and stent removal or change. He has signed an informed consent after risks were explained. Detailed description of Procedure: The patient was brought to the operating room and placed on the operating room table in the supine position. SCDs were placed on the lower extremities and turned on and functioning during the entire case. Timeout was done by all parties in the room. We all agreed upon the patient's identification and the planned procedures for this patient. Genn. anesthesia was then administered. The patient was then repositioned into the modified dorsal lithotomy position. All pressure points were satisfactorily padded. Genitalia were sterilely prepped and draped in usual fashion. I started by passing a 22 Russian Olympus cystoscope per urethra and into the bladder. His urethral meatus was slightly stenosed but I was able to get the scope through it. The urethra appeared normal otherwise. Panendoscopy in the bladder showed no evidence of any tumors or stones. The stent was not encrusted. I then passed a flexible grasping forceps and grasped the end of the stent and brought it out the urethral meatus. I then slid a Glidewire up the stent into the kidney and remove the old stent. I then passed a 10/12 ureteral access sheath over the wire and up the ureter to the L5 position. The wire and stylette were then removed. I then passed a flexible ureteroscope through the access sheath and into the ureter. I then ascended up the ureter and was able to get to the UPJ region. This area was narrowed and it appeared as though there was a small stone in the area. I then used a 0 tip nitinol basket and attempted to engage the stone numerous times. I was unable to engage in anything. I then realized that this represented a UPJ stenosis and scar formation from his prior impacted stone. It is possible that some laser dust from the prior procedure was incorporated into this scar and that is why it appeared as though a tiny stone on CT scan. Nevertheless I then passed a Glidewire through the scope and was able to get it through the opening and into the kidney. Due to the induration of the stenosis I was unable to get the scope through the UPJ. Numerous failed attempts were done. I then remove the wire and then did a retrograde pyelogram through the scope and the filled up the calyceal system and demonstrated a narrowing at the UPJ. A wire was passed back through the scope and into the kidney. The scope and access sheath were then removed. I then backloaded the cystoscope over the wire and passed it into the bladder. I then very carefully slid the rigid 8 Russian ureteral dilator over the wire and up to the area. It easily passed into the kidney. I then slid the 10 Russian dilator and this was very difficult. I met quite a bit of resistance and was unable to get this through the narrowing into the kidney. I then removed that dilator and then remove the cystoscope. I then repassed the access sheath over the wire up to the L5 position and the wire was removed. The flexible cystoscope was then passed back through the sheath and I went right up to this area. It appeared as though it was significantly wider. I was still unable to get the ureteroscope through this area due to significant induration. Multiple failed attempts were done. I then decided to remove the scope after placing a Glidewire. The access sheath was removed also. The cystoscope was backloaded over the wire and passed into the bladder. I then slid a 7 Russian variable length stent over the wire up into the kidney. The wire was removed and there were good curls in the kidney and in the bladder. The bladder was d rained of its contents and the scope was then removed. He was then [facility] and wheeled to PACU in stable condition.
[2023-11-28] MEDS: SOLIFENACIN SUCCINATE 10 MG TABLET PO (09:40)
== END 2023-11-28 10:44 | disposition home or self-care (01) ==
PROVIDERS: Visit Provider Urology
PROC: (CPT 910; principal; 2023-11-28 08:00)
DX: N20.2 Calculus of kidney with calculus of ureter (principal); Q62.11 Congenital occlusion of ureteropelvic junction; F17.210 Nicotine dependence, cigarettes, uncomplicated
CPT/HCPCS: 52332; 52342; 36415; 74420; J0690; J1100; J1885; J2250; J2704; J3010; Q9967

== ENCOUNTER 2023-12-12 07:07 | Outpatient (OUT) | payer BC, SELFPAY ==
--- OUTSIDE RECORDS SUMMARY | 2023-12-12 07:11 | XMS_ITS | CCD ---
Author Organization [facility] Care Team Providers Care Trade Facilitator Name Role Phone ARCHANA SANCHEZ Primary Care Unavailable JETHRO RUELAS Attending Unavailable Archana Sanchez Primary Care Provider [facility] Primary Care Perlita davison Niya Bearden Unavailable Unavailable Tyron Trujillo Attending Unavailable DoAvelina marshall Attending Unavailable Avelina Gonzalez Attending Unavailable Zechariah Perales Attending Unavailable Zechariah Perales Attending Unavailable Otf BHAGAT Attending Unavailable HaTyron santillan Attending Unavailable BHAGATOtf Attending Unavailable BHAGATOtf Attending Unavailable BHAGATOtf Referring Unavailable BHAGAT, Otf Quintanilla Attending Unavailable BHAGAT, Otf Quintanilla Admitting Unavailable Shabbir Barlow Attending Unavailable Shabbir Barlow Attending Unavailable Hatyrell, Astrson H Attending Unavailable Nic SIMPSON Attending Unavailable Nic SIMPSON Admitting Unavailable BHAGATOtf Attending Unavailable BHAGAT, Otf Quintanilla Attending Unavailable Medications Current Medications Medication Drug Class(es) Dates Sig (Normalized) Sig (Original) acetaminophen 325 mg / oxyCODONE hydrochloride 5 mg oral tablet (12 sources) Opioid Agonist Start: 10-27-2023 End: 10-30-2023 Percocet 5 mg-325 mg oral tablet 1 tab(s), Oral, q6hr for 3 day(s), 10 tab(s), Refill(s) 0, [facility] #[id number], 182, cm, 10/27/23 5:06:00 EDT, Height/Length Dosing, [...] BID, # 28 tab(s), Refills(s) 0, [id number], 182, cm, 09/09/23 23:02:00 EDT, Height/Length Dosing, [...] pain, # 20 tab(s), Refills(s) 0, [id number], 182, cm, 09/09/23 23:02:00 EDT, Height/Length Dosing, 65.8, kg, 09/09/23 23:02:00 EDT, Weight Dosing Start Date: 09/10/23 Status: Ordered ondansetron 4 mg disintegrating oral tablet (1 source) Serotonin-3 Receptor Antagonist Start: 10-27-2023 End: 10-30-2023 take 1 tablet by mouth every six hours ondansetron 4 mg Dis Tab 4 mg = 1 tab(s), Oral, q6hr, X 3 day(s), # 10 tab(s), Refills(s) 0, Pharmacy: [facility] #[id number], 182, cm, 10/27/23 5:06:00 EDT, Height/Length Dosing, [...] days, # 4 cap(s), Refills(s) 0, Pharmacy: [facility] #[id number], 182, cm, 10/27/23 5:06:00 EDT, Height/Length Dosing, [...] q8hr, # 12 tab(s), Refills(s) 0, [id number], 182, cm, 09/09/23 23:02:00 EDT, Height/Length Dosing, [...] day(s), # 28 cap(s), Refills(s) 0, Pharmacy: [facility] #[id number], 182, cm, 10/27/23 5:06:00 EDT, Height/Length Dosing, [...] day, # 14 tab(s), Refills(s) 0, Pharmacy: [facility] #[id number], 182, cm, 10/27/23 5:06:00 EDT, Height/Length Dosing, [...] Hasmukh e Manageron 11-17-2023 Interdisciplinary Note - Physician Industrial Interdisciplinary Note - Physician Industrial CRM spoke with patient and in room. Patient is alert and oriented and participates in discharge planning. Patient white board updated, and CRM contact information provided. Discussed Dr Simpson will be here this afternoon and would anticipate to discharge today. Patient verified PCP, insurance and denies any DME. Patient is form home with and she will transport at sc. Patient denies any needs. [facility] Comment on above: Result Comment: Elec tronically Signed By: Estevan ANDREA, Mishel\.br\Date and Time Signed: 11/17/23 13:04 EDT Main OR Intraoperative Recor don 08-02-2024 Main OR Intraoperative Record Main OR Intraoperative Record IntraOp Document Type FT Summary Primary Physician: Nic SIMPSON MD Finalized Date/Time: 11/17/23 13:17:28 Pt. Name: JAKOB FUENTES Zoya CampoB./Sex: 1980 Male Med Rec #: [id number] Physician: Nic SIMPSON MD Financial #: [id number] Pt. Type: A Room/Bed: [place] [address] Admit/Disch: 11/16/23 11:07:38 - Institution: Case Times [...] 2 Entry 3 Case Attendee Neo PANCHAL, IN PROCESSING INSTRUCTOR, Nic Aragon MD, Kelsie E N. Role Performed IN PROCESSING INSTRUCTOR Surgeon - Primary Poultry Farmer Meat - Primary Time In 11/16/23 15:05:00 11/16/23 15:05:00 11/16/23 15:05:00 Time Out 11/16/23 15:27:00 11/16/23 15:27:00 11/16/23 15:27:00 Procedure CYSTOSCOPY RETROGRADE CYSTOSCOPY RETROGRADE CYSTOSCOPY RETROGRADE STENT INSERTION(Left) STENT INSERTION(Left) STENT INSERTION(Left) Comments IS SUPERVISING Last Modified By: Nora Jacinto Kelsie E Burgderfer, Kelsie E 11/16/23 15:29:58 11/16/23 15:29:58 11/16/23 15:29:58 Entry 4 Entry 5 Case Attendee August Dubose Danielle R (R) Role Performed Scrub - Primary Motor And Controls Tester Time In 11/16/23 15:05:00 11/16/23 15:05:00 Time [...] PreOp Antibiotic Yes Time Out Neo PANCHAL, Queen Samir MANRIQUE, Nic SIMPSON MD, Burgderfer, Kelsie E, Troike, Kendall R, Mikhail Perrin (R), Myriam Quintanilla Time Out [...] and tissue Entry 1 Skin Integrity Intact, Playita, Warm, & Skin Abnormality No Dry Outcomes Met? Yes Last Modified By: Nora Jacinto 11/16/23 14:50:49 Post-Care Text: The patient is free from signs and symptoms of injury caused by extraneous objects Patient Positioning FT Pre-Care Text: Identifies physical alterations that require additional precautions for procedure-specific positioning, verifies presence of prosthetics or corrective devices, positions the (more content not included)... [facility] BMPon 11-16-2023 Anion gap [Moles/Vol] 11 mmol/L Normal 6-16 [facility] Comment on above: Performed By: #### 2 [id number] #### [facility] [address] [place] [address] Calcium [Mass/Vol] 9.5 mg/dL Normal 8.9-11.1 [facility] Comment on above: Performed By: #### 2 [id number] #### [facility] [address] [place] [address] Chloride [Moles/Vol] 106 mmol/L Normal 101-111 [facility] Comment on above: Performed By: #### 2 [id number] #### [facility] [address] [place] [address] CO2 [Moles/Vol] 26 mmol/L Normal 21-31 [facility] Comment on above: Performed By: #### 2 [id number] #### [facility] [address] [place] [address] Creatinine [Mass/Vol] 1.1 mg/dL Normal 0.5-1.3 [facility] Comment on above: Performed By: #### 2 [id number] #### [facility] [address] [place] [address] Glucose [Mass/Vol] 77 mg/dL Normal 55-199 [facility] Comment on above: Performed By: #### 2 327277 #### [facility] [address] [place] [address] Potassium [Moles/Vol] 3.9 mmol/L Normal 3.5-5.3 [facility] Comment on above: Performed By: #### 2 550994 #### [facility] [address] [place] [address] Sodium [Moles/Vol] 139 mmol/L Normal 135-145 [facility] Comment on above: Performed By: #### 2 707557 #### [facility] [address] [place] [address] Urea nitrogen [Mass/Vol] 14 mg/dL Normal 5-21 [facility] Comment on above: Performed By: #### 2 [id number] #### [facility] [address] [place] [address] Urea nitrogen/Creatinine [Mass ratio] 13 No Units Normal 10-20 [facility] Comment on above: Performed By: #### 2 158333 #### [facility] [address] [place] [address] CBC w/ Auto Diffon 4 Basophils/100 WBC (Bld) 1.1 % Normal 0.0-2.0 [facility] Comment on above: Performed By: #### 2 [id number] #### [facility] [address] [place] [address] Basophils/Leukocytes Auto (Bld) [Pure # fraction] 0.1 E9/L Normal 0.0-0.2 [facility] Comment on above: Performed By: #### 2 086234 #### [facility] [address] [place] [address] Eosinophils (Bld) [#/Vol] 0.1 E9/L Normal 0.0-0.5 [facility] Comment on above: Performed By: #### 2 026065 #### [facility] [address] [place] [address] Eosinophils/100 WBC (Bld) 0.9 % Normal 0.0-8.0 [facility] Comment on above: Performed By: #### 2 821269 #### [facility] [address] [place] [address] Erythrocyte distribution width (RBC) [Ratio] 14.4 % High 10.9-14.2 [facility] Comment on above: Performed By: #### 2 419151 #### [facility] [address] [place] [address] Hematocrit (Bld) [Volume fraction] 42.5 % Normal 37.7-49.0 [facility] Comment on above: Performed By: #### 2 413088 #### [facility] [address] [place] [address] Hemoglobin (Bld) [Mass/Vol] 14.1 g/dL Normal 13.5-17.5 [facility] Comment on above: Performed By: #### 2 [id number] #### [facility] [address] [place] [address] Lymphocytes (Bld) [#/Vol] 2.5 E9/L Normal 1.0-4.0 [facility] Comment on above: Performed By: #### 2 375011 #### [facility] [address] [place] [address] Lymphocytes/100 WBC (Bld) 23.7 % Normal 14.0-50.0 [facility] Comment on above: Performed By: #### 2 750630 #### [facility] [address] [place] [address] MCH (RBC) [Entitic mass] 28.2 pg Normal 27.0-34.0 [facility] Comment on above: Performed By: #### 2 423892 #### [facility] [address] [place] [address] MCHC (RBC) [Mass/Vol] 33.2 g/dL Normal 31.4-36.0 [facility] Comment on above: Performed By: #### 2 958617 #### [facility] [address] [place] [address] MCV (RBC) [Entitic vol] 85.1 fL Normal 80.0-100.0 [facility] Comment on above: Performed By: #### 2 486983 #### [facility] [address] [place] [address] Monocytes (Bld) [#/Vol] 0.8 E9/L Normal 0.2-1.0 [facility] Comment on above: Performed By: #### 2 401814 #### [facility] [address] [place] [address] Neutrophils (Bld) [#/Vol] 7.0 E9/L Normal 2.0-7.5 [facility] Comment on above: Performed By: #### 2 124546 #### [facility] [address] [place] [address] Neutrophils/100 WBC (Bld) 66.9 % Normal 36.0-75.0 [facility] Comment on above: Performed By: #### 2 537116 #### [facility] [address] [place] [address] Platelet mean volume (Bld) [Entitic vol] 7.7 fL Normal 6.4-10.8 [facility] Comment on above: Performed By: #### 2 587255 #### [facility] [address] [place] [address] Platelets (Bld) [#/Vol] 253.0 E9/L Normal 150.0-500.0 [facility] Comment on above: Performed By: #### 2 944214 #### [facility] [address] [place] [address] RBC (Bld) [#/Vol] 5.0 E12/L Normal 4.3-5.9 [facility] Comment on above: Performed By: #### 2 391550 #### [facility] [address] [place] [address] WBC corrected for nucl RBC Auto (Bld) [#/Vol] 10.5 E9/L Normal 4.0-11.0 [facility] Comment on above: Performed By: #### 2 491391 #### [facility] [address] [place] [address] CHEMISTRYOrdered By: SYSTEM SYSTEM on 11-16-2023 Anion [...] Oral contrast amount in ml's: 0 Normal [facility] ED Note-Physicianon 11-16-19 ED Note-Physician ED [...] and Complexity of Problems Differential Diagnosis: [] [facility] Data External documents reviewed: [] My EKG [...] (11/16/23 1 (more content not included)... Normal [facility] Comment on above: Result Comment: Elec tronically Signed By: Tyron Trujillo M.D.\Date and Time Signed: 11/16/23 17:52 EDT HEMATOLOGYOrdered [...] Finalized Date/Time: 11/16/23 16:55:44 Pt. Name: JAKOB FUENTES./Sex: 1980 Male Med Rec #: [id number] Physician: Financial #: [id number] Pt. Type: O Room/Bed: [place] [address] Admit/Disch: 11/16/23 11:07:38 - Institution: Case Times [...] 15:48 Leola Nielsen RN 11/16/23 16:55 Normal [facility] Main OR PACU II Recordon Main OR PACU II Record Main OR PACU II Record PACU Phase II Document Type FT Summary Primary Physician: Nic SIMPSON MD Finalized Date/Time: 11/16/23 17:02:53 Pt. Name: JAKOB FUENTES/Sex: 1980 Male Med Rec #: [id number] Physician: Financial #: [id number] Pt. Type: O Room/Bed: Admit/Disch: 11/16/23 11:07:38 - Institution: Case [...] By: Cristiana Whitmore RN 11/16/23 17:02 Normal [facility] Main OR Preoperative Recordo n 11-16-2023 Main OR Preoperative Record Main OR Preoperative Record PreOp Document Type FT Summary Primary Physician: Nic SIMPSON MD Finalized Date/Time: 11/16/23 15:16:30 Pt. Name: JAKOB FUENTES D.O.B./Sex: 1980 Male Med Rec #: [id number] Physician: Financial #: [id number] Pt. Type: E Room/Bed: Admit/Disch: 11/16/23 11:07:38 [...] Signed By: Nora Jacinto 11/16/23 15:16 Normal [facility] Operative Reporton Operative Report Operative Report [...] placed per urethra and a well-lubricated 22 Mexican is urethroscope with 30 degree lens then [...] into the kidney. Over that a 4.7 Mexican Bard inlay double-J stent is passed into [...] plan.. Estimated Blood Loss: 1 ml. Normal [facility] Comment on above: Result Comment: Elec tronically Signed By: TATIANA GREENE, Nic Nichole.moody\Date and Time Signed: 11/16/23 15:24 EDT UA with Cult Rflxon 11-16-19 24 Bilirubin Ql (U) Negative Normal Negative [facility] Comment on above: Performed By: #### 4 [id number] ####[facility] [address] [place] [address] Clarity (U) Clear Normal Clear [facility] Comment on above: Performed By: #### 4 [id number] ####[facility] [address] [place] [address] Color (U) Light-Yellow Normal Yellow [facility] Comment on above: Result Comment: Micr oscopic readings are only performed on those samples that meet specific criteria set forth by [facility]. Performed By: #### 4 [id number] ####[facility] [address] [place] [address] Epithelial cells.squamous Auto (Urine sed) [#/Area] 0-2 Invalid Interpretation Code [facility] Comment on above: Performed By: #### 4 [id number] ####[place] [address] [place] [address] Glucose Ql (U) Negative Normal Negative [facility] Comment on above: Performed By: #### 4 [id number] ####[place] [address] [place] [address] Hemoglobin Auto test strip (U) [Mass/Vol] Trace Abnormal Negative [facility] Comment on above: Performed By: #### 4 [id number] ####[address] [address] Ketones Auto test strip Ql (U) Negative Normal Negative [facility] Comment on above: Performed By: #### 4 [id number] ####[facility] [address] [place] [address] Leukocyte esterase Auto test strip Ql (U) 25 Roberto/uL Normal Negative [facility] Comment on above: Performed By: #### 4 [id number] ####[facility] [address] [place] [address] Mucus Auto Ql (U) Negative Normal Negative [facility] Comment on above: Performed By: #### 4 [id number] ####[facility] [address] [place] [address] Nitrite Auto test strip Ql (U) Negative Normal Negative [facility] Comment on above: Performed By: #### 4 [id number] ####[place] [address] [place] [address] pH (U) 6.5 [pH] Invalid Interpretation Code 5.0-9.0 [facility] Comment on above: Performed By: #### 4 [id number] ####[place] [place] [address] Protein Ql (U) Negative Normal Negative [facility] Comment on above: Performed By: #### 4 [id number] ####[facility] [address] [place] [address] RBC Ql (U) 4-20 Abnormal 0-3 [facility] Comment on above: Performed By: #### 4 [id number] ####[place] [address] Specific gravity (U) [Rel density] 1.014 Invalid Interpretation Code 1.005-1.030 [facility] Comment on above: Performed By: #### 4 [id number] ####[place] [address] Urobilinogen (U) [Mass/Vol] Negative Normal Negative [facility] Comment on above: Performed By: #### 4 [id number] ####[place] [address] WBC Auto (Urine sed) [#/Area] 0-5 Normal 0-5 [facility] Comment on above: Performed By: #### 4 [id number] ####[place] [address] Type of Urine collection method Clean Catch Normal [facility] Comment on above: Performed By: #### 4 [id number] ####[place] [address] URINALYSISOrdered By: SYSTEM SYSTEM on 11-16-2023 Bilirubin Ql (U) Negative Normal Negativemg/ d L [facility] UA Auto SS Clarity (U) Clear (11/16/23 11:43 AM) Normal Clear [facility] UA Auto SS Color (U) Light-Yellow 1 (11/16/23 11:43 AM) Normal Yellow [facility] UA Auto SS Comment on above: Interpretive Data: M icroscopic readings are only performed on those samples that meet specific criteria set forth by [facility]. Epithelial cells.squamous Auto (Urine sed) [#/Area] 0-2 graded/HPF Invalid Interpretation Code [facility] UA Auto SS Glucose Ql (U) Negative [...] Desc Clean Catch (11/16/23 11:43 AM) Normal [facility] UA Auto SS US Renalon 11-16-2023 US [...] MD Transcribed by: FLAKO Technologist: TERESA Whitaker [facility] XR Abdomen 1 Viewon 11-16-19 XR [...] in mGy = na DAP = na [facility] XR Urography Retrograde Left on 11-16-2023 [...] = 148.54 Fluoro Time: 43 seconds Normal [facility] eGFRon 11-16-2023 eGFR 86 mL/min/1.73 m2 Normal >=59 [facility] Comment on above: Order Comment: Order added by Discern Expert. Performed By: #### 1 [id number] #### [facility] [address] [place] [address] C Urineon 10-29-2023 Bacteria identified Cx Nom [...] Locations R1: [facility], [address] [place] [address], [phone] , , Normal [facility] Comment on above: Performed By: #### 2 [id number] #### [facility] [address] [place] [address] BMPon 10-27-2023 Anion gap [Moles/Vol] 10 mmol/L Normal 6-16 [facility] Comment on above: Performed By: #### 2 276247 #### [facility] [address] [place] [address] Calcium [Mass/Vol] 8.7 mg/dL Low 8.9-11.1 [facility] Comment on above: Performed By: #### 2 899673 #### [facility] [address] [place] [address] Chloride [Moles/Vol] 107 mmol/L Normal 101-111 [facility] Comment on above: Performed By: #### 2 413202 #### [facility] [address] [place] [address] CO2 [Moles/Vol] 25 mmol/L Normal 21-31 [facility] Comment on above: Performed By: #### 2 [id number] #### [facility] [address] [place] [address] Creatinine [Mass/Vol] 1.2 mg/dL Normal 0.5-1.3 [facility] Comment on above: Performed By: #### 2 397630 #### [facility] [address] [place] [address] Glucose [Mass/Vol] 116 mg/dL Normal 55-199 [facility] Comment on above: Performed By: #### 2 191826 #### [facility] [address] [place] [address] Potassium [Moles/Vol] 4.0 mmol/L Normal 3.5-5.3 [facility] Comment on above: Performed By: #### 2 [id number] #### [facility] [address] [place] [address] Sodium [Moles/Vol] 138 mmol/L Normal 135-145 [facility] Comment on above: Performed By: #### 2 458721 #### [facility] [address] [place] [address] Urea nitrogen [Mass/Vol] 12 mg/dL Normal 5-21 [facility] Comment on above: Performed By: #### 2 090216 #### [facility] [address] [place] [address] Urea nitrogen/Creatinine [Mass ratio] 10 No Units Normal 10-20 [facility] Comment on above: Performed By: #### 2 818189 #### [facility] [address] [place] [address] CBC w/ Auto Diffon 4 Basophils/100 WBC (Bld) 0.6 % Normal 0.0-2.0 [facility] Comment on above: Performed By: #### 2 489381 #### [facility] [address] [place] [address] Basophils/Leukocytes Auto (Bld) [Pure # fraction] 0.1 E9/L Normal 0.0-0.2 [facility] Comment on above: Performed By: #### 2 929683 #### [facility] [address] [place] [address] Eosinophils (Bld) [#/Vol] 0.1 E9/L Normal 0.0-0.5 [facility] Comment on above: Performed By: #### 2 592633 #### [facility] [address] [place] [address] Eosinophils/100 WBC (Bld) 1.3 % Normal 0.0-8.0 [facility] Comment on above: Performed By: #### 2 278986 #### [facility] [address] [place] [address] Erythrocyte distribution width (RBC) [Ratio] 14.2 % Normal 10.9-14.2 [facility] Comment on above: Performed By: #### 2 197284 #### [facility] [address] [place] [address] Hematocrit (Bld) [Volume fraction] 44.4 % Normal 37.7-49.0 [facility] Comment on above: Performed By: #### 2 028303 #### [facility] [address] [place] [address] Hemoglobin (Bld) [Mass/Vol] 14.9 g/dL Normal 13.5-17.5 [facility] Comment on above: Performed By: #### 2 409178 #### [facility] [address] [place] [address] Lymphocytes (Bld) [#/Vol] 1.7 E9/L Normal 1.0-4.0 [facility] Comment on above: Performed By: #### 2 036905 #### [facility] [address] [place] [address] Lymphocytes/100 WBC (Bld) 15.1 % Normal 14.0-50.0 [facility] Comment on above: Performed By: #### 2 455849 #### [facility] [address] [place] [address] MCH (RBC) [Entitic mass] 28.7 pg Normal 27.0-34.0 [facility] Comment on above: Performed By: #### 2 805009 #### [facility] [address] [place] [address] MCHC (RBC) [Mass/Vol] 33.6 g/dL Normal 31.4-36.0 [facility] Comment on above: Performed By: #### 2 312897 #### [facility] [address] [place] [address] MCV (RBC) [Entitic vol] 85.4 fL Normal 80.0-100.0 [facility] Comment on above: Performed By: #### 2 205604 #### [facility] [address] [place] [address] Monocytes (Bld) [#/Vol] 0.9 E9/L Normal 0.2-1.0 [facility] Comment on above: Performed By: #### 2 719144 #### [facility] [address] [place] [address] Neutrophils (Bld) [#/Vol] 8.4 E9/L High 2.0-7.5 [facility] Comment on above: Performed By: #### 2 602782 #### [facility] [address] [place] [address] Neutrophils/100 WBC (Bld) 75.1 % High 36.0-75.0 [facility] Comment on above: Performed By: #### 2 292752 #### [facility] [address] [place] [address] Platelet mean volume (Bld) [Entitic vol] 8.3 fL Normal 6.4-10.8 [facility] Comment on above: Performed By: #### 2 066083 #### [facility] [address] [place] [address] Platelets (Bld) [#/Vol] 234.0 E9/L Normal 150.0-500.0 [facility] Comment on above: Performed By: #### 2 366587 #### [facility] [address] [place] [address] RBC (Bld) [#/Vol] 5.2 E12/L Normal 4.3-5.9 [facility] Comment on above: Performed By: #### 2 690267 #### [facility] [address] [place] [address] WBC corrected for nucl RBC Auto (Bld) [#/Vol] 11.2 E9/L High 4.0-11.0 [facility] Comment on above: Performed By: #### 2 299972 #### [facility] [address] [place] [address] CHEMISTRYOrdered By: SYSTEM SYSTEM on 10-27-2023 Albumin [...] Oral contrast amount in ml's: 0 Normal [facility] ED Clinical Summaryon 2023 ED Clinical Summary ED Clinical Summary [address] [address] ED Clinical Summary Person Information Name: JAKOB FUENTES/[facility] Age: 43 Years : 1980 Sex: Male Language: Turkish PCP: [facility], [facility] Marital Status: Visit Id: Visit Reason: [...] 10/27/2023 07:57:20 10/27/2023 07:57:20 10/27/2023 07:57:20 ADDRESS: [address] [place] [id number] PHYS DOC NOTES: Addendum by Jt Jameson DO on October 27, 2023 07:51:18 EDT MEDICAL INFORMATION: Prescriptions Given: New Medications [id number], [address], [place] [phone], [phone] acetaminophen-oxycod one (Percocet 5 mg-325 mg oral [...] Instructions: Follow up: With: Address: When: Nic [address]ZAMAT[address]Z, [address], [facility] [address] [place] [address] [employer] (1) In 3 days 10/30/2023 Comments: Call Dr for diagnosis based follow up DIAGNOSIS: Acute UTI; Flank pain; Ureterolithiasis Normal [facility] ED Note-Physicianon 10-27-19 ED Note-Physician ED Note-Physician Basic Information Time Seen: Yen Shabbir SEBASTIANHilda 10/27/2023 05:07 Chief Complaint left lower back [...] and Complexity of Problems Differential Diagnosis: [] [facility] Data External documents reviewed: N/A My EKG [...] (10/27/23 05:32:00) (more content not included)... [facility] Comment on above: Result Comment: Elec tronically Signed By: Christoph Jameson DO\Date and Time Signed: 10/27/23 07:52 EDT ED Patient Education Noteon 10-27-2023 ED Patient Education Note ED Patient Edu cation Note [facility] ED Patient Summaryon 024 ED Patient Summary ED Patient Summary [address] [address] Patient Discharge Instructions Person Information Name: JAKOB FUENTES Age: 43 Years Arrival Date: 10/27/2023 05:00:51 Discharge Diagnosis: Acute UTI; Flank pain; Ureterolithiasis Primary Care Physician: [facility], [facility] Provider Information Primary Provider: Shabbir Barlow DO [employer] Feeder:None The exam and treatment you received in the Emergency Department were for an urgent problem and are not intended as complete care. It is important that you follow up with a doctor, nurse practitioner, or physician?s plumber assistant for ongoing care. If your symptoms [...] Follow-up Instructions: With: Address: When: Nic SIMPSON [address] [place] [address], [address], [address] [address] Business (1) In 3 days 10/30/2023 Comments: [...] opioids can be used to help relieve fthmihvq-fw-taeprx pain and are often prescribed following a [...] be struggling with addiction, tell your health senior care manager and ask for (more content not included)... [facility] HEMATOLOGYOrdered By: SYSTEM SYSTEM on 10-27-2023 [...] 10-27-2023 Albumin [Mass/Vol] 4.1 g/dL Normal 3.3-5.0 [facility] Comment on above: Performed By: #### 2 [id number] #### [facility] [address] [place] [address] Albumin/Globulin (S) [Mass conc ratio] 1.6 Normal 1.1-2.2 [facility] Comment on above: Performed By: #### 2 [id number] #### [facility] [address] [place] [address] ALP [Catalytic activity/Vol] 59 Int._Unit/L Normal 21-98 [facility] Comment on above: Performed By: #### 2 [id number] #### [facility] [address] [place] [address] ALT No additional P-5'-P [Catalytic activity/Vol] 10 Int._Unit/L Normal 6-46 [facility] Comment on above: Performed By: #### 2 [id number] #### [facility] [address] [place] [address] AST [Catalytic activity/Vol] 18 Int._Unit/L Normal 5-43 [facility] Comment on above: Performed By: #### 2 [id number] #### [facility] [address] [place] [address] Bilirubin [Mass/Vol] 0.5 mg/dL Normal 0.0-1.1 [facility] Comment on above: Performed By: #### 2 [id number] #### [facility] [address] [place] [address] Bilirubin.direct [Mass/Vol] 0.1 mg/dL Normal 0.0-0.4 [facility] Comment on above: Performed By: #### 2 [id number] #### [facility] [address] [place] [address] Bilirubin.indirect [Mass or moles/Vol] 0.4 mg/dL Normal 0.1-0.9 [facility] Comment on above: Performed By: #### 2 [id number] #### [facility] [address] [place] [address] Globulin (S) [Mass/Vol] 2.6 g/dL Normal 1.4-4.0 [facility] Comment on above: Performed By: #### 2 [id number] #### [facility] [address] [place] [address] Protein [Mass/Vol] 6.7 g/dL Normal 6.0-7.8 [facility] Comment on above: Performed By: #### 2 409405 #### [facility] [address] [place] [address] Lipase Levelon 10-27-2023 Lipase [Catalytic activity/Vol] 37 U/L Normal 13-58 [facility] Comment on above: Performed By: #### 2 602927 #### [facility] [address] [place] [address] UA with Cult Rflxon 10-27-19 24 Bilirubin Ql (U) Negative Normal Negative [facility] Comment on above: Performed By: #### 4 [id number] #### [facility] [address] [place] [address] Clarity (U) Turbid Abnormal Clear [facility] Comment on above: Performed By: #### 4 [id number] #### [facility] [address] [place] [address] Color (U) Yellow Normal Yellow [facility] Comment on above: Result Comment: Micr oscopic readings are only performed on those samples that meet specific criteria set forth by [facility]. Performed By: #### 4 [id number] #### [facility] [address] [place] [address] Glucose Ql (U) Negative Normal Negative [facility] Comment on above: Performed By: #### 4 [id number] #### [facility] [address] [place] [address] Hemoglobin Auto test strip (U) [Mass/Vol] 2+ mg/dL Abnormal Negative [facility] Comment on above: Performed By: #### 4 [id number] #### [facility] [address] [place] [address] Ketones Auto test strip Ql (U) Negative Normal Negative [facility] Comment on above: Performed By: #### 4 [id number] #### [facility] [address] [place] [address] Leukocyte esterase Auto test strip Ql (U) 500 Roberto/uL Abnormal Negative [facility] Comment on above: Performed By: #### 4 [id number] #### [facility] [address] [place] [address] Mucus Auto Ql (U) 2+ [id number] Abnormal Negative [facility] Comment on above: Performed By: #### 4 [id number] #### [facility] [address] [place] [address] Nitrite Auto test strip Ql (U) Negative Normal Negative [facility] Comment on above: Performed By: #### 4 [id number] #### [facility] [address] [place] [address] pH (U) 5.5 [pH] Invalid Interpretation Code 5.0-9.0 [facility] Comment on above: Performed By: #### 4 [id number] #### [facility] [address] [place] [address] Protein Ql (U) Trace Abnormal Negative [facility] Comment on above: Performed By: #### 4 [id number] #### [facility] [address] [place] [address] RBC Ql (U) 31-75 Abnormal 0-3 [facility] Comment on above: Performed By: #### 4 [id number] #### [facility] [address] [place] [address] Specific gravity (U) [Rel density] 1.018 Invalid Interpretation Code 1.005-1.030 [facility] Comment on above: Performed By: #### 4 [id number] #### [facility] [address] [place] [address] Urobilinogen (U) [Mass/Vol] Negative Normal Negative [facility] Comment on above: Performed By: #### 4 [id number] #### [facility] [address] [place] [address] WBC Auto (Urine sed) [#/Area] >75 Abnormal 0-5 [facility] Comment on above: Performed By: #### 4 [id number] #### [facility] [address] [place] [address] Type of Urine collection method Clean Catch Normal [facility] Comment on above: Performed By: #### 4 [id number] #### [facility] [address] [place] [address] URINALYSISOrdered By: SYSTEM SYSTEM on 10-27-2023 Bilirubin Ql (U) Negative Normal Negativemg/ d L [facility] UA Auto SS Clarity (U) Turbid *ABN* (10/27/23 5:18 AM) Invalid Interpretation Code Clear [facility] UA Auto SS Color (U) Yellow 1 (10/27/23 5:18 AM) Normal Yellow [facility] UA Auto SS Comment on above: Interpretive Data: M icroscopic readings are only performed on those samples that meet specific criteria set forth by [facility]. Glucose Ql (U) Negative Normal Negativemg/d L [facility] UA Auto SS Hemoglobin Auto test strip [...] Desc Clean Catch (10/27/23 5:18 AM) Normal [facility] UA Auto SS eGFRon 10-27-2023 eGFR 78 mL/min/1.73 m2 Normal >=59 [facility] Comment on above: Order Comment: Order added by Discern Expert. Performed By: #### 1 [id number] #### [facility] [address] [place] [address] Consent for Procedure/Surger yon 09-19-2023 Consent for Procedure/Surgery [id number] #1.00TIFF Normal [facility] Consent for Treatmenton Consent for Treatment [id number] #1.00TIFF [facility] IntraOperative Documentson 0 09-19-2023 IntraOperative Documents [id number] #1.00TIFF Julianne Saunders [facility] Main OR Intraoperative Recor olimpia 09-19-2023 Main OR Intraoperative Record IntraOp Document Type FT[facility] Summary Primary Physician: Otf BHAGAT MD Finalized Date/Time: 09/19/23 08:16:51 Pt. Name: FUENTESJAKOB/Sex: 1980 Male Med Rec #: [id number] Physician: Otf BHAGAT MD Financial #: [id number] Pt. 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 [...] By: Pricilla Pimentel RN 09/19/23 08:16 [facility] Main OR Preoperative Recordo n 09-19-2023 Main OR Preoperative Record Holding Area Document Type FTURO Summary Primary Physician: Otf BHAGAT MD Finalized Date/Time: 09/19/23 07:44:00 Pt. Name: FUENTESJAKOB/Sex: 1980 Male Med Rec #: [id number] Physician: Otf BHAGAT MD Financial #: [id number] Pt. Type: O Room/Bed: / Admit/Disch: 09/19/23 [...] JHON Marquis RN, Ruthann 09/19/23 07:44 [facility] Operative Reporton Operative Report Patient: JAKOB [...] data and start a stone prevention plan.. [facility] Comment on above: Result Comment: Elec tronically Signed By: Otf BHAGAT MD\.br\Date and Time Signed: 09/19/23 08:16 EDT Outpatient Surgery Discharge Instructionon 09-19-2023 Outpatient Surgery Discharge Instruction [id number] #1.00TIFF [facility] Provider Letteron 09-19-2023 Provider Letter September 19, 2023 JAKOB FUENTES [address] [place] [id number] : 1980 To Whom It May Concern, Please excuse above patient from work. Date of Illness: From: 09/19/2023 To: 09/19/2023 May Return to Work On: 09/20/2023 Restrictions: none Comments: Patient had a surgical procedure on 09/19/[address] Bhagat. Sincerely, [facility] [address] [place] [address] phone , option #3 [facility] Provider Letter September 19, 2023 JAKOB FUENTES [address] [place] [phone] : 1980 To Whom It May Concern, Please excuse above patient from work. Date of Illness: From: 09/19/2023 To: 09/19/2023 May Return to Work On: 09/20/2023 Restrictions: none Comments: Patient had a surgical procedure on 09/19/[address] Bhagat. Sincerely, [facility] [address] [facility] [place] [address] phone , option #3 [facility] Lab Reportson 09-18-2023 Lab Reports [id number] #1.00TIFF [facility] C Urineon 09-14-2023 Bacteria identified Cx Nom [...] Locations R1: This [facility] performed at: [facility], [address] [place] [address], [phone] , , [facility] Comment on above: Performed By: #### 2 [id number] ####[facility] [address] [place] [address] RAD - MISCon 09-14-2023 RAD - MISC [id number]# 1.00TIFF [facility] BMPon 09-12-2023 Anion gap [Moles/Vol] 10 mmol/L Normal 6-16 [facility] Comment on above: Performed By: #### 2 [id number] #### [facility] [address] [place] [address] Calcium [Mass/Vol] 8.5 mg/dL Low 8.9-11.1 [facility] Comment on above: Performed By: #### 2 [id number] #### [facility] [address] [place] [address] Chloride [Moles/Vol] 108 mmol/L Normal 101-111 [facility] Comment on above: Performed By: #### 2 236203 #### [facility] [address] [place] [address] CO2 [Moles/Vol] 23 mmol/L Normal 21-31 [facility] Comment on above: Performed By: #### 2 950649 #### [facility] [address] [place] [address] Creatinine [Mass/Vol] 0.9 mg/dL Normal 0.5-1.3 [facility] Comment on above: Performed By: #### 2 280244 #### [facility] [address] [place] [address] Glucose [Mass/Vol] 138 mg/dL Normal 55-199 [facility] Comment on above: Performed By: #### 2 237073 #### [facility] [address] [place] [address] Potassium [Moles/Vol] 3.4 mmol/L Low 3.5-5.3 [facility] Comment on above: Performed By: #### 2 155026 #### [facility] [address] [place] [address] Sodium [Moles/Vol] 138 mmol/L Normal 135-145 [facility] Comment on above: Performed By: #### 2 515321 #### [facility] [address] [place] [address] Urea nitrogen [Mass/Vol] 15 mg/dL Normal 5-21 [facility] Comment on above: Performed By: #### 2 761306 #### [facility] [address] [place] [address] Urea nitrogen/Creatinine [Mass ratio] 17 No Units Normal 10-20 [facility] Comment on above: Performed By: #### 2 068252 #### [facility] [address] [place] [address] CBC w/ Auto Diffon 4 Basophils/100 WBC (Bld) 3.4 % High 0.0-2.0 [facility] Comment on above: Performed By: #### 2 115518 #### [facility] [address] [place] [address] Basophils/Leukocytes Auto (Bld) [Pure # fraction] 0.4 E9/L High 0.0-0.2 [facility] Comment on above: Performed By: #### 2 191615 #### [facility] [address] [place] [address] Eosinophils (Bld) [#/Vol] 0.2 E9/L Normal 0.0-0.5 [facility] Comment on above: Performed By: #### 2 951665 #### [facility] [address] [place] [address] Eosinophils/100 WBC (Bld) 1.2 % Normal 0.0-8.0 [facility] Comment on above: Performed By: #### 2 065957 #### [facility] [address] [place] [address] Erythrocyte distribution width (RBC) [Ratio] 13.7 % Normal 10.9-14.2 [facility] Comment on above: Performed By: #### 2 125604 #### [facility] [address] [place] [address] Hematocrit (Bld) [Volume fraction] 39.5 % Normal 37.7-49.0 [facility] Comment on above: Performed By: #### 2 695118 #### [facility] [address] [place] [address] Hemoglobin (Bld) [Mass/Vol] 13.3 g/dL Low 13.5-17.5 [facility] Comment on above: Performed By: #### 2 098675 #### [facility] [address] [place] [address] Lymphocytes (Bld) [#/Vol] 1.0 E9/L Normal 1.0-4.0 [facility] Comment on above: Performed By: #### 2 140612 #### [facility] [address] [place] [address] Lymphocytes/100 WBC (Bld) 7.7 % Low 14.0-50.0 [facility] Comment on above: Performed By: #### 2 088282 #### [facility] [address] [place] [address] MCH (RBC) [Entitic mass] 28.8 pg Normal 27.0-34.0 [facility] Comment on above: Performed By: #### 2 361494 #### [facility] [address] [place] [address] MCHC (RBC) [Mass/Vol] 33.8 g/dL Normal 31.4-36.0 [facility] Comment on above: Performed By: #### 2 192850 #### [facility] [address] [place] [address] MCV (RBC) [Entitic vol] 85.4 fL Normal 80.0-100.0 [facility] Comment on above: Performed By: #### 2 150924 #### [facility] [address] [place] [address] Monocytes (Bld) [#/Vol] 1.1 E9/L High 0.2-1.0 [facility] Comment on above: Performed By: #### 2 985497 #### [facility] [address] [place] [address] Neutrophils (Bld) [#/Vol] 10.5 E9/L High 2.0-7.5 [facility] Comment on above: Performed By: #### 2 036037 #### [facility] [address] [place] [address] Neutrophils/100 WBC (Bld) 79.2 % High 36.0-75.0 [facility] Comment on above: Performed By: #### 2 007018 #### [facility] [address] [place] [address] Platelet 225.0 E9/L Normal 150.0-500.0 [facility] Comment on above: Performed By: #### 2 711730 #### [facility] [address] [place] [address] Platelet mean volume (Bld) [Entitic vol] 7.5 fL Normal 6.4-10.8 [facility] Comment on above: Performed By: #### 2 401401 #### [facility] [address] [place] [address] RBC (Bld) [#/Vol] 4.6 E12/L Normal 4.3-5.9 [facility] Comment on above: Performed By: #### 2 466523 #### [facility] [address] [place] [address] WBC corrected for nucl RBC Auto (Bld) [#/Vol] 13.3 E9/L High 4.0-11.0 [facility] Comment on above: Performed By: #### 2 361299 #### [facility] [address] [place] [address] CHEMISTRYOrdered By: SYSTEM SYSTEM on 09-12-2023 Anion [...] ml's: 100 Rectal Contrast Given? No [facility] Consent for Procedure/Surger yon 09-12-2023 Consent for Procedure/Surgery [id number] #1.00TIFF Normal [facility] Consent for Treatmenton 08-16 Consent for Treatment [id number] #1.00TIFF [facility] Discharge Instructionson Discharge Instructions [id number]#1.00TIFF Normal [facility] ED Clinical Summaryon 2023 ED Clinical Summary [place] [id number] ED Clinical Summary Person Information Name: JAKOB FUENTES [facility] Age: 43 Years : 1980 Sex: Male Language: Turkish PCP: [facility] Marital Status: Visit Id: Visit Reason: [...] 09/12/2023 03:15:33 09/12/2023 03:15:33 09/12/2023 03:15:33 ADDRESS: [address] [place] [id number] PHYS DOC NOTES: MEDICAL INFORMATION: Prescriptions Given: [...] Follow up: With: Address: When: Otf BHAGAT [address] [place], [place] [id number] [employer] ([employer] In 3 days 09/15/2023 Comments: Call the [...] pain is worsening. DIAGNOSIS: Colic, ureteral [facility] ED Note-Physicianon 09-12-19 ED Note-Physician Basic [...] Otf BHAGAT In 3 days 09/15/[address] [place], [place] [id number] [facility] (1) Additional Instructions: Call the office of [...] 2 P (more content not included)... [facility] Comment on above: Result Comment: Elec [...] these instructions at home: Medicines ? Take grhj-sio-pldwyln and prescription medicines only as told by [...] recommendations from (more content not included)... Normal [facility] ED Patient Summaryon 024 ED Patient Summary [address] [address] Patient Discharge Instructions Person Information Name: JAKOB FUENTES Age: 43 Years Arrival Date: 09/12/2023 00:09:49 Discharge Diagnosis: Colic, ureteral Primary Care Physician: [facility], [facility] Provider Information Primary Provider: Zechariah Perales DO [employer] Feeder:June The exam and treatment you received in the Emergency Department were for an urgent problem and are not intended as complete care. It is important that you follow up with a doctor, nurse practitioner, or physician?s plumber assistant for ongoing care. If your symptoms [...] Follow-up Instructions: With: Address: When: Otf BHAGAT [address] [place] [address] Business (1) In 3 days 09/15/2023 Comments: Call [...] opioids can be used to help relieve xhsibbrx-kc-tlcolu pain and are often prescribed following a [...] your pain. (more content not included)... [facility] HEMATOLOGYOrdered By: SYSTEM SYSTEM on 09-12-2023 [...] Remisol Heme Monitor Recordon 09-12-2023 Monitor Record [id number] 4#1.00TIFF [facility] Operative Reporton 4 Operative Report [id number] #1.00TIFF [facility] RAD - Preliminary Cat Scan R eporton 09-12-2023 RAD - Preliminary Cat Scan Report [id number] 7#1.00TIFF [facility] UA with Cult Rflxon 09-12-19 24 Bilirubin Ql (U) Negative Normal Negative [facility] Comment on above: Performed By: #### 4 [id number] #### [facility] [address] [place] [address] Clarity (U) Turbid Abnormal Clear [facility] Comment on above: Performed By: #### 4 [id number] #### [facility] [address] [place] [address] Color (U) Dark-Brown Abnormal Yellow [facility] Comment on above: Result Comment: Micr oscopic readings are only performed on those samples that meet specific criteria set forth by [facility]. Performed By: #### 4 [id number] #### [facility] [address] [place] [address] Glucose Ql (U) Negative Normal Negative [facility] Comment on above: Performed By: #### 4 [id number] #### [facility] [address] [place] [address] Hemoglobin Auto test strip (U) [Mass/Vol] 3+ mg/dL Abnormal Negative [facility] Comment on above: Performed By: #### 4 [id number] #### [facility] [address] [place] [address] Ketones Auto test strip Ql (U) 2+ mg/dL Abnormal Negative [facility] Comment on above: Performed By: #### 4 [id number] #### [facility] [address] [place] [address] Leukocyte esterase Auto test strip Ql (U) 500 Roberto/uL Abnormal Negative [facility] Comment on above: Performed By: #### 4 [id number] #### [facility] [address] [place] [address] Mucus Auto Ql (U) 2+ [id number] Abnormal Negative [facility] Comment on above: Performed By: #### 4 [id number] #### [facility] [address] [place] [address] Nitrite Auto test strip Ql (U) Negative Normal Negative [facility] Comment on above: Performed By: #### 4 [id number] #### [facility] [address] [place] [address] pH (U) 6.0 [pH] Invalid Interpretation Code 5.0-9.0 [facility] Comment on above: Performed By: #### 4 [id number] #### [facility] [address] [place] [address] Protein Ql (U) 1+ mg/dL Abnormal Negative [facility] Comment on above: Performed By: #### 4 [id number] #### [facility] [address] [place] [address] RBC Ql (U) >75 Abnormal 0-3 [facility] Comment on above: Performed By: #### 4 [id number] #### [facility] [address] [place] [address] Specific gravity (U) [Rel density] 1.011 Invalid Interpretation Code 1.005-1.030 [facility] Comment on above: Performed By: #### 4 [id number] #### [facility] [address] [place] [address] Urobilinogen (U) [Mass/Vol] Negative Normal Negative [facility] Comment on above: Performed By: #### 4 [id number] #### [facility] [address] [place] [address] WBC Auto (Urine sed) [#/Area] 6-15 Abnormal 0-5 [facility] Comment on above: Performed By: #### 4 [id number] #### [facility] [address] [place] [id number] Type of Urine collection method Clean Catch Normal [facility] Comment on above: Performed By: #### 4 [id number] #### [facility] [address] [place] [address] URINALYSISOrdered By: SYSTEM SYSTEM on 09-12-2023 Bilirubin Ql (U) Negative Normal Negativemg/ d L [facility] UA Auto SS Clarity (U) Turbid *ABN* (09/12/23 1:11 AM) Invalid Interpretation Code Clear [facility] UA Auto SS Color (U) Dark-Brown 1 *ABN* (09/12/23 1:11 AM) Invalid Interpretation Code Yellow [facility] UA Auto SS Comment on above: Interpretive Data: M icroscopic readings are only performed on those samples that meet specific criteria set forth by [facility]. Glucose Ql (U) Negative Normal Negativemg/d L [facility] UA Auto SS Hemoglobin Auto test strip (U) [Mass/Vol] 3+ mg/dL Invalid Interpretation Code Negativemg/d L [facility] UA Auto SS Ketones Auto test strip Ql (U) 2+ mg/dL Invalid Interpretation Code Negativemg/d L [facility] UA Auto SS Leukocyte esterase Auto test strip Ql (U) 500 Roberto/uL Roberto/uL Invalid Interpretation Code NegativeLeu/ uL [facility] UA Auto SS Mucus Auto Ql (U) [...] Desc Clean Catch (09/12/23 1:11 AM) Normal [facility] UA Auto SS Work Phone: eGFRon 09-12-2023 eGFR 110 mL/min/1.73 m2 Normal >=59 [facility] Comment on above: Order Comment: Order added by Discern Expert. Performed By: #### 1 [id number] #### [facility] [address] [place] [address] C Urineon 09-11-2023 Bacteria identified Cx Nom [...] Locations R1: This test was performed at: [facility], [address] [place] [address], [address] , [place], Normal [facility] Comment on above: Performed By: #### 2 [id number] #### [facility] [address] [place] [address] BMPon 09-10-2023 Anion gap [Moles/Vol] 10 mmol/L Normal 6-16 [facility] Comment on above: Performed By: #### 2 [id number] #### [facility] [address] [place] [address] Calcium [Mass/Vol] 8.6 mg/dL Low 8.9-11.1 [facility] Comment on above: Performed By: #### 2 [id number] #### [facility] [address] [place] [address] Chloride [Moles/Vol] 107 mmol/L Normal 101-111 [facility] Comment on above: Performed By: #### 2 [id number] #### [facility] [address] [place] [address] CO2 [Moles/Vol] 26 mmol/L Normal 21-31 [facility] Comment on above: Performed By: #### 2 [id number] #### [facility] [address] [place] [address] Creatinine [Mass/Vol] 1.0 mg/dL Normal 0.5-1.3 [facility] Comment on above: Performed By: #### 2 [id number] #### [facility] [address] [place] [address] Glucose [Mass/Vol] 102 mg/dL Normal 55-199 [facility] Comment on above: Performed By: #### 2 [id number] #### [facility] [address] [place] [address] Potassium [Moles/Vol] 3.6 mmol/L Normal 3.5-5.3 [facility] Comment on above: Performed By: #### 2 [id number] #### [facility] [address] [place] [address] Sodium [Moles/Vol] 139 mmol/L Normal 135-145 [facility] Comment on above: Performed By: #### 2 941503 #### [facility] [address] [place] [address] Urea nitrogen [Mass/Vol] 11 mg/dL Normal - [facility] Comment on above: Performed By: #### 2 [id number] #### [facility] [address] [place] [address] Urea nitrogen/Creatinine [Mass ratio] 11 No Units Normal - [facility] Comment on above: Performed By: #### 2 [id number] #### [facility] [address] [place] [address] Consent for Treatmenton 08-16 Consent for Treatment [id number] #1.00TIFF Normal [facility] Discharge Instructionson Discharge Instructions [id number] 7#1.00TIFF Normal [facility] ED Clinical Summaryon 2023 ED Clinical Summary [address] [address] ED Clinical Summary Person Information Name: JAKOB FUENTES [facility] Age: 43 Years : 1980 Sex: Male Language: Turkish PCP: [facility] Marital Status: Visit Id: Visit Reason: [...] 09/10/2023 01:12:12 09/10/2023 01:12:12 09/10/2023 01:12:12 ADDRESS: [address] [place] [id number] PHYS DOC NOTES: MEDICAL INFORMATION: Prescriptions Given: New Medications [id number], [address] [place], [place] [id number], [phone] ketorolac (ketorolac 10 mg Tab) 1 Tablets By Mouth every 6 hours as needed for pain. Refills: 0. ondansetron (Zofran ODT 4 mg Tab-Dis) 1 Tablets By Mouth every 8 hours. Refills: 0. Medications to Continue Taking That Have Changed [facility] #[id number], [address] [place], [place] [id number], [phone] START: acetaminophen-oxycod one (Percocet 5 mg-325 mg [...] EDUCATION INFORMATION: Instructions: Urinary Tract Infection, Adult, Iksu-yi-Fktn; Renal Colic, Prnl-ym-Owsh Follow up: With: Address: When: Otf BHAGAT [address] [place], [place] [id number] [facility] (1) In 3 days 09/13/2023 Comments: Stop taking the Keflex and you can start taking the Cipro as prescribed to completed the course. You can use the pain medication as prescribed as needed for pain. Please follow-up with Dr. Bhagat for further evaluation and management. Please return to the ED for any new or worsening symptoms. With: Address: When: [place] [id number] [facility] (1) In 3 days DIAGNOSIS: Acute UTI; Ureteral colic Normal [facility] ED Note-Physicianon 09-10-19 ED Note-Physician Basic [...] and Complexity of Problems Differential Diagnosis: [] [facility] Data External documents reviewed: [] My EKG [...] for 3 day(s), 12 tab(s), Refill(s) 0, [id number], 182, cm, 09/09/23 23:02:00 EDT, Height/Length Dosing, 65.8, kg, 09/09/23 23:02:00 EDT, Weight Dosing ciprofloxacin, 500 mg = 1 tab(s), Oral, BID, # 28 tab(s), Refills(s) 0, [facility] #[id number], 182, cm, 09/09/23 23:02:00 EDT, Height/Length Dosing, 65.8, kg, 09/09/23 23:02:00 EDT, Weight Dosing ketorolac, 10 mg = 1 tab(s), Oral, q6hr, PRN for pain, # 20 tab(s), Refills(s) 0, [facility]: [facility] #[id number], 182, cm, 09/09/23 23:02:00 EDT, Height/Length Dosing, [...] q8hr, # 12 tab(s), Refills(s) 0, Pharmacy: [facility] #[id number], 182, cm, 09/09/23 23:02:00 EDT, Height/Length Dosing, [...] mL 1,00 (more content not included)... Normal [facility] Comment on above: Result Comment: Elec [...] these instructions at home: Medicines ? Take eqmn-xrx-gxxngee and prescription medicines only as told by [...] provider. Document Revised: 11/13/2020 Document Reviewed: 11/13/2020 [employer] Patient Education ? 2022 [employer]. Urology Renal Colic Renal colic is pain that is caused by a kidney stone. The pain can be sharp and very bad. It may be felt in the back, belly, side (flank), or groin. It can cause nausea. Renal colic can come and go. Follow these instructions at home: Medicines ? Take hagp-nym-iyzmomc and prescription medicines only as told by [...] avoid. General (more content not included)... Normal [facility] ED Patient Summaryon 024 ED Patient Summary [address] [address] Patient Discharge Instructions Person Information Name: JAKOB FUENTES Age: 43 Years Arrival Date: 09/09/2023 22:51:40 Discharge Diagnosis: Acute UTI; Ureteral colic Primary Care Physician: [facility] Department, [facility] Provider Information Primary Provider: Avelina Gonzalez DO [employer] Feeder:None The exam and treatment you received in the Emergency Department were for an urgent problem and are not intended as complete care. It is important that you follow up with a doctor, nurse practitioner, or physician?s plumber assistant for ongoing care. If your symptoms [...] Follow-up Instructions: With: Address: When: Otf BHAGAT [address] [place] [address] [facility] (1) In 3 days 09/13/2023 Comments: Stop taking the Keflex and you can start taking the Cipro as prescribed to completed the course. You can use the pain medication as prescribed as needed for pain. Please follow-up with Dr. Bhagat for further evaluation and management. Please return to the ED for any new or worsening symptoms. With: Address: When: [address] [address] [facility] (1) In 3 days In the event that this physician does not participate in your insurance network, please consult with your insurance company to find a nearby participating provider. Patient Education Materials: Urinary Tract Infection, Adult, Krxw-js-Odqi; Renal Colic, Ctxs-xy-Wviw A MESSAGE TO ALL PATIENTS REGARDING OPIOIDS PRESCRIPTION OPIOIDS: WHAT YOU NEED TO KNOW Prescription opioids can be used to help relieve ckfogyuw-kf-giojap pain and are often prescribed following a [...] unused presc (more content not included)... Normal [facility] UA with Cult Rflxon 09-10-19 24 Bilirubin Ql (U) Negative Normal Negative [facility] Comment on above: Performed By: #### 4 [id number] #### [facility] [address] [place] [address] Clarity (U) Ex.Turbid Abnormal Clear [facility] Comment on above: Performed By: #### 4 [id number] #### [facility] [address] [place] [address] Color (U) Dark-Brown Abnormal Yellow [facility] Comment on above: Result Comment: Micr oscopic readings are only performed on those samples that meet specific criteria set forth by [facility]. Performed By: #### 4 [id number] #### [facility] [address] [place] [address] Glucose Ql (U) Negative Normal Negative [facility] Comment on above: Performed By: #### 4 [id number] #### [facility] [address] [place] [address] Hemoglobin Auto test strip (U) [Mass/Vol] 3+ mg/dL Abnormal Negative [facility] Comment on above: Performed By: #### 4 [id number] #### [facility] [address] [place] [address] Ketones Auto test strip Ql (U) Trace Abnormal Negative [facility] Comment on above: Performed By: #### 4 [id number] #### [facility] [address] [place] [address] Leukocyte clumps Auto (Urine sed) [#/Area] >30 Abnormal [facility] Comment on above: Performed By: #### 4 [id number] #### [facility] [address] [place] [address] Leukocyte esterase Auto test strip Ql (U) 250 Roberto/uL Abnormal Negative [facility] Comment on above: Performed By: #### 4 [id number] #### [facility] [address] [place] [address] Mucus Auto Ql (U) 2+ [id number] Abnormal Negative [facility] Comment on above: Performed By: #### 4 [id number] #### [facility] [address] [place] [address] Nitrite Auto test strip Ql (U) Negative Normal Negative [facility] Comment on above: Performed By: #### 4 [id number] #### [facility] [address] [place] [address] pH (U) 7.5 [pH] Invalid Interpretation Code 5.0-9.0 [facility] Comment on above: Performed By: #### 4 [id number] #### [facility] [address] [place] [address] Protein Ql (U) 2+ mg/dL Abnormal Negative [facility] Comment on above: Performed By: #### 4 [id number] #### [facility] [address] [place] [address] RBC Ql (U) >75 Abnormal 0-3 [facility] Comment on above: Performed By: #### 4 [id number] #### [facility] [address] [place] [address] Specific gravity (U) [Rel density] 1.011 Invalid Interpretation Code 1.005-1.030 [facility] Comment on above: Performed By: #### 4 [id number] #### [facility] [address] [place] [address] Urobilinogen (U) [Mass/Vol] Negative Normal Negative [facility] Comment on above: Performed By: #### 4 [id number] #### [facility] [address] [place] [address] WBC Auto (Urine sed) [#/Area] >75 Abnormal 0-5 [facility] Comment on above: Performed By: #### 4 [id number] #### [facility] [address] [place] [address] Type of Urine collection method Clean Catch Normal [facility] Comment on above: Performed By: #### 4 [id number] #### [facility] [address] [place] [address] XR Abdomen 1 Viewon 09-10-19 XR Abdomen [...] mGy = na DAP = na Normal [facility] eGFRon 09-10-2023 eGFR 97 mL/min/1.73 m2 Normal >=59 [facility] Comment on above: Order Comment: Order added by Discern Expert. Performed By: #### 1 [id number] #### [facility] [address] [place] [address] C Urineon 09-09-2023 Bacteria identified Cx Nom [...] Locations R1: This test was performed at: [facility], [address] [place] [address], [address] , , [facility] Comment on above: Performed By: #### 2 [id number] #### [facility] [address] [place] [address] CHEMISTRYOrdered By: SYSTEM SYSTEM on 09-09-2023 Anion [...] Cx Nom (U) No growth to date [facility] URINALYSISOrdered By: SYSTEM SYSTEM on 09-09-2023 Bilirubin [...] that meet specific criteria set forth by [facility]. Glucose Ql (U) Negative Normal [...] Auto SS Work Phone: Patient Educationon 09-08-19 Patient Education Nephrology Laser Therapy for Kidney [...] these instructions at home: Medicines ? Take yjqj-eeo-eulnlnb and prescription medicines only as told by [...] or treat constipation, such as: ? Take fmpc-qja-snqcvxq or prescription medicines. ? Eat foods that [...] provider. Document Revised: 08/10/2022 Document Reviewed: 12/06/2021 [employer] Patient Education ? 2022 [employer] Laser Therapy for Kidney Stones Laser therapy [...] including vitamins, herbs, eye drops, creams, and gluj-dit-wcvmmqf medicines. ? Any problems you or family [...] kidney st (more content not included)... Normal [facility] Urology Office/Clinic Noteon 09-08-2023 Urology Office/Clinic Note Chief Complaint 9mm calculus proximal left [facility] HPI Staff New pt f/u from [facility] ED visit 09/07/23 for left sided flank [...] male new pt here for f/u to [facility] ER due to an ureteral stone. No hx of UTIs. 1. Ureteral stone (N20.1: Calculus of ureter) [facility] ER 09/07/23 due to L flank pain. [...] Will order General anesthesia. Pt works for [employer] and would like to have some time to recover from procedure. Advised pt he can return to work Monday. -Increase fluid intake -Stones to be sent [...] Discussed metabo (more content not included)... Normal [facility] Comment on above: Result Comment: Elec tronically Signed By: DU GREENE, Otf Quintanilla\.br\Date and Time Signed: 09/08/23 08:25 EDT\.br\Electronically Co-Signed By: Juliane Sims\.br\Date and Time Co-Signed: 09/08/23 08:23 EDT BMPon 09-07-2023 Anion gap [Moles/Vol] 13 mmol/L Normal 6-16 [facility] Comment on above: Performed By: #### 2 [id number] #### [facility] [address] [place] [address] Calcium [Mass/Vol] 9.5 mg/dL Normal 8.9-11.1 [facility] Comment on above: Performed By: #### 2 [id number] #### [facility] [address] [place] [address] Chloride [Moles/Vol] 108 mmol/L Normal 101-111 [facility] Comment on above: Performed By: #### 2 [id number] #### [facility] [address] [place] [address] CO2 [Moles/Vol] 22 mmol/L Normal 21-31 [facility] Comment on above: Performed By: #### 2 [id number] #### [facility] [address] [place] [address] Creatinine [Mass/Vol] 0.9 mg/dL Normal 0.5-1.3 [facility] Comment on above: Performed By: #### 2 [id number] #### [facility] [address] [place] [address] Glucose [Mass/Vol] 123 mg/dL Normal 55-199 [facility] Comment on above: Performed By: #### 2 361981 #### [facility] [address] [place] [address] Potassium [Moles/Vol] 4.0 mmol/L Normal 3.5-5.3 [facility] Comment on above: Performed By: #### 2 [id number] #### [facility] [address] [place] [address] Sodium [Moles/Vol] 139 mmol/L Normal 135-145 [facility] Comment on above: Performed By: #### 2 [id number] #### [facility] [address] [place] [address] Urea nitrogen [Mass/Vol] 14 mg/dL Normal 5-21 [facility] Comment on above: Performed By: #### 2 [id number] #### [facility] [address] [place] [address] Urea nitrogen/Creatinine [Mass ratio] 16 No Units Normal 10-20 [facility] Comment on above: Performed By: #### 2 250216 #### [facility] [address] [place] [address] CBC w/ Auto Diffon 4 Basophils/100 WBC (Bld) 0.9 % Normal 0.0-2.0 [facility] Comment on above: Performed By: #### 2 798736 #### [facility] [address] [place] [address] Basophils/Leukocytes Auto (Bld) [Pure # fraction] 0.1 E9/L Normal 0.0-0.2 [facility] Comment on above: Performed By: #### 2 128610 #### [facility] [address] [place] [address] Eosinophils (Bld) [#/Vol] 0.2 E9/L Normal 0.0-0.5 [facility] Comment on above: Performed By: #### 2 237390 #### [facility] [address] [place] [address] Eosinophils/100 WBC (Bld) 2.1 % Normal 0.0-8.0 [facility] Comment on above: Performed By: #### 2 280236 #### [facility] [address] [place] [address] Erythrocyte distribution width (RBC) [Ratio] 14.3 % High 10.9-14.2 [facility] Comment on above: Performed By: #### 2 134292 #### [facility] [address] [place] [address] Hematocrit (Bld) [Volume fraction] 48.9 % Normal 37.7-49.0 [facility] Comment on above: Performed By: #### 2 112749 #### [facility] [address] [place] [address] Hemoglobin (Bld) [Mass/Vol] 16.6 g/dL Normal 13.5-17.5 [facility] Comment on above: Performed By: #### 2 231854 #### [facility] [address] [place] [address] Lymphocytes (Bld) [#/Vol] 2.0 E9/L Normal 1.0-4.0 [facility] Comment on above: Performed By: #### 2 883916 #### [facility] [address] [place] [address] Lymphocytes/100 WBC (Bld) 16.9 % Normal 14.0-50.0 [facility] Comment on above: Performed By: #### 2 199995 #### [facility] [address] [place] [address] MCH (RBC) [Entitic mass] 28.9 pg Normal 27.0-34.0 [facility] Comment on above: Performed By: #### 2 386092 #### [facility] [address] [place] [address] MCHC (RBC) [Mass/Vol] 33.8 g/dL Normal 31.4-36.0 [facility] Comment on above: Performed By: #### 2 071987 #### [facility] [address] [place] [address] MCV (RBC) [Entitic vol] 85.3 fL Normal 80.0-100.0 [facility] Comment on above: Performed By: #### 2 [id number] #### [facility] [address] [place] [address] Monocytes (Bld) [#/Vol] 0.7 E9/L Normal 0.2-1.0 [facility] Comment on above: Performed By: #### 2 [id number] #### [facility] [address] [place] [address] Neutrophils (Bld) [#/Vol] 8.5 E9/L High 2.0-7.5 [facility] Comment on above: Performed By: #### 2 237459 #### [facility] [address] [place] [address] Neutrophils/100 WBC (Bld) 73.8 % Normal 36.0-75.0 [facility] Comment on above: Performed By: #### 2 285198 #### [facility] [address] [place] [address] Platelet mean volume (Bld) [Entitic vol] 7.7 fL Normal 6.4-10.8 [facility] Comment on above: Performed By: #### 2 942585 #### [facility] [address] [place] [address] Platelets (Bld) [#/Vol] 226.0 E9/L Normal 150.0-500.0 [facility] Comment on above: Performed By: #### 2 555840 #### [facility] [address] [place] [address] RBC (Bld) [#/Vol] 5.7 E12/L Normal 4.3-5.9 [facility] Comment on above: Performed By: #### 2 738071 #### [facility] [address] [place] [address] WBC corrected for nucl RBC Auto (Bld) [#/Vol] 11.5 E9/L High 4.0-11.0 [facility] Comment on above: Performed By: #### 2 460853 #### [facility] [address] [place] [address] CHEMISTRYOrdered By: SYSTEM SYSTEM on 09-07-2023 Anion [...] Remisol Chem CT Abdomen/Pelvis w/o Contra ston 09-07-2023 CT Abdomen/Pelvis w/o Contrast Exam Date/Time: [...] No Oral contrast amount in ml's: 0 [facility] Consent for Treatmenton 08-16 Consent for Treatment [id number] #1.00TIFF [facility] Discharge Instructionson Discharge Instructions [id number] 7#1.00TIFF [facility] ED Clinical Summaryon 2023 ED Clinical Summary [address] [address] ED Clinical Summary Person Information Name: JAKOB FUENTES/CarlosMelissa Age: 43 Years : 1980 Sex: Male Language: Turkish PCP: [facility] Department, [facility] Marital Status: Visit Id: Visit Reason: [...] 09/07/2023 07:03:42 09/07/2023 07:03:42 09/07/2023 07:03:42 ADDRESS: [address] [place] [id number] PHYS DOC NOTES: MEDICAL INFORMATION: Prescriptions Given: [...] Follow up: With: Address: When: Otf BHAGAT [address] [place] [phone] [facility] (1) In 3 days 09/10/2023 Comments: Make sure to strain the urine as instructed. Call the office of Dr. Bhagat today for an appointment tomorrow at [facility]. Nothing to eat or drink after midnight tonight. Return to the emergency room if your pain gets worse, vomiting or any new symptoms. Call Dr for diagnosis based follow up DIAGNOSIS: 1:Left ureteral stone; 2:Urinary tract infection Normal [facility] ED Note-Physicianon 09-07-19 ED Note-Physician Basic [...] and Complexity of Problems Differential Diagnosis: [] [facility] Data External documents reviewed: [] My EKG [...] and he will see the patient at [place] office tomorrow morning. The patient is instructed [...] Patient Discharge (more content not included)... Normal [facility] Comment on above: Result Comment: Elec tronically Signed By: Ronnie Singleton, Tyron Babin\.br\Date and Time Signed: 09/07/23 06:59 EDT ED [...] this condition includes: ? Antibiotic medicine. ? Rwwi-sfk-dvdjglr medicines to treat discomfort. ? Drinking enough [...] these instructions at home: Medicines ? Take bpqg-nsn-qijdwtb and prescription medicines only as told by [...] Document Revie (more content not included)... Normal [facility] ED Patient Summaryon 024 ED Patient Summary [place] [id number] Patient Discharge Instructions Person Information Name: JAKOB FUENTES Age: 43 Years Arrival Date: 09/07/2023 04:18:33 Discharge Diagnosis: 1:Left ureteral stone; 2:Urinary tract infection Primary Care Physician: [facility], [facility] Provider Information Primary Provider: Tyron Trujillo M.D. [employer] Feeder:None The exam and treatment you received in the Emergency Department were for an urgent problem and are not intended as complete care. It is important that you follow up with a doctor, nurse practitioner, or physician?s plumber assistant for ongoing care. If your symptoms [...] Otf BHAGAT [address] [place], [place] [id number] [employer] (1) In 3 days 09/10/2023 Comments: Make sure to strain the urine as instructed. Call the office of Dr. Bhagat today for an appointment tomorrow at [facility]. Nothing to eat or drink [...] opioids can be used to help relieve hufipwpi-ws-ddelmv pain and are often prescribed following a [...] the to (more content not included)... Normal [facility] HEMATOLOGYOrdered By: SYSTEM SYSTEM on 09-07-2023 [...] 09-07-2023 RAD - Preliminary Cat Scan Report [id number] 7#1.00TIFF Normal [facility] UA with Cult Rflxon 09-07-19 24 Bilirubin Ql (U) Negative Normal Negative [facility] Comment on above: Performed By: #### 4 [id number] ####[facility] [address] [place] [address] Clarity (U) Ex.Turbid Abnormal Clear [facility] Comment on above: Performed By: #### 4 [id number] ####[address] [address] Color (U) Light-Citrus Abnormal Yellow [facility] Comment on above: Result Comment: Micr oscopic readings are only performed on those samples that meet specific criteria set forth by [facility]. Performed By: #### 4 [id number] ####[facility] [address] [place] [address] Glucose Ql (U) Negative Normal Negative [facility] Comment on above: Performed By: #### 4 [id number] ####[address] [address] Hemoglobin Auto test strip (U) [Mass/Vol] 3+ mg/dL Abnormal Negative [facility] Comment on above: Performed By: #### 4 [id number] ####[facility] [address] [place] [address] Ketones Auto test strip Ql (U) Trace Abnormal Negative [facility] Comment on above: Performed By: #### 4 [id number] ####[facility] [address] [place] [address] Leukocyte esterase Auto test strip Ql (U) 75 Roberto/uL Abnormal Negative [facility] Comment on above: Performed By: #### 4 [id number] ####[facility] [address] [place] [address] Mucus Auto Ql (U) 4+ CD:[id number] Abnormal Negative F [facility] Comment on above: Performed By: #### 4 [id number] ####[id number] [place] [address] Nitrite Auto test strip Ql (U) Negative Normal Negative [facility] Comment on above: Performed By: #### 4 [id number] ####[address] [address] pH (U) 6.5 [pH] Invalid Interpretation Code 5.0-9.0 [facility] Comment on above: Performed By: #### 4 [id number] ####[place] [address] Protein Ql (U) 2+ mg/dL Abnormal Negative [facility] Comment on above: Performed By: #### 4 [id number] ####[place] [id number] RBC Ql (U) >75 Abnormal 0-3 [facility] Comment on above: Performed By: #### 4 [id number] ####[place] [id number] Specific gravity (U) [Rel density] 1.027 Invalid Interpretation Code 1.005-1.030 [facility] Comment on above: Performed By: #### 4 [id number] ####[place] [address] Urobilinogen (U) [Mass/Vol] Negative Normal Negative [facility] Comment on above: Performed By: #### 4 [id number] ####[place] [address] WBC Auto (Urine sed) [#/Area] 6-15 Abnormal 0-5 [facility] Comment on above: Performed By: #### 4 [id number] ####[place] [address] Type of Urine collection method Clean Catch Normal [facility] Comment on above: Performed By: #### 4 [id number] ####[place] [id number] URINALYSISOrdered By: SYSTEM SYSTEM on 09-07-2023 Bilirubin Ql (U) Negative Normal Negativemg/ d L [facility] UA Auto SS Clarity (U) Ex.Turbid *ABN* (09/07/23 4:50 AM) Invalid Interpretation Code Clear [facility] UA Auto SS Color (U) Light-Citrus 1 *ABN* (09/07/23 4:50 AM) Invalid Interpretation Code Yellow [facility]A Auto SS Comment on above: Interpretive Data: M icroscopic readings are only performed on those samples that meet specific criteria set forth by [facility]. Glucose Ql (U) Negative Normal [...] 09-07-2023 eGFR 110 mL/min/1.73 m2 Normal >=59 [facility] Comment on above: Order Comment: Order added by Discern Expert. Performed By: #### 1 [id number] #### [facility] [address] [place] [address] Basic Metabolic Panelon 10-0 Anion gap [Moles/Vol] 8 mmol/L Low 9 - 17 mmol/L [place] Bun/Cre Ratio 14 [place] Calcium [Mass/Vol] 9.9 mg/dL 8.6 - 10. 4 mg/dL [place] Chloride [Moles/Vol] 104 mmol/L 98 - 10 7 mmol/L [place] CO2 [Moles/Vol] 25 mmol/L 20 - 31 mmol/L [place] Creatinine [Mass/Vol] 0.74 mg/dL 0.7 - 1.2 mg/dL [place] GFR >60 >60 mL/min [place] GFR Non- >60 >60 mL/min [place] GFR/1.73 sq M predicted among non-blacks MDRD (S/P/Bld) [Vol rate/Area] NOT REPORTED [place] GFR/1.73 sq M predicted among non-blacks MDRD (S/P/Bld) [Vol rate/Area] [place] Comment on above: Average GFR for 30-3 9 years old: 107 mL/min/1.73sq m Chronic Kidney Disease: <60 mL/min/1.73sq m Kidney failure: <15 mL/min/1.73sq m eGFR calculated using average adult body mass. Additional eGFR calculator available at: http://www.[employer]/multiple_crcl_2012.htm Glucose [Mass/Vol] 91 mg/dL 70 - 99 mg/dL [place] Interpretation and review of laboratory results Abnormal [place] Potassium [Moles/Vol] 4.0 mmol/L 3.7 - 5.3 mmol/L [place] Sodium [Moles/Vol] 137 mmol/L 135 - 144 mmol/L [place] Urea nitrogen [Mass/Vol] 10 mg/dL 6 - 20 mg/d L [place] Basic Metabolic Profon 01-22 (cont.) Normal [facility] Comment on above: Result Comment: Aver age GFR for 30-39 years old: 107 mL/min/1.73sq m Chronic Kidney Disease: <60 mL/min/1.73sq m Kidney failure: <15 mL/min/1.73sq m eGFR calculated using average adult body mass. Additional eGFR calculator available at: http://www.[employer]/multiple_crcl_2012.htm Performed By: #### C DP, BMP, DIME #### [facility] [address] [place] [address] Boiler Room Helper: Jose Luis Gallegos MD Anion gap [Moles/Vol] 8 mmol/L Low 9-17 [facility] Comment on above: Performed By: #### C DP, BMP, DIME #### [facility] [address] [place] [address] Boiler Room Helper: Jose Luis Gallegos MD BUN/CRE Ratio 14 Normal 9-20 [facility] Comment on above: Performed By: #### C DP, BMP, DIME #### [facility] [address] [place] [address] Boiler Room Helper: Jose Luis Gallegos MD Calcium [Mass/Vol] 9.9 mg/dL Normal 8.6-10.4 [facility] Comment on above: Performed By: #### C DP, BMP, DIME #### [facility] [address] [place] [id number] Boiler Room Helper: Jose Luis Gallegos MD Chloride [Moles/Vol] 104 mmol/L Normal 98-107 [facility] Comment on above: Performed By: #### C DP, BMP, DIME #### [facility] [address] [place], [place] [id number] Boiler Room Helper: Jose Luis Gallegos MD CO2 [Moles/Vol] 25 mmol/L Normal 20-31 [facility] Comment on above: Performed By: #### C DP, BMP, DIME #### [facility] [address] [place], [place] [id number] Boiler Room Helper: Jose Luis Gallegos MD Creatinine [Mass/Vol] 0.74 mg/dL Normal 0.70-1.20 [facility] Comment on above: Performed By: #### C DP, BMP, DIME #### [facility] [address] [place] [address] Boiler Room Helper: Jose Luis Gallegos MD GFR, Amer >60 Normal >60 [facility] Comment on above: Performed By: #### C DP, BMP, DIME #### [facility] [address] [place] [address] Boiler Room Helper: Jose Luis Gallegos MD GFR,non Amer >60 Normal >60 [facility] Comment on above: Performed By: #### C DP, BMP, DIME #### [facility] [address] [place] [address] Boiler Room Helper: Jose Luis Gallegos MD Glucose [Mass/Vol] 91 mg/dL Normal 70-99 [facility] Comment on above: Performed By: #### C DP, BMP, DIME #### [facility] [address] [place] [address] Boiler Room Helper: Jose Luis Gallegos MD Potassium [Moles/Vol] 4.0 mmol/L Normal 3.7-5.3 [facility] Comment on above: Performed By: #### C DP, BMP, DIME #### [facility] [address] [place] [address] Boiler Room Helper: Jose Luis Gallegos MD Sodium [Moles/Vol] 137 mmol/L Normal 135-144 [facility] Comment on above: Performed By: #### C DP, BMP, DIME #### [facility] [address] [place] [address] Boiler Room Helper: Jose Luis Gallegos MD Urea nitrogen [Mass/Vol] 10 mg/dL Normal 6-20 [facility] Comment on above: Performed By: #### C DP, BMP, DIME #### [facility] [address] [address] Boiler Room Helper: Jose Luis Gallegos MD Staging: NOT REPORTED Normal [facility] Comment on above: Performed By: #### C MIRYAM ARRIOLA, DIME #### [facility] [address] [place] [address] Boiler Room Helper: Jose Luis Glalegos MD CBC Auto Differentialon Basophils (Bld) [#/Vol] 0.00 10*3/uL [place] Differential Type YES [place] Platelet mean volume (Bld) [Entitic vol] NOT REPORTED - 12 fL [place] Platelets (Bld) [#/Vol] NOT REPORTED [place] RBC morphology finding Nom (Bld) NOT REPORTED [place] Segmented neutrophils/100 WBC (Bld) 55 % 39 - 75 % [place] Segs Absolute 4.30 [place] WBC (Bld) [#/Vol] NOT REPORTED per 100 WBC [place] WBC Morphology NOT REPORTED [place] CBC with Diffon 01-22-2019 Abs. Basophil 0.00 k/uL Normal 0.0-0.2 [facility] Comment on above: Performed By: #### C DP, BMP, DIME #### [facility] [address] [place] [address] Boiler Room Helper: Jose Luis Gallegos MD Abs.Neutrophil (Seg) 4.30 k/uL Normal 2.1-6.5 [facility] Comment on above: Performed By: #### C DP, BMP, DIME #### [facility] [address] [place] [address] Boiler Room Helper: Jose Luis Gallegos MD Auto Diff Performed YES Normal [facility] Comment on above: Performed By: #### C DP, BMP, DIME #### [facility] [address] [place] [address] Boiler Room Helper: Jose Luis Gallegos MD Neutrophil (Seg) 55 % Normal 39-75 [facility] Comment on above: Performed By: #### C DP, BMP, DIME #### [facility] [address] [place] [address] Boiler Room Helper: Jose Luis Gallegos MD Abs.Imm.Granulocyte NOT REPORTED Normal 0.00-0.30 [facility] Comment on above: Performed By: #### C DP, BMP, DIME #### [facility] [address] [place] [address] Boiler Room Helper: Jose Luis Gallegos MD Immature granulocytes (Bld) [#/Vol] NOT REPORTED Normal 0 [facility] Comment on above: Performed By: #### C DP, BMP, DIME #### [facility] [address] [place] [address] Boiler Room Helper: Jose Luis Gallegos MD NRBC Automated NOT REPORTED Normal [facility] Comment on above: Performed By: #### C DP, BMP, DIME #### [facility] [address] [place] [id number] Boiler Room Helper: Jose Luis Gallegos MD Platelet mean volume (Bld) [Entitic vol] NOT REPORTED Normal 6.0-12.0 [facility] Comment on above: Performed By: #### C DP, BMP, DIME #### [facility] [address] [place] [address] Boiler Room Helper: Jose Luis Gallegos MD Platelets (Bld) [#/Vol] NOT REPORTED Normal [facility] Comment on above: Performed By: #### C DP, BMP, DIME #### [facility] [address] [place] [address] Boiler Room Helper: Jose Luis Gallegos MD RBC morphology finding Nom (Bld) NOT REPORTED Normal [facility] Comment on above: Performed By: #### C DP, BMP, DIME #### [facility] [address] [place] [address] Boiler Room Helper: Jose Luis Gallegos MD WBC Morphology NOT REPORTED Normal [facility] Comment on above: Performed By: #### C DP, BMP, DIME #### [facility] [address] [place] [address] Boiler Room Helper: Jose Luis Gallegos MD Basophils/100 WBC (Bld) 1 % Normal 0-2 [place] Comment on above: Performed By: #### C DP, BMP, DIME #### [facility] [address] [place] [address] Boiler Room Helper: Jose Luis Gallegos MD Eosinophils (Bld) [#/Vol] 0.20 10*3/uL Normal 0.0-0.4 [place] Comment on above: Performed By: #### C DP, BMP, DIME #### [facility] [address] [place] [address] Boiler Room Helper: Jose Luis Gallegos MD Eosinophils/100 WBC (Bld) 3 % Normal 0-5 [place] Comment on above: Performed By: #### C DP, BMP, DIME #### [facility] [address] [place] [address] Boiler Room Helper: Jose Luis Gallegos MD Erythrocyte distribution width (RBC) [Ratio] 14.6 % Normal 12.1-15.2 [place] Comment on above: Performed By: #### C DP, BMP, DIME #### [facility] [address] [place] [address] Boiler Room Helper: Jose Luis Gallegos MD Hematocrit (Bld) [Volume fraction] 46.2 % Normal 41-53 [place] Comment on above: Performed By: #### C DP, BMP, DIME #### [facility] [address] [place] [address] Boiler Room Helper: Jose Luis Gallegos MD Hemoglobin (Bld) [Mass/Vol] 15.5 g/dL Normal 13.5-17.5 [place] Comment on above: Performed By: #### C DP, BMP, DIME #### [facility] [address] [place] [address] ([phone] Boiler Room Helper: Jose Luis Gallegos MD Lymphocytes (Bld) [#/Vol] 2.40 10*3/uL Normal 1.0-4.8 [place] Comment on above: Performed By: #### C DP, BMP, DIME #### [facility] [address] [place] [address] Boiler Room Helper: Jose Luis Gallegos MD Lymphocytes/100 WBC (Bld) 32 % Normal 13-44 [place] Comment on above: Performed By: #### C DP, BMP, DIME #### [facility] [address] [place] [address] Boiler Room Helper: Jose Luis Gallegos MD MCH (RBC) [Entitic mass] 28.5 pg Normal 26-34 [place] Comment on above: Performed By: #### C DP, BMP, DIME #### [facility] [address] [place] [address] [phone] Boiler Room Helper: Jose Luis Gallegos MD MCHC (RBC) [Mass/Vol] 33.5 g/dL Normal 31-37 [place] Comment on above: Performed By: #### C DP, BMP, DIME #### [facility] [address] [place] [address] [phone] Boiler Room Helper: Jose Luis Gallegos MD MCV (RBC) [Entitic vol] 85.1 fL Normal 80-100 [place] Comment on above: Performed By: #### C DP, BMP, DIME #### [facility] [address] [place] [address] Boiler Room Helper: Jose Luis Gallegos MD Monocytes (Bld) [#/Vol] 0.70 10*3/uL Normal 0.0-1.0 [place] Comment on above: Performed By: #### C DP, BMP, DIME #### [facility] [address] [place] [address] ([phone] Boiler Room Helper: Jose Luis Gallegos MD Monocytes/100 WBC (Bld) 9 % Normal 5-9 [place] Comment on above: Performed By: #### C DP, BMP, DIME #### [facility] [address] [place] [address] [phone] Boiler Room Helper: Jose Luis Gallegos MD Platelets (Bld) [#/Vol] 230 10*3/uL Normal 140-450 [place] Comment on above: Performed By: #### C DP, BMP, DIME #### [facility] [address] [place] [address] ([phone] Boiler Room Helper: Jose Luis Gallegos MD RBC (Bld) [#/Vol] 5.43 10*6/uL Normal 4.5-5.9 [place] Comment on above: Performed By: #### C DP, BMP, DIME #### [facility] [address] [place] [address] ([phone] Boiler Room Helper: Jose Luis Gallegos MD WBC (Bld) [#/Vol] 7.6 10*3/uL Normal 3.5-11.0 [place] Comment on above: Performed By: #### C DP, BMP, DIME #### [facility] [address] [place] [address] [phone] Boiler Room Helper: Jose Luis aGllegos MD D-Dimer Teston 01-22-2019 D-Dimer Test 0.79 mg/L FEU High 0.00-0.50 [facility] Comment on above: Result Comment: Elevated levels [...] By: #### C MIRYAM ARRIOLA DIME #### [facility] [address] [place] [address] Boiler Room Helper: Jose Luis Gallegos MD D-Dimer, Quantitativeon 10 D-Dimer, Quant 0.79 [place] Comment on above: Elevated levels of [...] Interpretation and review of laboratory results Abnormal [place] Otheron 01-22-2019 Immature granulocytes (Bld) [#/Vol] NOT REPORTED 0 % [place] VL DUP LOWER EXTREMITY VENOU S [...] 01/22/19 Edited Result - FINAL Normal [facility] Radiology exam is complete. No Radiologist dictation. Please follow up with ordering provider. [facility] [place] XR FEMUR RIGHT (MIN 2 VIEWS) on [...] MD 01/22/19 Edited Result - FINAL Normal [facility] RIGHT FEMUR AP, LATERAL (4 IMAGES), 01/22/2019 CLINICAL INDICATION: Femur area pain. COMPARISON EXAMINATION: None. FINDINGS: No fracture or stress injury is identified. No bone destructive focus is evident. Hip joint spacing and knee joint spacing looks appropriate [place] Kang, [facility] Incoming Radiant Results From [employer] - 01/22/2019 2:37 PM EDT RIGHT FEMUR AP, LATERAL (4 IMAGES), 01/22/2019 CLINICAL INDICATION: Femur area pain. COMPARISON EXAMINATION: None. FINDINGS: No fracture or stress injury is identified. No bone destructive focus is evident. Hip joint spacing and knee joint spacing looks appropriate IMPRESSION: No acute process in the femur is demonstrated. [place] No acute process in the femur is demonstrated. [place] Progress Noteon 11-15-2017 HIM IP Note OR Neuro Psych Sales Specialist Normal [facility] Progress Noteon 10-26-2017 HIM IP Note OR Neuro Psych Sales Specialist Normal [facility] Vital Signs Date Time Vital Sign Value Performing Clinician Facility 11-17-2023 17:35-0400 Hourly Rounding Nic SIMPSON [facility] 11-17-2023 16:00-0400 Heart rate 65 /min Nic SIMPSON [facility] 11-17-2023 16:00-0400 SaO2% (BldA) [Mass fraction] 98 % Nic SIMPSON [facility] 11-17-2023 16:00-0400 Hourly Rounding Nic COOK [facility] 11-17-2023 16:00-0400 Promise to Return Nic COOK [facility] 11-17-2023 15:58-0400 Body temperature 97.7 [degF] Nic COOK [facility] 11-17-2023 15:58-0400 Diastolic blood pressure 70 mm[Hg] Nic COOK [facility] 11-17-2023 15:58-0400 Mean blood pressure 86 mm[Hg] Nic COOK [facility] 11-17-2023 15:58-0400 Systolic blood pressure 118 mm[Hg] Nic COOK [facility] 11-17-2023 15:00-0400 Blood Pressure Location Nic COOK [facility] 11-17-2023 15:00-0400 Hourly Rounding Nic COOK [facility] 11-17-2023 15:00-0400 Promise to Return Nic COOK [facility] 11-17-2023 15:00-0400 Respiratory rate 16 /min Nic COOK [facility] 11-17-2023 14:00-0400 Promise to Return Nic COOK [facility] 11-17-2023 11:14-0400 Heart rate 64 /min Nic COOK [facility] 11-17-2023 11:14-0400 SaO2% (BldA) [Mass fraction] 99 % Nic COOK [facility] 11-17-2023 11:14-0400 Body temperature 97.7 [degF] Nic COOK [facility] 11-17-2023 11:13-0400 Diastolic blood pressure 72 mm[Hg] Nic COOK [facility] 11-17-2023 11:13-0400 Mean blood pressure 90 mm[Hg] Nic COOK [facility] 11-17-2023 11:13-0400 Systolic blood pressure 127 mm[Hg] Nic COOK [facility] 11-17-2023 07:00-0400 Body temperature 97.34 [degF] Nic COOK [facility] 11-17-2023 07:00-0400 Diastolic blood pressure 73 mm[Hg] Nic COOK [facility] 11-17-2023 07:00-0400 Respiratory rate 18 /min Nic COOK [facility] 11-17-2023 07:00-0400 Systolic blood pressure 124 mm[Hg] Nic COOK [facility] 11-17-2023 04:50-0400 Body temperature 97.52 [degF] Nic COOK [facility] 11-17-2023 00:00-0400 Body temperature 97.88 [degF] Nic COOK [facility] 11-16-2023 16:45-0400 Heart rate 57 /min Nic COOK [facility] 11-16-2023 16:04-0400 Mean blood pressure 110 mm[Hg] Nic COOK [facility] 11-16-2023 15:55-0400 Mean blood pressure 108 mm[Hg] Nic COOK [facility] 11-16-2023 15:55-0400 Respiratory rate 18 /min Nic SIMPSON [facility] 11-16-2023 15:45-0400 Mean blood pressure 101 mm[Hg] Nic SIMPSON [facility] 11-16-2023 15:45-0400 Respiratory rate 18 /min Nic SIMPSON [facility] 11-16-2023 15:41-0400 Mean blood pressure 88 mm[Hg] Nic SIMPSON [facility] 11-16-2023 15:41-0400 Respiratory rate 17 /min Nic SIMPSON [facility] 11-16-2023 15:28-0400 Body temperature 97.52 [degF] Nic SIMPSON [facility] 11-16-2023 11:10-0400 Heart rate 79 /min Nic SIMPSON [facility] 10-27-2023 06:15-0400 Diastolic blood pressure 85 mm[Hg] Shabbir Yen [facility] 10-27-2023 06:15-0400 Heart rate 64 /min Shabbir Yen [facility] 10-27-2023 06:15-0400 Mean blood pressure 101 mm[Hg] Shabbir Yen [facility] 10-27-2023 06:15-0400 Respiratory rate 15 /min Shabbir Yen [facility] 10-27-2023 06:15-0400 SaO2% (BldA) [Mass fraction] 99 % Shabbir Yen [facility] 10-27-2023 06:15-0400 Systolic blood pressure 133 mm[Hg] Shabbir Yen [facility] 10-27-2023 05:03-0400 Body temperature 98.24 [degF] Shabbir Yen [facility] 10-27-2023 05:03-0400 Diastolic blood pressure 84 mm[Hg] Shabbir Yen [facility] 10-27-2023 05:03-0400 Heart rate 80 /min Shabbir Yen [facility] 10-27-2023 05:03-0400 Respiratory rate 16 /min Shabbir Yen [facility] 10-27-2023 05:03-0400 SaO2% (BldA) [Mass fraction] 98 % Shabbir Yen [facility] 10-27-2023 05:03-0400 Systolic blood pressure 162 mm[Hg] Shabbir Yen [facility] 09-12-2023 14:00-0400 Heart rate 61 /min Zechariah Diaz [facility] 09-12-2023 14:00-0400 Respiratory rate 19 /min Zechariah Diaz [facility] 09-12-2023 14:00-0400 SaO2% (BldA) [Mass fraction] 96 % Zechariah Diaz [facility] 09-12-2023 03:00-0400 Diastolic blood pressure 70 mm[Hg] Zechariah Diaz [facility] 09-12-2023 03:00-0400 Heart rate 70 /min Zechariah Diaz [facility] 09-12-2023 03:00-0400 Respiratory rate 18 /min Zechariah Diaz [facility] 09-12-2023 03:00-0400 SaO2% (BldA) [Mass fraction] 97 % Zechariah Diaz [facility] 09-12-2023 03:00-0400 Systolic blood pressure 125 mm[Hg] Zechariah Diaz [facility] 09-12-2023 01:15-0400 Diastolic blood pressure 97 mm[Hg] Zechariah Diaz [facility] 09-12-2023 01:15-0400 Heart rate 70 /min Zechariah Diaz [facility] 09-12-2023 01:15-0400 Mean blood pressure 107 mm[Hg] Zechariah Diaz [facility] 09-12-2023 01:15-0400 Respiratory rate 15 /min Zechariah Diaz [facility] 09-12-2023 01:15-0400 SaO2% (BldA) [Mass fraction] 99 % Zechariah Diaz [facility] 09-12-2023 01:15-0400 Systolic blood pressure 128 mm[Hg] Zechariah Diaz [facility] 09-12-2023 00:20-0400 Body temperature 98.24 [degF] Zechariah Diaz [facility] 09-12-2023 00:20-0400 Diastolic blood pressure 88 mm[Hg] Zechariah Diaz [facility] 09-12-2023 00:20-0400 Heart rate 89 /min Zechariah Diaz [facility] 09-12-2023 00:20-0400 Respiratory rate 16 /min Zechariah Diaz [facility] 09-12-2023 00:20-0400 Systolic blood pressure 127 mm[Hg] Zechariah Diaz [facility] 09-10-2023 01:00-0400 Diastolic blood pressure 84 mm[Hg] Kaylinn Dokken [facility] 09-10-2023 01:00-0400 Heart rate 72 /min Kaylinn Dokken [facility] 09-10-2023 01:00-0400 Mean blood pressure 100 mm[Hg] Kaylinn Dokken [facility] 09-10-2023 01:00-0400 Respiratory rate 16 /min Kaylinn Dokken [facility] 09-10-2023 01:00-0400 SaO2% (BldA) [Mass fraction] 97 % Kaylinn Dokken [facility] 09-10-2023 01:00-0400 Systolic blood pressure 132 mm[Hg] Kaylinn Dokken [facility] 09-10-2023 00:30-0400 Diastolic blood pressure 80 mm[Hg] Kaylinn Dokken [facility] 09-10-2023 00:30-0400 Heart rate 68 /min Kaylinn Dokken [facility] 09-10-2023 00:30-0400 Mean blood pressure 96 mm[Hg] Kaylinn Dokken [facility] 09-10-2023 00:30-0400 SaO2% (BldA) [Mass fraction] 96 % Kaylinn Dokken [facility] 09-10-2023 00:30-0400 Systolic blood pressure 128 mm[Hg] Kaylinn Dokken [facility] 05-26-2024 00:00-0400 Diastolic blood pressure 81 mm[Hg] Kaylinn Dokken [facility] 09-10-2023 00:00-0400 Heart rate 75 /min Kaylinn Dokken [facility] 09-10-2023 00:00-0400 Mean blood pressure 95 mm[Hg] Kaylinn Dokken [facility] 09-10-2023 00:00-0400 Systolic blood pressure 123 mm[Hg] Kaylinn Dokken [facility] 09-09-2023 22:59-0400 Body temperature 97.88 [degF] Kaylinn Dokken [facility] 09-09-2023 22:59-0400 Heart rate 84 /min Kaylinn Dokken [facility] 09-09-2023 22:59-0400 Respiratory rate 20 /min Kaylinn Dokken [facility] 09-08-2023 07:58-0400 Blood Pressure Location Otf BHAGAT [facility] 09-08-2023 07:58-0400 Body temperature 98.6 [degF] Otf BHAGAT [facility] 09-08-2023 07:58-0400 Diastolic blood pressure 84 mm[Hg] Otf BHAGAT [facility] 09-08-2023 07:58-0400 Heart rate 86 /min Otf BHAGAT [facility] 09-08-2023 07:58-0400 Respiratory rate 16 /min Otf BHAGAT [facility] 09-08-2023 07:58-0400 Systolic blood pressure 127 mm[Hg] Otf BHAGAT [facility] 09-07-2023 06:59-0400 Heart rate 68 /min [facility] 09-07-2023 06:59-0400 SaO2% (BldA) [Mass fraction] 98 % [facility] [facility] 09-07-2023 06:58-0400 Diastolic blood pressure 70 mm[Hg] [facility] 09-07-2023 06:58-0400 Systolic blood pressure 114 mm[Hg] [facility] 09-07-2023 05:44-0400 Diastolic blood pressure 79 mm[Hg] [facility] 09-07-2023 05:44-0400 Heart rate 50 /min [facility] 09-07-2023 05:44-0400 Mean blood pressure 91 mm[Hg] [facility] 09-07-2023 05:44-0400 SaO2% (BldA) [Mass fraction] 98 % [facility] 09-07-2023 05:44-0400 Systolic blood pressure 115 mm[Hg] [facility] 09-07-2023 04:24-0400 Body temperature 98.24 [degF] [facility] 09-07-2023 04:24-0400 Diastolic blood pressure 82 mm[Hg] [facility] 09-07-2023 04:24-0400 Heart rate 53 /min [facility] 09-07-2023 04:24-0400 Respiratory rate 20 /min [facility] 09-07-2023 04:24-0400 SaO2% (BldA) [Mass fraction] 100 % [facility] 09-07-2023 04:24-0400 Systolic blood pressure 141 mm[Hg] Tyrno Lantiguatyrell [facility] 01-22-2019 13:29-0400 BP Diastolic 79 mm[Hg] [facility] 01-22-2019 13:29-0400 BP Systolic 131 mm[Hg] [facility] 01-22-2019 13:29-0400 Pulse Oximetry 98 % [facility] 01-22-2019 13:28-0400 BMI (Body Mass Index) 19.53 kg/m2 [facility], [place] 01-22-2019 13:28-0400 Body Temperature 98.29 [degF] [facility], [place] 01-22-2019 13:28-0400 Body weight 65.32 kg [place], [place] 01-22-2019 13:28-0400 Height 182.9 cm [facility], [place] 01-22-2019 13:28-0400 Pulse (Heart Rate) 84 /min [place], [place] 01-22-2019 13:28-0400 Respiratory Rate 16 /min [place], [place] Encounters Encounter Date Encounter Type Care Provider Facility Start: 01-10-2024 ambulatory Otf Alexander ty:[facility] Start: 12-28-2023 ambulatory Otf Alexander ty:[id number] Start: 11-28-2023 End: 11-28-2023 ambulatory Otf BHAGAT Facility:CD:[id number] Start: 11-16-2023 End: 11-17-2023 Admission to same day surgery center Nic SIMPSON [facility] Start: 11-16-2023 End: 11-17-2023 ambulatory Nic SIMPSON Facility:[facility] Start: 11-16-2023 Emergency department patient visit Tyron Trujillo Facility:[facility] Start: 10-27-2023 End: 10-27-2023 Emergency department patient visit Shabbir Tomlin Yen [facility] Start: 09-19-2023 End: 09-19-2023 ambulatory Otfjanell BHAGAT Facility:[facility] Start: 09-19-2023 End: 09-19-2023 Patient encounter procedure Otfjanell BHAGAT [facility] Start: 09-18-2023 ambulatory Otfjanell BHAGAT Facility : [facility] Start: 09-12-2023 End: 09-12-2023 Emergency department patient visit Zechariah Perales Facility:[facility] Start: 09-12-2023 End: 09-12-2023 Emergency department patient visit Zechariah Perales [facility] Start: 09-10-2023 End: 09-10-2023 Emergency department patient visit Rhodaariella Jesús Carlos Facility:[facility] Start: 09-09-2023 End: 09-10-2023 [facility] Start: 09-08-2023 End: 09-09-2023 ambulatory Otfjanell BHAGAT Facility:CD:[id number] Start: 09-08-2023 End: 09-09-2023 ambulatory Otfjanell BHAGAT Facility:[facility] Start: 09-08-2023 End: 09-08-2023 Patient encounter procedure Otf BHAGAT [facility] Start: 09-07-2023 End: 09-07-2023 Emergency department patient visit Tyron Trujillo Facility:[facility] Start: 09-07-2023 End: 09-07-2023 Emergency department patient visit Tyron Trujillo [facility] Start: 01-22-2019 End: 01-22-2019 Emergency department patient visit ARCHANA SANCHEZ [facility] Start: 01-22-2019 End: 01-22-2019 Emergency department patient visit Vesrayo Remi Work Phone: [facility] ED Comment on above: Pain of right [...] 12-16-2018 Influenza vaccination Flu vaccine (# 1) [place], [place] Start: 2001 DTaP/Tdap/Td vaccine (1 - Tdap) DTaP/Tdap/Td vaccine (1 - Tdap) [place], [place] Start: 1997 HIV screen HIV screen [place], [place] Start: 1995 Varicella Vaccine (1 of 2 - 13+ 2-dose series) Varicella Vaccine (1 of 2 - 13+ 2-dose series) [place], [place] Start: 02-01-1988 Pneumococcal 0-64 ye ars Vaccine (1 of 1 - PPSV23) Pneumococcal 0-64 years Vaccine (1 of 1 - PPSV23) [place], [place] Payers Date Payer Category Payer Unknown [id number] 2023 Unknown [id number] 2023 Unknown [id number] 2019 Unknown [id number] 2019 Unknown [employer] MED[employer] xxxxxxxxxxxx 2019-Present [phone] CLAIMS DEPARTMENT [address] [place] [address] xxxxxxxxxxxx [id number] 1982 Unknown [id number] 2..840.1.398680.3.579.2.174 1982 Unknown [id number] 2.840.1.598543.3.579.2.727 1982 Unknown [id number] 2..840.1.444668.3.579.2.727 1982 Unknown [id number] 2.16.840.1.261074.3.579.2.727 1982 Unknown [id number] 2.16.840.1.833770.3.579.2.727 1982 Unknown [id number] 2.16.840.1.780496.3.579.2.727 1982 Unknown [id number] 2.16.840.1.517658.3.579.2.727 1982 Unknown [id number] 2.16.840.1.411358.3.579.2.727 1982 Unknown [id number] 2.16.840.1.154635.3.579.2.727 1982 Unknown [id number] 2.16.840.1.017667.3.579.2.727 1982 Unknown [id number] 2.16.840.1.201193.3.579.2.727 1982 Unknown [id number] 2.16.840.1.735985.3.579.2.727 1982 Unknown [id number] 2.16.840.1.405943.3.579.2.727 1982 Unknown [id number] 2.16.840.1.597250.3.579.2.727 1982 Unknown [id number] 2.16.840.1.755823.3.579.2.727 1982 Unknown [id number] 2.16.840.1.784944.3.579.2.727 1982 Unknown [id number] 2.16.840.1.470138.3.579.2.727 1982 Unknown [id number] 2.16.840.1.687935.3.579.2.727 Social History Date Type Detail Facility Start: 01-22-2019 [facility] [place] History of tobacco use Cigarette Smoker [place], [place] Start: 01-22-2019 Cigarettes smoked current (pack per day) - Reported [place] Start: 01-22-2019 Alcohol intake No [facility] Sex Assigned At Not on file [place] Start: 09-07-2023 End: 09-08-2023 Tobacco smoking status Heavy tobacco smoker (finding) [facility] Medical Equipment Procedure Code Equipment Code Equipment Origin al Text Equipment Identifier Dates CYSTOSCOPY RETROGRADE STENT INSERTION Nic SIMPSON MD 11/16/23 Unknown Ureter L {[id number] [id number] FDA Start: 11-16-2023 Functional Status Date Assessment Result Facility 11-16-2023 Functional Status N/A [facility] 11-16-2023 Functional Status [facility] 10-27-2023 Functional Status N/A [facility] 09-12-2023 Functional Status N/A [facility] 09-09-2023 Functional Status N/A [facility] 09-08-2023 Functional Status N/A [facility] 09-07-2023 Functional Status N/A [facility] Clinical Notes 09-07-2023 to 11-17-2023 Note Date [...] informed at 1850 of pt leaving AMA. [facility] 11-16-2023 Note Progress Note-Physic tien Patient: [...] criteria ( From PACU to floor ). [facility] Comment on above: Result Comment: Elec [...] All Problems Ureteral stone / SNOMED CT 28651710 / Confirmed Smoker / SNOMED CT 515448521 / Confirmed Added secondary to documentation in Social History. Denies / SNOMED CT 472493335 / Confirmed History of kidney stones / SNOMED CT 9103492925 / Confirmed Canceled: Gross hematuria / SNOMED CT 154118921 Canceled: Flank pain / SNOMED CT 698684972 Histories Procedure history: appendectomy in 1989 at 10 Years. Social History Social & Psychosocial Habits Alcohol 11/16/2023 Risk Assessment: Denies Alcohol Use Comment: Mahesh. - 09/07/2023 04:44 - Reynaldo ANDREA, Jessica Espinosa Substance Abuse 11/16/2023 Risk Assessment: Denies Substance Abuse Comment: Mahesh. - 09/07/2023 04:44 - Reynaldo ANDREA, Jessica [...] adequate air exchange. Cardiovascular: Regular rhythm. Plan [place] [employer]hesi[employer] (ASA) physical status classification: Class II, E. Anesthetic Preoperative Plan: Anesthesia General. [facility] Comment on above: Result Comment: Elec tronically Signed By: Luis Jones Jr, DO\.moody\Date and Time Signed: 11/16/23 18:24 EDT 11-16-2023 [...] mm left ureteropelvic junction stone by Dr. Bhagat back in August 2023 and had the stent [...] days, # 4 cap(s), Refills(s) 0, Pharmacy: [facility] #[id number], 182, cm, 10/27/23 5:06:00 EDT, Height/Length Dosing, 65.3, kg, 10/27/23 5:06:00 EDT, Weight Dosing naproxen 500 mg Tab: 500 mg = 1 tab(s), Oral, BID, Take one tab by mouth two times a day, # 14 tab(s), Refills(s) 0, Pharmacy: [facility] #[id number], 182, cm, 10/27/23 5:06:00 EDT, Height/Length Dosing, 65.3, kg, 10/27/23 5:06:00 EDT, Weight Dosing Histories Past Medical History: Active Denies (934680232) Family History: No family history items have been selected or recorded. Procedure history: appendectomy in 1989 at 10 Years. Social History Social & Psychosocial Habits Alcohol 11/16/2023 Risk Assessment: Denies Alcohol Use Comment: Denies. - 09/07/2023 04:44 - Jessica Jacobs RN Substance Abuse 11/16/2023 Risk Assessment: Denies Substance Abuse Comment: Denies. - 09/07/2023 04:44 - Jessica Jacobs RN Tobacco 11/16/2023 Tobacco Use: Current Type: Cigarettes [...] options. It is (more content not included)... [facility] Comment on above: Result Comment: Elec [...] 2022 Author:Luis Jones Jr, DO Date:11/16/23 Plan [employer]esthesiologists (ASA) physical status classification: Class II, E. Anesthetic Preoperative Plan: Anesthesia General. Extracted from: Title:ED Note Author:Ronnie Singleton, Tyron Babin Da te:11/16/23 1. Left ureteral stone (N20. 1: [...] Date:01/10/2024 10:30:00 AM Scheduled Provider:Otf BHAGAT MD Location:[facility] Appointment Type:URO Office Visit Future Scheduled Tests Radiology* XR Abdomen 1 View 12/17/23 [facility] 07-12-2024 Evaluation + Plan noteExtracted from: Title:ED [...] Date:01/10/2024 10:30:00 AM Scheduled Provider:Otf BHAGAT MD Location:[facility] Appointment Type:URO Office Visit Diagnostic Tests Pending * Urine Culture 10/27/23 Future Scheduled Tests Radiology* XR Abdomen 1 View 12/17/23 [facility]07-12-2024 Hospital Discharge instructions Follow Up Care 10/27/2023 05:02:01 With:Nic SIMPSON Address: [address] [address]- Business (1) When:10/30/2023 07:50:52 Comments:Call Dr for diagnosis based follow up [facility]06-04-2024 Hospital Discharge instructions Patient Education 09/19/2023 08:17:15 [...] Up Care 09/18/2023 10:10:51 With:Otf BHAGAT Address: [address] [place] [address]- Business (1) When: Unknown Comments:Office will call to schedule follow up [facility]06-04-2024 Note [id number] [facility] 09-19-2023 NoteCustom Cystoscopy with Stent Removal [...] if you have a fever over 100 degrees.[facility] 09-12-2023 Evaluation + Plan noteExtracted from: [...] Diagnostic Tests Pending * Urine Culture 09/12/23 [facility]05-28-2024 Hospital Discharge instructions Patient Education 09/12/2023 02:50:44 [...] Follow these instructions at home: Medicines Take dcxc-ojj-aygrywd and prescription medicines only as told by [...] provider. Document Revised: 07/13/2022 Document Reviewed: 07/13/2022 [employer] Patient Education 2022 [employer]. Follow Up Care 09/12/2023 00:11:24 With:Otf BHAGAT Address: [address] [place], [place] [id number] [facility] (1) When:09/15/2023 Comments:Call the office of [...] 2 Percocets if your pain is worsening. [facility]05-26-2024 Hospital Discharge instructions Patient Education 09/10/2023 01:12:12 Urinary Tract Infection, Adult, Abne-ay-Wmbc Urinary Tract Infection, Adult A urinary tract [...] Follow these instructions at home: Medicines Take gily-xmt-qgvciqv and prescription medicines only as told by [...] provider. Document Revised: 11/13/2020 Document Reviewed: 11/13/2020 [employer] Patient Education 2022 [employer]. 09/10/2023 01:12:12 Renal Colic, Tevj-ob-Xhco Renal Colic Renal colic is pain that is caused by a kidney stone. The pain can be sharp and very bad. It may befelt in the back, belly, side (flank), or groin. It can cause nausea. Renal colic can come and go. Follow these instructions at home: Medicines Take pzei-urc-rcgmiak and prescription medicines only as told by [...] is caused by a kidney stone. Take qmof-ian-muuqzao and prescription medicines only as told by [...] provider. Document Revised: 12/06/2021 Document Reviewed: 12/06/2021 [employer] Patient Education 2022 [employer]. Follow Up Care 09/09/2023 22:53:11 With:Otf BHAGAT Address: [address] [place], [place] [phone] Business (1) When:09/13/2023 Comments:Stop taking the Keflex and you can start taking the Cipro as prescribed to completed the course. You can use the pain medication as prescribed as needed for pain. Please follow-up with Dr. Bhagat forfurther evaluation and management. Please return to the ED for any new or worsening symptoms. With:[facility] Address: [place] [address]- Business (1) When:Within 3 Day(s) [facility]05-25-2024 Evaluation + Plan noteExtracted from: Title:ED Note Author:Carlos SEBASTIAN Kuldipameya Espinosa Date :09/09/23 Acute UTI (N39.0: Urinary tr act infection, site not specified) Ureteral colic (N23: Unspecified renal colic) Orders: acetaminophen-oxycodone, 1 tab(s), Oral, q6hr for 3 day(s), 12 tab(s), Refill(s) 0, [facility] #[id number], 182, cm, 09/09/23 23:02:00 EDT, Height/Length Dosing, 65.8, kg, 09/09/23 23:02:00 EDT, Weight Dosing ciprofloxacin, 500 mg = 1 tab(s), Oral, BID, # 28 tab(s), Refills(s) 0, Pharmacy: [facility] #[id number], 182, cm, 09/09/23 23:02:00 EDT, Height/Length Dosing, 65.8, kg, 09/09/23 23:02:00 EDT, Weight Dosing ketorolac, 10 mg = 1 tab(s), Oral, q6hr, PRN for pain, # 20 tab(s), Refills(s) 0, Pharmacy: [facility] #[id number], 182, cm, 09/09/23 23:02:00 EDT, Height/Length Dosing, [...] q8hr, # 12 tab(s), Refills(s) 0, Pharmacy: [facility] #[id number], 182, cm, 09/09/23 23:02:00 EDT, Height/Length Dosing, [...] Rflx Urine Culture XR Abdomen 1 View [facility]05-24-2024 Hospital Discharge instructions Patient Education 09/08/2023 08:21:02 [...] Follow these instructions at home: Medicines Take yqpm-dvu-najzfqp and prescription medicines only as told by [...] prevent or treat constipation, such as: ?Take azgx-ddo-agqjtvm or prescription medicines. ?Eat foods that are [...] provider. Document Revised: 08/10/2022 Document Reviewed: 12/06/2021 [employer] Patient Education 2022 [employer]. 09/08/2023 08:21:01 Laser Therapy for Kidney Stones [...] including vitamins, herbs, eye drops, creams, and ftpp-ilu-ovnmzsz medicines. Any problems you or family members [...] provider tells you to take them. ?Taking qyqd-ayo-mnxdsbb medicines, vitamins, herbs, and supplements. Eating and [...] provider. Document Revised: 08/10/2022 Document Reviewed: 12/06/2021 [employer] Patient Education 2022 [employer]. Follow Up Care 09/07/2023 08:02:16 With:DU GREENE, Otf Quintanilla, URL Address: [facility] [address], [place] [address] [phone] When: Unknown Comments:sched Cysto/L URS/Laser litho/L stent placement [facility] 05-23-2024 Evaluation + Plan noteExtracted from: Title:ED Note Author:Ronnie Singleton, Tyron Atkinson te:09/07/23 1. Left ureteral stone (N20. 1: [...] Date:09/08/2023 08:00:00 AM Scheduled Provider:Otf BHAGAT MD Location:[facility] Appointment Type:URO Office Visit Diagnostic Tests Pending * Urine Culture 09/07/23 [facility]05-23-2024 Hospital Discharge instructions Patient Education 09/07/2023 07:03:43 [...] Treatment for this condition includes: Antibiotic medicine. Hiea-yap-wiirtcn medicines to treat discomfort. Drinking enough water [...] Follow these instructions at home: Medicines Take kupo-gbk-qzwibds and prescription medicines only as told by [...] provider. Document Revised: 11/13/2020 Document Reviewed: 11/13/2020 [employer] Patient Education 2022 [employer]. 09/07/2023 07:03:43 Kidney Stones Kidney Stones Kidney [...] Follow these instructions at home: Medicines Take cldj-sfc-nqwryfl and prescription medicines only as told by [...] provider. Document Revised: 07/13/2022 Document Reviewed: 07/13/2022 [employer] Patient Education 2022 [employer]. Follow Up Care 09/07/2023 04:20:42 With:Otf BHAGAT Address: [address] [place] [phone] Business (1) When:09/10/2023 06:54:40 Comments:Make sure to strain the urine as instructed. Call the office of [facility] Nothing to eat or drink after midnight tonight. Return to the emergency room if your pain gets worse, vomiting or any new symptoms.Call Dr for diagnosis based [facility] Future App[facility]ments Appointment Date:01/10/2024 10:30:00 AM Scheduled Provider:Otf BHAGAT MD Location:[facility] Appointment Type:URO Office Visit Future Scheduled Tests Radiology* XR Abdomen 1 [facility]17[facility]23 [facility] No data available for this section [facility] No data available for this section [facility] Progress note No data available for this section [facility] Summary Purpose Family History No Family History [...] FoundDocuments on File Type Date Recorded 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 Expl anation Advance Directives and Living Will 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 Discharge Instructions * Instructions* Jethro Ruelas MD [...] section and content) DATE CREATED AUTHOR 11/15/2017 [facility] DATE CREATED AUTHOR AUTHOR'S ORGANIZ ATION 01/23/2019 [facility] Aman rachele DATE CREATED AUTHOR AUTHOR'S ORGANIZ ATION 09/09/2023 [facility] DATE CREATED AUTHOR AUTHOR'S ORGANIZ ATION 09/10/2023 [facility] DATE CREATED AUTHOR AUTHOR'S ORGANIZ ATION 09/11/2023 [facility] DATE CREATED AUTHOR AUTHOR'S ORGANIZ ATION 09/12/2023 [facility] DATE CREATED AUTHOR AUTHOR'S ORGANIZ ATION 09/15/2023 [facility] DATE CREATED AUTHOR AUTHOR'S ORGANIZ ATION 11/02/2023 [facility] DATE CREATED AUTHOR AUTHOR'S ORGANIZ ATION 11/18/2023 [facility] DATE CREATED AUTHOR AUTHOR'S ORGANIZ ATION 11/19/2023 [facility] DATE CREATED AUTHOR AUTHOR'S ORGANIZ ATION 12/06/2023 [facility] Reason for Visit (unrecogniz ed section and content) Reason Comments Leg Pain right leg- x3 days - pain worse today - denies injury Patient Care team informatio n (unrecognized section and content) Personnel Name: [facility] Address: Address: [address] [place] [address] Name: Niya Bearden Personnel Name: [facility] Address: Address: [address] [place] [address] Name: Niya Bearden Personnel Name: [facility] Address: Address: [address] [place] [address] Name: Niya Bearden Personnel Name: [facility] Address: Address: [address] [place] [address] Name: Niya Bearden Personnel Name: [facility] Address: Address: [address] [place] [address] Name: Niya Bearden Personnel Name: [facility] Address: Address: [address] [place] [address] Name: Niya Bearden Personnel Name: [facility] Address: Address: [address] [place] [address] Name: Niya Bearden FOR RECORDS PERTAINING TO [...] BE BASED ON THE PRIMARY CLINICAL RECORDS. [employer] [facility]. provides no warranty or guarantee of the accuracy or completeness of information in this document.
== END 2023-12-12 07:08 | disposition home or self-care (01) ==
LOC: PST 07:08
PROVIDERS: Visit Provider Urology
DX: Z01.818 Encounter for other preprocedural examination (principal); N20.0 Calculus of kidney

== ENCOUNTER 2023-12-28 08:21 | Day surgery (SDC) | payer BC, SELFPAY ==
[2023-12-28] VITALS (9 sets, daily range): BP systolic 117–154; BP diastolic 79–97; PULSE 61–86; TEMP 36.3; O2SAT 94–100; BMI 19.9
[2023-12-28] MEDS: LACTATED RINGER'S SOLUTION 1,000 ML 50 ML IV ×2 (08:47→11:34)
[2023-12-28] MEDS: FAMOTIDINE/PF 20 MG/2 ML VIAL IV (09:03)
[2023-12-28] MEDS: SCOPOLAMINE 1 MG/3 DAYS TRANSDERM PATCH 1 PATCH TD (09:03)
--- NOTE | 2023-12-28 09:30 | XR_ITS ---
[address] [address] Patient Name: JAKOB FUENTES MRN: [id number] date: 1980 Sex: M Assigned Patient Location: [facility] Current Patient Location: [facility] Accession/Order Number: [id number] Exam Date: 12/28/2023 09:40 Report Date: 12/28/2023 11:40 At the request of: GUNNER SANDY Procedure: XR urethrogram retrograde EXAM: XR urethrogram retrograde HISTORY: Left retrograde, left stent placement, left kidney stone COMPARISON: 11/28/2023 TECHNIQUE: 58.71 mg and single image FINDINGS: Single image demonstrates placement of a left ureteral stent, incompletely formed proximally, not visualized distally XR/XR urethrogram retrograde IMPRESSION: Left ureteral stent Electronically authenticated by: ARABELLA BUI Date: 12/28/2023 11:40
[2023-12-28] MEDS: CEFAZOLIN SODIUM 2 GM/50 ML D5W PREMIX IV (09:40)
[2023-12-28] MEDS: IOHEXOL 300 MG/ML - 50 ML BTL INJ (10:40)
--- NOTE | 2023-12-28 10:48 | PM.URSON ---
Urology Surgery Operative Note Operative Note Procedure Date: 12/28/23 Time Out Performed: yes Pre-op Diagnosis: Left renal calculi status post left stent placement. Post-op Diagnosis: other (Left UPJ stenosis) Procedures performed: 1. Cystoscopy. 2. Left retrograde pyelogram. 3. Left ureteroscopy. 4. Rigid dilation of UPJ to 10 Welsh. 5. Left pyeloscopy. 6. Thulium laser lithotripsy of left renal calculi. 7. Stone fragment basket extraction. 8. Left ureteral stent changed to 6 Welsh variable length. Anesthesia: GETA Primary Surgeon: Otf Bhagat Complications: None Estimated blood loss (mL): 10 Findings: 1. Left UPJ stenosis. 2. Left lower pole renal calculi. #3. Meatal stenosis. Specimens: 1. 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 This was taken care of back in August. Several weeks ago he developed flank pain and was stented by Dr. Kenyon. He has some ipsilateral renal calculi in the lower pole. He now presents for ureteroscopic stone manipulation and possible stent change or removal. He has signed an informed consent after risks were explained. Detailed description of Procedure: The patient was brought to the operating room and placed on the operating room table in the supine position. SCDs were placed on the lower extremities and turned on and functioning during the entire case. Timeout was done by all parties in the room. We all agreed upon the patient's identification and the planned procedures for this patient. Genn. anesthesia was then administered. The patient was then repositioned into the modified dorsal lithotomy position. All pressure points were satisfactorily padded. Genitalia were sterilely prepped and draped in usual fashion. I started by passing a 22 Welsh Olympus cystoscope per urethra and into the bladder. He had meatal stenosis but I was able to get the scope through. The stent was not encrusted. It was grasped with a flexible grasper and brought out the urethral meatus. I then slid a Glidewire through the stent into the kidney and removed the old stent. A 10/12 access sheath was passed over the wire and up to the L5 position. The wire and stylette were removed. I then passed a flexible ureteroscope through the access sheath into the ureter. I scoped all the way up to the UPJ and encountered ureteral stenosis. This area was indurated and I was unable to get the 9.7 Welsh flexible ureteroscope through this area. I removed the wire and did a retrograde through the scope and verify that this was the UPJ. The wire was passed back through the scope and into the kidney and the scope was removed. The access sheath was removed. I then used a 8 and 10 Welsh rigid dilator and passed them over the wire to dilate the UPJ. It was difficult but it did dilate. The access sheath was then passed. The scope was then passed and I was able to barely get through the UPJ and into the kidney. I then scoped throughout all the calyces in the upper mid and lower poles. I found a couple stones in the lower pole. I passed 200 ? laser fiber and used the thulium laser on dusting mode at 7 W. I began dusting and the stones then moved into an adjacent calyx which was even further in the lower lateral pole. After numerous attempts I was unable to get the scope anywhere near where these stones were. 0 tip nitinol basket was used and I was able to grasp a few pieces and extract these out for stone analysis. The scope was removed as was the access sheath. The cystoscope was backloaded over the wire and passed into the bladder. I then slid a 6 Welsh variable length ureteral stent over the wire up into the kidney. The wire was removed and there were good curls in the kidney and in the bladder. The bladder was drained of its contents and the scope was then removed. The anesthetic was then reversed. He was then transferred to a [facility] bed and wheeled to PACU in stable condition.
== END 2023-12-28 11:55 | disposition home or self-care (01) ==
PROVIDERS: Visit Provider Urology
PROC: (CPT 918; principal; 2023-12-28 09:30)
DX: N20.0 Calculus of kidney (principal); N35.911 Unspecified urethral stricture, male, meatal; F17.210 Nicotine dependence, cigarettes, uncomplicated
CPT/HCPCS: 52356; 74420; 82365; 99999; J0690; J1100; J1885; J2250; J2405; J2704; J2710; J3010; Q9967